=== PATIENT | female | born 1950 | race African-American/Black ===

== ENCOUNTER → 2020-03-03 15:38 | Outpatient (CLI) | payer MEDICARE, OTHER, SELFPAY ==
--- NOTE | ~2020-03-03 | MM_ITS ---
EXAMINATION: MM screening skyler BI w chiara HISTORY: Screening mammogram TECHNIQUE: Craniocaudal and mediolateral oblique 3-D tomosynthesis images were obtained and synthetic 2-D images were generated. CAD analysis was submitted and interpreted. COMPARISON: No prior mammogram is available for comparison at this institution. BREAST PARENCHYMAL COMPOSITION: There are scattered areas of fibroglandular density. FINDINGS: There are some indeterminate grouped microcalcifications in the lower mid inner left breast at mid depth. Diagnostic left mammogram with magnification views is recommended. No suspicious mass, architectural distortion, malignant calcification, skin thickening or retraction of either breast is noted otherwise. There are scattered bilateral benign calcifications. IMPRESSION: 1. Indeterminate grouped microcalcifications in the left breast 2. Diagnostic left mammogram is recommended. BI-RADS Category 0: Incomplete: Needs additional imaging evaluation. Reviewed, dictated and finalized at location A. LING ENGINEER
== END ==
PROVIDERS: PCP Family Medicine; Visit Provider Family Medicine
DX: Z12.31 Encounter for screening mammogram for malignant neoplasm of breast (principal); R92.8 Other abnormal and inconclusive findings on diagnostic imaging of breast
CPT/HCPCS: 77063; 77067

== ENCOUNTER → 2020-06-08 09:37 | Outpatient (CLI) | payer MEDICARE, OTHER, MEDICAID, SELFPAY ==
--- NOTE | ~2020-06-08 | CT_ITS ---
EXAMINATION: CT abdomen w con DATE: 06/08/2020 10:08 INDICATION: Elevated liver enzymes, generalized abdominal pain. History of hernia repair and bowel re section. TECHNIQUE: Computed tomography (CT) of the abdomen was performed with 100 cc Omnipaque 350 intravenou s contrast. Automated exposure control and iterative reconstruction technique were employed. Exam dos e: 544.49 mGy-cm total exam DLP. COMPARISON: None. FINDINGS: The lung bases are clear of infiltrate or consolidation. Normal heart size. No pericardial or pleural effusion. Small sliding hiatal hernia. Postoperative change of the stomach. The gallbladder is absent. There is intrahepatic and extrahepatic bile duct dilatation, the common bi le measures up to 1.4 cm, tapering distally. No hepatic, splenic, pancreatic, adrenal or renal space-occupying mass lesion is evident. There is at herosclerotic calcification of the abdominal aorta and iliac arteries but no aneurysm. No intraperito violet or retroperitoneal mass lesion or lymphadenopathy. There is a prominent amount of fecal material in the colon but no evidence of bowel obstruction. No i ntraperitoneal free air. Small fat-containing umbilical hernia. Severe degenerative disc disease at T10-11 and T11-12. Status post interbody and posterior spinal fusion at L3-S1. IMPRESSION: Status post cholecystectomy, possibly responsible for intrahepatic and extrahepatic bile duct dilatation; recommend correlation with serum bilirubin level Small sliding hiatal hernia Postoperative change of the stomach Reviewed, dictated and finalized at Location A. Reviewed, dictated and finalized at location A. IMPRESSION: Status post cholecystectomy, possibly responsible for intrahepatic and extrahepatic bile duct dilatation; recommend correlation with serum biliru bin level Small sliding hiatal hernia Postoperative change of the stomach
[2020-06-08 09:55] LABS: Estimated Glomerular Filt Rate 49
== END ==
PROVIDERS: PCP Family Medicine; Visit Provider Physician Assistant
DX: R74.8 Abnormal levels of other serum enzymes (principal); R10.9 Unspecified abdominal pain; K59.00 Constipation, unspecified; Z90.49 Acquired absence of other specified parts of digestive tract; K44.9 Diaphragmatic hernia without obstruction or gangrene
CPT/HCPCS: 74160; Q9967

== ENCOUNTER 2021-03-20 14:32 | Emergency (ER) | payer MEDICARE, OTHER, SELFPAY ==
[2021-03-20] VITALS (14 sets, daily range): BP systolic 125–152; BP diastolic 77–90; PULSE 74–91; RESP 13–27; TEMP 37; O2SAT 96–100
--- NOTE | ~2021-03-20 | CT_ITS ---
EXAMINATION: CT brain wo con EXAM DATE: 03/20/2021 15:08 INDICATION: Altered mental status TECHNIQUE: Spiral CT of the head was performed without contrast. Axial, coronal and sagittal images were reviewed. The dose-length product (DLP) for this examination was 605.33 mGy-cm. The exposure w as tailored according to patient size, and iterative reconstruction (ASIR) was used as additional dos e reduction technique. Comparison is made to prior examination from 04/22/18. FINDINGS: There is no acute intraparenchymal hemorrhage. No evidence of intraparenchymal brain mass lesion. Minimal microangiopathy. No evidence of acute infarction. There is no mass effect or midline shift. The ventricles are normal in size. There are no extra-axial collections. There are no acut e calvarial fractures. The orbits are unremarkable. Soft tissue is unremarkable. Minimal right ethm oid mucoperiosteal thickening. IMPRESSION: 1. No acute intracranial findings. Reviewed, dictated and finalized at location G. MAN
--- NOTE | 2021-03-20 17:08 | ECG_ITS ---
Measurements Intervals [place] Rate: 79 P: 57 WV: 193 QRS: 30 QRSD: 97 T: 32 QT: 352 QTc: 405 Interpretive Statements SINUS RHYTHM EARLY PRECORDIAL R/S TRANSITION BASELINE ARTIFACT- I, II, III, AVR, AVL, AVF, V1, V3-V6 BORDERLINE ECG Electronically Signed On 03-20-2021 20:23:30 WEB ENGINEER by Lisandro Woodard D.O.
[2021-03-20 17:24] LABS: Alveolar/Arterial O2 Gradient 9.1 mmHg; Base Excess ABG 0.6 mEq/l (+/-2.0); Fractional Inspired Oxygen 21 %; HCO3 ABG 25.2 mEq/l (22.0-26.0); Oxygen Content ABG 16.7 %vol (16.0-22.0); Oxygen Saturation ABG 97.1 % (95.0-100.0); Oxyhemoglobin 95.3 % THb (90.0-100.0); PCO2 ABG 40.6 mmHg (35.0-45.0); PO2 FiO2 Ratio Arterial Blood 4.38 %; Total Hemoglobin 12.4 g/dL (12.0-18.0); pH ABG 7.411 (7.350-7.450)
[2021-03-20 17:25] LABS: Device ROOM AIR; Modified Allen's Test Pass; Site Drawn LEFT RADIAL
[2021-03-20] MEDS: NALOXONE HCL 0.4 MG/ML VIAL IV PUSH (18:02)
[2021-03-20 18:06] LABS: Add Urine Microscopic? NO; Appearance Urine Clear (Clear); Bilirubin Urine Negative (Negative); Blood Urine Negative (Negative); Color Urine Yellow (Yellow); Glucose Urine UA Negative (Negative); Ketones Urine Negative (Negative); Leukocyte Esterase Ur Negative LEU/UL (Negative); Nitrate Urine Negative (Negative); Protein Urine Negative (Negative); Specific Grav Ur 1.021 (1.001-1.035); Urobilinogen Urine Negative mg/dL (<2.0)
[2021-03-20 18:10] LABS: Basophils Percent Auto 0.2 % (0.2-1.2); Eosinophils Absolute Auto 0.1 K/mm3 (0-0.3); Eosinophils Percent Auto 1.9 % (0-4.4); Hematocrit 42.2 % (37.0-47.0); Hemoglobin 12.8 g/dL (12.0-15.0); Immature Granulocyte Absolute 0.02 K/mm3 (0.00-0.031); Immature Granulocyte Percent A 0.3 % (0-0.5); Lymphocytes Absolute Auto 1.91 K/mm3 (0.9-3.2); Lymphocytes Percent Auto 30.9 % (18.3-44.2); Mean Corpuscular HGB Conc 30.3 g/dl (32-36); Mean Corpuscular Hemoglobin 26.6 pg (26-34); Mean Corpuscular Volume 87.7 fl (80-100); Mean Platelet Volume 11.2 fl (7.4-10.4); Monocytes Absolute Auto 0.5 K/mm3 (0.1-0.6); Monocytes Percent Auto 8.3 % (2.6-8.5); Neutrophils Absolute Auto 3.6 K/mm3 (1.3-6.7); Neutrophils Percent Auto 58.4 % (45.5-73.1); Platelet Count Result 184 k/mm3 (150-375); Red Blood Count 4.81 M/mm3 (4.2-5.4); White Blood Count 6.2 K/mm3 (4.5-10.0)
[2021-03-20 18:29] LABS: Amphetamine Screen Urine Negative (Negative); Barbiturate Screen Urine Negative (Negative); Benzodiazepines Screen Urine Positive (Negative); Cannabinoid Screen Urine Negative (Negative); Cocaine Screen Urine Negative (Negative); Methadone Screen Urine Negative (Negative); Opiate Screen Urine Negative (Negative); Phencyclidine Screen Urine Negative (Negative)
[2021-03-20 18:35] LABS: Alanine Aminotransferase 70 U/L (4-35); Albumin Level 4.6 g/dL (3.5-5.1); Alkaline Phosphatase 144 U/L (38-126); Anion Gap 7 mmol/L (8-16); Aspartate Amino Transferase 61 U/L (14-36); Bilirubin,Total 0.4 mg/dL (0.2-1.3); Blood Urea Nitrogen 19 mg/dL (7-17); Carbon Dioxide 26 mmol/L (22-30); Chloride 109 mmol/L (98-107); Estimated CRCL calculation 39 ml/min; Estimated Glomerular Filt Rate 60; Glucose 92 mg/dL (65-110); Potassium 3.8 mmol/L (3.4-5.0); Sodium 142 mmol/L (137-145)
--- NOTE | 2021-03-20 18:46 | PC.NURSE ---
No change in mental status after Narcan. Continues to slur speech and ask inappropriate questions.
--- NOTE | 2021-03-20 18:53 | ED.AMS ---
HPI - Altered Mental Status General Chief Complaint: Altered Mental Status Stated Complaint: Altered LOC and Hypertension Time Seen by Provider: 03/20/21 17:01 Source: patient and family Mode of arrival: wheelchair Limitations: clinical condition History of Present Illness HPI narrative: 70-year-old female She is referred from primary care office because of altered mental status at the time of her appointment today Her had taken her into the doctor because of altered mental status which she describes as being slow, inattentive, unable to see things through from start to finish and some confusion Patient herself does not have any complaints, denies headache, denies a fever, denies cough or shortness of breath, denies nausea or vomiting, denies any urinary symptoms, denies any kind of focal weakness Related Data Allergies Allergy/AdvReac Type Severity Reaction Status Date / Time aspirin Allergy Mild Nausea Verified 03/20/21 17:03 Review of Systems Review of Systems: All systems reviewed & are unremarkable except as noted in HPI and below Constitutional: Constitutional: Reports no additional constitutional complaints, Denies chills, Reports fatigue, Denies fever(s), Denies headache(s) and Reports weakness Eyes: Eyes: Reports no additional eye complaints and Denies change in vision ENT: Denies headache(s) and Denies sore throat Cardiovascular: Cardiovascular: Denies chest pain and Denies dyspnea Respiratory: Respiratory: Denies cough and Denies dyspnea Gastrointestinal: Gastrointestinal: Denies abdominal pain, Denies diarrhea and Denies vomiting Genitourinary: Genitourinary: Denies urinary frequency and Denies dysuria Musculoskeletal: Musculoskeletal: Denies deformity, Denies arthralgias, Denies joint swelling and Denies numbness Integumentary/Breasts: Skin/Breast: Denies rash and Denies wounds Neurologic: Reports confusion, Denies headache(s), Denies focal weakness and Denies numbness Psychiatric: Psychiatric: Reports no additional psychiatric complaints Endocrine: Endocrine: Reports no additional endocrine complaints Hematologic/Lymphatic: Hematologic/Lymphatic: Reports no additional hematologic/lymphatic complaints Allergic/Immunologic: Allergic/Immunologic: Reports no additional allergic/immunologic complaints PMFSH Past Medical History Medical History Benign essential HTN Chronic pain Chronic pain syndrome CKD (chronic kidney disease) stage 3, GFR 30-59 ml/min Opioid use Surgical History Surgical History Bariatric surgery status History of hip replacement, total Total knee replacement status Family History Family History Mother , 83 yrs old Brain tumor Other Family history of arthritis Social History Social History Social History: Engaged Smoking status: Former smoker Second hand tobacco smoke exposure: No Alcohol intake: current Alcohol use details: occassionally Substance use: never Substance use type: does not use Additional living arrangements comments: pt lives with fiance Gender identity (if verbalized by the patient): Female Sexual Orientation (if Verbalized by the Patient): Straight or Heterosexual Exam Const: General: cooperative and no acute distress Orientation/consciousness: patient oriented x3 (alert) Limitations: altered mental status Other: A little lethargic and sometimes sort of laughs or giggles a little inappropriately HENMT: Head: normal to inspection, normocephalic, atraumatic, no contusions and no hematomas Ears: external ears normal General nose exam: no epistaxis Mouth: Yes moist mucous membranes Eyes: Conjunctivae: conjunctivae normal EOM: EOMs intact bilaterally Neck: Neck: normal visual inspection, supple a
== END 2021-03-20 19:40 | disposition home or self-care (01) ==
PROVIDERS: Emergency Provider Emergency Medicine; PCP Family Medicine
DX: T65.91XA Toxic effect of unspecified substance, accidental (unintentional), initial encounter (principal); R41.0 Disorientation, unspecified; I12.9 Hypertensive chronic kidney disease with stage 1 through stage 4 chronic kidney disease, or unspecified chronic kidney disease; N18.30 Chronic kidney disease, stage 3 unspecified; Z98.84 Bariatric surgery status; Z96.649 Presence of unspecified artificial hip joint; Z96.659 Presence of unspecified artificial knee joint; Z87.891 Personal history of nicotine dependence; G89.4 Chronic pain syndrome; R94.31 Abnormal electrocardiogram [ECG] [EKG]
CPT/HCPCS: 36415; 36600; 51701; 70450; 80053; 80307; 81003; 82805; 85025; 93005; 96374; 99284; J2310

== ENCOUNTER 2021-06-20 15:13 | Outpatient (CLI) | payer MEDICARE, OTHER, SELFPAY ==
--- NOTE | ~2021-06-20 | XR_ITS ---
EXAMINATION: XR hip RT min 2V DATE: 06/20/2021 15:54 INDICATION: Right hip pain. TECHNIQUE: 3 views of right hip were obtained. COMPARISON: Pelvis and right hip radiographs 04/04/2021 FINDINGS: There is a healed subcapital fracture deformity of right femoral neck. Internal fixation se en with 3 lag screws. No acute fracture. There is mild right hip osteoarthritis. There are changes of anterior and posterior fusion procedures in lumbosacral spine. IMPRESSION: 1. Mild right hip osteoarthritis. Reviewed, dictated and finalized at location B.
--- NOTE | ~2021-06-20 | US_ITS ---
EXAMINATION: US abdomen complete DATE: 06/20/2021 16:19 INDICATION: Elevated LFTs. TECHNIQUE: Multiple grayscale and Doppler ultrasound images of the abdomen were obtained. COMPARISON: None available FINDINGS: Bowel gas obscures visualization of the pancreas. Mildly dilated intrahepatic ducts, otherw ise the liver is normal with normal echogenicity and echotexture. No surface nodularity. Normal hepat opetal flow in the main portal vein. The gallbladder is absent. The normal common bile duct measures 1.4 cm. The visualized portions of the aorta and inferior vena cava are normal. The right kidney measures 9.5. The left kidney measures 8.8. The kidneys demonstrate normal parenchym al echogenicity. There is no hydronephrosis. The spleen is normal in appearance and measures 7.5 cm. IMPRESSION: 1. Intra and extrahepatic biliary duct dilation, likely related to prior cholecystectomy. 2. Otherwise normal abdominal US findings. Reviewed, dictated and finalized at location K. IMPRESSION: 1. Intra and extrahepatic biliary duct dilation, likely related to prior cholec ystectomy. 2. Otherwise normal abdominal US findings.
--- NOTE | ~2021-06-20 | XR_ITS ---
EXAMINATION: XR chest 2V Exam Date/Time: 06/20/2021 15:30 CDT CLINICAL HISTORY: Z87.898 - Personal history of other specified conditions Comparison: 04/22/18. RESULT: Lines, tubes, and devices: None. Lungs and pleura: Clear. Cardiomediastinal silhouette: Stable cardiomediastinal silhouette. Other: No acute osseous or upper abdominal finding. IMPRESSION: No acute cardiopulmonary process Reviewed, dictated and finalized at location K.
== END 2021-06-20 15:14 | disposition home or self-care (01) ==
PROVIDERS: PCP Family Medicine; Visit Provider Nurse Practitioner Gerontology
DX: R74.8 Abnormal levels of other serum enzymes (principal); Z87.898 Personal history of other specified conditions; R60.9 Edema, unspecified; M25.551 Pain in right hip; M16.11 Unilateral primary osteoarthritis, right hip
CPT/HCPCS: 71046; 73502; 76700

== ENCOUNTER 2021-12-18 08:08 | Outpatient (CLI) | payer MEDICARE, OTHER, SELFPAY ==
--- NOTE | ~2021-12-18 | CT_ITS ---
EXAMINATION: CT shoulder RT wo con DATE: 12/18/2021 08:37 INDICATION: Right rotator cuff arthropathy. TECHNIQUE: Computed tomography (CT) of the right shoulder was performed without intravenous contrast. Automated exposure control and iterative reconstruction technique were employed. The dose-length pro duct was 518.44 mGy-cm. COMPARISON: Right shoulder radiographs 12/12/2021 FINDINGS: There is superior subluxation of humeral head with narrowing of the subacromial space and r emodeling of the undersurface of the acromion, consistent with rotator cuff tear with cuff arthropath y. There are suture anchors in the greater tuberosity. No acute fracture. There is severe osteoarthri tis of glenohumeral joint. There is moderate osteoarthritis of acromioclavicular joint. There is mode rate fatty atrophy of supraspinatus and infraspinatus muscle bellies. There is a small glenohumeral j oint effusion with loose bodies. IMPRESSION: 1. Chronic rotator cuff tear with cuff arthropathy. 2. Severe osteoarthritis of glenohumeral joint and moderate osteoarthritis of acromioclavicular joint . 3. Small glenohumeral joint effusion with loose bodies. Reviewed, dictated and finalized at location A. IMPRESSION: 1. Chronic rotator cuff tear with cuff arthropathy. 2. Severe osteoarthritis of glenohumeral joint and moderate osteoarthritis of a cromioclavicular joint. 3. Small glenohumeral joint effusion with loose bodies.
[2021-12-18 09:34] LABS: Hematocrit 39.3 % (37.0-47.0); Hemoglobin 11.8 g/dL (12.0-15.0)
[2021-12-18 09:44] LABS: Urine Cotinine NEGATIVE
[2021-12-18 09:46] LABS: Estimated Glomerular Filt Rate 45
== END 2021-12-18 08:09 | disposition home or self-care (01) ==
PROVIDERS: PCP Family Medicine; Visit Provider Orthopaedic Surgery
DX: N18.30 Chronic kidney disease, stage 3 unspecified (principal); G89.4 Chronic pain syndrome; Z79.899 Other long term (current) drug therapy; M19.011 Primary osteoarthritis, right shoulder; M24.011 Loose body in right shoulder
CPT/HCPCS: 73200; 80307; 82040; 82565; 85014; 85018

== ENCOUNTER 2022-01-31 08:28 | Outpatient (CLI) | payer MEDICARE, OTHER, SELFPAY ==
--- NOTE | ~2022-01-31 | MM_ITS ---
EXAMINATION: MM screening skyler BI w chiara HISTORY: Screening TECHNIQUE: Craniocaudal and mediolateral oblique 3-D tomosynthesis images were obtained and synthetic 2-D images were generated. CAD analysis was submitted and interpreted. COMPARISON: Comparison to multiple prior studies sequentially, with oldest reviewed study dated 05/14. BREAST PARENCHYMAL COMPOSITION: The breasts are almost entirely fatty. FINDINGS: There are stable benign-appearing bilateral breast calcifications. There is no evidence of suspicious mass, calcification, or architectural distortion to suggest malignancy in either breast. T here has been no suspicious interval change. IMPRESSION: 1. No mammographic evidence of malignancy. 2. Recommend routine screening mammography in one year. BI-RADS Category 2: Benign finding(s). Reviewed, dictated and finalized at location B. RVISOR SAWING AND ASSEMBLY
--- NOTE | ~2022-01-31 | DEXA_ITS ---
Bone Density Report Name: GABINO WEIR Age: 71 Sex: Female Ethnicity: White Date of : 1950 Indication: postmenopausal; screening for osteoporosis; height loss; prior fracture; rheumatoid arthritis; Referring Provider: PRITI CRUZ Study: Bone densitometry was performed. Exam Date: January 31, 2022 Accession number: [id number] Bone Density: Region BMD T-score Z-score Classification AP Spine(L1, L2) 1.195 2.0 3.9 Normal Femoral Neck (Left) 0.641 -1.9 -0.1 Osteopenia Total Hip (Left) 0.675 -2.2 -0.7 Osteopenia World Health Organization criteria for BMD impression classify patients as: Normal (T-score at or above -1.0), Osteopenia (T-score between -1.0 and -2.5), or Osteoporosis (T-score at or below -2.5). 10-year Fracture Risk: FRAX not reported because: Prior hip or vertebral fracture Clinical Information Provided by Patient: Have had a previous hip or vertebral fracture Has had a low trauma fracture Has rheumatoid arthritis Has used the following medications: Vitamin D, Calcium Patient maximum height was 68 Menopause Age: 47 Drinks caffeinated beverages Onset of menses at age 13 Number of children 0 Impression: The patient has low bone mass, based on the Left Total Hip T-score. The patient has risk factors, including: previous fracture. Discussion: INCREASED RISK OF FRACTURE DUE TO HISTORY OF FRACTURE. The patient's previous fracture puts the patient at high risk of a future fracture. In untreated patients, the risk of osteoporotic fracture increases approximately two-fold for each 1.0 SD decrease in T-score. Low bone density is not the only risk factor for fracture; also consider factors such as patient's age, frailty or poor health, risk of falling, risk of injury, previous osteoporotic fracture, family history of osteoporosis, cigarette smoking, low body weight, etc. Not everyone with a low trauma fracture has osteoporosis; osteomalacia and other metabolic bone disorders should also be considered. Patients who have osteoporosis should be evaluated for specific diseases and conditions (secondary causes) that may cause or contribute to bone loss and fracture risk. National Osteoporosis Foundation (NOF) recommends pharmacologic intervention for patients with a prior hip or vertebral fracture regardless of BMD T-score. The patient should follow a healthful lifestyle (good nutrition with adequate calcium and vitamin D, and appropriate weight-bearing exercise). Follow-Up: Consider a repeat BMD and Vertebral Fracture Assessment (VFA) exam in 2 years or sooner if medically necessary, to reassess this patient's status. Reported by: JOSEFINA on 01/31/2022 9:08:00 AM. Reviewed, dictated and finalized at location Lorene GARCIA
== END 2022-01-31 08:29 | disposition home or self-care (01) ==
PROVIDERS: PCP Family Medicine; Visit Provider Family Medicine
DX: Z12.31 Encounter for screening mammogram for malignant neoplasm of breast (principal); Z78.0 Asymptomatic menopausal state; M85.852 Other specified disorders of bone density and structure, left thigh
CPT/HCPCS: 77063; 77067; 77080

== ENCOUNTER 2022-02-20 09:35 | Outpatient (CLI) | payer MEDICARE, OTHER, SELFPAY ==
--- NOTE | 2022-02-20 10:37 | ECG_ITS ---
Measurements Intervals [place] Rate: 66 P: 48 [place]: 172 QRS: 18 QRSD: 94 T: 28 QT: 380 QTc: 399 Interpretive Statements SINUS RHYTHM BASELINE ARTIFACT- I, II, III, AVR, AVL, AVF, V1-V6 NORMAL ECG COMPARED TO ECG 03/20/2021 17:23:30 NO SIGNIFICANT CHANGES Electronically Signed On 02-20-2022 11:06:51 POSSUM TRAPPER by Lisnadro Woodard D.O.
[2022-02-20 11:06] LABS: Basophils Percent Auto 0.4 % (0.2-1.2); Eosinophils Absolute Auto 0.1 K/mm3 (0-0.3); Eosinophils Percent Auto 1.7 % (0-4.4); Hematocrit 39.1 % (37.0-47.0); Hemoglobin 11.8 g/dL (12.0-15.0); Immature Granulocyte Absolute 0.01 K/mm3 (0.00-0.031); Immature Granulocyte Percent A 0.1 % (0-0.5); Lymphocytes Absolute Auto 2.06 K/mm3 (0.9-3.2); Lymphocytes Percent Auto 28.6 % (18.3-44.2); Mean Corpuscular HGB Conc 30.2 g/dl (32-36); Mean Corpuscular Hemoglobin 26.7 pg (26-34); Mean Corpuscular Volume 88.5 fl (80-100); Mean Platelet Volume 10.5 fl (7.4-10.4); Monocytes Absolute Auto 0.5 K/mm3 (0.1-0.6); Monocytes Percent Auto 6.8 % (2.6-8.5); Neutrophils Absolute Auto 4.5 K/mm3 (1.3-6.7); Neutrophils Percent Auto 62.4 % (45.5-73.1); Platelet Count Result 213 k/mm3 (150-375); Red Blood Count 4.42 M/mm3 (4.2-5.4); Red Cell Distribution Width 13.7 % (11.5-14.5); White Blood Count 7.2 K/mm3 (4.5-10.0)
[2022-02-20 11:12] LABS: Anion Gap 3 mmol/L (8-16); Blood Urea Nitrogen 33 mg/dL (7-17); Calcium 8.9 mg/dL (8.4-10.2); Carbon Dioxide 30 mmol/L (22-30); Chloride 106 mmol/L (98-107); Estimated Glomerular Filt Rate 39; Glucose 97 mg/dL (65-110); Potassium 5.6 mmol/L (3.4-5.0); Sodium 139 mmol/L (137-145)
[2022-02-20 11:15] LABS: Prothrombin Time 13.1 Seconds (11.1-14.7)
[2022-02-20 11:16] LABS: Partial Thromboplastin Time 30.3 SECONDS (22.3-36.8)
== END 2022-02-20 09:36 | disposition home or self-care (01) ==
PROVIDERS: Anesthesiology; PCP Family Medicine; Visit Provider Orthopaedic Surgery
DX: I12.9 Hypertensive chronic kidney disease with stage 1 through stage 4 chronic kidney disease, or unspecified chronic kidney disease (principal); N18.30 Chronic kidney disease, stage 3 unspecified; M12.811 Other specific arthropathies, not elsewhere classified, right shoulder; Z01.818 Encounter for other preprocedural examination
CPT/HCPCS: 36415; 80048; 85025; 85610; 85730; 87081; 93005

== ENCOUNTER 2022-03-15 11:03 | Outpatient (CLI) | payer MEDICARE, OTHER, SELFPAY ==
[2022-03-15 12:14] LABS: Hematocrit 40.6 % (37.0-47.0); Hemoglobin 12.4 g/dL (12.0-15.0); Mean Corpuscular HGB Conc 30.5 g/dl (32-36); Mean Corpuscular Hemoglobin 27.9 pg (26-34); Mean Corpuscular Volume 91.4 fl (80-100); Platelet Count Result 215 k/mm3 (150-375); Red Blood Count 4.44 M/mm3 (4.2-5.4); Red Cell Distribution Width 13.4 % (11.5-14.5); White Blood Count 6.3 K/mm3 (4.5-10.0)
[2022-03-15 12:27] LABS: Alanine Aminotransferase 60 U/L (6-35); Albumin Level 4.3 g/dL (3.5-5.1); Alkaline Phosphatase 140 U/L (38-126); Anion Gap 5 mmol/L (8-16); Aspartate Amino Transferase 52 U/L (14-36); Bilirubin,Total 0.4 mg/dL (0.2-1.3); Blood Urea Nitrogen 38 mg/dL (7-17); Calcium 9.1 mg/dL (8.4-10.2); Carbon Dioxide 26 mmol/L (22-30); Chloride 105 mmol/L (98-107); Cholesterol 187 mg/dL (0-200); Estimated Glomerular Filt Rate 39; Glucose 99 mg/dL (65-110); HDL Direct 54 mg/dL; Magnesium 2.2 mg/dL (1.6-2.3); Sodium 136 mmol/L (137-145); Triglycerides 99 mg/dL (<150)
[2022-03-15 12:38] LABS: LDL Cholesterol Direct 85 mg/dL
[2022-03-15 12:48] LABS: Iron 85 ug/dL (37-170)
[2022-03-15 12:57] LABS: Percent Iron Saturation 20 % (20-50)
[2022-03-17 15:30] LABS: PCP NEGATIVE ng/mL (<25)
[2022-03-25 08:50] LABS: Amphetamines Negative; Barbiturates Negative; Benzodiazepines Positive; Cocaine Metabolites Negative
== END 2022-03-15 11:04 | disposition home or self-care (01) ==
LOC: ANHLAB 11:09
PROVIDERS: PCP Family Medicine; Visit Provider Nurse Practitioner Gerontology
DX: M12.811 Other specific arthropathies, not elsewhere classified, right shoulder (principal); Z79.899 Other long term (current) drug therapy; I12.9 Hypertensive chronic kidney disease with stage 1 through stage 4 chronic kidney disease, or unspecified chronic kidney disease; N18.30 Chronic kidney disease, stage 3 unspecified; R74.8 Abnormal levels of other serum enzymes; Z87.898 Personal history of other specified conditions; K59.00 Constipation, unspecified; R63.5 Abnormal weight gain; Z96.653 Presence of artificial knee joint, bilateral; G89.4 Chronic pain syndrome
CPT/HCPCS: 36415; 80053; 80061; 80307; 83540; 83550; 83735; 84443; 85027

== ENCOUNTER 2022-03-21 00:56 | Day surgery (SDC) | payer MEDICARE, OTHER, SELFPAY ==
[2022-02-20 10:00] VITALS: BP 108/72; PULSE 60; RESP 16; TEMP 36.8; O2SAT 100; BMI 27.6
--- NOTE | 2022-02-20 10:16 | PC.NURSE ---
Report to the Outpatient Waiting Room, entrance under the green pavilion located off [facility], at time _6:00AM on date __03/21/22 . Planned Procedure Time: __7:30AM . Time changes happen often and if your time is changed the preop area will call you the afternoon before. - You and your visitor will be asked to self-screen and do not enter if you have any COVID symptoms. - Only one visitor is requested with a max of two and NO children visitors are allowed at this time. - The patient visitor may be requested to leave or wait in car when not with patient due to distancing restrictions. - A mask is optional within the hospital. Patients may have clear liquids (water, carbonated beverages, clear teas, apple juice) until 3 hours prior to surgery with a maximum of 20 ounces. - No food from midnight until time of surgery Take the following medications with a SIP of water the morning of surgery: __GABAPENTIN, HYDROCODONE, METOPROLOL Medications to discontinue per physician ___HOLD ALL VITAMINS/SUPPLEMENTS FOR 7 DAYS PRE-OP PER DR THAKUR (PER PT AND S.O.) Date to take last dose___03/13/22 Please no make-up, nail vietnamese, hairspray, perfume, deodorant, or body powder the day of surgery. No jewelry (including any body piercings) or valuables the day of surgery, leave them at home. Please take a shower or bath the night before, or the morning of, surgery with an antibacterial soap. Wear comfortable, loose fitting clothing. Children are encouraged to wear pajamas. - Jewelry must be removed prior to entering the operating room. Rings and piercings that are not removed may be cut off. - The hospital will not accept responsibility for valuables. - Please leave all valuables, including medications, at home the day of surgery. If you are going home after surgery, a licensed [employer] company driver must drive you home. - NO public transportation without another adult if you receive anesthesia. - We recommend that an adult stay with you for 24 hours following discharge. - We also recommend that you do not drive, make important decision, drink alcoholic beverages, or take any drugs that were not prescribed by your health care provider for at least 24 hours after your discharge time. Follow any additional instructions given to you from your surgeon. If you or anyone in your household have experienced Covid symptoms in the past week, please notify your surgeon or the nurse liaison at the phone number below for possible testing. Telephone instructions given to _PATIENT & S.O. and asked if any additional questions and then verbalized understanding. Patient advised to call surgeon office or pre surgery nurse liaison [phone] if any additional questions.
[2022-03-21] VITALS (15 sets, daily range): BP systolic 108–150; BP diastolic 68–92; PULSE 74–98; RESP 12–20; TEMP 36–36.8; O2SAT 90–100
--- NOTE | ~2022-03-21 | XR_ITS ---
Right Shoulder Technique: AP and scapular Y views were obtained. Clinical History: Arthroplasty Findings: No fracture or dislocation is seen. Reverse right shoulder arthroplasty hardware is present . No hardware convocation identified. Postsurgical changes noted in the soft tissues about the right shoulder. Impression: Status post reverse right shoulder arthroplasty. Reviewed, dictated and finalized at [facility]. NICAL ACCOUNT REPRESENTATIVE Impression: Status post reverse right shoulder arthroplasty.
[2022-03-21] MEDS: LACTATED RINGERS 1,000 ML 30 ML IV CONT ×2 (06:25→09:56)
--- NOTE | 2022-03-21 06:42 | WPDANESEPPF ---
Anes - Initial Pre Proc Eval Procedure: Operation Date: 03/21/22 07:30 Proposed Procedures p Right Reverse Total Shoulder Arthroplasty - Perfecto Cooper MD Date/Time: 03/21/22 06:42 Surgeon: Perfecto Cooper MD Pre Op Diagnosis: Rt Rot Arthropathy Patient Data Age: 71 Gender: F Height: 1.65 m Weight: 74 kg Last Vital Signs Temp 36.6 C 03/21/22 06:15 Pulse 74 03/21/22 06:15 Resp 16 03/21/22 06:15 BP 120/74 03/21/22 06:15 Pulse Ox 100 03/21/22 06:15 O2 Del Method Room Air 03/21/22 06:15 Allergies Allergy/AdvReac Type Severity Reaction Status Date / Time No Known Allergies Allergy Verified 03/21/22 06:00 Home Medications Medication Instructions Recorded Confirmed Type lubiprostone 24 mcg capsule 24 mcg PO BID #60 caps 11/13/21 03/21/22 Rx (Amitiza) azelastine 137 mcg (0.1 %) nasal 1 spray intranasal QAM 02/20/22 03/21/22 History spray aerosol calcium carbonate 500 mg calcium 1,000 mg PO DAILY 02/20/22 03/21/22 History (1,250 mg) chewable tablet (Calcium 500) gabapentin 300 mg capsule 300 mg PO BID 02/20/22 03/21/22 History magnesium oxide 400 mg PO QAM 02/20/22 03/21/22 History metoprolol succinate 50 mg 50 mg PO QAM 02/20/22 03/21/22 History tablet,extended release 24 hr multivitamin 1 tablet PO DAILY 02/20/22 03/21/22 History cholecalciferol (vitamin D3) 50 50 mcg PO DAILY #90 tabs 02/26/22 03/21/22 Rx mcg (2,000 unit) chewable tablet hydrocodone 5 mg-acetaminophen 325 1 tablet PO Q8H PRN pain #60 tabs 02/26/22 03/21/22 Rx mg tablet loratadine 10 mg tablet 10 mg PO DAILY #90 tabs 02/26/22 03/21/22 Rx pantoprazole 40 mg tablet,delayed See Rx Instructions .Route 03/18/22 03/21/22 Rx release .COMPLEX #90 tabs Patient hx anesthesia problems: none Family hx anesthesia problems: none Results Review: All pre-operative results and documents have been reviewed as part of the pre-operative evaluation. [facility] Past Medical History Medical History Benign essential HTN Bilateral hip pain Bilateral primary osteoarthritis of knee Chronic pain Chronic pain syndrome CKD (chronic kidney disease) stage 3, GFR 30-59 ml/min Closed displaced fracture of acromial end of left clavicle Complete tear iliofemoral ligament Elevated liver enzymes Opioid use Primary osteoarthritis of left knee Primary osteoarthritis of right knee Spinal stenosis of lumbar region with neurogenic claudication Surgical History Surgical History Bariatric surgery status History of hip replacement, total Presence of left artificial knee joint Presence of right artificial knee joint Total knee replacement status Family History Family History Mother , 83 yrs old Brain tumor Other Family history of arthritis Social History Social History Social History: Engaged Smoking status: Never smoker Second hand tobacco smoke exposure: No Alcohol intake: current Alcohol use details: occassionally Substance use: never Substance use type: does not use Lack of Transportation: No Lack of Food: Never True Current Housing: I Have Housing Concerned About Future Housing: No Difficulty Paying Gas/Electric Bills: No Difficulty Paying for Meds: No Currently Unemployed: No Education: High School Diploma/GED Difficulty w/ Childcare or Family Care: No Living arrangements: other Additional living arrangements comments: SIGNIFICANT OTHER Occupation/Education: retired Gender identity (if verbalized by the patient): Female Sexual Orientation (if Verbalized by the Patient): Straight or Heterosexual Spiritual care concerns: No Anes - Eval Final PreProcedure Day of Procedure 03/21/22 06:42 Patient weight: overweigh
[2022-03-21] MEDS: TRANEXAMIC ACID 1,000MG/ISO100 1,000 MG/100 ML BAG 200 MG IVPB (06:59)
--- NOTE | 2022-03-21 06:59 | WPDANESPNB ---
Anes - Peripheral Nerve Block Date/Time: 03/21/22 06:59 I have discussed with the patient/family/POA the placement of a peripheral nerve block for post-operative pain management, including associated risks, benefits, complications, and side effects. Alternative methods of post-operative analgesia were detailed. Questions were solicited and answers provided to the satisfaction of the patient/family/POA. Time-Out: A pre-procedural Time-Out was completed immediately before starting the procedure and confirmed: Patient Identification, Site, Procedure, Patient Position and the Availability of Requisite Equipment. Clinical Indications: Acute post-operative pain management requested by the operative surgeon. Nerve Block Insertion Note Anes-nerve block: interscalene right Patient position: supine Skin prep: chlorhexidine Needle: 22 gauge, stimulating, insulated echogenic needle. Needle length: 50 mm Technique: ultrasound Injectate: bupivacaine 0.5% with epi 5 mcg/ml (30cc- no epi) Observations: tolerated well Complications: none Procedure start time:: 724 Procedure end time:: 728
--- NOTE | 2022-03-21 07:25 | WPDHPUPDATE1 ---
History and Physical Update Update Date/Time: 03/21/22 07:25 History and Physical has been reviewed, including an updated exam of the patient. There are NO changes in the patient's condition. Risks, benefits, and alternatives have been discussed and questions answered. Patient agrees to proceed with procedure.
[2022-03-21] MEDS: ceFAZolin 2 GM/D5W 50 ML 2 GM/50 ML BAG IVPB ×3 (07:32→22:00)
[2022-03-21] MEDS: VANCOMYCIN HCL 1,000 MG VIAL 1000 MG TOPICAL (09:29)
[2022-03-21] MEDS: oxyCODONE HCL (*CRX) 5 MG TAB IR 10 MG PO ×2 (14:34→19:47)
[2022-03-21] MEDS: PANTOPRAZOLE 40 MG TABLET BY MOUTH (14:35)
[2022-03-21] MEDS: SODIUM CHLORIDE 0.9% IV 1,000 ML 125 ML IV CONT (14:35)
--- NOTE | 2022-03-21 14:36 | W.PM.PROC2 ---
Procedure Note - Detailed Date of Procedure 03/21/22 Pre-op Diagnosis Right shoulder rotator cuff arthropathy Post-op Diagnosis Same Procedure Performed Reverse total shoulder arthroplasty, right. Surgeon Perfecto Cooper MD Pedigree Researcher Nimo Ott PA-C Anesthesia General and Regional (Interscalene block.) Findings Chronic massive rotator cuff tear with significant scar tissue from prior surgery. Thinness at the lateral deltoid but no palpable defect. Anterior deltoid intact. Moderate superior and posterior erosion of the glenoid observed on the CT scan 3 dimensional planning. Approximately 10 degree superior and 10 degree posterior. Correction with a 15 degree augment at the posterior superior quadrant. Bone quality fairly poor on the glenoid but better on the humerus. Minimal reaming on the glenoid performed due to the 15 degree augment. Subscapularis repaired without undue tension. Superior posterior cuff severely attenuated. Only the most posterior inferior teres minor remained. Description of Procedure The patient was given an interscalene block in the preoperative area. Preoperative antibiotics were given. The patient was transferred to the operating room and a general anesthetic was administered. The beach chair position was used at 45 degrees. All bony prominences were padded. The head was carefully stabilized on the [facility] kiln head house operator. A sterile prep and drape was performed in the usual manner with ChloraPrep. A longitudinal incision was created at the anterior shoulder just lateral to the deltopectoral interval. Hydrogen peroxide was placed on the incision and then rinsed after one minute. Careful dissection was performed to expose the interval and protect the cephalic vein. The vein was retracted medially. The upper border of the pectoralis was released. Anterior circumflex vessel branches were suture ligated. The biceps was chronically retracted and attenuated. A subscapularis tenotomy was performed. The inferior capsule was released, exposing the humeral head. Osteophytes were removed. Care was taken to stay on bone to protect the axillary nerve. The anatomic head cut was taken with the oscillating saw. The guide pin was placed, central drilling performed, and the broach trial inserted. The neck anteversion and inclination were carefully assessed. The cut protector was placed, and attention was turned to the glenoid. Retractors were placed. Releases were carried out for exposure. The subscapularis was mobilized, the inferior capsule and long head of triceps released, and the superior and middle glenohumeral ligaments released as well. Labral tissue was resected as needed. The sizing template was used to assess the baseplate position low on the glenoid. A guide pin was placed. Minimal reaming was used to accomplish a flat surface without violating the subchondral bone. Version was corrected according to preoperative templating. The boss was drilled, and the real component was impacted into position. The center compression screw was placed. Supplemental locking screws were placed superiorly, anteroinferiorly, and inferiorly. The glenosphere was impacted into the taper. The proximal humerus was reamed for the inset component. The humeral components were trialed. The real humeral stem, tray, and insert were impacted into position. The shoulder was copiously irrigated periodically with pulsatile lavage. The shoulder was reduced and stability confirmed. 1 gram of Vancomycin powder was placed in the joint. The biceps tenodesis was incorporated with the pectoralis tendon repair. The deltopectoral space was reapproximated with number 1 Vicryl. The remaining tissue was closed with 0 Quill and 2-0 Quill running suture and steri-strips. A sterile silver occlusive dressing and shoulder immobilizer were placed. The patient was transferred to the recovery room. Physician assistant professor of art, Nimo Ott PA-C, required for surgery; including patient posi
[2022-03-21] MEDS: SENNA/DOCUSATE SODIUM TABLET 2 TAB PO (17:56)
[2022-03-21] MEDS: LUBIPROSTONE 24 MCG CAPSULE PO (17:56)
[2022-03-21] MEDS: ASPIRIN 81 MG ENTERIC TABLET PO (17:56)
[2022-03-21] MEDS: GABAPENTIN 300 MG CAPSULE PO (17:56)
[2022-03-21] MEDS: FAMOTIDINE 20 MG TABLET PO (19:47)
[2022-03-21] MEDS: CYCLOBENZAPRINE HCL 10 MG TABLET PO (19:47)
[2022-03-21] MEDS: diphenhydrAMINE HCl INJ 50 MG/ML VIAL 25 MG IV PUSH (23:08)
[2022-03-21] MEDS: traMADol HCL (*CRX) 50 MG TABLET PO (23:08)
[2022-03-22] MEDS: oxyCODONE HCL (*CRX) 5 MG TAB IR 10 MG PO ×2 (03:07→07:51)
[2022-03-22] MEDS: CYCLOBENZAPRINE HCL 10 MG TABLET PO (03:17)
[2022-03-22] MEDS: ceFAZolin 2 GM/D5W 50 ML 2 GM/50 ML BAG IVPB (05:57)
[2022-03-22 06:00] VITALS: BP 123/67; PULSE 85; RESP 14; TEMP 36.7; O2SAT 97
[2022-03-22 06:23] LABS: Basophils Percent Auto 0.2 % (0.2-1.2); Eosinophils Percent Auto 0.1 % (0-4.4); Hemoglobin 11.2 g/dL (12.0-15.0); Immature Granulocyte Absolute 0.04 K/mm3 (0.00-0.031); Immature Granulocyte Percent A 0.4 % (0-0.5); Lymphocytes Absolute Auto 1.57 K/mm3 (0.9-3.2); Lymphocytes Percent Auto 15.6 % (18.3-44.2); Mean Corpuscular HGB Conc 30.3 g/dl (32-36); Mean Corpuscular Hemoglobin 28.1 pg (26-34); Mean Corpuscular Volume 92.7 fl (80-100); Mean Platelet Volume 10.7 fl (7.4-10.4); Monocytes Absolute Auto 0.6 K/mm3 (0.1-0.6); Monocytes Percent Auto 6.4 % (2.6-8.5); Neutrophils Absolute Auto 7.8 K/mm3 (1.3-6.7); Neutrophils Percent Auto 77.3 % (45.5-73.1); Platelet Count Result 177 k/mm3 (150-375); Red Blood Count 3.99 M/mm3 (4.2-5.4); Red Cell Distribution Width 13.1 % (11.5-14.5)
[2022-03-22 06:35] LABS: Anion Gap 3 mmol/L (8-16); Blood Urea Nitrogen 28 mg/dL (7-17); Calcium 8.5 mg/dL (8.4-10.2); Carbon Dioxide 27 mmol/L (22-30); Chloride 110 mmol/L (98-107); Estimated CRCL calculation 36 ml/min; Estimated Glomerular Filt Rate 54; Glucose 115 mg/dL (65-110); Potassium 4.6 mmol/L (3.4-5.0); Sodium 140 mmol/L (137-145)
--- NOTE | 2022-03-22 08:10 | PM.DS ---
DS: Admitting Diagnosis Discharge Date 03/22/22 Admitting Diagnosis Massive rotator cuff tear. DS: Discharge Diagnosis Discharge Diagnosis (1) Status post reverse total arthroplasty of right shoulder: Code(s): Z96.611 - Presence of right artificial shoulder joint Status: Acute Assessment and Plan: Postop day 1: Right reverse total shoulder Patient tolerated procedure well. No complications. Pain manageable with pain medication. No numbness or tingling. We had a lengthy discussion regarding postoperative wound care, limitations, expectations, and exercises. Patient shows good understanding. She has had initial physical therapy and is tolerating it well. DVT prophylaxis: 81 mg baby aspirin b.i.d. for 14 days. Pain medication: Percocet. Antibiotic: Keflex Patient has followup appointment with Dr. Cooper in 3 weeks. DS: Summary Hospital Course Hospital Course: Patient tolerated procedure well. Has had initial PT/OT. Status at Discharge Functional status at discharge: independent ambulation Overall status at discharge: patient is progressing back to baseline Time Spent with Patient Time attestation: Total time spent providing and/or coordinating discharge services: Exam Narrative: Overweight 71 y/o Female. Resting comfortably in bed. Wearing sling. Dressing dry and intact with no drainage. Moderate swelling. Moderate ecchymosis. No erythema. No hematoma. Range of motion limited due to pain. Calf nontender. Neurologic status intact. No varicosities. Distal pulses palpable. DS: Data Data Completed and Pending Labs on day of discharge: Labs from last 24 hours 03/22/22 03/22/22 06:04 06:04 WBC 10.0 RBC 3.99 L Hgb 11.2 L Hct 37.0 MCV 92.7 MCH 28.1 MCHC 30.3 L RDW 13.1 Plt Count 177 MPV 10.7 H Immature Gran % (Auto) 0.4 Neut % (Auto) 77.3 H Lymph % (Auto) 15.6 L Trigg % (Auto) 6.4 Eos % (Auto) 0.1 Baso % (Auto) 0.2 Lymph # (Auto) 1.57 Trigg # (Auto) 0.6 Eos # (Auto) 0.0 Baso # (Auto) 0.0 Abs Immat Gran (auto) 0.04 H Absolute Neuts (auto) 7.8 H Absolute Nucleated RBC 0.0 Nucleated RBC % 0.0 Sodium 140 Potassium 4.6 Chloride 110 H Carbon Dioxide 27 Anion Gap 3 L BUN 28 H D Creatinine 1.20 H Estim Creat Clear Calc 36 Estimated GFR 54 L Glucose 115 H Calcium 8.5 Discharge Plan Discharge Patient Disposition: Home, Self-Care Discharge Instructions: See green instruction sheets Stand Alone Forms: General Discharge Instructions Follow-up/Referrals: Nimo Ott PA [Physician [facility]] - Discharge Medications: New aspirin 81 mg tablet,delayed release (DR/EC) 81 mg PO BID 14 Days Qty: 28 0RF oxycodone-acetaminophen 5-325 mg tablet 1 - 2 tablet PO Q4-6H MDD 6 PRN (Reason: pain) Qty: 30 0RF cephalexin 500 mg capsule 500 mg PO BID 10 Days Qty: 20 0RF Rx Instructions: Take twice a day for 10 days. Continued lubiprostone [Amitiza] 24 mcg capsule 24 mcg PO BID Qty: 60 3RF loratadine 10 mg tablet 10 mg PO DAILY Qty: 90 3RF cholecalciferol (vitamin D3) 50 mcg (2,000 unit) tablet,chewable 50 mcg PO DAILY Qty: 90 1RF hydrocodone-acetaminophen 5-325 mg tablet 1 tablet PO Q8H PRN (Reason: pain) Qty: 60 0RF metoprolol succinate 50 mg tablet extended release 24 hr 50 mg PO QAM Rx Instructions: TAKE 1 TABLET BY MOUTH EVERY DAY gabapentin 300 mg capsule 300 mg PO BID Rx Instructions: TAKE 1 CAPSULE BY MOUTH TWICE A DAY azelastine 137 mcg (0.1 %) aerosol,spray 1 spray intranasal QAM Rx Instructions: SPRAY ONE SPRAY INTO EACH NOSTRIL EVERY 12 HOURS multivitamin Tablet 1 tablet PO DAILY calcium carbonate [Calcium 500] 500 mg calcium (1,250 mg) Tablet,Chewable 1,000 mg PO DAILY magnesium oxide 200 mg magnesium Tablet,Chewable 400 mg PO QAM pantoprazole 40 mg tablet
[2022-03-22 08:41] VITALS: PULSE 100
[2022-03-22] MEDS: PANTOPRAZOLE 40 MG TABLET BY MOUTH (08:41)
[2022-03-22] MEDS: SENNA/DOCUSATE SODIUM TABLET 2 TAB PO (08:41)
[2022-03-22] MEDS: ASPIRIN 81 MG ENTERIC TABLET PO (08:41)
[2022-03-22] MEDS: GABAPENTIN 300 MG CAPSULE PO (08:41)
[2022-03-22] MEDS: LUBIPROSTONE 24 MCG CAPSULE PO (08:41)
[2022-03-22] MEDS: polyethylene glycoL 3350 17 GM POWD.PACK PO (08:41)
[2022-03-22] MEDS: FAMOTIDINE 20 MG TABLET PO (08:41)
[2022-03-22] MEDS: METOPROLOL SUCCINATE EXT REL 50 MG TABCR PO (08:41)
== END 2022-03-22 12:00 | disposition home or self-care (01) ==
LOC: ANHSURGERY 10:21 → ANH3MEDSUR 11:35
PROVIDERS: Physician Assistant Surgical; PCP Family Medicine; Visit Provider Orthopaedic Surgery
PROC: (CPT 23472; principal; 2022-03-21 07:30)
DX: M75.101 Unspecified rotator cuff tear or rupture of right shoulder, not specified as traumatic (principal); M12.811 Other specific arthropathies, not elsewhere classified, right shoulder; G89.18 Other acute postprocedural pain; I12.9 Hypertensive chronic kidney disease with stage 1 through stage 4 chronic kidney disease, or unspecified chronic kidney disease; N18.30 Chronic kidney disease, stage 3 unspecified; G89.4 Chronic pain syndrome; Z79.891 Long term (current) use of opiate analgesic; Z98.84 Bariatric surgery status; Z87.891 Personal history of nicotine dependence
CPT/HCPCS: 23472; 64415; 36415; 73030; 80048; 85025; 86850; 86900; 86901; 97110; 97161; 97165; 97530; 97535; A4565; A9270; J0131; J0171; J0330; J0690; J1100; J1170; J1200; J2250; J2270; J2370; J2704; J2710; J2795; J3010; J3370; J7030; J7120

== ENCOUNTER 2022-10-02 11:21 | Outpatient (CLI) | payer MEDICARE, OTHER, SELFPAY ==
--- NOTE | ~2022-10-02 | US_ITS ---
EXAMINATION: US thyroid DATE: 10/02/2022 12:04 INDICATION: Nontoxic goiter, unspecified. TECHNIQUE: Multiple ultrasound images of the thyroid were obtained. COMPARISON: None. FINDINGS: The right thyroid lobe measures 3.8 x 1.4 x 1.6 cm. The left thyroid lobe measures 3.3 x 1.4 x 1.4 c m. In the right thyroid lobe, there is a 5 mm mixed cystic and solid, hypoechoic, wider than tall no dule with smooth margin without echogenic foci (TI-RADS TR3). In the left thyroid lobe, there is a 4 mm nodule. IMPRESSION: 1. Small thyroid nodules, likely not clinically significant. No follow-up is needed. Reviewed, dictated and finalized at location A. IMPRESSION: 1. Small thyroid nodules, likely not clinically significant. No follow-up is ne eded.
== END 2022-10-02 11:22 | disposition home or self-care (01) ==
LOC: ANHIMG 11:23
PROVIDERS: PCP Family Medicine; Visit Provider Registered Nurse
DX: E04.2 Nontoxic multinodular goiter (principal)
CPT/HCPCS: 76536

== ENCOUNTER 2022-10-17 10:08 | Outpatient (CLI) | payer MEDICARE, OTHER, SELFPAY ==
[2022-10-17 10:37] LABS: Hematocrit 38.4 % (37.0-47.0); Hemoglobin 11.3 g/dL (12.0-15.0)
[2022-10-17 10:51] LABS: Prothrombin Time 13.4 Seconds (11.1-14.7)
[2022-10-17 10:52] LABS: Partial Thromboplastin Time 34.3 SECONDS (22.3-36.8)
[2022-10-17 10:54] LABS: Anion Gap 4 mmol/L (8-16); Blood Urea Nitrogen 24 mg/dL (7-17); Calcium 9.1 mg/dL (8.4-10.2); Carbon Dioxide 30 mmol/L (22-30); Chloride 105 mmol/L (98-107); Estimated Glomerular Filt Rate 54; Glucose 86 mg/dL (65-110); Potassium 4.3 mmol/L (3.4-5.0); Sodium 139 mmol/L (137-145)
== END 2022-10-17 10:09 | disposition home or self-care (01) ==
LOC: ANHSURGERY 10:13
PROVIDERS: Anesthesiology; PCP Family Medicine; Visit Provider Orthopaedic Surgery
DX: Z01.818 Encounter for other preprocedural examination (principal); N18.31 Chronic kidney disease, stage 3a; D64.9 Anemia, unspecified
CPT/HCPCS: 36415; 80048; 85014; 85018; 85610; 85730

== ENCOUNTER 2022-10-22 01:16 | Day surgery (SDC) | payer MEDICARE, OTHER, SELFPAY ==
--- NOTE | 2022-10-14 11:17 | PC.NURSE ---
PRE-OP INSTRUCTIONS, PLEASE READ CAREFULLY Report to the Outpatient Waiting Room, entrance under the green pavilion located off [facility], at time _1000_ on date _10/22/22_. Planned Procedure Time: _1200_. Time changes happen often and if your time is changed the preop area will call you the afternoon before. - You and your visitor will be asked to self-screen and do not enter if you have any COVID symptoms. - A mask is optional within the hospital at this time. Patients may have clear liquids (water, carbonated beverages, clear teas, apple juice) until 3 hours prior to surgery (0900 AM) with a maximum of 20 ounces. - No food from midnight until time of surgery Take the following medications with a SIP of water the morning of surgery: _GABAPENTIN, METOPROLOL, NASAL SPRAY, & PAIN PILL IN NEEDED _ DO NOT STOP ANY OF YOUR OTHER PRESCRIPTION MEDICATIONS PRIOR TO SURGERY ?EXCEPT THE FOLLOWING Medications to discontinue per ANESTHESIA - _MULTIVITAMIN 3 DAYS PRIOR TO SURGERY, Date to take last dose 10/18/22_ Please no make-up, nail cypriot, hairspray, perfume, deodorant, or body powder the day of surgery. No jewelry (including any body piercings) or valuables the day of surgery, leave them at home. Please take a shower or bath the night before, or the morning of, surgery with an antibacterial soap. Wear comfortable, loose fitting clothing. - Jewelry must be removed prior to entering the operating room. Rings and piercings that are not removed may be cut off. - The hospital will not accept responsibility for valuables. - Please leave all valuables, including medications, at home the day of surgery. If you are going home after surgery, a licensed driver wheelchair must drive you home. - NO public transportation without another adult if you receive anesthesia. - We recommend that an adult stay with you for 24 hours following discharge. - We also recommend that you do not drive, make important decision, drink alcoholic beverages, or take any drugs that were not prescribed by your health care provider for at least 24 hours after your discharge time. Follow any additional instructions given to you from your surgeon. If you or anyone in your household have experienced Covid symptoms in the past week, please notify your surgeon or the nurse liaison at the phone number below for possible testing. Telephone instructions given to _PATIENT_and asked if any additional questions and then verbalized understanding. Patient advised to call surgeon office or pre surgery nurse liaison [phone] if any additional questions.
[2022-10-14 11:22] VITALS: BMI 27.5
[2022-10-22] VITALS (8 sets, daily range): BP systolic 116–135; BP diastolic 67–85; PULSE 78–95; RESP 12–20; TEMP 36.1–36.7; O2SAT 98–100
--- NOTE | 2022-10-22 07:26 | WPDHPUPDATE1 ---
History and Physical Update Update Date/Time: 10/22/22 07:26 History and Physical has been reviewed, including an updated exam of the patient. There are NO changes in the patient's condition. Risks, benefits, and alternatives have been discussed and questions answered. Patient agrees to proceed with procedure.
--- NOTE | 2022-10-22 08:06 | WPDANESEPPF ---
Anes - Initial Pre Proc Eval Procedure: Operation Date: 10/22/22 12:00 Proposed Procedures p Right Deltoid Muscle Repair - Perfecto Cooper MD Date/Time: 10/22/22 08:06 Surgeon: Perfecto Cooper MD Pre Op Diagnosis: Rt Deltoid Muscle Tear Patient Data Age: 72 Gender: F Height: 1.65 m Weight: 75 kg Allergies Allergy/AdvReac Type Severity Reaction Status Date / Time No Known Allergies Allergy Verified 10/22/22 10:11 Home Medications Medication Instructions Recorded Confirmed Type lubiprostone 24 mcg capsule 24 mcg PO BID #60 caps 11/13/21 10/22/22 Rx (Amitiza) azelastine 137 mcg (0.1 %) nasal 1 spray intranasal QAM 02/20/22 10/22/22 History spray aerosol calcium carbonate 500 mg calcium 1,000 mg PO DAILY 02/20/22 10/22/22 History (1,250 mg) chewable tablet (Calcium 500) magnesium oxide 400 mg PO QAM 02/20/22 10/22/22 History multivitamin 1 tablet PO DAILY 02/20/22 10/22/22 History cholecalciferol (vitamin D3) 50 50 mcg PO DAILY #90 tabs 02/26/22 10/22/22 Rx mcg (2,000 unit) chewable tablet loratadine 10 mg tablet 10 mg PO DAILY #90 tabs 02/26/22 10/22/22 Rx gabapentin 300 mg capsule See Rx Instructions .Route 05/17/22 10/22/22 Rx .COMPLEX #180 caps metoprolol succinate 25 mg 12.5 mg PO DAILY #90 tabs 08/14/22 10/22/22 Rx tablet,extended release 24 hr naloxone 4 mg/actuation nasal spray 4 mg intranasal Q3M PRN opioid 08/14/22 10/14/22 Rx overdose #2 ea hydrocodone 5 mg-acetaminophen 325 1 tablet PO Q8H PRN pain #90 tabs 10/04/22 10/22/22 Rx mg tablet oxycodone-acetaminophen 5 mg-325 1 - 2 tablet PO Q4-6H PRN pain #30 10/22/22 Rx mg tablet tabs Patient hx anesthesia problems: none Family hx anesthesia problems: none Results Review: All pre-operative results and documents have been reviewed as part of the pre-operative evaluation. PMFSH Past Medical History Medical History (Updated 10/22/22 @ 08:07 by Avinash Chiu DO) Benign essential HTN Bilateral hip pain Bilateral primary osteoarthritis of knee Chronic pain Chronic pain syndrome CKD (chronic kidney disease) stage 3, GFR 30-59 ml/min Closed displaced fracture of acromial end of left clavicle Complete tear iliofemoral ligament Elevated liver enzymes Opioid use Primary osteoarthritis of left knee Primary osteoarthritis of right knee Spinal stenosis of lumbar region with neurogenic claudication Surgical History Surgical History Bariatric surgery status History of back surgery History of bilateral tubal ligation History of hip replacement, total Rt hip History of reverse total replacement of right shoulder joint (~03/21/22) Presence of left artificial knee joint (~2018) Presence of right artificial knee joint (~2018) Total knee replacement status Family History Family History Mother , 83 yrs old Brain tumor Other Family history of arthritis Social History Social History Social History: Engaged Smoking status: Never smoker Second hand tobacco smoke exposure: No Alcohol intake: current Alcohol use details: 2/MONTH Substance use: never Substance use type: does not use Lack of Transportation: No Lack of Food: Never True Current Housing: I Have Housing Concerned About Future Housing: No Difficulty Paying Gas/Electric Bills: No Difficulty Paying for Meds: No Currently Unemployed: No Education: High School Diploma/GED Difficulty w/ Childcare or Family Care: No Living arrangements: other Additional living arrangements comments: LIVES WITH SIGNIFICANT OTHER Occupation/Education: retired Gender identity (if verbalized by the patient): Female Sexual Orientation (if Verbalized by the Patient): Straight or Heterosexual Spiritual care concerns: No Anes - Eval Final
[2022-10-22] MEDS: LACTATED RINGERS 1,000 ML 30 ML IV CONT ×2 (11:00→13:29)
[2022-10-22] MEDS: KETOROLAC 15 MG/ML VIAL (*BKC) IV PUSH (11:03)
[2022-10-22] MEDS: ceFAZolin 2 GM/D5W 50 ML 2 GM/50 ML BAG IVPB (11:29)
[2022-10-22] MEDS: VANCOMYCIN HCL 1,000 MG VIAL 1000 MG TOPICAL (12:43)
[2022-10-22] MEDS: BUPIVACAINE/EPINEPHRINE 0.5% 50 ML VIAL 30 ML INFILTRATE (12:49)
[2022-10-22] MEDS: fentaNYL CITRATE INJ (*CRX) 100 MCG/2 ML VIAL 25 MCG IV PUSH ×2 (13:54→14:03)
--- NOTE | 2022-10-22 15:11 | W.PM.PROC2 ---
Procedure Note - Detailed Date of Procedure 10/22/22 Pre-op Diagnosis Right Deltoid Muscle Tear Post-op Diagnosis Other (1. Chronic dehiscence of the middle deltoid status post previous mini open rotator cuff repair. 2. Retained suture anchor at the greater tuberosity.) Procedure Performed Right shoulder 1. Open deltoid muscle repair. 2. Removal retained suture anchor at the greater tuberosity. Surgeon Perfecto Cooper MD Fraud Manager Nimo Ott PA-C Anesthesia General Indications Persistent weakness and clinical deformity at the middle deltoid muscle attachment. Status post remote mini open rotator cuff repair. Also more recent reverse total shoulder arthroplasty. Findings The thin portion of the deltoid just distal to the transverse scar at the lateral edge of the acromion was identified. The tendon was slightly attenuated but once reduced the deltoid muscle fibers were in good shape. Retraction appeared to be less than 2 cm. The suture anchor in the greater tuberosity appeared to be causing irritation on the underside of the deltoid. It was removed. In order to reinforce the tissue a 3-1/2 x 3 and 0.5 cm dermal allograft was sutured over the defect. Description of Procedure Preoperative antibiotics were given. The shoulder was prepped and draped in usual sterile fashion. Examination revealed good motion and mobility at the joint although noted stiffness with attempted elevation passively. The transverse incision was opened and the attachment of the middle deltoid appeared indeed to be attenuated. It could be reduced by pulling on the tendinous material and overlapping it. The tension of the muscle appeared very nice and the deltoid wrap of the arm was reconstituted fairly dramatically. At this point the split was created in the deltoid fibers near the acromion. Little tissue needed to be removed and simply by sewing in a [id number] fashion the deltoid tension was optimized. Prior to closure the subcutaneous space was observed to have significant adhesions. These were released. The back and the of a suture anchor had become fairly prominent and this was removed with a needle clamp truck driver. Multiple Ethibond sutures through the acromion with modified Chucky-Danny suturing was performed. Slight anterior split at the junction of the healthy anterior deltoid was also oversewn. After repair, it was elected to reinforce the deltoid muscle and tendon with the dermal allograft. This was sutured in with interrupted 2. Vicryl suture. The wound was copiously irrigated with antibiotic solution throughout the procedure. 1 g of vancomycin powder was introduced through the deltoid defect into the subcutaneous space and into the subcutaneous tissues prior to closure. Three 0 Monocryl suture used in the subcutaneous layer and running 4-0 Monocryl suture in the skin. Steri-Strips with a sterile dressing was applied. An abductor pillow sling was applied. Implants Arthrex, dermal allograft. Arthroflex, Aflex 100; 35 x 35 x 1.5 mm Estimated Blood Loss 20 Drains No Packing No Pathology None sent Complications No immediate complications Condition Stable Disposition PACU [facility] Billing Surgery - Charge Forward: Surgery Billing
== END 2022-10-22 15:28 | disposition home or self-care (01) ==
PROVIDERS: PCP Family Medicine; Visit Provider Orthopaedic Surgery
PROC: (CPT 23455; principal; 2022-10-22 12:00)
DX: S46.811A Strain of other muscles, fascia and tendons at shoulder and upper arm level, right arm, initial encounter (principal); M62.519 Muscle wasting and atrophy, not elsewhere classified, unspecified shoulder; Z96.611 Presence of right artificial shoulder joint; M12.811 Other specific arthropathies, not elsewhere classified, right shoulder; X58.XXXA Exposure to other specified factors, initial encounter; I12.9 Hypertensive chronic kidney disease with stage 1 through stage 4 chronic kidney disease, or unspecified chronic kidney disease; N18.30 Chronic kidney disease, stage 3 unspecified; G89.29 Other chronic pain; Z79.891 Long term (current) use of opiate analgesic
CPT/HCPCS: 24341; A4565; J0690; J1100; J1170; J1885; J2250; J2405; J2704; J3010; J3370; J7120

== ENCOUNTER 2023-02-03 10:02 | Outpatient (CLI) | payer MEDICARE, OTHER, SELFPAY ==
--- NOTE | ~2023-02-03 | MM_ITS ---
EXAMINATION: MM screening skyler BI w [facility] HISTORY: Screening mammogram TECHNIQUE: Craniocaudal and mediolateral oblique 3-D tomosynthesis images were obtained and synthetic 2-D images were generated. CAD analysis was submitted and interpreted. COMPARISON: 01/21/2022, 03/03/2020 bilateral screening mammogram examinations BREAST PARENCHYMAL COMPOSITION: There are scattered areas of fibroglandular density. FINDINGS: Scattered bilateral benign calcifications are again present. There is no evidence of suspic ious mass, calcification, or architectural distortion to suggest malignancy in either breast. There h as been no suspicious interval change. IMPRESSION: 1. No mammographic evidence of malignancy. 2. Recommend routine screening mammography in one year. BI-RADS Category 2: Benign finding(s). Reviewed, dictated and finalized at location A. ROLLING MACHINE OPERATOR
== END 2023-02-03 10:03 | disposition home or self-care (01) ==
LOC: ANHIMG 10:04
PROVIDERS: PCP Family Medicine; Visit Provider Registered Nurse
DX: Z12.31 Encounter for screening mammogram for malignant neoplasm of breast (principal)
CPT/HCPCS: 77063; 77067

== ENCOUNTER 2024-04-30 16:18 | Outpatient (CLI) | payer MEDICARE, OTHER, SELFPAY ==
--- NOTE | ~2024-04-30 | CT_ITS ---
Procedure: CT shoulder LT wo con Ordering provider: Perfecto Cooper MD History: . Preoperative Planning . Comparison: None. Technique: Thin slice axial CT of the No IV contrast was given. Sagittal and coronal reformatted imag es were also obtained and reviewed. Findings: BONES: Screws are seen in the humeral head. Ossified structures are seen superior to the glenoid cavity suggestive of synovial chondromatosis. El evation of the humeral head with narrowing of the distance between the humeral head and acromion proc ess. Bony protrusions are seen in the inferior distal clavicle. JOINT SPACES: Narrowing of the glenohumeral joint suggestive of osteoarthritic changes with marginal osteophytes in the glenoid cavity. Osteoarthritic changes of the acromioclavicular joint. SOFT TISSUES: Screw fragment is seen posterior to the left kidney noted cavity. IMPRESSION: Screw is seen in the soft tissues posteriorly. 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 Reviewed, dictated and finalized at location A.
--- OUTSIDE RECORDS SUMMARY | 2024-04-30 16:24 | XMS_ITS | Patient Health Summary ---
Author Organization [facility] Address [address] [place] [address] Care Team Providers Care Avionics Engineer Name Role Phone Meagan Godoy RN Unavailable [phone] Charles Thornton MD Unavailable [phone] Perfecto Cooper MD Unavailable [phone] Elizabeth Brown MD Unavailable [phone] Elizabeth Brown MD Primary Care Provider U navailable Note from [facility],non-owned Affiliates and Associated Physician Practices is amultiple site organization consisting of ambulatory clinics and hospital sitesin [place], [place], [place] and [place]. This disclosure is being madepursuant to the Care Everywhere program and may not contain all information available regarding this patient. Last updated 17.[facility] Allergies * Aspirin(Nausea and/or Vomiting) Medications * Be aware that medications may not be up to date on this document. Alwaysverify current medications with the patient. * calcium-vitamin D (OS-SRINATH 250 PLUS D) 250-125 MG-UNIT tablet Take 1 (one) tablet by mouth once daily * metoprolol succinate XL 24hr (TOPROL XL) 50 MG tablet(Started 09/21/2018) TAKE ONE TABLET BY MOUTH ONCE DAILY 1 refill remaining * gabapentin (NEURONTIN) 300 MG capsule(Started 10/05/2018) Take 1 capsule by mouth at bedtime Reasons: Pain Following an Operation 5 refills remaining * Multiple Vitamins-Minerals (HAIR SKIN AND NAILS FORMULA PO) * Luymzxf-Ixyryaghhd-Hqtibwb D (CITRACAL +D3 PO) Take by mouth every 7 days * azelastine (ASTELIN) 0.1 % nasal spray(Started 01/21/2021) * Homeopathic Products (LEG CRAMPS PO) * diphenhydrAMINE HCl (BENADRYL PO) * HYDROcodone-acetaminophen ([place]) 5-325 MG tablet Take 1 (one) tablet by mouth every 6 hours as needed for Pain * acetaminophen (Tylenol) 500 MG tablet Take 1 (one) tablet by mouth every 4 hours as needed for Fever or Pain Maximum allowable Acetaminophen amount = 4 Grams (4000 mg) / 24 hours. 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 (AFLURIA, FLUZONE TRIVALENT; 6MO+) (IIV3)(Given 12/14/2013) * Covid Pfizer primary monovalent 12+ yr 0.3mL Purple cap(Given 10/24/2020, 09/29/2020) * INFLUENZA VACCINE(Given 01/05/2019, 01/23/2015, 10/18/2012) * INFLUENZA VACCINE, HIGH-DOSE, QUADR. (FLUZONE HIGH-DOSE QUADRIVALENT; 65Y+), 0.7 ML (HD-IIV4)(Given 11/07/2017) * INFLUENZA VACCINE, QUADR. (AFLURIA, FLUZONE QUADRIVALENT; 6MO+) (IIV4)(Given 11/19/2016, 12/05/2015) * INFLUENZA VACCINE, QUADR. (FLUZONE; FLULAVAL; FLUARIX; AFLURIA QUADRIVALENT; 6MO+), 0.5 ML (IIV4)(Given 11/08/2019) * INFLUENZA VACCINE, TRIV. (FLUZONE; FLULAVAL; FLUARIX; AFLURIA TRIVALENT; 6MO+), 0.5 ML (IIV3)(Given 04/19/2014) * PNEUMOCOCCAL PPSV23(Given 11/19/2016, 11/17/2012) * Pneumococcal Pcv13 Conj(Given 01/09/2019, 12/04/2017) * TDAP (7yrs+)(Given 11/08/2019, 12/05/2015) * ZOSTER VACCINE, LIVE(Given 10/18/2012) * Zoster Hzv Vacc Recombinant Inj Im(Given 07/18/2019, 01/09/2019) Social History Tobacco Use Types Packs/Day Years Used Date Smoking Tobacco: Never Smokeless Tobacco: Never Tobacco Cessation:Counseling Given: Not Answered Alcohol Use Standard Drinks/Week Comments Not Currently 0.8 (1 standard drink = 0.6 oz p ure alcohol) socially Sex and Gender Information Value Date Recorded Sex Assigned at Not on file Gender Identity Female 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 Sexual Orientation Not on file Last Filed Vital Signs Vital Sign Reading Time Taken Comments Blood Pressure 131/75 06/16/2023 1:35 PM CDT Pulse 74 06/16/2023 1:35 PM CDT Temperature 36.7 C (98.1 F) 06/16/2023 1:27 PM CDT Respiratory Rate 14 06/16/2023 1:35 PM CDT Oxygen Saturation 96% 06/16/2023 1:35 PM CDT Inhaled Oxygen Concentration - - Weight 71.2 kg (157 lb) 06/16/2023 11:41 AM CDT Height 165.1 cm (5' 5 ) 06/16/2023 11:41 AM CDT Body Mass Index 26.13 06/16/2023 11:41 AM CDT Procedures * HELICOBACTER PYLORI UREASE (STL)(Performed 06/16/2023) Performed for Diagnosis unknown * EGD(Performed 06/16/2023) Performed for Epigastric pain, Dysphagia, unspecified type * DE ED EGD FLEX TRANSORAL DX(Performed 06/16/2023) * GROSS + MICRO EXAM (ILL)(Performed 05/30/2021) Performed for Gastroesophageal reflux disease, unspecified whether esophagitis present, Status postbariatric surgery, Screen for colon cancer * COLONOSCOPY SCREEN(Performed 05/30/2021) Performed for Gastroesophageal reflux disease, unspecified whether esophagitis present, Status postbariatric surgery, Screen for colon cancer * DE EGD FLEX TRANSORAL W BX SNGL OR MULT(Performed 05/30/2021) Performed for Gastroesophageal reflux disease, unspecified whether esophagitis present, Status postbariatric surgery, Screen for colon cancer * LAB MISC TEST(Performed 04/18/2021) * LAB(Performed 10/10/2020) * LAB(Performed 06/01/2020) * FL SWALLOWING FUNCTION STUDY(Performed 04/11/2020) Performed for Dysphagia, unspecified type * HELICOBACTER PYLORI UREASE (STL)(Performed 01/12/2020) Performed for Diagnosis unknown * DE ED EGD FLEX TRANSORAL DX(Performed 01/12/2020) * EGD(Performed 01/12/2020) * URIC ACID BLOOD(Performed 02/04/2019) Performed for Arthritis * LIPID PROFILE(Performed 02/04/2019) Performed for Essential hypertension * COMPREHENSIVE METABOLIC PANEL(Performed 02/04/2019) Performed for Essential hypertension * CT ABDOMEN PELVIS WWO CONTRAST(Performed 01/27/2019) Performed for Abdominal pain, LUQ (left upper quadrant), History of Bernice-en-Y gastric bypass * IMAGING/RADIOLOGY/XRAY RESULTS ORDER(Performed 11/10/2018) * COMPREHENSIVE METABOLIC PANEL(Performed 10/05/2018) Performed for Dizziness * CBC W AUTO DIFFERENTIAL(Performed 10/05/2018) Performed for Dizziness * IMAGING/RADIOLOGY/XRAY RESULTS ORDER(Performed 07/07/2018) * ERYTHROCYTE SEDIMENTATION RATE(Performed 04/06/2018) Performed for Elevated LFTs * JF BLOOD SCREEN W/REFLEX TITER(Performed 04/06/2018) Performed for Elevated LFTs * HEPATITIS PANEL(Performed 04/06/2018) Performed for Encounter for screening for other viral diseases , Elevated LFTs * COMPREHENSIVE METABOLIC PANEL(Performed 04/06/2018) Performed for Essential hypertension, Elevated LFTs * MAMMOGRAPHY ORDER(Performed 02/27/2018) * MAMMOGRAPHY ORDER(Performed 02/11/2018) * XR CHEST 2VW(Performed 05/30/2017) Performed for Preop examination, Essential hypertension * PTT(Performed 05/30/2017) Performed for Other specified disorders of kidney and ureter , Preop examination, Essential hypertension, Lipid screening * PT-INR(Performed 05/30/2017) Performed for Chronic kidney disease, unspecified CKD stage , Preop examination, Essential hypertension, Lipid screening * LIPID PROFILE(Performed 05/30/2017) Performed for Atherosclerosis , Preop examination, Lipid screening * CBC W AUTO DIFFERENTIAL(Performed 05/30/2017) Performed for Preop examination * COMPREHENSIVE METABOLIC PANEL(Performed 05/30/2017) Performed for Preop examination, Essential hypertension * EKG 12-LEAD(Performed 05/30/2017) Performed for Preop examination, Essential hypertension * MRI LUMBAR SPINE WO CONTRAST(Performed 11/20/2016) Performed for Chronic midline low back pain with sciatica, sciatica laterality unspecified * US ABDOMEN LIMITED(Performed 10/29/2016) Performed for Elevated LFTs * HEPATITIS C ANTIBODY(Performed 10/24/2016) Performed for Need for hepatitis C screening test * ERYTHROCYTE SEDIMENTATION RATE(Performed 10/24/2016) Performed for Malaise and fatigue * COMPREHENSIVE METABOLIC PANEL(Performed 10/24/2016) Performed for Malaise and fatigue * CBC W AUTO DIFFERENTIAL(Performed 10/24/2016) Performed for Malaise and fatigue * XR LUMBAR SPINE 2 OR 3VW(Performed 10/24/2016) Performed for Acute midline low back pain without sciatica * MAMMOGRAPHY ORDER(Performed 10/14/2016) * PATHOLOGY TISSUE EXAM (STL)(Performed 02/26/2016) Performed for Diagnosis unknown * COLONOSCOPY SCREEN(Performed 02/26/2016) * ENDOSCOPY, COLON, SCREENING(Performed 02/26/2016) * COMPREHENSIVE METABOLIC PANEL(Performed 02/13/2016) Performed for Malaise and fatigue * CBC W AUTO DIFFERENTIAL(Performed 02/13/2016) Performed for Malaise and fatigue * US EXTREMITY RIGHT LTD NONVASC(Performed 08/31/2015) Performed for Lower leg mass, right * FERRITIN(Performed 08/24/2015) Performed for Other iron deficiency anemia * CBC W AUTO DIFFERENTIAL(Performed 08/24/2015) Performed for Other iron deficiency anemia * IRON BLOOD(Performed 08/24/2015) Performed for Iron deficiency anemia due to sideropenic dysphagia * IRON + TIBC PANEL(Performed 05/19/2015) * FERRITIN(Performed 05/19/2015) Performed for Iron deficiency anemia due to sideropenic dysphagia * LIPID PROFILE(Performed 05/19/2015) Performed for Annual physical exam * TSH REFLEX FREE T4(Performed 05/19/2015) Performed for Annual physical exam * CBC W AUTO DIFFERENTIAL(Performed 05/19/2015) Performed for Annual physical exam, Iron deficiency anemia due to sideropenic dysphagia * COMPREHENSIVE METABOLIC PANEL(Performed 05/19/2015) Performed for Annual physical exam, Essential hypertension, hypertension with unspecified goal, Anxiety * MAMMOGRAPHY ORDER(Performed 05/15/2015) * DEXA BONE DENSITY 2 SITES(Performed 05/15/2015) * LAB RESULTS ORDER(Performed 04/18/2015) * IRON BLOOD(Performed 09/13/2014) Performed for Anemia, unspecified anemia type * FERRITIN(Performed 09/13/2014) Performed for Anemia, unspecified anemia type * CBC W AUTO DIFFERENTIAL(Performed 09/13/2014) Performed for Anemia, unspecified anemia type * BASIC METABOLIC PANEL (CALCIUM TOTAL)(Performed 09/13/2014) Performed for Anemia, unspecified anemia type * CBC W AUTO DIFFERENTIAL(Performed 06/27/2014) Performed for Iron deficiency anemia, unspecified * CARDIAC RHYTHM STRIP ORDER(Performed 04/29/2014) * HGB HCT PANEL(Performed 04/28/2014) * HGB HCT PANEL(Performed 04/28/2014) * HGB HCT PANEL(Performed 04/27/2014) Performed for UGI bleed * TYPE + SCREEN PANEL(Performed 04/27/2014) * SLIDE SCAN HEMATOLOGY(Performed 04/27/2014) * PT-INR(Performed 04/27/2014) * COMPREHENSIVE METABOLIC PANEL(Performed 04/27/2014) * CBC W AUTO DIFFERENTIAL(Performed 04/27/2014) * EKG 12-LEAD(Performed 04/27/2014) Performed for GI bleed * CARDIAC RHYTHM STRIP ORDER(Performed 04/22/2014) * CBC W AUTO DIFFERENTIAL(Performed 04/21/2014) * ECHOCARDIOGRAM 2D WITH DOPPLER(Performed 04/20/2014) Performed for Dizziness, UGI bleed, Other B-complex deficiencies, Unspecified protein-calorie malnutrition (HCC), Unspecified vitamin D deficiency, Abdominal pain, periumbilic, Odynophagia, HTN (hypertension), Anxiety * HELICOBACTER PYLORI ANTIBODY IGG QUAL(Performed 04/20/2014) * MAGNESIUM BLOOD(Performed 04/20/2014) Performed for Dizziness, UGI bleed, Other B-complex deficiencies, Unspecified protein-calorie malnutrition (HCC), Unspecified vitamin D deficiency, Abdominal pain, periumbilic, Odynophagia, HTN (hypertension), Anxiety * BASIC METABOLIC PANEL (CALCIUM TOTAL)(Performed 04/20/2014) Performed for Dizziness, UGI bleed, Other B-complex deficiencies, Unspecified protein-calorie malnutrition (HCC), Unspecified vitamin D deficiency, Abdominal pain, periumbilic, Odynophagia, HTN (hypertension), Anxiety * CBC W AUTO DIFFERENTIAL(Performed 04/20/2014) Performed for Dizziness, UGI bleed, Other B-complex deficiencies, Unspecified protein-calorie malnutrition (HCC), Unspecified vitamin D deficiency, Abdominal pain, periumbilic, Odynophagia, HTN (hypertension), Anxiety * TROPONIN I(Performed 04/20/2014) Performed for Dizziness, UGI bleed, Other B-complex deficiencies, Unspecified protein-calorie malnutrition (HCC), Unspecified vitamin D deficiency, Abdominal pain, periumbilic, Odynophagia, HTN (hypertension), Anxiety * ESOPHAGOGASTRODUODENOSCOPY (EGD) DIAGNOSTIC(Performed 04/19/2014) * HGB HCT PANEL(Performed 04/19/2014) * TROPONIN I(Performed 04/19/2014) Performed for Dizziness, UGI bleed, Other B-complex deficiencies, Unspecified protein-calorie malnutrition (HCC), Unspecified vitamin D deficiency, Abdominal pain, periumbilic, Odynophagia, HTN (hypertension), Anxiety * XR CHEST 1VW PORTABLE(Performed 04/19/2014) Performed for UGI bleed * XR ABDOMEN KUB(Performed 04/19/2014) Performed for UGI bleed * EGD(Performed 04/19/2014) * TROPONIN I(Performed 04/19/2014) Performed for Dizziness, UGI bleed, Other B-complex deficiencies, Unspecified protein-calorie malnutrition (HCC), Unspecified vitamin D deficiency, Abdominal pain, periumbilic, Odynophagia, HTN (hypertension), Anxiety * HGB HCT PANEL(Performed 04/19/2014) Performed for UGI bleed * HGB HCT PANEL(Performed 04/19/2014) * CT ABDOMEN PELVIS WO CONTRAST(Performed 04/19/2014) Performed for Dizziness * TYPE + SCREEN PANEL(Performed 04/19/2014) * PT-INR(Performed 04/18/2014) * COMPREHENSIVE METABOLIC PANEL(Performed 04/18/2014) * CBC W AUTO DIFFERENTIAL(Performed 04/18/2014) * EKG 12-LEAD(Performed 04/18/2014) Performed for Dizziness * MAMMOGRAPHY ORDER(Performed 02/23/2014) * HEPATIC FUNCTION PANEL(Performed 01/31/2014) Performed for Abnormal laboratory test result * VITAMIN B12 FOLATE PANEL(Performed 12/14/2013) Performed for Abnormal weight loss, Other B-complex deficiencies * T4 FREE(Performed 12/14/2013) Performed for Abnormal weight loss * TSH(Performed 12/14/2013) Performed for Abnormal weight loss * COMPREHENSIVE METABOLIC PANEL(Performed 12/14/2013) Performed for HTN (hypertension), Abnormal weight loss * VITAMIN D 1,25 DIHYDROXY(Performed 12/14/2013) Performed for Unspecified vitamin D deficiency * FERRITIN(Performed 12/14/2013) Performed for Anemia * CBC W AUTO DIFFERENTIAL(Performed 12/14/2013) Performed for Anemia, Abnormal weight loss * CARDIAC EKG ORDER(Performed 06/07/2013) * LAB RESULTS ORDER(Performed 06/07/2013) * PATHOLOGY/CYTOLOGY REPORT ORDER(Performed 03/09/2013) * MRI SHOULDER RIGHT WO CONTRAST(Performed 03/04/2013) Performed for Sprain and strain of shoulder and upper arm * TSH(Performed 02/15/2013) Performed for Fatigue * CBC W AUTO DIFFERENTIAL(Performed 02/15/2013) Performed for Fatigue * BASIC METABOLIC PANEL (CALCIUM TOTAL)(Performed 02/15/2013) Performed for HTN (hypertension) * IMAGING/RADIOLOGY/XRAY RESULTS ORDER(Performed 02/15/2013) * ESOPHAGOGASTRODUODENOSCOPY (EGD) DIAGNOSTIC(Performed 07/29/2012) * EGD(Performed 07/29/2012) * ENDOSCOPY ORDER(Performed 07/29/2012) * CT ABDOMEN PELVIS WO CONTRAST(Performed 07/28/2012) Performed for Nausea alone, Abdominal Pain, Unspecified Site * LAB RESULTS ORDER(Performed 07/08/2012) * IMAGING/RADIOLOGY/XRAY RESULTS ORDER(Performed 01/15/2012) * MAMMOGRAPHY ORDER(Performed 01/15/2012) * ENDOSCOPY, COLON, DIAGNOSTIC(Performed 03/06/2011) * GROSS + MICRO EXAM(Performed 03/06/2011) * CT ABDOMEN PELVIS W CONTRAST(Performed 01/31/2011) Performed for Abdominal pain, periumbilic, Odynophagia, Constipation * CREATININE BLOOD - POINT OF CARE (IP)(Performed 01/31/2011) * VITAMIN B1(Performed 10/31/2008) Performed for B-Complex Defic NEC * CBC W AUTO DIFFERENTIAL(Performed 10/31/2008) Performed for B-Complex Defic NEC * ZINC BLOOD(Performed 10/31/2008) Performed for B-Complex Defic NEC * COMPREHENSIVE METABOLIC PANEL(Performed 10/31/2008) Performed for B-Complex Defic NEC * MAGNESIUM BLOOD(Performed 10/31/2008) Performed for B-Complex Defic NEC * IRON BLOOD(Performed 10/31/2008) Performed for B-Complex Defic NEC * LIPID PROFILE(Performed 10/31/2008) Performed for B-Complex Defic NEC * PTH INTACT(Performed 10/31/2008) Performed for B-Complex Defic NEC * VITAMIN D 25-HYDROXY(Performed 10/31/2008) Performed for B-Complex Defic NEC * VITAMIN B12(Performed 10/31/2008) Performed for B-Complex Defic NEC * FERRITIN(Performed 10/31/2008) Performed for B-Complex Defic NEC * FOLATE RBC(Performed 10/31/2008) Performed for B-Complex Defic NEC * GROSS + MICRO EXAM(Performed 06/17/2007) * GROSS + MICRO EXAM(Performed 01/04/2005) * GROSS + MICRO EXAM(Performed 02/05/1999) Results * HELICOBACTER PYLORI UREASE (STL) (06/16/2023 1:21 PM CDT) Only the most recent of2 resultswithin the time period is included. Helicobacter pylori Urease Initial Negative Negative 06/17/2023 1:41 PM CDT [facility] Helicobacter pylori Urease Final Negative Negative 06/17/2023 1:41 PM CDT [facility] Microbiology GASTRIC ANTRAL BIOPSY SPECIMEN / Unknown 06/16/2023 1:21 PM CDT 06/16/2023 4:03 PM CDT Charles Thornton MD LAB - MICROBIOLOGY ORDERABLES [facility] [address] [place] [address] * EGD (06/16/2023 12:27 PM CDT) Report Endoscopy POC _ Patient Name: Taty Weir Procedure Date: 06/16/2023 12:27 PM Date of : 1950 Admit Type: Outpatient Age: 73 Gender: Female Attending MD: Charles Thornton MD, [id number] _ Procedure: Upper GI endoscopy Indications: Epigastric abdominal pain, Status post Bernice-en-Y, History of a marginal ulcer Providers: Charles Thornton MD (Doctor) Referring MD: Elizabeth Brown MD (Referring MD) Medicines: Monitored Anesthesia Care Complications: No immediate complications. _ Estimated Blood Loss: Estimated blood loss: none. Procedure: Pre-Anesthesia Assessment: - Prior to the procedure, a History and Physical was performed, and patient medications and allergies were reviewed. The patient is competent. The risks and benefits of the procedure and the sedation options and risks were discussed with the patient. All questions were answered and informed consent was obtained. Patient identification and proposed procedure were verified by the physician, the nurse and the chief compliance officer in the procedure room. Mental Status Examination: alert and oriented. Airway Examination: normal oropharyngeal airway and neck mobility. Respiratory Examination: clear to auscultation. CV Examination: normal. Prophylactic Antibiotics: The patient does not require prophylactic antibiotics. Prior Anticoagulants: The patient has taken no anticoagulant or antiplatelet agents. ASA Grade Assessment: II - A patient with mild systemic disease. After reviewing the risks and benefits, the patient was deemed in satisfactory condition to undergo the procedure. The anesthesia plan was to use monitored anesthesia care (MAC). Immediately prior to administration of medications, the patient was re-assessed for adequacy to receive sedatives. The heart rate, respiratory rate, oxygen saturations, blood pressure, adequacy of pulmonary ventilation, and response to care were monitored throughout the procedure. The physical status of the patient was re-assessed after the procedure. - Prior Aspirin/ NSAID therapy: The patient has taken no aspirin or NSAID medications. After obtaining informed consent, the endoscope was passed under direct vision. Throughout the procedure, the patient's blood pressure, pulse, and oxygen saturations were monitored continuously. The Endoscope was introduced through the mouth, and advanced to the efferent jejunal loop. The upper GI endoscopy was accomplished without difficulty. The patient tolerated the procedure well. Findings: The examined esophagus was normal. Evidence of a Bernice-en-Y gastrojejunostomy was found. The gastrojejunal anastomosis was characterized by ulceration on the jejunal side of the anastamosis. Biopsies were taken with a cold forceps for Helicobacter pylori testing using CLOtest. The examined jejunum was normal. _ Impression: - Normal esophagus. - Bernice-en-Y gastrojejunostomy with gastrojejunal anastomosis characterized by ulceration. Biopsied. - Normal examined jejunum. Recommendation: - Await pathology results. - Use Prilosec (omeprazole) 40 mg PO daily. Symptoms improving. - Strictly avoid NSAIDs and tobacco - Return to my office in 3 months. - Resume previous diet. - Post procedure medication orders were given. - Patient has a contact number available for emergencies. The signs and symptoms of potential delayed complications were discussed with the patient. Return to normal activities tomorrow. Written discharge instructions were provided to the patient. Procedure Code(s): --- Professional --- 88351, Esophagogastroduoden oscopy, flexible, transoral; with biopsy, single or multiple --- Technical --- 62575, Esophagogastroduoden oscopy, flexible, transoral; with biopsy, single or multiple Diagnosis Code(s): --- Professional --- Z98.0, Intestinal bypass and anastomosis status R10.13, Epigastric pain --- Technical --- Z98.0, Intestinal bypass and anastomosis status R10.13, Epigastric pain CPT copyright 2020 [employer]. All rights reserved. The codes documented in this report are preliminary and upon armature balancer review may be revised to meet current compliance requirements. Dr. Charles Thornton MD ___ Charles Thornton MD 06/16/2023 1:26:32 PM This report has been signed electronically. Number of Addenda: 0 Note Initiated On: 06/16/2023 12:27 PM [facility] 06/16/2023 12:2 7 PM CDT Kelly Gamez CLINICAL TRANSPLANT COORDINATOR-DEFECTIVE CIGARETTE SLITTER GI PROCEDURE OR DERABLES Performing Organization Address City/State/[facility] Co de Phone Number [facility] [place] [place] [address] * GROSS + MICRO EXAM (ILL) (05/30/2021 11:09 AM CDT) Case Report Surgical Pathology Report Case: [id number] Authorizing Provider: Magy Perez MD Collected: 05/30/2021 11:09 AM Ordering Location: [facility] Received: 05/30/2021 02:06 PM Pathologist: Jigar Conde MD Specimen: Polyp Descending 05/31/2021 9:28 AM CDT [facility] Final Diagnosis Large intestine, descending polyp, biopsy: - Tubular adenoma, negative for high-grade dysplasia 05/31/2021 9:28 AM CDT [facility] Microscopic Description and Comment Microscopic examination is performed and substantiates the above diagnosis. 05/31/2021 9:28 AM CDT [facility] Clinical History Screening for colon cancer 05/31/2021 9:28 AM CDT [facility] Gross Description The requisition and specimen(s) are identified with the patient's name, Taty Weir. Received in formalin, specimen A , is a 0.4 x 0.2 x 0.2 cm light romo tissue, submitted in toto in cassette A1. 05/31/2021 9:28 AM CDT [facility] Disclaimer The performance characteristics of all immunohistochemical and indirect immunofluorescence stains (if any) cited in this report were determined by the Histopathology Laboratory of [facility]. Some of these tests were developed by our own laboratory and have not been cleared or approved by the US Food and Drug Administration. The FDA does not require this test to go through premarket FDA review. These tests are used for clinical purposes. They should not be regarded as investigational or for research. This laboratory is certified under the Clinical Laboratory Improvement Amendments (CLIA) as qualified to perform high complexity clinical laboratory testing. H&E slides and special stains prepared at [facility], [place]. [address] (CLIA# [id number]) unless otherwise specified. This case was interpreted by the [facility] Department of Pathology. When applicable, select reference laboratory testing is performed at the [facility], [address] [place] [id number]. 05/31/2021 9:28 AM CDT [facility] [facility] Embedded Images 05/31/2021 9:28 AM CDT [facility] Pathology/Cytology POLYP / Unknown 2021 11:09 AM CDT 05/30/2021 2:06 PM CDT Comment:Pre-op diagnosis: Gastroesophageal reflux disease, unspecified whether esophagitis present [K21.9] Status post bariatric surgery [Z98.84] Screen for colon cancer [Z12.11] Magy Perez MD LAB - PATHOLOGY/ CYTOLOGY ORDERABLES Performing Organization Address City/State/[facility] Co de Phone Number [facility] [address], [place] [address] * LAB MISC TEST (04/18/2021) Blood BLOOD SPECIMEN / Unknown Historical Provider MD LAB SEND OUT * LAB (10/10/2020) Only the most recent of2 resultswithin the time period is included. Ranjit Harrison MD SCANNING ONLY * FL SWALLOWING FUNCTION STUDY (04/11/2020 12:00 PM TRANSMISSION REBUILDER) Anatomical Region Laterality Modality Chest Radiographic Salma ging 04/11/2020 4:48 PM TRANSMISSION REBUILDER Impressions 04/11/2020 5:10 PM TRANSMISSION REBUILDER MODERATE TO LARGE GASTRIC HIATAL HERNIA. GASTROESOPHAGEAL REFLUX. Edited by Beryl Chery on 04/11/2020 4:59 PM *Reading Radiologist: Terry Miranda on 04/11/2020 at 5:10 PM Narrative 04/11/2020 5:10 PM TRANSMISSION REBUILDER FLUOROSCOPIC MODIFIED BARIUM SWALLOW AIR-CONTRAST FLUOROSCOPIC ESOPHAGRAM CLINICAL INDICATION: Dysphagia, difficulty swallowing, chronic epigastric pain. FINDINGS: FLUOROSCOPIC MODIFIED BARIUM SWALLOW: Total fluoroscopy time 60 seconds. 1 fluoroscopic image obtained. Cineradiography performed. No episodes of penetration or aspiration. Oral motor function within normal limits. Mild pooling in the valleculae and piriform sinuses. Please see the separate speech therapy report for detailed evaluation and recommendations. FLUOROSCOPIC ESOPHAGRAM: Total fluoroscopy time 70 seconds. 18 fluoroscopic images obtained. Cineradiography performed. Procedure was performed following ingestion of gas producing crystals, thick barium, and thin barium. The esophagus is normal in contour and caliber. No mucosal lesions within the esophagus. No esophageal stricture or diverticulum. Moderate to large gastric hiatal hernia. Gastroesophageal reflux to the level of the upper thorax noted during examination. Procedure Note Terry Miranda MD - 04/11/2020 FLUOROSCOPIC MODIFIED BARIUM SWALLOW AIR-CONTRAST FLUOROSCOPIC ESOPHAGRAM CLINICAL INDICATION: Dysphagia, difficulty swallowing, chronic epigastric pain. FINDINGS: FLUOROSCOPIC MODIFIED BARIUM SWALLOW: Total fluoroscopy time 60 seconds. 1 fluoroscopic image obtained. Cineradiography performed. No episodes of penetration or aspiration. Oral motor function within normal limits. Mild pooling in the valleculae and piriform sinuses. Please see the separate speech therapy report for detailed evaluation and recommendations. FLUOROSCOPIC ESOPHAGRAM: Total fluoroscopy time 70 seconds. 18 fluoroscopic images obtained. Cineradiography performed. Procedure was performed following ingestion of gas producing crystals, thick barium, and thin barium. The esophagus is normal in contour and caliber. No mucosal lesions within the esophagus. No esophageal stricture or diverticulum. Moderate to large gastric hiatal hernia. Gastroesophageal reflux to the level of the upper thorax noted during examination. IMPRESSION MODERATE TO LARGE GASTRIC HIATAL HERNIA. GASTROESOPHAGEAL REFLUX. Edited by Beryl Chery on 04/11/2020 4:59 PM *Reading Radiologist: Terry Miranda on 04/11/2020 at 5:10 PM Charles Thornton MD FLUOROSCOPY ORDERAB LES * EGD (01/12/2020 10:36 AM TRANSMISSION REBUILDER) Report Endoscopy POC _ Patient Name: Taty Weir Procedure Date: 01/12/2020 10:36 AM Date of : 1950 Admit Type: Outpatient Age: 69 Gender: Female Attending MD: Charles Thornton MD _ Procedure: Upper GI endoscopy Indications: Epigastric abdominal pain, History of a Bernice en Y gastric bypass Providers: Charles Thornton MD (Doctor) Medicines: Monitored Anesthesia Care Complications: No immediate complications. Estimated blood loss: None. _ Procedure: Pre-Anesthesia Assessment: - Prior to the procedure, a History and Physical was performed, and patient medications and allergies were reviewed. The patient is competent. The risks and benefits of the procedure and the sedation options and risks were discussed with the patient. All questions were answered and informed consent was obtained. Patient identification and proposed procedure were verified by the physician, the nurse and the chief compliance officer in the procedure room. Mental Status Examination: alert and oriented. Airway Examination: normal oropharyngeal airway and neck mobility. Respiratory Examination: clear to auscultation. CV Examination: normal. Prophylactic Antibiotics: The patient does not require prophylactic antibiotics. Prior Anticoagulants: The patient has taken no previous anticoagulant or antiplatelet agents. ASA Grade Assessment: II - A patient with mild systemic disease. After reviewing the risks and benefits, the patient was deemed in satisfactory condition to undergo the procedure. The anesthesia plan was to use monitored anesthesia care (MAC). Immediately prior to administration of medications, the patient was re-assessed for adequacy to receive sedatives. The heart rate, respiratory rate, oxygen saturations, blood pressure, adequacy of pulmonary ventilation, and response to care were monitored throughout the procedure. The physical status of the patient was re-assessed after the procedure. After obtaining informed consent, the endoscope was passed under direct vision. Throughout the procedure, the patient's blood pressure, pulse, and oxygen saturations were monitored continuously. The Endoscope was introduced through the mouth, and advanced to the efferent jejunal loop. The upper GI endoscopy was accomplished without difficulty. The patient tolerated the procedure well. Findings: The proximal esophagus and mid esophagus were normal. One benign-appearing, intrinsic moderate (circumferential scarring or stenosis; an endoscope may pass) stenosis was found in the distal esophagus. This stenosis measured less than one cm (in length). The stenosis was traversed. A TTS dilator was passed through the scope. Dilation with an 18-19-20 mm balloon dilator was performed to 20 mm. Evidence of a Bernice-en-Y gastrojejunostomy was found. The gastrojejunal anastomosis was normal. There was mild gastritis diffusely throughout the gastric pouch. Biopsies were taken with a cold forceps for Helicobacter pylori testing using CLOtest. The examined jejunum was normal. _ Impression: - Normal proximal esophagus and mid esophagus. - Benign-appearing esophageal stenosis. Dilated. - Bernice-en-Y gastrojejunostomy with gastritis in the pouch. No evidence of ulcer. Biopsied. - Normal examined jejunum. Recommendation: - Await pathology results. - Soft diet. - Continue present medications. - Patient has a contact number available for emergencies. The signs and symptoms of potential delayed complications were discussed with the patient. Return to normal activities tomorrow. Written discharge instructions were provided to the patient. Procedure Code(s): --- Professional --- 23041, Esophagogastroduoden oscopy, flexible, transoral; with transendoscopic balloon dilation of esophagus (less than 30 mm diameter) 04211, Esophagogastroduoden oscopy, flexible, transoral; with biopsy, single or multiple --- Technical --- 20408, Esophagogastroduoden oscopy, flexible, transoral; with transendoscopic balloon dilation of esophagus (less than 30 mm diameter) 52644, Esophagogastroduoden oscopy, flexible, transoral; with biopsy, single or multiple Diagnosis Code(s): --- Professional --- K22.2, Esophageal obstruction Z98.0, Intestinal bypass and anastomosis status R10.13, Epigastric pain --- Technical --- K22.2, Esophageal obstruction Z98.0, Intestinal bypass and anastomosis status R10.13, Epigastric pain CPT copyright 2017 [employer]. All rights reserved. The codes documented in this report are preliminary and upon armature balancer review may be revised to meet current compliance requirements. Dr. Charles Thornton MD ___ Charles Thornton MD 01/12/2020 11:27:13 AM This report has been signed electronically. Number of Addenda: 0 Note Initiated On: 01/12/2020 10:36 AM [facility] 01/12/2020 10:3 6 AM TRANSMISSION REBUILDER Charles Thornton MD GI PROCEDURE ORDERA BLES [facility] [place] [place] [address] * (ABNORMAL) URIC ACID BLOOD (02/04/2019 2:32 PM TRANSMISSION REBUILDER) Uric Acid 6.1(H) 2.6 - 6.0 mg/dL [facility] INSURANCE BILL Blood BLOOD SPECIMEN / Unknown 02/04/2019 2:32 PM TRANSMISSION REBUILDER 02/04/2019 Narrative Resulting Agency Comment Lab Testing performed at: [address] [place] [id number] Parth Castillo MD LAB - CHEMISTRY MANJIT BAER [facility] INSURANCE BILL [address] [place] [address] * (ABNORMAL) COMPREHENSIVE METABOLIC PANEL (02/04/2019 2:32 PM TRANSMISSION REBUILDER) Only the most recent of11 resultswithin the time period is included. Glucose 86 70 - 105 mg/dL [facility] INSURANCE BILL BUN 21(H) 9.8 - 20.1 mg/dL [facility] INSURANCE BILL Creatinine 0.94 0.57 - 1.11 mg/dL [facility] INSURANCE BILL eGFR by MDRD 60(L) >60 mL/min/1.7 3m2 [facility] INSURANCE BILL eGFR by MDRD >60 >60 mL/min/1.7 3m2 [facility] INSURANCE BILL Sodium 141 136 - 145 mmol/L [facility] INSURANCE BILL Potassium 4.4 3.5 - 4.7 mmol/L [facility] INSURANCE BILL Chloride 104 98 - 107 mmol/L [facility] INSURANCE BILL CO2 29 23 - 31 mmol/L [facility] INSURANCE BILL Calcium 9.7 8.4 - 10.4 mg/dL [facility] INSURANCE BILL Protein Total 7.4 6.4 - 8.3 gm/dL [facility] INSURANCE BILL Albumin 3.7 3.2 - 4.6 gm/dL [facility] INSURANCE BILL Bilirubin Total 0.4 0.2 - 1.0 mg/dL [facility] INSURANCE BILL Alkaline Phosphatase 218(H) 40 - 150 U/L [facility] INSURANCE BILL AST 40(H) 5 - 34 U/L [facility] INSURANCE BILL ALT 35 0 - 61 U/L [facility] INSURANCE BILL Blood BLOOD SPECIMEN / Unknown 02/04/2019 2:32 PM TRANSMISSION REBUILDER 02/04/2019 Narrative Resulting Agency Comment Lab Testing performed at: [address] [place] [id number] Parth Castillo MD LAB - CHEMISTRY MANJIT BAER [facility] INSURANCE BILL [address] [place] [address] * LIPID PROFILE (02/04/2019 2:32 PM TRANSMISSION REBUILDER) Only the most recent of4 resultswithin the time period is included. Cholesterol 166 <200 mg/dL [facility] INSURANCE BILL Triglycerides 52 <150 mg/dL [facility] INSURANCE BILL HDL Cholesterol 87 >40 mg/dL [facility] INSURANCE BILL VLDL Calculated 10 <=30 mg/dL [facility] INSURANCE BILL LDL Calculated 69 <130 mg/dL [facility] INSURANCE BILL Blood BLOOD SPECIMEN / Unknown 02/04/2019 2:32 PM TRANSMISSION REBUILDER 02/04/2019 Narrative Resulting Agency Comment Lab Testing performed at: [place] [address] [place] [id number] Parth Castillo MD LAB - CHEMISTRY MANJIT BAER [facility] INSURANCE BILL [address] [place] [address] * CT ABDOMEN PELVIS WWO CONTRAST (01/27/2019 11:14 AM TRANSMISSION REBUILDER) Anatomical Region Laterality Modality Abdomen, Pelvis Computed Tomogra phy 01/27/2019 11:2 7 AM TRANSMISSION REBUILDER Impressions 01/29/2019 8:50 AM TRANSMISSION REBUILDER 1. NO ACUTE INTRA-ABDOMINAL FINDINGS. 2. POSTOPERATIVE CHANGES FROM A GASTROJEJUNOSTOMY, CHOLECYSTECTOMY AND POSTERIOR LUMBAR FUSION. Reading Radiologist: David Carlson MD on 01/29/2019 at 8:50 AM Narrative 01/29/2019 8:[address] EXAMINATION OF THE ABDOMEN AND PELVIS INDICATION: 68-year-old with left upper quadrant abdominal pain, prior Bernice-en-Y gastrojejunostomy.. TECHNIQUE: After ingestion of 50 mL of Omnipaque 350, as an enteral contrast, 80 mL of Isovue 350 were given, intravenously, and axial images were made through the abdomen and pelvis. Unenhanced images of the upper abdomen were not made. FINDINGS: Comparison is made to the 04/19/2014 CT examination. The lung bases are clear. There is a small hiatal hernia. CT ABDOMEN: Surgical clips are seen from the prior gastrojejunostomy. The gastric remnant is small in the excluded segment is not distended. I do not see any inflammatory changes in the adjacent fat. There is no free peritoneal air. The gallbladder is not seen. There is mild prominence of the intra and extra hepatic biliary ducts. An obstructing mass or calculus or not seen. The spleen, pancreas and adrenal glands are unremarkable. Both kidneys enhance symmetrically. There are no abnormally dilated small or large bowel loops. I do not see any inflammatory changes in the mesenteric fat. There are are postoperative changes from transpedicular fusions of L3-S1. I do not see any retroperitoneal adenopathy. Atherosclerotic changes are seen in the nondistended aorta and iliac branch vessels. CT PELVIS: The urinary bladder contour is unremarkable. I do not see any free peritoneal fluid or pelvic inflammatory changes. There is no suspicious pelvic mass or adenopathy. Atherosclerotic changes are noted in the iliac branch vessels. The appendix is not seen with confidence Streak artifact from right hip hardware obscure some detail. Procedure Note David Carlson MD - 01/29/2019 CT EXAMINATION OF THE ABDOMEN AND PELVIS INDICATION: 68-year-old with left upper quadrant abdominal pain, prior Bernice-en-Y gastrojejunostomy.. TECHNIQUE: After ingestion of 50 mL of Omnipaque 350, as an enteral contrast, 80 mL of Isovue 350 were given, intravenously, and axial images were made through the abdomen and pelvis. Unenhanced images of the upper abdomen were not made. FINDINGS: Comparison is made to the 04/19/2014 CT examination. The lung bases are clear. There is a small hiatal hernia. CT ABDOMEN: Surgical clips are seen from the prior gastrojejunostomy. The gastric remnant is small in the excluded segment is not distended. I do not see any inflammatory changes in the adjacent fat. There is no free peritoneal air. The gallbladder is not seen. There is mild prominence of the intra and extra hepatic biliary ducts. An obstructing mass or calculus or not seen. The spleen, pancreas and adrenal glands are unremarkable. Both kidneys enhance symmetrically. There are no abnormally dilated small or large bowel loops. I do not see any inflammatory changes in the mesenteric fat. There are are postoperative changes from transpedicular fusions of L3-S1. I do not see any retroperitoneal adenopathy. Atherosclerotic changes are seen in the nondistended aorta and iliac branch vessels. CT PELVIS: The urinary bladder contour is unremarkable. I do not see any free peritoneal fluid or pelvic inflammatory changes. There is no suspicious pelvic mass or adenopathy. Atherosclerotic changes are noted in the iliac branch vessels. The appendix is not seen with confidence Streak artifact from right hip hardware obscure some detail. IMPRESSION 1. NO ACUTE INTRA-ABDOMINAL FINDINGS. 2. POSTOPERATIVE CHANGES FROM A GASTROJEJUNOSTOMY, CHOLECYSTECTOMY AND POSTERIOR LUMBAR FUSION. Reading Radiologist: David Carlson MD on 01/29/2019 at 8:50 AM Charles Thornton MD CT ORDERABLES * IMAGING RADIOLOGY XRAY RESULTS ORDER (11/10/2018) Only the most recent of4 resultswithin the time period is included. Anatomical Region Laterality Modality Other Scanned Document IMAGING * (ABNORMAL) CBC WITH DIFFERENTIAL (10/05/2018 11:47 AM CDT) Only the most recent of15 resultswithin the time period is included. WBC 6.2 4.4 - 10.7 x10E9/L [facility] ACCOUNT BILL RBC 4.69 3.80 - 5.20 x10E12/L [facility] ACCOUNT BILL Hemoglobin 12.3 12.0 - 15.6 gm/dL [facility] ACCOUNT BILL Hematocrit 41.9 35.9 - 45.5 % [facility] ACCOUNT BILL MCV 89.3 80.7 - 98.3 fl [facility] ACCOUNT BILL MCH 26.2(L) 26.7 - 34.0 pg [facility] ACCOUNT BILL MCHC 29.4(L) 30.8 - 35.9 gm/dL [facility] ACCOUNT BILL RDW 16.0(H) 12.1 - 14.9 % [facility] ACCOUNT BILL Platelet Count 246 153 - 416 x10E9/L [facility] ACCOUNT BILL Comment:MPV FL BLOOD ([facility]) 1 1.5 fl 9.4-12.9 Granulocytes % 61.6 44.0 - 73.0 % [facility] ACCOUNT BILL Lymphocytes % 30.6 20.0 - 43.0 % [facility] ACCOUNT BILL Monocytes % 6.6 5.0 - 13.0 % [facility] ACCOUNT BILL Eosinophils % 0.6 0.0 - 6.0 % [facility] ACCOUNT BILL Basophils % 0.3 0.0 - 2.0 % [facility] ACCOUNT BILL Granulocytes Absolute 3.79 2.01 - 7.14 x10E9/L [facility] ACCOUNT BILL Lymphocytes Absolute 1.89 1.07 - 3.94 x10E9/L [facility] ACCOUNT BILL Monocytes Absolute 0.41 0.26 - 1.07 x10E9/L [facility] ACCOUNT BILL Eosinophils Absolute 0.04 0 - 0.47 x10E9/L [facility] ACCOUNT BILL Basophils Absolute 0.02 0 - 0.08 x10E9/L [facility] ACCOUNT BILL Immature Granulocytes 0.3 0 - 1 % [facility] ACCOUNT BILL Immature Granulocytes Absolute 0.02 0.00 - 0.06 x10E9/L [facility] ACCOUNT BILL nRBC 0 /100 WBC [facility] ACCOUNT BILL Comment:FASTING Blood BLOOD SPECIMEN / Unknown 10/05/2018 11:47 AM CDT 10/05/2018 Narrative Resulting Agency Comment Lab Testing performed at: [facility] [address] [place] [id number] Parth Castillo MD LAB - HEMATOLOGY JENNIFER AKERS [facility] ACCOUNT BILL [address] [place] [address] * HEPATITIS PANEL (04/06/2018 2:01 PM TRANSMISSION REBUILDER) Hepatitis A Virus Antibody IgM Negative Negative [facility] INSURANCE BILL Hepatitis A Virus Antibody Total Negative Negative [facility] INSURANCE BILL Hepatitis B Virus Surface Antigen Negative Negative [facility] INSURANCE BILL Hepatitis Be Antigen Negative Negative [facility] INSURANCE BILL Hepatitis B Core Virus Antibody IgM Negative Negative [facility] INSURANCE BILL Hepatitis B Core Virus Antibody Total Negative Negative [facility] INSURANCE BILL Hepatitis Be Antibody Negative Negative [facility] INSURANCE BILL Hepatitis B Virus Surface Antibody Non Reactive [facility] INSURANCE BILL Comment: Non Reactive: Inconsistent with immunity, less than 10 mIU/mL Reactive: Consistent with immunity, greater than 9.9 mIU/mL Blood BLOOD SPECIMEN / Unknown 04/06/2018 2:01 PM TRANSMISSION REBUILDER 04/06/2018 Narrative Resulting Agency Comment [facility] [address] [facility] [phone] Parth Castillo MD LAB - CHEMISTRY MANJIT BAER Performing Organization Address City/[facility] Co de Phone Number [facility] INSURANCE BILL [address] [place] [address] * JF BLOOD SCREEN W/REFLEX TITER (04/06/2018 2:01 PM TRANSMISSION REBUILDER) JF Negative Negative [facility] INSURANCE BILL Blood BLOOD SPECIMEN / Unknown 04/06/2018 2:01 PM TRANSMISSION REBUILDER 04/06/2018 Narrative Resulting Agency Comment [facility] [address] [facility] [id number] Parth Castillo MD LAB - CHEMISTRY MANJIT BAER Performing Organization Address City/[facility]/ZIP Co de Phone Number [facility] INSURANCE BILL [address] [place] [address] * ERYTHROCYTE SEDIMENTATION RATE (04/06/2018 2:01 PM TRANSMISSION REBUILDER) Only the most recent of2 resultswithin the time period is included. Erythrocyte Sedimentation Rate Westergren 18 0 - 30 MM/HR [facility] INSURANCE BILL Blood BLOOD SPECIMEN / Unknown 04/06/2018 2:01 PM TRANSMISSION REBUILDER 04/06/2018 Narrative Resulting Agency Comment [facility] [address] [place] [id number] Parth Castillo MD LAB - HEMATOLOGY ORD ERABLES [facility] INSURANCE BILL [address] [place] [address] * MAMMOGRAPHY ORDER (02/27/2018) Only the most recent of6 resultswithin the time period is included. Anatomical Region Laterality Modality Mammography Parth Castillo MD MAMMO ORDERABLES * XR CHEST 2VW (05/30/2017 12:19 PM CDT) Anatomical Region Laterality Modality Chest Radiographic Salma ging 05/30/2017 12:2 0 PM CDT Impressions 05/30/2017 12:23 PM CDT There is no evidence of active cardiopulmonary disease. Narrative 05/30/2017 12:23 PM CDT EXAM: CHEST 2 VIEWS HISTORY: The operative evaluation COMPARISON: 04/19/2014 FINDINGS: Standard two-view examination of the chest was obtained. Heart size is within normal limits. There are no infiltrates effusions or vascular congestion identified. Osseous structures are within normal limits. Procedure Note Chas Martinez MD - 05/30/2017 EXAM: CHEST 2 VIEWS HISTORY: The operative evaluation COMPARISON: 04/19/2014 FINDINGS: Standard two-view examination of the chest was obtained. Heart size is within normal limits. There are no infiltrates effusions or vascular congestion identified. Osseous structures are within normal limits. IMPRESSION There is no evidence of active cardiopulmonary disease. Parth Castillo MD DIAGNOSTIC IMAGING O RDERABLES * PTT (05/30/2017 12:03 PM CDT) PTT 25.2 21.0 - 32.0 sec [facility] INSURANCE BILL Comment: Heparin Therapeutic Range for PTT: 47.7 - 68.6 seconds. FASTING Blood BLOOD SPECIMEN / Unknown 05/30/2017 12:03 PM CDT 05/30/2017 Narrative Resulting Agency Comment [address] [place] [phone] Parth Castillo MD LAB - COAGULATION OR DERABLES Performing Organization Address [facility] de Phone Number [facility] INSURANCE BILL [address] [place] [address] * PT-INR (05/30/2017 12:03 PM CDT) Only the most recent of3 resultswithin the time period is included. INR 0.9 0.9 - 1.1 [facility] INSURANCE BILL Comment: Conventional Warfarin Anticoagulant Therapy: INR Reference Range: 2.0-3.0 Intensive Warfarin Anticoagulant Therapy: INR Reference Range: 2.5-3.5 PT 9.9 9.5 - 11.6 sec [facility] INSURANCE BILL Comment:FASTING Blood BLOOD SPECIMEN / Unknown 05/30/2017 12:03 PM CDT 05/30/2017 Narrative Resulting Agency Comment [address] [place] [phone] Parth Castillo MD LAB - COAGULATION OR DERABLES Performing Organization Address [facility] de Phone Number [facility] INSURANCE BILL [address] [place] [address] * EKG 12-LEAD (05/30/2017) Only the most recent of3 resultswithin the time period is included. Parth Castillo MD ECG ORDERABLES Performing Organization Address [facility] Co de Phone Number SS RESULT SCAN * MRI LUMBAR SPINE WO CONTRAST (11/20/2016 9:00 AM CDT) Anatomical Region Laterality Modality Spine Magnetic Resonan ce Angiography 11/20/2016 9:47 AM CDT Impressions 11/20/2016 10:55 AM CDT Multilevel degenerative/degenerative disc disease changes most severe at L3-L4 and L4-L5 where there is central canal and foraminal stenosis. Please see the disc level descriptors above for details. Edited by Samantha Al on 11/20/2016 10:31 AM Narrative 11/20/2016 10:55 AM CDT EXAM: MRI LUMBAR SPINE WITHOUT CONTRAST INDICATION: Lumbago with sciatica, unspecified side. COMPARISON: None Available. TECHNIQUE: Multiplanar, multisequence magnetic resonance imaging of the lumbar spine performed without contrast. FINDINGS: There is no compression or subluxation. There is no marrow infiltrative process. There is disc desiccation throughout the lumbar spine. There is decreased intervertebral disc space height and degenerative endplate change from L3-L4 to L5-S1. The conus ends normally at the L1 level and is normal in size and signal. There is grade 1 anterolisthesis of L3 in regards to L4. Review of the axial imaging at each individual disc level shows: L1-L2: Normal disc profile. No central canal or neural foraminal stenosis. Bilateral facet arthropathy. L2-L3: Mild annular bulging, bilateral facet arthropathy and ligamentum flavum hypertrophy creating mild bilateral neural foraminal encroachment without central canal stenosis. L3-L4: Broad-based disc/spur complex along with bilateral facet arthropathy and ligamentum flavum hypertrophic creating severe central canal stenosis and moderate bilateral foraminal stenosis. L4-L5: There is a broad-based disc/spur complex along with bilateral facet arthropathy and ligamentum flavum hypertrophy creating severe central canal stenosis and right foraminal stenosis with moderate to severe left foraminal stenosis. L5-S1: Broad-based disc/spur complex and bilateral facet arthropathy creating moderate to severe central canal stenosis and bilateral foraminal stenosis. Procedure Note Parth Trimble MD - 11/20/2016 EXAM: MRI LUMBAR SPINE WITHOUT CONTRAST INDICATION: Lumbago with sciatica, unspecified side. COMPARISON: None Available. TECHNIQUE: Multiplanar, multisequence magnetic resonance imaging of the lumbar spine performed without contrast. FINDINGS: There is no compression or subluxation. There is no marrow infiltrative process. There is disc desiccation throughout the lumbar spine. There is decreased intervertebral disc space height and degenerative endplate change from L3-L4 to L5-S1. The conus ends normally at the L1 level and is normal in size and signal. There is grade 1 anterolisthesis of L3 in regards to L4. Review of the axial imaging at each individual disc level shows: L1-L2: Normal disc profile. No central canal or neural foraminal stenosis. Bilateral facet arthropathy. L2-L3: Mild annular bulging, bilateral facet arthropathy and ligamentum flavum hypertrophy creating mild bilateral neural foraminal encroachment without central canal stenosis. L3-L4: Broad-based disc/spur complex along with bilateral facet arthropathy and ligamentum flavum hypertrophic creating severe central canal stenosis and moderate bilateral foraminal stenosis. L4-L5: There is a broad-based disc/spur complex along with bilateral facet arthropathy and ligamentum flavum hypertrophy creating severe central canal stenosis and right foraminal stenosis with moderate to severe left foraminal stenosis. L5-S1: Broad-based disc/spur complex and bilateral facet arthropathy creating moderate to severe central canal stenosis and bilateral foraminal stenosis. IMPRESSION Multilevel degenerative/degenerative disc disease changes most severe at L3-L4 and L4-L5 where there is central canal and foraminal stenosis. Please see the disc level descriptors above for details. Edited by Samantha Al on 11/20/2016 10:31 AM Parth Castillo MD MR ORDERABLES * US ABDOMEN LIMITED (10/29/2016 8:51 AM CDT) Anatomical Region Laterality Modality Abdomen Ultrasound 10/29/2016 9:02 AM CDT Impressions 10/29/2016 9:51 AM CDT Status post cholecystectomy. Edited by Samantha Al on 10/29/2016 9:05 AM Narrative 10/29/2016 9:51 AM CDT ULTRASOUND ABDOMEN LIMITED INDICATION: Elevated liver function tests. FINDINGS: Ultrasound compared to May 29, 2007 shows the liver to be normal in size and contour. There is no intrahepatic duct dilation. The pancreas is obscured. The gallbladder is absent. The right kidney measures 8.97 x 4.48 x 4.71 cm. There is no hydronephrosis. Procedure Note Anant Myers MD - 10/29/2016 ULTRASOUND ABDOMEN LIMITED INDICATION: Elevated liver function tests. FINDINGS: Ultrasound compared to May 29, 2007 shows the liver to be normal in size and contour. There is no intrahepatic duct dilation. The pancreas is obscured. The gallbladder is absent. The right kidney measures 8.97 x 4.48 x 4.71 cm. There is no hydronephrosis. IMPRESSION Status post cholecystectomy. Edited by Samantha Al on 10/29/2016 9:05 AM Parth Castillo MD US ORDERABLES * HEPATITIS C ANTIBODY (10/24/2016 10:56 AM CDT) Hepatitis C Antibody Non Reactive Non Reactive [facility] INSURANCE BILL Comment: Non Reactive - Antibodies to Hepatitis C virus (HCV) were no t detected, result does not exclude early acute HCV infection. FASTING Blood BLOOD SPECIMEN / Unknown 10/24/2016 10:56 AM CDT 10/24/2016 Narrative Resulting Agency Comment [facility] [address] [facility] [phone] Parth Castillo MD LAB - CHEMISTRY MANJIT BAER [facility] Organization Address City/State/ZIP Co de Phone Number [facility] INSURANCE BILL [address] [place] [address] * XR LUMBAR SPINE 2 OR 3 VW (10/24/2016 10:50 AM CDT) Anatomical Region Laterality Modality Spine Radiographic Salma ging 10/24/2016 10:5 4 AM CDT Impressions 10/24/2016 10:56 AM CDT No acute finding, lumbar spine. Narrative 10/24/2016 10:56 AM CDT Procedure Title: XR LUMBAR SPINE 2 OR 3 VW*[id number] HISTORY: Low back pain. COMPARISON: 04/19/[address] FINDINGS: No fracture or new listhesis identified along the lumbar spine. Slight anterolisthesis of L3 on L4, unchanged and degenerative in nature. Degenerative changes along the lumbar spine similar to prior. Ventral hernia repair, abdominal surgical clips. Procedure Note Leroy Cool MD - 10/24/2016 Procedure Title: XR LUMBAR SPINE 2 OR 3 VW*[id number] HISTORY: Low back pain. COMPARISON: 04/19/[address] FINDINGS: No fracture or new listhesis identified along the lumbar spine. Slight anterolisthesis of L3 on L4, unchanged and degenerative in nature. Degenerative changes along the lumbar spine similar to prior. Ventral hernia repair, abdominal surgical clips. IMPRESSION No acute finding, lumbar spine. Parth Castillo MD DIAGNOSTIC IMAGING O RDERABLES * GROSS + MICRO EXAM (STL) (02/26/2016 8:15 AM TRANSMISSION REBUILDER) Case Report Surgical Pathology Report Case: [id number] Authorizing Provider: Charles Thornton MD Collected: 02/26/2016 08:15 AM Ordering Location: [facility] Received: 02/26/2016 09:00 AM Pathologist: Doron Srinivasan MD Specimen: Polyp Colon, colon polyps 02/27/2016 3:24 PM TRANSMISSION REBUILDER [facility] Final Diagnosis 1. Colon polyps, polypectomy: -- Adenomatous and hyperplastic polyps AB/ns 02/27/2016 3:24 PM TRANSMISSION REBUILDER [facility] Gross Description Received in formalin labeled with the patient's name and colon polyps are four pieces of romo tissue two of them measuring 0.1 x 0.1 cm and the other two 0.2 x 0.2 cm. All stained and submitted in A1. AB/alj 02/27/2016 3:24 PM TRANSMISSION REBUILDER [facility] Microscopic Description The colon polyps are a mix of adenomatous and hyperplastic polyps. No high-grade dysplasia is seen. AB/ns 02/27/2016 3:24 PM TRANSMISSION REBUILDER [facility] Disclaimer All histochemical and/or immunohistochemical results are interpreted with controls that demonstrate appropriate staining reactions before reporting results. Note on use of immunocytochemistry reagents: This test was developed and its performance characteristic determined by [facility], Department of Laboratory Medicine. It has not been cleared or approved by the U.S. Food and Drug Administration (FDA). The FDA has determined that such clearance or approval is not necessary. The test is used for clinical purpose. It should not be regarded as investigational or for research. This laboratory is certified to perform high complexity testing. 02/27/2016 3:24 PM TRANSMISSION REBUILDER [facility] Embedded Images 02/27/2016 3:24 PM TRANSMISSION REBUILDER [facility] Pathology/Cytolo gy POLYP OF COLON / Unknown 02/26/2016 8:15 AM TRANSMISSION REBUILDER 02/26/2016 9:00 AM TRANSMISSION REBUILDER Charles Thornton MD LAB - PATHOLOGY/CYT OLOGY ORDERABLES [facility] [address] [facility] [place] [address] * ENDOSCOPY, COLON, SCREENING (02/26/2016 7:25 AM TRANSMISSION REBUILDER) Report Endoscopy POC _ Patient Name: Taty Weir Procedure Date: 02/26/2016 7:25 AM Date of : 1950 Admit Type: Outpatient Age: 65 Gender: Female Attending MD: Charles Thornton MD _ Procedure: Colonoscopy Indications: Screening for colorectal malignant neoplasm, High risk colon cancer surveillance: Personal history of colonic polyps, Last colonoscopy: 2011 Providers: Charles Thornton MD (Doctor) Referring MD: Parth Castillo MD (Referring MD) Medicines: Monitored Anesthesia Care Complications: No immediate complications. Estimated blood loss: None. _ Procedure: Pre-Anesthesia Assessment: - Prior to the procedure, a History and Physical was performed, and patient medications and allergies were reviewed. The patient is competent. The risks and benefits of the procedure and the sedation options and risks were discussed with the patient. All questions were answered and informed consent was obtained. Patient identification and proposed procedure were verified by the physician, the nurse and the chief compliance officer in the procedure room. Mental Status Examination: alert and oriented. Airway Examination: normal oropharyngeal airway and neck mobility. Respiratory Examination: clear to auscultation. CV Examination: normal. Prophylactic Antibiotics: The patient does not require prophylactic antibiotics. Prior Anticoagulants: The patient has taken no previous anticoagulant or antiplatelet agents. ASA Grade Assessment: II - A patient with mild systemic disease. After reviewing the risks and benefits, the patient was deemed in satisfactory condition to undergo the procedure. The anesthesia plan was to use monitored anesthesia care (MAC). Immediately prior to administration of medications, the patient was re-assessed for adequacy to receive sedatives. The heart rate, respiratory rate, oxygen saturations, blood pressure, adequacy of pulmonary ventilation, and response to care were monitored throughout the procedure. The physical status of the patient was re-assessed after the procedure. After I obtained informed consent, the scope was passed under direct vision. Throughout the procedure, the patient's blood pressure, pulse, and oxygen saturations were monitored continuously. The Colonoscope was introduced through the anus and advanced to the cecum, identified by appendiceal orifice and ileocecal valve. The colonoscopy was performed without difficulty. The patient tolerated the procedure well. The quality of the bowel preparation was excellent. Findings: The digital rectal exam was normal. Pertinent negatives include no palpable rectal lesions. Two sessile polyps were found in the sigmoid colon and in the descending colon. The polyps were 3 to 4 mm in size. These polyps were removed with a cold biopsy forceps. Resection and retrieval were complete. The rectum, transverse colon, ascending colon, cecum, appendiceal orifice and ileocecal valve appeared normal. _ Impression: - Two 3 to 4 mm polyps in the sigmoid colon and in the descending colon, removed with a cold biopsy forceps. Resected and retrieved. - The rectum, transverse colon, ascending colon, cecum, appendiceal orifice and ileocecal valve are normal. Recommendation: - Await pathology results. - Repeat colonoscopy in 5 years for surveillance. - Return to primary care physician as previously scheduled. Procedure Code(s): --- Professional --- 96988, Colonoscopy, flexible; with biopsy, single or multiple --- Technical --- 36248, Colonoscopy, flexible; with biopsy, single or multiple Diagnosis Code(s): --- Professional --- Z12.11, Encounter for screening for malignant neoplasm of colon Z86.010, Personal history of colonic polyps D12.5, Benign neoplasm of sigmoid colon D12.4, Benign neoplasm of descending colon --- Technical --- Z12.11, Encounter for screening for malignant neoplasm of colon Z86.010, Personal history of colonic polyps D12.5, Benign neoplasm of sigmoid colon D12.4, Benign neoplasm of descending colon CPT copyright 2015 [employer]. All rights reserved. The codes documented in this report are preliminary and upon armature balancer review may be revised to meet current compliance requirements. Dr. Charles Thornton MD Charles Thornton MD 02/26/2016 8:21:08 AM This report has been signed electronically. Number of Addenda: 0 Note Initiated On: 02/26/2016 7:25 AM [facility] 02/26/2016 7:25 AM TRANSMISSION REBUILDER Charles Thornton MD GI PROCEDURE ORDERA BLES [facility] [place] [place] [address] * [facility] NONVASC (08/31/2015 10:23 AM CDT) Anatomical Region Laterality Modality Ultrasound 08/31/2015 2:00 PM CDT Impressions 08/31/2015 2:31 PM CDT UNREMARKABLE EXAM. Edited by Chelly Arreola on 08/31/2015 2:13 PM Narrative 08/31/2015 2:31 PM CDT RIGHT LOWER EXTREMITY ULTRASOUND NONVASCULAR INDICATION: Right lower extremity mass and pain. FINDINGS: Limited ultrasound of the palpable areas overlying the right upper inner thigh shows no discrete solid or cystic-appearing mass. If symptoms persist, followup exam or MRI may be of further use to exclude an occult process. Procedure Note Anant Myers MD - 08/31/2015 RIGHT LOWER EXTREMITY ULTRASOUND NONVASCULAR INDICATION: Right lower extremity mass and pain. FINDINGS: Limited ultrasound of the palpable areas overlying the right upper inner thigh shows no discrete solid or cystic-appearing mass. If symptoms persist, followup exam or MRI may be of further use to exclude an occult process. IMPRESSION UNREMARKABLE EXAM. Edited by Chelly Arreola on 08/31/2015 2:13 PM Parth Castillo MD US ORDERABLES * IRON BLOOD (08/24/2015 3:40 PM CDT) Only the most recent of3 resultswithin the time period is included. Iron 68 50 - 170 ug/dL [facility] INSURANCE BILL Blood specimen (specimen) BLOOD SPECIMEN / Unknown 08/24/2015 3:40 PM CDT 08/24/2015 7:09 PM CDT Narrative Resulting Agency Comment [facility] [address] [address] [phone] Parth Castillo MD LAB - CHEMISTRY MANJIT BAER [facility] INSURANCE BILL [address] [place] [address] * FERRITIN (08/24/2015 3:40 PM CDT) Only the most recent of5 resultswithin the time period is included. Ferritin 116 10 - 291 ng/mL [facility] INSURANCE BILL Blood specimen (specimen) BLOOD SPECIMEN / Unknown 08/24/2015 3:40 PM CDT 08/24/2015 7:09 PM CDT Narrative Resulting Agency Comment [facility] [address] [id number] Parth Castillo MD LAB - CHEMISTRY MANJIT BAER [facility] INSURANCE BILL [address] [place] [address] * TSH REFLEX FREE T4 (05/19/2015 3:58 PM CDT) TSH with Reflex FT4 1.28 0.40 - 4.50 mIU/L [facility] Comment: REPORT COMMENT: FASTING:YES Test Performed at: [facility] [id number] [facility] [place] [address] SHARI CERRATO DO,MPH Blood specimen (specimen) BLOOD SPECIMEN / Unknown 05/19/2015 3:58 PM CDT 05/19/2015 3:59 PM CDT Parth Castillo MD LAB - CHEMISTRY MANJIT BAER Performing Organization Address [facility] Co de Phone Number [facility] [address] [place] [address] * IRON + TIBC PANEL (05/19/2015 3:58 PM CDT) Iron 49 45 - 160 mcg/dL [facility] TIBC 393 250 - 450 mcg/dL [facility] % Saturation 12 11 - 50 % (calc) [facility] Comment: Test Performed at: [facility] [id number] [facility] [employer] [facility] [place] [address] SHARI CERRATO DO,MPH 05/19/2015 3:58 PM CDT 05/19/2015 3:59 PM CDT Parth Castillo MD LAB - CHEMISTRY MANJIT BAER Performing Organization Address [facility] de Phone Number [facility] [id number] [place] [address] * DEXA BONE DENSITY 2 SITES (05/15/2015) Anatomical Region Laterality Modality Other Vivienne Richey NP DEXA ORDERABLES * LAB RESULTS ORDER (04/18/2015) Only the most recent of3 resultswithin the time period is included. Charles Thornton MD LAB - THERAPEUTIC D RUG MONITORING ORDERABLES * (ABNORMAL) BASIC METABOLIC PANEL (CALCIUM TOTAL) (09/13/2014 9:40 AM CDT) Only the most recent of3 resultswithin the time period is included. Glucose 84 74 - 106 mg/dL [facility] INSURANCE BILL BUN 27(H) 7 - 21 mg/dL [facility] INSURANCE BILL Creatinine 1.00 0.50 - 1.30 mg/dL [facility] INSURANCE BILL eGFR by MDRD 56(L) >60 mL/min/1.7 3m2 [facility] INSURANCE BILL eGFR by MDRD >60 >60 mL/min/1.7 3m2 [facility] INSURANCE BILL Sodium 141 136 - 145 mmol/L [facility] INSURANCE BILL Potassium 4.2 3.5 - 5.1 mmol/L [facility] INSURANCE BILL Chloride 105 98 - 107 mmol/L [facility] INSURANCE BILL CO2 28 22 - 31 mmol/L [facility] INSURANCE BILL Calcium 7.9(L) 8.5 - 10.1 mg/dL [facility] INSURANCE BILL Blood specimen (specimen) BLOOD SPECIMEN / Unknown 09/13/2014 9:40 AM CDT 09/13/2014 1:42 PM CDT Narrative Resulting Agency Comment [facility] [address] [place] [id number] Parth Castillo MD LAB - CHEMISTRY MANJIT BAER [facility] INSURANCE BILL * CARDIAC RHYTHM STRIP ORDER (04/29/2014 9:23 PM CDT) Only the most recent of2 resultswithin the time period is included. Narrative 04/29/2014 9:23 PM CDT Ordered by an unspecified provider. Scanned Document CARDIAC SERVICES ORD ERABLES * (ABNORMAL) HGB HCT PANEL (04/28/2014 9:42 AM CDT) Only the most recent of6 resultswithin the time period is included. Hemoglobin 9.0(L) 12.0 - 15.6 gm/dL 04/28/2014 9:54 AM CDT [facility] Hematocrit 28.4(L) 35.9 - 45.5 % 04/28/2014 9:54 AM CDT [facility] Blood BLOOD SPECIMEN / Unknown 04/28/2014 9:42 AM CDT 04/28/2014 9:49 AM CDT Andrew Galan DO LAB - HEMATOLOGY ORD ERABLES Performing Organization Address [facility] Co de Phone Number [facility] [address] [place], [place] [id number] * TYPE + SCREEN PANEL (04/27/2014 2:51 PM CDT) Only the most recent of2 resultswithin the time period is included. ABO B 04/27/2014 3:58 PM CDT [facility] Rh Type Positive 04/27/2014 3:58 PM CDT [facility] Comment:History check perfor med. No retype required. Antibody Screen Negative 04/27/2014 3:58 PM CDT [facility] Miscellaneous samples (specimen) BLOOD SPECIMEN / Unknown 04/27/2014 2:51 PM CDT 04/27/2014 3:01 PM CDT Andrew Galan LAB - BLOOD BANK ORD ERABLES Performing Organization Address [facility] Co de Phone Number [facility] [id number] [place] [address] * (ABNORMAL) SLIDE SCAN HEMATOLOGY (04/27/2014 2:51 PM CDT) Clumped Platelets Occasional (A) None 04/27/2014 3:31 PM CDT [facility] Blood BLOOD SPECIMEN / Unknown 04/27/2014 2:51 PM CDT 04/27/2014 3:01 PM CDT Andrew Galan DO LAB - HEMATOLOGY ORD ERABLES Performing Organization Address [facility] Co de Phone Number [facility] [id number] [place] [address] * ECHOCARDIOGRAM 2D WITH DOPPLER (AKA ECHO CONSULT) (04/20/2014 8:09 AM TRANSMISSION REBUILDER) 04/20/2014 8:09 AM TRANSMISSION REBUILDER Narrative [facility] - 04/20/2014 12:[address] [address] Transthoracic Echocardiogram 2D, M-mode, Doppler, and Color Doppler Patient: TATY WEIR MR number: [id number] Height: 65 in Weight: 143 lb BSA: 1.72 m Study date: 20-Apr-2014 : 1950 Age: 63 years Gender: Female Race: Black Diagnoses: 780.4 - DIZZINESS AND GIDDINESS Reading Physician: Isaias Maldonado MD Referring Physician: Mike Thorne MD LUMBER INSPECTOR: Marcela Luna [facility] Cardiology Group: [facility] Summary: - History: - History of mitral valve prolapse - Procedure information: - Room 203 @ 08:09AM - Left ventricle: - Systolic function was normal. Ejection fraction was estimated in the range of 55 % to 65 %. - There were no regional wall motion abnormalities. - Wall thickness was normal. Indications: Evaluate reported dizziness. Evaluate shortness of breath. History: Dizziness. Prior history: History of mitral valve prolapse Risk factors: hypertension. Procedure: The study was performed in the [facility]. This was a routine study. Room 203 @ 08:09AM The transthoracic approach was used. The study included complete 2D imaging, M-mode, complete spectral Doppler, and color Doppler. Systolic blood pressure was 152 mmHg. Diastolic blood pressure was 73 mmHg. Left ventricle: Size was normal. Systolic function was normal. Ejection fraction was estimated in the range of 55 % to 65 %. There were no regional wall motion abnormalities. Wall thickness was normal. Aortic valve: The valve was trileaflet. Leaflets exhibited normal thickness and normal cuspal separation. Doppler: Transaortic velocity was within the normal range. There was no stenosis. There was no regurgitation. Aorta: The root exhibited normal size. Mitral valve: Valve structure was normal. There was normal leaflet separation. Doppler: The transmitral velocity was within the normal range. There was no evidence for stenosis. There was trivial regurgitation. Left atrium: Size was normal. Right ventricle: The size was normal. Systolic function was normal. Wall thickness was normal. Tricuspid valve: Doppler: There was trivial regurgitation. Right atrium: Size was normal. Pericardium: There was no pericardial effusion. The pericardium was normal in appearance. System measurement tables 2D LVOT Diam: 2 cm LVEDV MOD A4C: 49.8 ml LVEF MOD A2C: 63.7 % LVESV MOD A4C: 14.8 ml CW PV Vmax: 0.8 m/s AV Vmax: 1.3 m/s AV maxP.9 mmHg PV maxP.3 mmHg TR Vmax: 2.2 m/s TR maxP.1 mmHg MM LA Diam: 3.8 cm AV Cusp: 1.8 cm Ao Diam: 3 cm EF(Teich): 59.4 % IVSd: 0.9 cm IVSs: 1.4 cm LVIDd: 5 cm LVIDs: 3.4 cm LVPWd: 0.8 cm LVPWs: 1.2 cm PW LVOT Vmax: 1.1 m/s BELINDA Vmax, Pt: 2.7 cm2 Lateral E/E: 9.9 Lateral e': 0.1 m/s MV A Tera: 0.8 m/s MV Dec [place]: 4.4 m/s2 MV E Tera: 1 m/s MV E/A Ratio: 1.2 Septal e': 0.1 m/s Prepared and signed by Isaias Maldonado MD Signed 20-Apr-2014 12:31:26 Procedure Note Isaias Maldonado MD - 04/20/[address] [address] Transthoracic Echocardiogram 2D, M-mode, Doppler, and Color Doppler Patient: TATY WEIR MR number: [id number] Height: 65 in Weight: 143 lb BSA: 1.72 m Study date: 20-Apr-2014 : 1950 Age: 63 years Gender: Female Race: Black Diagnoses: 780.4 - DIZZINESS AND GIDDINESS Reading Physician: Isaias Maldonado MD Referring Physician: Mike Thorne MD LUMBER INSPECTOR: Marcela Luna [facility] Cardiology Group: [facility] Summary: - History: - History of mitral valve prolapse - Procedure information: - Room 203 @ 08:09AM - Left ventricle: - Systolic function was normal. Ejection fraction was estimated in the range of 55 % to 65 %. - There were no regional wall motion abnormalities. - Wall thickness was normal. Indications: Evaluate reported dizziness. Evaluate shortness of breath. History: Dizziness. Prior history: History of mitral valve prolapse Risk factors: hypertension. Procedure: The study was performed in the [facility]. This was a routine study. Room 203 @ 08:09AM The transthoracic approach was used. The study included complete 2D imaging, M-mode, complete spectral Doppler, and color Doppler. Systolic blood pressure was 152 mmHg. Diastolic blood pressure was 73 mmHg. Left ventricle: Size was normal. Systolic function was normal. Ejection fraction was estimated in the range of 55 % to 65 %. There were no regional wall motion abnormalities. Wall thickness was normal. Aortic valve: The valve was trileaflet. Leaflets exhibited normal thickness and normal cuspal separation. Doppler: Transaortic velocity was within the normal range. There was no stenosis. There was no regurgitation. Aorta: The root exhibited normal size. Mitral valve: Valve structure was normal. There was normal leaflet separation. Doppler: The transmitral velocity was within the normal range. There was no evidence for stenosis. There was trivial regurgitation. Left atrium: Size was normal. Right ventricle: The size was normal. Systolic function was normal. Wall thickness was normal. Tricuspid valve: Doppler: There was trivial regurgitation. Right atrium: Size was normal. Pericardium: There was no pericardial effusion. The pericardium was normal in appearance. System measurement tables 2D LVOT Diam: 2 cm LVEDV MOD A4C: 49.8 ml LVEF MOD A2C: 63.7 % LVESV MOD A4C: 14.8 ml CW PV Vmax: 0.8 m/s AV Vmax: 1.3 m/s AV maxP.9 mmHg PV maxP.3 mmHg TR Vmax: 2.2 m/s TR maxP.1 mmHg MM LA Diam: 3.8 cm AV Cusp: 1.8 cm Ao Diam: 3 cm EF(Teich): 59.4 % IVSd: 0.9 cm IVSs: 1.4 cm LVIDd: 5 cm LVIDs: 3.4 cm LVPWd: 0.8 cm LVPWs: 1.2 cm PW LVOT Vmax: 1.1 m/s BELINDA Vmax, Pt: 2.7 cm2 Lateral E/E: 9.9 Lateral e': 0.1 m/s MV A Tera: 0.8 m/s MV Dec [place]: 4.4 m/s2 MV E Tera: 1 m/s MV E/A Ratio: 1.2 Septal e': 0.1 m/s Prepared and signed by Isaias Maldonado MD Signed 20-Apr-2014 12:31:26 Mike Thorne MD ECHO ORDERABLES Performing Organization Address City/[facility]/ZIP Co de Phone Number [facility] * HELICOBACTER PYLORI ANTIBODY IGG QUAL (04/20/2014 3:54 AM TRANSMISSION REBUILDER) Helicobacter pylori Antibody IgG Negative Negative 04/20/2014 11:03 AM TRANSMISSION REBUILDER [facility] Blood BLOOD SPECIMEN / Unknown 04/20/2014 3:54 AM TRANSMISSION REBUILDER 04/20/2014 4:06 AM TRANSMISSION REBUILDER Charles Thornton MD LAB - SEROLOGY MANJIT BAER Performing Organization Address [facility] Co de Phone Number [facility] [address] [place] * MAGNESIUM BLOOD (04/20/2014 3:54 AM TRANSMISSION REBUILDER) Only the most recent of2 resultswithin the time period is included. Magnesium 1.7 1.6 - 2.6 mg/dL 04/20/2014 4:29 AM TRANSMISSION REBUILDER [facility] Blood BLOOD SPECIMEN / Unknown 04/20/2014 3:54 AM TRANSMISSION REBUILDER 04/20/2014 4:06 AM TRANSMISSION REBUILDER Mike Thorne MD LAB - CHEMISTRY MANJIT BAER Performing Organization Address [facility] Co de Phone Number [facility] [address] [place] [address] * TROPONIN I (04/20/2014 3:53 AM TRANSMISSION REBUILDER) Only the most recent of3 resultswithin the time period is included. Troponin I <0.015 0.000 - 0.049 ng/mL 04/20/2014 4:36 AM TRANSMISSION REBUILDER [facility] Blood SERUM OR PLASMA SPECIMEN / Unknown 04/20/2014 3:53 AM TRANSMISSION REBUILDER 04/20/2014 4:06 AM TRANSMISSION REBUILDER Narrative [facility] - 04/20/2014 4:36 AM TRANSMISSION REBUILDER Note: Diagnosis of myocardial infarction requires symptoms of ischemia or EKG changes of ischemia and TNI >99th of normal (0.05 ng/mL). Troponin should be drawn on initial assessment and 3-6 hours later as clinically indicated. Any condition resulting in myocardial cell damage can increase cardiac troponin levels. In addition to myocardial infarction, these include but are not limited to CHF, arrhythmia, myocarditis, and non-cardiac related causes such as pulmonary embolism, renal failure and sepsis. Mike Thorne MD LAB - CHEMISTRY MANJIT BAER [facility] [address] [place] [address] * XR CHEST 1VW PORTABLE (04/19/2014 4:04 PM TRANSMISSION REBUILDER) Anatomical Region Laterality Modality Chest Radiographic Salma ging 04/19/2014 5:08 PM TRANSMISSION REBUILDER Impressions 04/19/2014 5:09 PM TRANSMISSION REBUILDER No acute disease. No free air evident. Narrative 04/19/2014 5:09 PM TRANSMISSION REBUILDER Portable Chest AP History: Hemorrhage of gastrointestinal tract. Rule out free air after EGD. Findings: Cardiac silhouette unremarkable. There is no acute infiltrate or edema or pleural effusion or pneumothorax evident. There is no evidence of pneumomediastinum. No free air is seen underneath the diaphragm. Procedure Note Driss Ramos MD - 04/19/2014 Portable Chest AP History: Hemorrhage of gastrointestinal tract. Rule out free air after EGD. Findings: Cardiac silhouette unremarkable. There is no acute infiltrate or edema or pleural effusion or pneumothorax evident. There is no evidence of pneumomediastinum. No free air is seen underneath the diaphragm. IMPRESSION No acute disease. No free air evident. Charles Thornton MD DIAGNOSTIC IMAGING ORDERABLES * XR ABDOMEN 1 VW (04/19/2014 3:43 PM TRANSMISSION REBUILDER) Anatomical Region Laterality Modality Abdomen Radiographic Salma ging 04/19/2014 4:45 PM TRANSMISSION REBUILDER Narrative 04/19/2014 4:46 PM TRANSMISSION REBUILDER Abdomen AP Indication: Hemorrhage of GI tract. Findings: No free air evident following EGD. Procedure Note Driss Ramos MD - 04/19/2014 Abdomen AP Indication: Hemorrhage of GI tract. Findings: No free air evident following EGD. Charles Thornton MD DIAGNOSTIC IMAGING ORDERABLES * EGD (04/19/2014 2:38 PM TRANSMISSION REBUILDER) Report Endoscopy POC _ Patient Name: Taty Weir Procedure Date: 04/19/2014 2:38 PM Date of : 1950 Admit Type: Inpatient Age: 63 Gender: Female Attending MD: Charles Thornton MD _ Procedure: Upper GI endoscopy Indications: Acute post hemorrhagic anemia, Melena Providers: Charles Thornton MD (Doctor) Referring MD: Parth Castillo MD (Referring MD) Medicines: Monitored Anesthesia Care Complications: No immediate complications. Estimated blood loss: None. _ Procedure: Pre-Anesthesia Assessment: - Prior to the procedure, a History and Physical was performed, and patient medications and allergies were reviewed. The patient is competent. The risks and benefits of the procedure and the sedation options and risks were discussed with the patient. All questions were answered and informed consent was obtained. Patient identification and proposed procedure were verified by the physician, the nurse and the chief compliance officer in the procedure room. Mental Status Examination: alert and oriented. Airway Examination: normal oropharyngeal airway and neck mobility. Respiratory Examination: clear to auscultation. CV Examination: normal. Prophylactic Antibiotics: The patient does not require prophylactic antibiotics. Prior Anticoagulants: The patient has taken previous NSAID medication, last dose was day of procedure. ASA Grade Assessment: III - A patient with severe systemic disease. After reviewing the risks and benefits, the patient was deemed in satisfactory condition to undergo the procedure. The anesthesia plan was to use monitored anesthesia care (MAC). Immediately prior to administration of medications, the patient was re-assessed for adequacy to receive sedatives. The heart rate, respiratory rate, oxygen saturations, blood pressure, adequacy of pulmonary ventilation, and response to care were monitored throughout the procedure. The physical status of the patient was re-assessed after the procedure. After obtaining informed consent, the endoscope was passed under direct vision. Throughout the procedure, the patient's blood pressure, pulse, and oxygen saturations were monitored continuously. The scope was introduced through the mouth, and advanced to the efferent jejunal loop. The upper GI endoscopy was accomplished without difficulty. The patient tolerated the procedure well. Findings: The gastroesophageal junction and examined esophagus were normal. Evidence of a Bernice-en-Y gastrojejunostomy was found. The gastric pouch was normal. The gastrojejunal anastomosis was characterized by a 7mm marginal ulceration with active bleeding. The ulcer was best visualized in retroflexion. The bleeding ulcer was injected with 4cc of Epinephrine at 1:10,000 concentration and was cauterized successfully with gold probe cautery at 35W. The examined efferent jejunum was normal. _ Impression: - Normal gastroesophageal junction and esophagus. - Bernice-en-Y gastrojejunostomy. The gastrojejunal anastomosis had ulceration with bleeding. Cauerized and Epinephrine injection with hemostasis. - Normal examined jejunum. Recommendation: - Check H pylori antibody; Avoid NSAIDS and ASA - Continue Protonix 40mg IV BID - Full liquid diet. - Use sucralfate tablets 1 gram PO QID. - Use misoprostol 100 micrograms PO QID. Procedure Code(s): --- Professional --- 91910, Esophagogastroduoden oscopy, flexible, transoral; diagnostic, including collection of specimen(s) by brushing or washing, when performed (separate procedure) --- Technical --- 10533, Esophagogastroduoden oscopy, flexible, transoral; diagnostic, including collection of specimen(s) by brushing or washing, when performed (separate procedure) Diagnosis Code(s): --- Professional --- 285.1, Acute posthemorrhagic anemia 578.1, Blood in stool V45.3, Intestinal bypass or anastomosis status --- Technical --- 285.1, Acute posthemorrhagic anemia 578.1, Blood in stool V45.3, Intestinal bypass or anastomosis status CPT copyright 2013 [employer]. All rights reserved. The codes documented in this report are preliminary and upon armature balancer review may be revised to meet current compliance requirements. Dr. Charles Thornton MD ___ Charles Thornton MD 04/19/2014 3:02 PM This report has been signed electronically. Number of Addenda: 0 Note Initiated On: 04/19/2014 2:38 PM [facility] 04/19/2014 2:38 PM TRANSMISSION REBUILDER Charles Thonrton MD GI PROCEDURE ORDERA KANDY [facility] [place] [address] * CT ABDOMEN AND PELVIS NON IV CONTRAST (04/19/2014 1:00 AM TRANSMISSION REBUILDER) Only the most recent of2 resultswithin the time period is included. Anatomical Region Laterality Modality Abdomen, Pelvis Computed Tomogra phy 04/19/2014 1:03 AM TRANSMISSION REBUILDER Impressions 04/19/2014 1:06 AM TRANSMISSION REBUILDER No obstruction or definite urinary stone seen at this time. Postsurgical changes are noted in the upper abdomen similar to the examination of July 28, 2012. Narrative 04/19/2014 1:06 AM TRANSMISSION REBUILDER Examination: Noncontrast Abdomen and Pelvic CT Indication: PT C/O HEMATOCHEZIA WITH ABDOMINAL PAIN ONSET FRIDAY. Technique: Noncontrast CT images of the abdomen and pelvis were performed. The stone protocol without IV contrast and without oral contrast was requested for this examination. Findings: CT Abdomen: No calcified stones can be seen in the right or left kidneys. No obstruction can be seen. The liver, spleen and pancreas have a homogeneous CT density but cannot be fully evaluated on this limited protocol exam. No dilated bowel loops can be seen. There is no free fluid in the abdomen. Postsurgical changes are noted in the upper abdomen similar to the prior study on August 27, 2012. The distal esophagus continues to be mildly enlarged. No confluent infiltrates can be seen at the lung bases. CT Pelvis: No calcified stones can be seen in the course of the distal ureters. No pelvic mass is present. Degenerative changes noted in the lumbar spine. This report was transcribed with a computerized speech recognition system. In an effort to expedite patient care, it has not been adjusted for typographical, grammatical or syntax problems by a trained medical director of hospice. For questions about the report, please contact the Radiology Department. Procedure Note Prince Casillas MD - 04/19/2014 Examination: Noncontrast Abdomen and Pelvic CT Indication: PT C/O HEMATOCHEZIA WITH ABDOMINAL PAIN ONSET FRIDAY. Technique: Noncontrast CT images of the abdomen and pelvis were performed. The stone protocol without IV contrast and without oral contrast was requested for this examination. Findings: CT Abdomen: No calcified stones can be seen in the right or left kidneys. No obstruction can be seen. The liver, spleen and pancreas have a homogeneous CT density but cannot be fully evaluated on this limited protocol exam. No dilated bowel loops can be seen. There is no free fluid in the abdomen. Postsurgical changes are noted in the upper abdomen similar to the prior study on August 27, 2012. The distal esophagus continues to be mildly enlarged. No confluent infiltrates can be seen at the lung bases. CT Pelvis: No calcified stones can be seen in the course of the distal ureters. No pelvic mass is present. Degenerative changes noted in the lumbar spine. This report was transcribed with a computerized speech recognition system. In an effort to expedite patient care, it has not been adjusted for typographical, grammatical or syntax problems by a trained medical director of hospice. For questions about the report, please contact the Radiology Department. IMPRESSION No obstruction or definite urinary stone seen at this time. Postsurgical changes are noted in the upper abdomen similar to the examination of July 28, 2012. Tylor Marie MD CT ORDERABLES * (ABNORMAL) HEPATIC FUNCTION PANEL (01/31/2014 12:45 PM TRANSMISSION REBUILDER) Protein Total 7.0 6.0 - 8.5 g/dL [facility] INSURANCE BILL Albumin 4.1 3.6 - 4.8 g/dL [facility] INSURANCE BILL Bilirubin Total 0.2 0.0 - 1.2 mg/dL [facility] INSURANCE BILL Bilirubin Direct 0.13 0.00 - 0.40 mg/dL [facility] INSURANCE BILL Alkaline Phosphatase 182(H) 39 - 117 IU/L [facility] INSURANCE BILL AST 74(H) 0 - 40 IU/L [facility] INSURANCE BILL ALT 74(H) 0 - 32 IU/L [facility] INSURANCE BILL Blood specimen (specimen) BLOOD SPECIMEN / Unknown 01/31/2014 12:45 PM TRANSMISSION REBUILDER 01/31/2014 2:52 PM TRANSMISSION REBUILDER Narrative Resulting Agency Comment [facility] [address] [phone] Parth aCstillo MD LAB - CHEMISTRY MANJIT BAER [facility] Organization Address City/State/ZIP Co de Phone Number [facility] INSURANCE BILL * (ABNORMAL) VITAMIN D 1,25 DIHYDROXY (12/14/2013 10:25 AM CDT) Calcitriol (1,25 di-OH Vit D) 142.3(H) 10.0 - 75.0 pg/mL [facility] INSURANCE BILL Blood specimen (specimen) BLOOD SPECIMEN / Unknown 12/14/2013 10:25 AM CDT 12/14/2013 3:31 PM CDT Narrative Resulting Agency Comment [facility] [phone] Parth Castillo MD LAB - CHEMISTRY MANJIT BAER Performing Organization Address City/[facility]/ZIP Co de Phone Number [facility] INSURANCE BILL * (ABNORMAL) VITAMIN B12 FOLATE PANEL (12/14/2013 10:25 AM CDT) Vitamin B12 >1999(H) 211 - 946 pg/mL [facility] INSURANCE BILL Folate 19.0 >3.0 ng/mL [facility] INSURANCE BILL Comment: A serum folate concentration of less than 3.1 ng/mL is considered to represent clinical deficiency. Blood specimen (specimen) BLOOD SPECIMEN / Unknown 12/14/2013 10:25 AM CDT 12/14/2013 3:31 PM CDT Narrative Resulting Agency Comment [address] [phone] Parth Castillo MD LAB - CHEMISTRY MANJIT BAER Performing Organization Address [facility] de Phone Number [facility] INSURANCE BILL * TSH (12/14/2013 10:25 AM CDT) Only the most recent of2 resultswithin the time period is included. Pathologist [facility] TSH 1.910 0.450 - 4.500 uIU/mL [facility] INSURANCE BILL Comment NOT NEEDED [facility] INSURANCE BILL Comment:Ancillary determined the test is not needed Blood specimen (specimen) BLOOD SPECIMEN / Unknown 12/14/2013 10:25 AM CDT 12/14/2013 3:31 PM CDT Narrative Resulting Agency Comment [address] [phone] Parth Castillo MD LAB - CHEMISTRY MANJIT BAER Performing Organization Address City/[facility] Co de Phone Number [facility] INSURANCE BILL * T4 FREE (12/14/2013 10:25 AM CDT) T4 Free 0.92 0.82 - 1.77 ng/dL [facility] INSURANCE BILL Blood specimen (specimen) BLOOD SPECIMEN / Unknown 12/14/2013 10:25 AM CDT 12/14/2013 3:31 PM CDT Narrative Resulting Agency Comment [facility] [place] [address] [facility] [phone] Parth Castillo MD LAB - CHEMISTRY MANJIT ABER [facility] INSURANCE BILL * CARDIAC EKG ORDER (06/07/2013) Parth Castillo MD CARDIAC SERVICES ORD ERABLES * PATHOLOGY/CYTOLOGY REPORT ORDER (03/09/2013) Parth Castillo MD LAB - PATHOLOGY/CYTO LOGY ORDERABLES * MRI SHOULDER RIGHT WO CONT MP (03/04/2013 3:10 PM TRANSMISSION REBUILDER) Anatomical Region Laterality Modality Magnetic Resonan ce 03/05/2013 8:12 AM TRANSMISSION REBUILDER Impressions 03/05/2013 8:28 AM TRANSMISSION REBUILDER There is a near complete full-thickness tear of the supraspinatus tendon with 4 cm of retraction of the supraspinatus tendon and with severe atrophy of the supraspinatus muscle belly. There is a near complete full-thickness tear of the infraspinatus tendon with 3 cm of retraction of the infraspinatus tendon. There is severe atrophy of the infraspinatus muscle belly. Suture anchors are seen in the lateral aspect of the humeral head. One of the suture anchors has become dislodged and is located along the retracted infraspinatus tendon. Note is made of the biceps tenodesis. Mild degenerative change at the a.c. joint. Mild bony hypertrophy at the a.c. joint narrows the subacromial space. A small amount of fluid is seen in the glenohumeral joint and in the subacromial subdeltoid bursa. Mild degenerative change is seen at the glenohumeral joint. There is 1.4 cm superior subluxation of the humeral head on the glenoid. Narrative 03/05/2013 8:28 AM TRANSMISSION REBUILDER MRI of right shoulder History: Right shoulder pain Findings: The long head of the biceps tendon is intact. Note is made of a biceps tenodesis. There is mild articular cartilage thinning in the posterior aspect of the glenohumeral joint. A 2 mm subchondral cyst is seen in the posterior glenoid. Mild degenerative change at the a.c. joint with mild bony hypertrophy narrows the subacromial space. There is 1.4 cm superior subluxation of the humeral head on the glenoid. There is metallic artifact surrounding several suture anchors in the lateral aspect of the humeral head. A moderate amount of fluid is seen in the subacromial subdeltoid bursa. There is a near complete full-thickness tear of the supraspinatus tendon with 4 cm of retraction of the supraspinatus tendon. There is a near complete full-thickness tear of the infraspinatus tendon with 3 cm of retraction of the infraspinatus tendon. One of the suture anchors has become dislodged and is located along the retracted infraspinatus tendon. A small amount of fluid is seen in the glenohumeral joint and in the subacromial subdeltoid bursa. Procedure Note Anders Holt MD - 03/05/2013 MRI of right shoulder History: Right shoulder pain Findings: The long head of the biceps tendon is intact. Note is made of a biceps tenodesis. There is mild articular cartilage thinning in the posterior aspect of the glenohumeral joint. A 2 mm subchondral cyst is seen in the posterior glenoid. Mild degenerative change at the a.c. joint with mild bony hypertrophy narrows the subacromial space. There is 1.4 cm superior subluxation of the humeral head on the glenoid. There is metallic artifact surrounding several suture anchors in the lateral aspect of the humeral head. A moderate amount of fluid is seen in the subacromial subdeltoid bursa. There is a near complete full-thickness tear of the supraspinatus tendon with 4 cm of retraction of the supraspinatus tendon. There is a near complete full-thickness tear of the infraspinatus tendon with 3 cm of retraction of the infraspinatus tendon. One of the suture anchors has become dislodged and is located along the retracted infraspinatus tendon. A small amount of fluid is seen in the glenohumeral joint and in the subacromial subdeltoid bursa. IMPRESSION There is a near complete full-thickness tear of the supraspinatus tendon with 4 cm of retraction of the supraspinatus tendon and with severe atrophy of the supraspinatus muscle belly. There is a near complete full-thickness tear of the infraspinatus tendon with 3 cm of retraction of the infraspinatus tendon. There is severe atrophy of the infraspinatus muscle belly. Suture anchors are seen in the lateral aspect of the humeral head. One of the suture anchors has become dislodged and is located along the retracted infraspinatus tendon. Note is made of the biceps tenodesis. Mild degenerative change at the a.c. joint. Mild bony hypertrophy at the a.c. joint narrows the subacromial space. A small amount of fluid is seen in the glenohumeral joint and in the subacromial subdeltoid bursa. Mild degenerative change is seen at the glenohumeral joint. There is 1.4 cm superior subluxation of the humeral head on the glenoid. Parth Castillo MD MR ORDERABLES * EGD (07/29/2012 6:24 AM CDT) Report Endoscopy POC _ Patient Name: Taty Weir Procedure Date: 07/29/2012 6:24 AM Date of : 1950 Admit Type: Outpatient Gender: Female Age: 62 Attending MD: Charles Thornton MD _ Procedure: Upper GI endoscopy Indications: 6d history of acute onset epigastric abdominal pain, Nausea with vomiting. CT of abdomen and pelvis yesterday unremarkable. Providers: Charles Thornton MD (Doctor) Referring MD: Parth Castillo (Referring ), Corie Doherty (Referring ) Medicines: Monitored Anesthesia Care Complications: No immediate complications. Estimated blood loss: None. _ Procedure: Pre-Anesthesia Assessment: - Prior to the procedure, a History and Physical was performed, and patient medications and allergies were reviewed. The patient is competent. The risks and benefits of the procedure and the sedation options and risks were discussed with the patient. All questions were answered and informed consent was obtained. Patient identification and proposed procedure were verified by the physician, the nurse and the chief compliance officer in the procedure room. Mental Status Examination: alert and oriented. Airway Examination: normal oropharyngeal airway and neck mobility. Respiratory Examination: clear to auscultation. CV Examination: normal. Prophylactic Antibiotics: The patient does not require prophylactic antibiotics. Prior Anticoagulants: The patient has taken no previous anticoagulant or antiplatelet agents. ASA Grade Assessment: II - A patient with mild systemic disease. After reviewing the risks and benefits, the patient was deemed in satisfactory condition to undergo the procedure. The anesthesia plan was to use monitored anesthesia care (MAC). Immediately prior to administration of medications, the patient was re-assessed for adequacy to receive sedatives. The heart rate, respiratory rate, oxygen saturations, blood pressure, adequacy of pulmonary ventilation, and response to care were monitored throughout the procedure. The physical status of the patient was re-assessed after the procedure. After obtaining informed consent, the endoscope was passed under direct vision. Throughout the procedure, the patient's blood pressure, pulse, and oxygen saturations were monitored continuously. The scope was introduced through the mouth, and advanced to the efferent jejunal loop. The patient tolerated the procedure well. The upper GI endoscopy was accomplished without difficulty. The patient tolerated the procedure well. Findings: The gastroesophageal junction and examined esophagus were normal. The GE junction was located at 35cm.The gastric pouch was healthy in appearance and measured 4cm. There was no evidence of inflammation or fistula. Evidence of a Bernice-en-Y gastrojejunostomy was found. The gastrojejunal anastomosis was characterized by healthy appearing mucosa. This was traversed. The ruawg-rb-lniktwk limb was characterized by healthy appearing mucosa. There was no evidence of stricture or ulceration.The examined jejunum was normal to 70cm. _ Impression: - Normal gastroesophageal junction and esophagus. - Bernice-en-Y gastrojejunostomy. The gastrojejunal anastomosis had healthy appearing mucosa. - Normal examined jejunum. Recommendation: - Refer to a surgeon at appointment to be scheduled. Suspect recurrent internal hernia. Dr. Charles Thornton MD ___ Charles Thornton MD 07/29/2012 7:21 AM This report has been signed electronically. Number of Addenda: 0 Note Initiated On: 07/29/2012 6:24 AM [facility] 07/29/2012 6:24 AM CDT Narrative [facility] - 07/29/2012 7:23 AM CDT Procedure Note Charles Thornton MD - 07/29/2012 7:23 AM CDT Charles Thornton MD GI PROCEDURE ORDERA KANDY Performing Organization Address [facility] Co de Phone Number [facility] [place] [address] * ENDOSCOPY ORDER (07/29/2012) Parth Castillo MD GI PROCEDURE ORDERAB LES * ENDOSCOPY, COLON, DIAGNOSTIC (03/06/2011 8:09 AM TRANSMISSION REBUILDER) Narrative Transcriptions Charles Thornton MD - 03/06/2011 8:09 AM CST Charles Thornton MD GI PROCEDURE ORDERA BLETha Performing Organization Address [facility] [place] Co de Phone Number [facility] [place] [address] * GROSS + MICRO EXAM (03/06/2011 12:00 AM TRANSMISSION REBUILDER) Only the most recent of4 resultswithin the time period is included. [facility] Surgeon Dr. Thornotn [facility] Grossed By [facility] [place] [facility] Gross Report [facility] Comment: SURGEON: Dr. Thornton COPY TO: Dr. Doherty INDICATIONS FOR PROCEDURE: Abdominal pain in the left lower quadrant, abdominal pain in the right lower quadrant, abnormal CT of the GI tract, change in bowel habits, constipation OPERATION: Colonoscopy GROSS: The specimen is received in one container labeled with the patient's name and hepatic flexure biopsy . The specimen consists of multiple 1.0 mm fragments of romo tissue. Stained and submitted in a single cassette. POP/ja Microscopic Examination [facility] Comment: MICROSCOPIC: 1. The hepatic flexure biopsy shows colonic mucosa without significant inflammation. The subepithelial collagen is not thickened. There is no dysplasia. AB/ja Diagnosis [facility] Comment: DIAGNOSIS: 1. Hepatic flexure biopsy: -- No significant abnormality. AB/ja Released by DORON SRINIVASAN M.D. [facility] CPT Code [id number] [facility] COLONIC BIOPSY SPECIMEN / Unknown 03/06/2011 03/06/2011 9:27 AM TRANSMISSION REBUILDER Luke Doherty MD LAB - PATHOLOGY/C YTOLOGY ORDERABLES [facility] [address] [place] [address] * CT ABDOMEN AND PELVIS WITH IV CONTRAST (01/31/2011 1:04 PM TRANSMISSION REBUILDER) Anatomical Region Laterality Modality Abdomen, Pelvis Computed Tomogra phy 01/31/2011 1:37 PM TRANSMISSION REBUILDER Impressions 01/31/2011 3:23 PM TRANSMISSION REBUILDER 1. Diffuse mucosal thickening of the colon, most pronounced about the hepatic flexure. Findings likely represent infectious versus inflammatory colitis. 2. Extrahepatic biliary dilatation. 3. Severe discogenic degenerative changes of the lumbar spine, particularly at L4-L5. Narrative 01/31/2011 3:[address] ABDOMEN WITH CONTRAST CT PELVIS WITH CONTRAST CLINICAL INDICATION: Abdominal and pelvic pain. TECHNIQUE: Axial CT images from the lung bases through the pubic symphysis were obtained following oral contrast administration and 100 mL Omnipaque 350 intravenous contrast administration. Additionally, source data were reconstructed into the coronal plane. FINDINGS: Limited visualization of the lung bases reveals no evidence of focal infiltrate or mass lesion. The liver is normal in size and has normal contours. The gallbladder is not visualized, which may be secondary to prior surgical removal or complete collapse. There is mild dilatation of the common bile duct, measuring 1.1 cm in diameter. Both kidneys and adrenal glands appear unremarkable. The pancreas is also within normal limits. The spleen appears unremarkable. 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 There is no evidence of bowel dilatation. A large amount of stool is present within the rectum. There is mild circumferential mucosal thickening of the entire colon, most pronounced throughout the hepatic flexure. There is no evidence of bowel perforation or abscess formation. No significant free fluid within the abdomen or pelvis is demonstrated. Evaluation of bone windows reveals severe diffuse discogenic degenerative changes, most pronounced at L4-L5. Procedure Note Sherwin Walsh MD - 01/31/[address] CT [address] WITH CONTRAST CT PELVIS WITH CONTRAST CLINICAL INDICATION: Abdominal and pelvic pain. TECHNIQUE: Axial CT images from the lung bases through the pubic symphysis were obtained following oral contrast administration and 100 mL Omnipaque 350 intravenous contrast administration. Additionally, source data were reconstructed into the coronal plane. FINDINGS: Limited visualization of the lung bases reveals no evidence of focal infiltrate or mass lesion. The liver is normal in size and has normal contours. The gallbladder is not visualized, which may be secondary to prior surgical removal or complete collapse. There is mild dilatation of the common bile duct, measuring 1.1 cm in diameter. Both kidneys and adrenal glands appear unremarkable. The pancreas is also within normal limits. The spleen appears unremarkable. 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 There is no evidence of bowel dilatation. A large amount of stool is present within the rectum. There is mild circumferential mucosal thickening of the entire colon, most pronounced throughout the hepatic flexure. There is no evidence of bowel perforation or abscess formation. No significant free fluid within the abdomen or pelvis is demonstrated. Evaluation of bone windows reveals severe diffuse discogenic degenerative changes, most pronounced at L4-L5. IMPRESSION 1. Diffuse mucosal thickening of the colon, most pronounced about the hepatic flexure. Findings likely represent infectious versus inflammatory colitis. 2. Extrahepatic biliary dilatation. 3. Severe discogenic degenerative changes of the lumbar spine, particularly at L4-L5. Luke Doherty MD CT ORDERABLES * CREATININE BLOOD - POINT OF CARE (IP) (01/31/2011 12:50 PM TRANSMISSION REBUILDER) Creatinine POCT 0.78 0.7 - 1.2 mg/dL [facility] QC Verified yes Yes [facility] POC T TESTING Blood specimen (specimen) BLOOD SPECIMEN / Unknown 01/31/2011 12:50 PM TRANSMISSION REBUILDER Luke Doherty MD LAB - POINT OF CA RE ORDERABLES Performing Organization Address [facility] de Phone Number [facility] [address] [place] [address] * (ABNORMAL) ZINC BLOOD (10/31/2008 10:45 AM CDT) Zinc 54(L) 60 - 120 mcg/dl [facility] Comment Ref Lab [facility] Comment: Comments and Normal Ranges for Component Zinc(mcg/dl) TEST INFORMATION/ Zinc, Serum Circulating zinc concentrations are dependent on albumin status and are depressed with malnutrition. Zinc may also be lowered with infection, inflammation, stress, oral contraceptives, and . Zinc may be elevated with zinc supplementation or fasting. Elevated zinc concentrations may interfere with copper absorption. BLOOD SPECIMEN / Unknown 10/31/2008 10:45 AM CDT 10/31/2008 10:47 AM CDT Narrative Resulting Agency Comment Performed By [address] [address] Luke Doherty MD LAB - CHEMISTRY O RDERABLES Performing Organization Address [facility] Co de Phone Number [facility] [address] [place] [address] * VITAMIN B1 (10/31/2008 10:45 AM CDT) Vitamin B1 Whole Blood 22 8 - 30 ug/dl [facility] Comment Ref Lab [facility] Comment: Comments and Normal Ranges for Component Thiamine(ug/dl) INTERPRETIVE DATA/ Vitamin B1, Plasma Total thiamine, measured as thiamine (vitamin B1) and thiamine monophosphate, is reported. However, the biologically active form of the vitamin, thiamine diphosphate (TDP), is best measured in whole blood, and is not found in measurable concentration in plasma. Plasma thiamine concentration reflects recent intake rather than body stores. BLOOD SPECIMEN / Unknown 10/31/2008 10:45 AM CDT 10/31/2008 10:46 AM CDT Narrative Resulting Agency Comment Performed By [address] [address] Luke Doherty MD LAB - CHEMISTRY O RDERABLES Performing Organization Address [place] Co de Phone Number [facility] [id number] [place] [id number] * PTH INTACT (10/31/2008 10:45 AM CDT) PTH Intact 55.6 14 - 72 pg/ml [facility] BLOOD SPECIMEN / Unknown 10/31/2008 10:45 AM CDT 10/31/2008 10:46 AM CDT Narrative Resulting Agency Comment Performed By [address] [address] Luke Doherty MD LAB - CHEMISTRY O RDERABLES Performing Organization Address [facility] Co de Phone Number [facility] [address] [place] [address] * FOLATE RBC (10/31/2008 10:45 AM CDT) Folate RBC 567 ng/ml [facility] Hct 39.4 % [facility] BLOOD SPECIMEN WITH EDTA / Unknown 10/31/2008 10:45 AM CDT 10/31/2008 10:46 AM CDT Narrative Resulting Agency Comment Performed By [facility] [address] [place] [address] Luke Doherty MD LAB - CHEMISTRY O RDERABLES Performing Organization Address [place]/[facility] Co de Phone Number [facility] [id number] [place] [id number] * VITAMIN D 25-HYDROXY (10/31/2008 10:45 AM CDT) Vitamin D, 25 Hydroxy 42.75 30 - 100 ng/ml [facility] BLOOD SPECIMEN / Unknown 10/31/2008 10:45 AM CDT 10/31/2008 10:46 AM CDT Narrative Resulting Agency Comment Performed By [facility] [address] [place] [address] Luke Doherty MD LAB - CHEMISTRY O RDERABLES [facility] [address] [place] [address] * (ABNORMAL) VITAMIN B12 (10/31/2008 10:45 AM CDT) Vitamin B12 985(H) 211 - 911 pg/ml [facility] BLOOD SPECIMEN / Unknown 10/31/2008 10:45 AM CDT 10/31/2008 10:46 AM CDT Narrative Resulting Agency Comment Performed By [facility] [address] [place] [address] Luke Doherty MD LAB - CHEMISTRY O RDERABLES Performing Organization Address [place]/[facility]/ZIP Co de Phone Number [facility] [id number] [place] [address] Care Teams Avionics Engineer Relationship Specialty Start Date End Date Elizabeth Brown MD [address] [place] [address] PCP - General Family Medicine 01/12/20 Meagan Godoy RN Publications Manager 04/19/14 Charles Thornton MD Machine Loader Gastroenterology 06/14/14 Perfecto Cooper MD [address] [place] [address] [address] [place] [address] Orthopedic 10/05/18 Elizabeth Brown MD [address] [place] [address] Primary Care Provider Family Medicine 12/07/19
--- OUTSIDE RECORDS SUMMARY | 2024-04-30 16:24 | XMS_ITS | Patient Health Record ---
Author Organization [facility] Address [address] [place] [id number] Care Team Providers Care Optical Glass Etcher Name Role Phone Charles Wheeler Unavailable [phone] [employer], Provider Unavailable Unavailab Reason For Referral No Information Medications Medication SIG (Take, Route, Frequency, Duration) Notes Start Date End Date Status Lubiprostone 24 MCG 1 cap(s) orally 2 ti mes a day Active HYDROcodone-Acetaminophen 5-325 MG 1 tab(s) orally every 6 hours Active Gabapentin 300 MG 1 cap(s) orally 3 ti mes a day Active CETIRIZINE 10 mg 1 tab(s) orally once a day Active AZELASTINE NASAL 137 mcg/inh 2 spray(s) intranasally 2 times a day Active Multivitamin - 1 tab(s) orally once a day Active GABAPENTIN 300 mg 1 cap(s) orally 3 ti mes a day Active Cetirizine HCl 10 MG 1 tab(s) orally once a day Active LUBIPROSTONE 24 mcg 1 cap(s) orally 2 ti mes a day Active Azelastine HCl 137 MCG/SPRAY 2 spray(s) intranasally 2 times a day Active MULTIVITAMIN Multiple Vitamins 1 tab(s) orally once a day A ctive ACETAMINOPHEN-HYDROCODONE 325 mg-5 mg 1 tab(s) orally every 6 hours As needed Active Problems Problem Type SNOMED Code ICD Code Onset Dates Problem Status W/U Status Risk Notes Problem Morbid obesity (disorder) (946681833) Morbid (severe) obesity due to excess calories (E66.01) Active confirmed Problem Chronic fatigue syndrome (disorder) (44890237) Chronic fatigue, unspecified (R53.82) Active confirmed Vital Signs Respiratory Rate 18 /min 06/05/2023 Oximetry 98 % 06/05/2023 Blood pressure diastolic 77 mm Hg 06/05/2023 Height 65.1 in 07/24/2023 Blood pressure systolic 126 mm Hg 06/05/2023 Weight 154.2 lbs 07/24/2023 BMI 25.58 kg/m2 07/24/2023 Encounters Encounter Location Date Provider Diagnosis [facility] ([address]) [address] [place] [address] 06/05/2023 Charles Win Morbid (severe) obesity due to excess calories E66.01 ; Chronic fatigue, unspecified R53.82 ; Other fatigue R53.83 and Other malaise R53.81 [facility] ([address]) [address] [place] [address] 06/12/2023 Charles Win Morbid (severe) obesity due to excess calories E66.01 ; Chronic fatigue, unspecified R53.82 ; Other fatigue R53.83 and Other malaise R53.81 [facility] ([address]) [address] [place] [address] 07/03/2023 Charles Win Morbid (severe) obesity due to excess calories E66.01 ; Chronic fatigue, unspecified R53.82 ; Other fatigue R53.83 and Other malaise R53.81 [facility] ([address]) [address] [place] [address] 07/10/2023 Charles Win Morbid (severe) obesity due to excess calories E66.01 ; Chronic fatigue, unspecified R53.82 ; Other fatigue R53.83 and Other malaise R53.81 [facility] ([address]) [address] [place] [address] 07/24/2023 Charles Win Morbid (severe) obesity due to excess calories E66.01 ; Chronic fatigue, unspecified R53.82 ; Other fatigue R53.83 and Other malaise R53.81 [facility]ERNA Arvizu [address] [place] [phone] 08/02/2023 Provider [facility] ([address]) [address] [facility] [place] [address] 06/19/2023 Charles Liam Morbid (severe) obesity due to excess calories E66.01 ; Chronic fatigue, unspecified R53.82 ; Other fatigue R53.83 and Other malaise R53.81 [facility] ([address]) [address] [place] [phone] 06/19/2023 Charles Liam [facility] [address]) [address] [address] 06/26/2023 Charles Liam Morbid (severe) obesity due to excess calories E66.01 ; Chronic fatigue, unspecified R53.82 ; Other fatigue R53.83 and Other malaise R53.81 [facility] ([address]) [address] [address] 07/17/2023 Charles Wheeler Morbid (severe) obesity due to excess calories E66.01 ; Chronic fatigue, unspecified R53.82 ; Other fatigue R53.83 and Other malaise R53.81 Assessments Encounter Date Diagnosis (ICD Code) Assessment Notes Treatment Notes Treatment Clinical Notes Section Notes 06/05/2023 Morbid (severe) obesity due to excess calories (ICD-10 - E66.01) 06/05/2023 Chronic fatigue, unspecified (ICD-10 - R53.82) 06/12/2023 Morbid (severe) obesity due to excess calories (ICD-10 - E66.01) 06/12/2023 Chronic fatigue, unspecified (ICD-10 - R53.82) 06/19/2023 Morbid (severe) obesity due to excess calories (ICD-10 - E66.01) 06/19/2023 Chronic fatigue, unspecified (ICD-10 - R53.82) 06/26/2023 Morbid (severe) obesity due to excess calories (ICD-10 - E66.01) 06/26/2023 Chronic fatigue, unspecified (ICD-10 - R53.82) 07/03/2023 Morbid (severe) obesity due to excess calories (ICD-10 - E66.01) 07/03/2023 Chronic fatigue, unspecified (ICD-10 - R53.82) 07/10/2023 Morbid (severe) obesity due to excess calories (ICD-10 - E66.01) 07/10/2023 Chronic fatigue, unspecified (ICD-10 - R53.82) 07/17/2023 Morbid (severe) obesity due to excess calories (ICD-10 - E66.01) 07/17/2023 Chronic fatigue, unspecified (ICD-10 - R53.82) 07/24/2023 Morbid (severe) obesity due to excess calories (ICD-10 - E66.01) 07/24/2023 Chronic fatigue, unspecified (ICD-10 - R53.82) 07/24/2023 Other fatigue (ICD-10 - R53.83) 07/17/2023 Other fatigue (ICD-10 - R53.83) 07/10/2023 Other fatigue (ICD-10 - R53.83) 07/03/2023 Other fatigue (ICD-10 - R53.83) 06/26/2023 Other fatigue (ICD-10 - R53.83) 06/19/2023 Other fatigue (ICD-10 - R53.83) 06/12/2023 Other fatigue (ICD-10 - R53.83) 06/05/2023 Other fatigue (ICD-10 - R53.83) 06/05/2023 Other malaise (ICD-10 - R53.81) 06/12/2023 Other malaise (ICD-10 - R53.81) 06/19/2023 Other malaise (ICD-10 - R53.81) 06/26/2023 Other malaise (ICD-10 - R53.81) 07/03/2023 Other malaise (ICD-10 - R53.81) 07/10/2023 Other malaise (ICD-10 - R53.81) 07/17/2023 Other malaise (ICD-10 - R53.81) 07/24/2023 Other malaise (ICD-10 - R53.81) Plan Of Treatment No Information Medical (General) History Surgical History Surgery Date(Month/Year) Bernice En Y 1998
--- OUTSIDE RECORDS SUMMARY | 2024-04-30 16:24 | XMS_ITS | Referral Summary ---
Author Organization [facility] [employer] Address [address] [facility] [place] [address] Care Team Providers Care Assistant Director Of Public Works Name Role Phone Meagan Godoy RN Unavailable [phone] Charles Thornton MD Unavailable [phone] Perfecto Cooper MD Unavailable [phone] Elizabeth Brown MD Unavailable [phone] Elizabeth Brown MD Primary Care Provider U navailable Source Comments [facility],non-owned Affiliates and Associated Physician Practices is amultiple site organization consisting of ambulatory clinics and hospital sitesin [place], [place], [place] and [place]. This disclosure is being madepursuant to the Care Everywhere program and may not contain all information available regarding this patient. Last updated 17.[facility] [employer] Allergies Active Allergy Reactions Criticality Noted Date Comments Aspirin Nausea and/or Vomiting 04/04/2018 Medications * Be aware that medications may not be up to date on this document. Alwaysverify current medications with the patient. Medication Sig Dispensed Refills Start Date End Date Status calcium-vitamin D (OS-SRINATH 250 PLUS D) 250-125 MG-UNIT tablet Take 1 (one) tablet by mouth once daily Active metoprolol succinate XL 24hr (TOPROL XL) 50 MG tablet TAKE ONE TABLET BY MOUTH ONCE DAILY 90 tablet 1 09/21/2018 Active gabapentin (NEURONTIN) 300 MG capsuleIndication s:Postoperative Pain Take 1 capsule by mouth at bedtime Reasons: Pain Following an Operation 30 capsule 5 10/05/2018 Active Multiple Vitamins-Minerals (HAIR SKIN AND NAILS FORMULA PO) Active Calcium-Phosphoru s-Vitamin D (CITRACAL +D3 PO) Take by mouth every 7 days Active azelastine (ASTELIN) 0.1 % nasal spray 01/21/2021 Active Homeopathic Products (LEG CRAMPS PO) Active diphenhydrAMINE HCl (BENADRYL PO) Active HYDROcodone-aceta minophen ([place]) 5-325 MG tablet Take 1 (one) tablet by mouth every 6 hours as needed for Pain Active acetaminophen (Tylenol) 500 MG tablet Take 1 (one) tablet by mouth every 4 hours as needed for Fever or Pain Maximum allowable Acetaminophen amount = 4 Grams (4000 mg) / 24 hours. Active omeprazole (PriLOSEC) 40 MG capsule TAKE 1 CAPSULE BY MOUTH EVERY DAY BEFORE BREAKFAST 90 capsule 3 08/04/2023 Active Active Problems Problem Noted Date Diagnosed Date Generalized abdominal pain 01/19/2021 Epigastric pain 12/07/2019 Change in bowel habits 12/07/2019 Atherosclerosis of aorta 02/08/2019 Overview (02/08/2019): 01/27/19 ct abdomen pelvis Atherosclerotic changes are seen in the nondistended aorta and iliac branch vessels Elevated uric acid in blood 02/05/2019 Overview (02/05/2019): 03/2018- start allopurinol History of Bernice-en-Y gastric bypass 01/19/2019 Chronic midline low back pain without sciatica 1 Overview (12/04/2017): SP surgery-still with pain- takes norco 2-3 per day Assessment & Plan (12/04/2017 2:21 PM CDT): Increase gabapentin to bid Assessment & Plan (09/02/2017 7:52 AM CDT): Continue surgery follow up Assessment & Plan (12/05/2015 1:58 PM CDT): Continue current medication. Anemia 09/13/2014 Overview (05/16/2015): fe def after pud. Recent fatigue Assessment & Plan (09/02/2017 7:50 AM CDT): Check cbc Assessment & Plan (05/16/2015 1:00 PM CDT): Check cbc, ferritin Assessment & Plan (09/13/2014 9:22 AM CDT): Check cbc, iron levels PUD (peptic ulcer disease) 04/19/2014 Overview (06/14/2014): Doing well with meds. Planning for fu egd. Assessment & Plan (06/14/2014 9:29 AM CDT): Continue current med/dose Periumbilical abdominal pain 01/24/2011 Overview (11/17/2014): Other B-complex deficiencies 09/19/2008 Vitamin D deficiency 09/19/2008 Overview (11/17/2014): Not taking supplement. Assessment & Plan (12/14/2013 9:35 AM CDT): Check vitamin d level. HTN (hypertension) Overview (02/04/2019): Compliant with med. BP low at times, but elevates after several days off medication. No dotson/cp/shortness of breath. Assessment & Plan (02/04/2019 2:08 PM BEVELING AND EDGING MACHINE OPERATOR): Lower dose to 25 mg qd Assessment & Plan (04/06/2018 1:44 PM BEVELING AND EDGING MACHINE OPERATOR): Stay off medication until BP becomes higher Assessment & Plan (12/04/2017 2:17 PM CDT): Continue current medication. Assessment & Plan (09/02/2017 7:55 AM CDT): Lower lisinopril to 20 mg Assessment & Plan (10/24/2016 10:24 AM CDT): Continue current medication. Assessment & Plan (12/05/2015 1:55 PM CDT): Continue current medication. Assessment & Plan (05/16/2015 12:59 PM CDT): Continue current medication. Assessment & Plan (09/13/2014 9:16 AM CDT): Continue current med/dose. Assessment & Plan (06/14/2014 9:28 AM CDT): Continue current med/dose. Assessment & Plan (12/14/2013 9:34 AM CDT): Continue current med/dose. Assessment & Plan (06/14/2013 9:31 AM CDT): Continue current med/dose. Assessment & Plan (02/15/2013 10:41 AM BEVELING AND EDGING MACHINE OPERATOR): Monitor at home. Continue current med, start exercising. Anxiety Overview (02/04/2019): Rare xanax Assessment & Plan (02/04/2019 2:10 PM BEVELING AND EDGING MACHINE OPERATOR): Continue current medication. Assessment & Plan (12/04/2017 2:19 PM CDT): Increase wellbutrin to 300 mg Assessment & Plan (09/02/2017 7:56 AM CDT): Add wellbutrin 150 mg qd Assessment & Plan (10/24/2016 10:25 AM CDT): Continue current medication. Assessment & Plan (12/05/2015 1:56 PM CDT): Continue current medication. Assessment & Plan (05/16/2015 1:01 PM CDT): Continue current medication. Assessment & Plan (09/13/2014 9:18 AM CDT): Increase Zoloft to 1.5 tabs per day. Assessment & Plan (06/14/2014 9:29 AM CDT): Increase zoloft to 100mg. Assessment & Plan (12/14/2013 9:34 AM CDT): Continue current med/dose. Assessment & Plan (06/14/2013 9:31 AM CDT): Add zoloft, continue prn xanax. Resolved Problems Problem Noted Date Diagnosed Date Resolved Date Constipation 01/19/2021 02/16/2021 Vitamin deficiency 09/19/2008 4 Overview (11/17/2014): Protein-calorie malnutrition 09/19/2008 06/13/2014 Overview (11/17/2014): Immunizations Name Administration Dates Next Due INFLUENZA VACCINE, TRIV. (AF LURIA, FLUZONE TRIVALENT; 6MO+) (IIV3) 12/14/2013 CovQwenty primary monoval ent 12+ yr 0.3mL Purple cap 10/24/2020,09/29/2020 INFLUENZA VACCINE 01/05/2019,01/23/2015,10/19/19 13 INFLUENZA VACCINE, HIGH-DOSE , QUADR. (FLUZONE HIGH-DOSE QUADRIVALENT; 65Y+), 0.7 ML (HD-IIV4) 11/07/2017 INFLUENZA VACCINE, QUADR. (A FLURIA, FLUZONE QUADRIVALENT; 6MO+) (IIV4) 11/19/2016,12/05/2015 INFLUENZA VACCINE, QUADR. (F LUZONE; FLULAVAL; FLUARIX; AFLURIA QUADRIVALENT; 6MO+), 0.5 ML (IIV4) 11/08/2019 INFLUENZA VACCINE, TRIV. (FL UZONE; FLULAVAL; FLUARIX; AFLURIA TRIVALENT; 6MO+), 0.5 ML (IIV3) 04/19/2014 PNEUMOCOCCAL PPSV23 11/19/2016,11/17/2012 Pneumococcal Pcv13 Conj 01/09/2019,12/04/2017 TDAP (7yrs+) 11/08/2019,12/05/2015 ZOSTER VACCINE, LIVE 10/18/2012 Zoster Hzv Vacc Recombinant Inj Im 07/18/2019, Social History Tobacco Use Types Packs/Day Years Used Date Smoking Tobacco: Never Smokeless Tobacco: Never Tobacco Cessation:Counseling Given: Not Answered Alcohol Use Standard Drinks/Week Comments Not Currently 0.8 (1 standard drink = 0.6 oz p ure alcohol) socially Sex and Gender Information Value Date Recorded Sex Assigned at Not on file Gender Identity Female 01/26/2019 8:32 AM BEVELING AND EDGING MACHINE OPERATOR Sexual Orientation Not on file Last Filed [...] Mass Index 26.13 06/16/2023 11:41 AM CDT Functional Status Functional Status Response Date of Assess ment Is person deaf or have serious hearing difficult y? No 05/30/2021 Is person blind or have serious difficulty seein g? No 05/30/2021 Does person have serious dif ficulty walking/climbing stairs? No 05/30/2021 Does person have difficulty dressing/bathing? No 05/30/2021 Does person have difficulty doing errands alone? No 05/30/2021 Cognitive Status Response Date of Assessm ent Does person have difficulty concentrating/remembering/making decisions? No 05/30/2021 Plan of Treatment Not on file Goals Goal Patient Goal Type Associated Problems Recent Progress Patient-Stated? Author Blood Pressure < 140/90 Blood Pressure 131/75( 024 1:35 PM CDT) No Kavita Luke Procedures Procedure Name Priority Date/Time Associated Diagnosis Comments LIPID PROFILE Routine 02/04/2019 2:32 PM BEVELING AND EDGING MACHINE OPERATOR Essential hypertension HEPATITIS PANEL Routine 04/06/2018 2:01 PM BEVELING AND EDGING MACHINE OPERATOR Encounter for screening for other viral diseases Elevated LFTs MAMMOGRAPHY ORDER Routine 02/27/2018 ENDOSCOPY, COLON, SCREENING Routine 02/26/2016 7:25 AM BEVELING AND EDGING MACHINE OPERATOR DEXA BONE DENSITY 2 SITES Routine 05/15/2015 from Last 3 Months or Most Recently Relevant to Health Maintenance Results * LIPID PROFILE (02/04/2019 2:32 PM BEVELING AND EDGING MACHINE OPERATOR) Cholesterol 166 <200 mg/dL [facility] INSURANCE BILL Triglycerides 52 <150 mg/dL [facility] INSURANCE BILL HDL Cholesterol 87 >40 mg/dL [facility] INSURANCE BILL VLDL Calculated 10 <=30 mg/dL [facility] INSURANCE BILL LDL Calculated 69 <130 mg/dL [facility] INSURANCE BILL Blood BLOOD SPECIMEN / Unknown 02/04/2019 2:32 PM BEVELING AND EDGING MACHINE OPERATOR 02/04/2019 Narrative Resulting Agency Comment Lab Testing performed at: [facility] [place] [address] [place] [id number] Parth Castillo MD LAB - CHEMISTRY MANJIT BA[facility] Organization Address City/State/ZIP Co de Phone Number [facility] INSURANCE BILL [address] [place] [address] * HEPATITIS PANEL (04/06/2018 2:01 PM BEVELING AND EDGING MACHINE OPERATOR) Hepatitis A Virus Antibody IgM Negative Negative [...] BLOOD SPECIMEN / Unknown 04/06/2018 2:01 PM BEVELING AND EDGING MACHINE OPERATOR 04/06/2018 Narrative Resulting Agency Comment [facility] [place] [address] [facility] [id number] Parth Castillo MD LAB - CHEMISTRY MANJIT BAER [facility] INSURANCE BILL [address] [place] [place] [address] * MAMMOGRAPHY ORDER (02/27/2018) Anatomical Region Laterality Modality Mammography Parth Castillo MD MAMMO ORDERABLES * ENDOSCOPY, COLON, SCREENING (02/26/2016 7:25 AM BEVELING AND EDGING MACHINE OPERATOR) Report Endoscopy POC _ Patient Name: Taty Heath Procedure Date: 02/26/2016 7:25 AM Date of [...] by the physician, the nurse and the dry mixer in the procedure room. Mental Status Examination: [...] previously scheduled. Procedure Code(s): --- Professional --- 98056, Colonoscopy, flexible; with biopsy, single or multiple --- Technical --- 41981, Colonoscopy, flexible; with biopsy, single or multiple [...] neoplasm of descending colon CPT copyright 2015 [employer]. All rights reserved. The codes documented in this report are preliminary and upon court worker review may be revised to meet current compliance requirements. Dr. Charles Thornton MD Charles Thornton MD 02/26/2016 8:21:08 AM This report has been signed electronically. Number of Addenda: 0 Note Initiated On: 02/26/2016 7:25 AM [facility] ENDOSCOPY 02/26/2016 7:25 AM BEVELING AND EDGING MACHINE OPERATOR Charles Thornton MD GI PROCEDURE ORDERA BLES [facility] [place] [address] * DEXA BONE DENSITY 2 SITES (05/15/2015) Anatomical Region Laterality Modality Other Vivienne Richey NP DEXA ORDERABLES from Last 3 Months or Most Recently Relevant to Health Maintenance Advance Directives * Full Code (Latest Code Status on File) Date Activated Date Inactivated Comments 04/27/2014 6:10 PM 04/28/2014 7:42 PM * Full Code Date Activated Date Inactivated Comments 04/19/2014 2:45 AM 04/21/2014 1:08 PM Care Teams Assistant Director Of Public Works Relationship Specialty Start Date End Date Elizabeth Brown MD [address] [facility] [address] [place] [address] PCP - General Family Medicine 01/12/20 Meagan Godoy, RN Continuity Tester 04/19/14 Charles Thornton MD Resident Associate Gastroenterology 06/14/14 Perfecto Cooper MD [address] [facility] [address] [place] [address] Orthopedic 10/05/18 Elizabeth Brown MD [address] [facility] [address] [place] [address] Primary Care Provider Family Medicine 12/07/19
--- OUTSIDE RECORDS SUMMARY | 2024-04-30 16:24 | XMS_ITS ---
Author Organization [facility] Address [address] [place] [phone] Care Team Providers Care Commercial Property Administrator Name Role Phone Charles Wheeler Unavailable [phone] REASON FOR VISIT [facility], interested in peptide therapy, tried Semaglutide in the past; appetite suppression good I feel like I'm on a liquid diet , Desired weight loss: 20 lbs, +1.2 lbs [...] Provider Diagnosis [facility] [place] ([address]) [address] [place] [phone] 07/24/2023 Charles Liam Morbid (severe) obesity due to [...] abdomen Frequency: weekly Lot Number/Expiration: Medication Source: [employer] Adverse Reaction: None Progress Notes * Taty WEIRDOB:1950 (73 yo F)Acc No.[id number]:07/24/2023 Weight Loss Patient: Taty CLARK Provider: Jessica Wheeler MD :1950 A ge:73 Y S ex:Female Date:07/24/2023 Address:[address] [place], [place] [id number] Subjective: * Chief Complaints: * 1 . [facility], interested in peptide therapy, tried Semaglutide in the past; appetite suppression good I feel like I'm on a liquid diet . 2. Desired weight loss: 20 lbs, +1.2 [...] Number/Expiration 0 -2024 M edication Source [facility] A dverse Reaction N one * Follow Up: 1 Week (Reason: GLP-1 Agonist Administration) * Billing Information: * Visit Code: * Procedure Codes: * Electronic signature of Sapna Wheeler MD, FAAAAI on 04/30/2024 at 04:23 PM CDT Sign off status: Pending * Provider: Jessica Wheeler MD Date: 0 07/24/2023 Generated for Romina leblanc/Rafa/Shoshana on: 0 04/30/2024 04:23 PM CDT
--- OUTSIDE RECORDS SUMMARY | 2024-04-30 16:24 | XMS_ITS ---
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 Name Role Phone LiamCharles [phone] REASON FOR VISIT [facility], [...] hormones Encounters Encounter Location Date Provider Diagnosis [facility] [place] ([address]) [address] [phone] 07/31/2023 Charles Wheeler Morbid (severe) obesity due [...] abdomen Frequency: weekly Lot Number/Expiration: Medication Source: [employer] Adverse Reaction: None Progress Notes * Taty WEIRDOB:1950 (73 yo F)Acc No.[id number]:07/31/2023 Weight Loss Patient: Taty CLARK Provider: Jessica Wheeler MD :1950 A ge:73 Y S ex:Female Date:07/31/2023 Address:[address] [place] [address] Subjective: * Chief Complaints: * 1 . [...] ot Number/Expiration 0 M edication Source [facility] A dverse Reaction N one * Follow Up: 1 Week (Reason: GLP-1 Agonist Administration) * Billing Information: * Visit Code: * Procedure Codes: * Electronic signature of Pattyshawn Wheeler MD, FAAAAI on 04/30/2024 at 04:23 PM CDT Sign off status: Pending * Provider: Jessica Wheeler MD Date: 0 07/31/2023 Generated for Romina leblanc/Rafa/Shoshana on: 0 04/30/2024 04:23 PM CDT
--- OUTSIDE RECORDS SUMMARY | 2024-04-30 16:25 | XMS_ITS | Data Portability ---
[facility] Address [address] [place] [address] Assessment No assessment recorded. Plan of Treatment Reminders Order Date Submit Date Provider Last Modified By Organization Details Last Modified Time Details Appointments None recorded. Lab fecal occult blood, stool 2016 017 mpass In-Office Order, Internal Use Only DO Not Attach Compendium DO Not Attach Compendium, Do Not Delete/merge, [id number] 7 14:51:12 pap, IG 2015 016 SENTINEL BUTTE [facility], [address], [address], [place], [address], 6 11:33:28 Referral None recorded. Procedures None recorded. Surgeries None recorded. Imaging mammogram, screening 2015 016 [facility] ([facility]) Scheduling, [address] [place], [address], 6 09:04:06 bone density study 2015 016 [facility], [address] [place], [address], 6 00:56:55 Medication Orders Prempro 0.45 mg-1.5 mg tablet 2015 016 INTERFACE [facility] [address] In [facility], [facility], [place], [place], [id number], 6 11:54:34 Prempro 0.625 mg-2.5 mg tablet 2014 015 mpass [facility] [address] In [facility], [address], [place], [place], [id number], 5 11:39:35 Patient TargetsNo targets recorded. Patient Instructions Encounter Date Encounter Id Patient Instructions Last Modified By Organization Details Last Modified Time 04/06/2014 [id number] hot flashes during menopause: care instructions mpass Not available 04/06/2014 11:39:35 05/02/2015 [id number] Keep appt. for mammogram. Make appt. for bone density. mpass Not available 05/02/2015 11:53:38 Will reduce strength of HRT. Last mammogram negative. Getting another one at the end of this month. Will send in complete RX for Prempro with negative mammogram. mpass Not available 05/02/2015 11:53:38 10/16/2016 [id number] Taty is doing well. She states she no longer needs HRT. Hot flashes and night sweats no longer present. mpass Not available 10/16/2016 12:13:24 Reason for Referral None Reported. Results Created Date Observation Date Name Description Value Unit Range Abnormal Flag Note LastModifiedBy Organization Detail LastModifiedTime 10/17/19 17 10/16/2016 fecal occul t blood , stool Occult Blood negati ve Not Available In-Office Order Internal Use Only DO Not Attach Compendium DO Not Attach Compendium, Do Not Delete/merge, [id number] 10/16/2016 12:04:25 05/02/19 16 05/04/2015 pap, IG diagnosis: COMMEN T NEGAT FRANKIE FOR INTRA EPITH ELIAL LESIO N AND MALNEAL KERVIN . Not Available [facility] ([facility]) [address] [facility] [address], [place], [address], 05/04/2015 11:33:28 05/02/19 16 05/04/2015 pap, IG specimen adequacy: COMMEN T SATIS FACTO RY FOR EVALU ATION . NO ENDOC ERVIC AL COMPO NENT IS IDENT IFIED . Not Available [facility] ([facility]) [address] [facility] [address], [place], [address], 05/04/2015 11:33:28 05/02/19 16 05/04/2015 pap, IG clinician provided ICD10: KAMILLA Nunez Z01.4 19 Not Available [facility] ([facility]) [address] [facility] [address], [place], [address], 05/04/2015 11:33:28 05/02/19 16 05/04/2015 pap, IG performed by: DIANE NAVARRO (AS[facility] ) Not Available [facility] ([facility]) [address] [facility] [address], [place], [address], 05/04/2015 11:33:28 05/02/19 16 05/04/2015 pap, IG . . Not Available [facility] ([facility]) [address] [facility] [address], [place], [address], 05/04/2015 11:33:28 05/02/19 16 05/04/2015 pap, IG note: KAMILLA Nunez THE PAP SMEAR IS A SCREE MAXINE TEST DESIG SUZANNE TO AID IN THE DETEC TION OF HAYDEN LIGNA NT AND MALIG NANT CONDI TIONS OF THE UTERI NE CERVI X. IT IS NOT A DIAGN OSTIC PROCE DURE AND SHOUL D NOT BE USED THE SOLE MEANS OF DETEC TING CERVI SRINATH CANCE R. BOTH FALSE -POSI TIVE AND FALSE -NEGA TIVE REPOR TS DO OCCUR . Not Available [facility] ([facility]) [address] [facility] [address], [place], [address], 05/04/2015 11:33:28 05/02/19 16 05/04/2015 pap, IG test methodology: KAMILLA Nunez THIS LIQUI D BASED THINP REP(R ) PAP TEST WAS SCREE SUZANNE WITH THE USE OF AN IMAGE GUIDE Devang Reynolds Not Available [facility] ([facility]) [address] [facility] [address], [place], [address], 05/04/2015 11:33:28 05/15/19 16 05/15/2015 bone densi ty study No observ ation record ed. Not Available 2015 15:50:25 05/16/19 16 05/15/2015 mammo librado charles No observ [facility]ion [facility] ed[facility] [address] [place], [address], 05/18/2015 16:29:05 10/17/19 17 10/14/2016 MAMMO librado bilat eral No observ ation record ed. BARCODE Not Available 2016 12:04:49 Result Notes None recorded. Problems Name Problem SNOMED Code Status Onset Date Resolution Date Notes Provider Name and Address Organization Details Recorded Time Menopausal flushing 747473016 Active Sandie Vora null, [facility] 6 11:34:50 Menopausal syndrome 626025451 Active Mary Le null, [facility] 6 14:25:28 Problem Notes None recorded. Procedures Surgical History Date Name Laterality Status Provider Name and Address Organization Details Recorded Time Date of Last Pap Smear completed Sandie Vora [facility] 05/02/2015 11:34:50 Other completed Megan Rodríguez [facility] 015 10:42:32 Other completed Megan Rodríguez [facility] 015 10:42:32 Tubal Ligation completed Sandie Vora [facility] 05/02/2015 11:34:50 Imaging Results Imaging Date Name Status LastModified by [facility] Details LastModified Time 05/15/2015 bone density study completed Information not available 05/18/2015 15:50:25 05/15/2015 mammogram, screening completed [address], [address], 05/18/2015 16:29:05 10/14/2016 MAMMO, screening, bilateral completed BARCODE Information not available 10/16/2016 12:04:49 Procedure Notes None recorded. Medical Equipment None Reported. Allergies No known drug allergies Medications Name Sig Start Date Stop Date Status Note LastModified by Organization Details LastModified Time cyclobenzapri ne 10 mg tablet active Not Available Not Available Not Available amoxicillin 500 mg capsule active Not Available Not Available Not Available azithromycin 250 mg tablet 10/16 completed Not Available Not Available Not Available metoprolol succinate ER 50 mg tablet,extend ed release 24 hr active Not Available Not Available Not Available hydrocodone 5 mg-acetaminop hen 325 mg tablet active Not Available Not Available Not Available sucralfate 1 gram tablet active Not Available Not Available Not Available sertraline 100 mg tablet active Not Available Not Availabl e Not Available tramadol 50 mg tablet active Not Available Not Available No t Available oxycodone-alexander taminophen 5 mg-325 mg tablet active Not Available Not Available Not Available alprazolam 0.5 mg tablet active Not Available Not Availabl e Not Available hydrocodone 7.5 mg-acetaminop hen 325 mg tablet active Not Available Not Available Not Available cephalexin 500 mg capsule active Not Available Not Available Not Available pantoprazole 40 mg tablet,delaye d release active Not Available Not Available No t Available misoprostol 100 mcg tablet active Not Available Not Available Not Available gabapentin 300 mg capsule active Not Available Not Available Not Available Prempro 0.625 mg-2.5 mg tablet TAKE ONE TABLET BY MOUTH ONCE DAILY active Not Available Not Available No t Available levofloxacin 500 mg tablet active Not Available Not Availabl e Not Available zolpidem 10 mg tablet active Not Available Not Available No t Available methylprednis olone 4 mg tablets in a dose pack active Not Available Not Available No t Available lisinopril 40 mg tablet active Not Available Not Available No t Available fluticasone propionate 50 mcg/actuation nasal spray,suspens ion active Not Available Not Available Not Available sertraline 50 mg tablet active Not Available Not Available No t Available dicyclomine 10 mg capsule active Not Available Not Availabl e Not Available Prempro 0.45 mg-1.5 mg tablet Take 1 tablet every other day by oral route as directe d. active Not Available Not Available No t Available bupropion HCl XL 150 mg 24 hr tablet, extended release active Not Available Not Available Not Available Prempro 0.3 mg-1.5 mg tablet active Not Available Not Available Not Available Prepopik 10 mg-3.5 gram-12 gram oral powder packet active Not Available Not Available Not Available Vitals Date Recorded Body mass index (BMI) Body weight Body height Systolic blood pressure Diastolic blood pressure Provider Name and Address Organization Details Last Updated DateTime 05/02/2015 24.5 kg/m2 09806.07 839 g 165.1 cm 140 mm[Hg] 80 mm[Hg] Sandie Vora [facility] 6 11:34:50 Date Recorded Body weight Body height Body mass index (BMI) Systolic blood pressure Diastolic blood pressure Provider Name and Address Organization Details Last Updated DateTime 04/06/2014 27695.70 891 g 165.1 cm 23.8 kg/m2 102 mm[Hg] 62 mm[Hg] Megan Rodríguez [facility] 5 10:42:32 Date Recorded Body height Body mass index (BMI) Body weight Systolic blood pressure Diastolic blood pressure Provider Name and Address Organization Details Last Updated DateTime 10/16/2016 165.1 cm 24.5 kg/m2 62965.08 g 110 mm[Hg] 72 mm[Hg] Sandie Vora [facility] 7 11:49:10 Social History Question Answer Notes LastModified by Organizat ion Details LastModified Time Tobacco Smoking Status Former Smoker Megan Rodríguez [facility] 04/06/2014 10:42:32 What Was The Date Of Your Most Recent Tobacco Screening? 10/16/2016 Information n ot available 09/10/2018 Are You Sexually Active? Yes [email or web address] Information not available 04/06/2014 How Much Tobacco Do You Smoke? No Information not available 04/06/2014 Sex: Unknown Functional Status Question Answer Note LastModified by Organization D etails LastModified Time What is your exercise level? None [email or web address] Information not available 04/06/2014 Mental Status None recorded. Family History Relationship Description Onset Age of this Age Resolved Age Notes LastModified by Organization Details LastModified Time Father Heart disease Not available 2015 11:34:50 Father Hypertensive disorder Not available 2015 11:34:50 Mother Heart disease Not available 2015 11:34:50 Mother Hypertensive disorder Not available 2015 11:34:50 Mother Cerebrovascu lar accident Not available 11:34:50 Mother Kidney disease Not available 2015 11:34:50 Mother Osteoporosis Not avai lable 05/02/2015 11:34:50 Mother Neoplasm of brain 86 Not available 2016 11:47:32 Unspecified Relation Heart disease Avlin g Not available 05/02/2015 11:34:50 Unspecified Relation Hypertensive disorder Patern al, Matern al Grandp arengloria , Alexi g Not available 05/02/2015 11:34:50 Unspecified Relation Cerebrovascu lar accident Alexi g Not available 05/02/2015 11:34:50 Unspecified Relation Diabetes mellitus Avlin g Not available 05/02/2015 11:34:50 Unspecified Relation Malignant tumor of breast Alexi g Not available 05/02/2015 11:34:50 Medical History Condition Response Anemia Y High Blood Pressure Y Heart Problems/Murmur Y Arthritis Y Gynecological History Statement/Question Response If Post Menopausal, Age at Menopause 55 Date of Last Pap Smear 05/02/2015 Current Control Method Tubal Ligat ion LMP Unknown Sexually Active? Y Obstetrics History GPAL:G 0 P 0 0 0 0 Past Encounters Encounter ID Performer Location Encounter Start Date Encounter Closed Date Diagnosis/Indication Diagnosis SNOMED-CT Code Diagnosis ICD10 Code Diagnosis Note [id number] Yoselyn Payne ([facility]) [address] [place] [address] 04/06/2014 10:29:33 04/06/2014 12:06:13 Gynecologic examination 21976110 Menopausal flushing 777596069 [id number] [facility] [address] [place] [address] 05/02/2015 11:24:45 05/02/2015 12:28:41 Gynecologic examination 98518062 Z01.419 Screening mammography 24 359252 Z12.31 Screening for osteoporosis 257220514 Z13.820 Menopausal syndrome 1237 02601 N95.9 [id number] [facility] [address] [place] [address] 10/16/2016 11:35:56 10/16/2016 13:25:25 Screening for malignant neoplasm of colon 229131375 Z12.11 Gynecologi c examination 02472775 Z01.419 Health Concerns Section Related Observation LastModified by Organization Detai ls LastModified Time None Recorded Concern Status LastModified by Organization Details LastModified Time None Recorded Advance Directives Directive None Recorded Payers Encounter Date Sequence Insurance Name Policy Number Policy [place] Covered Member ID Guadarrama Member ID Guarantor Name 04/06/2014 1 [place] Taty A Heath [id number] Taty Heath 04/06/2014 2 [employer] (MEDICARE SUPPLEMENT) Taty A Heath [id number] Taty Heath 05/02/2015 1 [place] Taty A Heath [id number] Taty Heath 05/02/2015 2 [place] [id number] Taty A Heath [id number] Taty Heath 10/16/2016 1 [place] Taty A Heath [id number] Taty Heath 10/16/2016 2 [place] [id number] Taty A Heath [id number] Taty Heath Notes Date Note Type Note Provider Name and Address Organization Details Recorded Time 05/02/2015 text/html 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 Vaginal Bleeding:history of menopause having occurred; no history of post menopausal bleeding Urinary Symptoms:no hematuria; no incontinence; no nocturia; no urinary frequency Vulva:no genital lesion; no vulvar atrophy Vagina:normal vaginal discharge; no vaginal atrophy Breast:no breast lump; no nipple discharge; no breast pain Sexual Complaints:no sexual complaints Psychological Symptoms:no depression; no anxiety Preventive Measures:encourage regular mammograms starting age 40; encourage self breast examination; encourage regular exercise; encourage no tobacco use; needs to schedule mammogram; history of recent colonoscopy; needs to schedule bone density OTF Diaz Attn: Accounting[address] [place], [address], [facility] 05/02/2015 11:54:52 10/16/2016 text/html 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.Menopaus al Symptoms:no menopausal symptoms; normal vaginal lubrication Vaginal Bleeding:history of menopause having occurred; no history of post menopausal bleeding Urinary Symptoms:no hematuria; no incontinence; no nocturia; no urinary frequency Vulva:no genital lesion; no vulvar atrophy Vagina:normal vaginal discharge; no vaginal atrophy Breast:no breast lump; no nipple discharge; no breast pain Sexual Complaints:no sexual complaints Psychological Symptoms:no depression; no anxiety Preventive Measures:encourage regular mammograms starting age 40; encourage self breast examination; encourage regular exercise; encourage no tobacco use; mammogram performed within the past year; history of recent colonoscopyNotes:C olonoscopy in 2014 LUIZ Diaz Attn: Accounting[address] [place], [address], [facility] 10/16/2016 12:13:58 OBGyn Episode No OBEpisode recorded.
--- OUTSIDE RECORDS SUMMARY | 2024-04-30 16:25 | XMS_ITS | Clinical Summary ---
Author Organization [facility] [employer] Address [address] [place] [address] Care Team Providers Care Social Media Developer Name Role Phone Meagan Godoy RN Unavailable [phone] Charles Thornton MD Unavailable Perfecto Cooper MD Unavailable [phone] Elizabeth Brown MD Unavailable [phone] Elizabeth Brown MD Primary Care Provider U navailable Source Comments [facility],non-owned Affiliates and Associated Physician Practices is amultiple site organization consisting of ambulatory clinics and hospital sitesin [place], [place], [place] and [place]. This disclosure is being madepursuant to the Care Everywhere program and may not contain all information available regarding this patient. Last updated 17.[facility] [employer] Allergies Active Allergy Reactions Criticality Noted Date [...] diphenhydrAMINE HCl (BENADRYL PO) Active HYDROcodone-aceta minophen ([place]) 5-325 MG tablet Take 1 (one) tablet [...] breath. Assessment & Plan (02/04/2019 2:08 PM MARINE EQUIPMENT PRESERVATION INSPECTOR): Lower dose to 25 mg qd Assessment & Plan (04/06/2018 1:44 PM MARINE EQUIPMENT PRESERVATION INSPECTOR): Stay off medication until BP becomes higher [...] med/dose. Assessment & Plan (02/15/2013 10:41 AM MARINE EQUIPMENT PRESERVATION INSPECTOR): Monitor at home. Continue current med, start exercising. Anxiety Overview (02/04/2019): Rare xanax Assessment & Plan (02/04/2019 2:10 PM MARINE EQUIPMENT PRESERVATION INSPECTOR): Continue current medication. Assessment & Plan (12/04/2017 [...] (AF LURIA, FLUZONE TRIVALENT; 6MO+) (IIV3) 12/14/2013 [employer]ove[employer] primary monoval ent 12+ yr 0.3mL Purple [...] Zoster Hzv Vacc Recombinant Inj Im 07/18/2019, Family History Medical History Relation Name Comments CAD (Coronary Artery Disease) Brother Cancer Maternal Grandmother colon c ancer CAD (Coronary Artery Disease) Mother Cancer Mother Hypertension Mother Hypertension Sister 1 Diabetes Sister 2 Relation Name Status Comments Brother Maternal Grandmother Mother Sister 1 Sister 2 Social History Tobacco Use Types Packs/Day Years Used Date Smoking Tobacco: Never Smokeless Tobacco: Never Tobacco Cessation:Counseling Given: Not Answered Alcohol Use Standard Drinks/Week Comments Not Currently 0.8 (1 standard drink = 0.6 oz p ure alcohol) socially Sex and Gender Information Value Date Recorded Sex Assigned at Not on file Gender Identity Female 01/26/2019 8:32 AM MARINE EQUIPMENT PRESERVATION INSPECTOR Sexual Orientation Not on file Last Filed [...] Mass Index 26.13 06/16/2023 11:41 AM CDT Plan of Treatment Health Maintenance Due Date Last Done Comments COLOGUARD (AGES 45-75) - COLON CA SCREENING 1950 CT COLONOGRAPHY - COLON CA SCREENING 1950 FIT - COLON CA SCREENING 1950 FLEX SIG - COLON CA SCREENING 1950 MEDICARE AWV 12 MONTHS 05/15/2016 05/16/2015 MAMMOGRAM 02/27/2019 02/27/2018, 02/17, 02/11/2018, Additional history exists COVID-19 VACCINE ( season) 2023 10/24/2020, 09/29/2020 INFLUENZA VACCINE (#1) 2023 0, 01/05/2019, 11/07/2017, Additional history exists PNEUMOCOCCAL VACCINE 50+ (3 of 3 - PCV20 or PCV21) 01/10/2024 01/09/2019, 12/04/2017, 11/19/2016, Additional history exists LIPID TESTING 02/05/2024 02/04/2019, 05/18, 05/19/2015, Additional history exists DEPRESSION SCREENING 02/18/2024 COLON MONITORING 05/30/2026 05/30/2021, 10/2016, 02/26/2016, Additional history exists Colorectal Cancer Screening 05/30/2026 Respiratory Syncytial Virus (RSV) Vaccine Pt: or over 60 yrs (1 - 1-dose 75+ series) 05/12/2027 DTAP/TDAP/TD VACCINES (3 - Td or Tdap) 11/07/2029 11/08/2019, 12/05/2015 COLONOSCOPY - COLON CA SCREENING 05/31/2031 05/30/2021, 02/26/2016, 02/26/2016, Additional history exists BONE DENSITY TESTING Completed 05/15/2015, 05/15/19 16 HEPATITIS C SCREENING Completed 04/06/2018, 017 ZOSTER VACCINE Completed 07/18/2019, 12/19, 10/18/2012 HEPATITIS B VACCINE Aged Out No longe r eligible based on patient's age to complete this topic HIB VACCINE Aged Out No longer eligi ble based on patient's age to complete this topic HPV VACCINE Aged Out No longer eligi ble based on patient's age to complete this topic MENINGOCOCCAL (Group B) VACCINE SHARED DECISION-MAKING Aged Out No longer eligible based on patient's age to complete this topic MENINGOCOCCAL GROUPS A/C/Y/W VACCINE Aged Out No longer eligible based on patient's age to complete this topic Goals Goal Patient Goal Type Associated Problems Recent Progress Patient-Stated? Author Blood Pressure < 140/90 Blood Pressure 131/75( 024 1:35 PM CDT) Kavita Pinon Procedures Procedure Name Priority Date/Time Associated Diagnosis Comments LIPID PROFILE Routine 02/04/2019 2:32 PM MARINE EQUIPMENT PRESERVATION INSPECTOR Essential hypertension HEPATITIS PANEL Routine 04/06/2018 2:01 PM MARINE EQUIPMENT PRESERVATION INSPECTOR Encounter for screening for other viral diseases Elevated LFTs MAMMOGRAPHY ORDER Routine 02/27/2018 ENDOSCOPY, COLON, SCREENING Routine 02/26/2016 7:25 AM MARINE EQUIPMENT PRESERVATION INSPECTOR DEXA BONE DENSITY 2 SITES Routine 05/15/2015 from Last 3 Months or Most Recently Relevant to Health Maintenance Results * LIPID PROFILE (02/04/2019 2:32 PM MARINE EQUIPMENT PRESERVATION INSPECTOR) Cholesterol 166 <200 mg/dL [facility] INSURANCE BILL Triglycerides 52 <150 mg/dL [facility] INSURANCE BILL HDL Cholesterol 87 >40 mg/dL [facility] INSURANCE BILL VLDL Calculated 10 <=30 mg/dL [facility] INSURANCE BILL LDL Calculated 69 <130 mg/dL [facility] INSURANCE BILL Blood BLOOD SPECIMEN / Unknown 02/04/2019 2:32 PM MARINE EQUIPMENT PRESERVATION INSPECTOR 02/04/2019 Narrative Resulting Agency Comment Lab Testing performed at: [facility] [place] [address] [place] [phone] Parth Castillo MD LAB - CHEMISTRY MANJIT [facility] Organization Address City/State/ZIP Co de Phone Number [facility] INSURANCE BILL [address] [place] [address] * HEPATITIS PANEL (04/06/2018 2:01 PM MARINE EQUIPMENT PRESERVATION INSPECTOR) Hepatitis A Virus Antibody IgM Negative Negative [...] BLOOD SPECIMEN / Unknown 04/06/2018 2:01 PM MARINE EQUIPMENT PRESERVATION INSPECTOR 04/06/2018 Narrative Resulting Agency Comment [facility] [address] [facility] [id number] Parth Castillo MD LAB - CHEMISTRY MANJIT [facility] INSURANCE BILL [address] [facility] [address] * MAMMOGRAPHY ORDER (02/27/2018) Anatomical Region Laterality Modality Mammography Parth Castillo MD MAMMO ORDERABLES * ENDOSCOPY, COLON, SCREENING (02/26/2016 7:25 AM MARINE EQUIPMENT PRESERVATION INSPECTOR) Report Endoscopy POC _ Patient Name: Taty [...] by the physician, the nurse and the grid inspector in the procedure room. Mental Status Examination: [...] previously scheduled. Procedure Code(s): --- Professional --- 10476, Colonoscopy, flexible; with biopsy, single or multiple --- Technical --- 34221, Colonoscopy, flexible; with biopsy, single or multiple [...] neoplasm of descending colon CPT copyright 2015 [employer]. All rights reserved. The codes documented in this report are preliminary and upon certified medical coder review may be revised to meet current compliance requirements. Dr. Charles Thornton MD Charles Thornton MD 02/26/2016 8:21:08 AM This report has been signed electronically. Number of Addenda: 0 Note Initiated On: 02/26/2016 7:25 AM [facility] ENDOSCOPY 02/26/2016 7:25 AM MARINE EQUIPMENT PRESERVATION INSPECTOR Charles Thornton MD GI PROCEDURE ORDERA BLES [facility] [place] [address] * DEXA BONE DENSITY 2 SITES (05/15/2015) [...] 2:45 AM 04/21/2014 1:08 PM Care Teams Social Media Developer Relationship Specialty Start Date End Date Elizabeth Brown MD [address] [place] [address] [address] [place] [address] PCP - General Family Medicine 01/12/20 Meagan Godoy, NICKIE Administrative Support Associate 04/19/14 Charles Thornton MD Putty Tinter Maker Gastroenterology 06/14/14 Perfecto Cooper MD [address] [place] [address] Orthopedic 10/05/18 Elizabeth Brown MD [address] [place] [address] Primary Care Provider Family Medicine 12/07/19
--- OUTSIDE RECORDS SUMMARY | 2024-04-30 16:25 | XMS_ITS | Clinical Summary ---
Author Organization [facility] Address [address] [place] [address] Phone Care Team Providers Care Poll Watcher Name Role Phone Parth Castillo MD Primary Care Provider Allergies Active Allergy Reactions Criticality Noted Date Comments Aspirin Nausea 04/04/2018 Medications ALPRAZolam (XANAX) 0.5 MG Tablet 3 9 Active sertraline (ZOLOFT) 50 MG Tablet sertraline 50 mg tablet Active lisinopril (PRINIVIL, ZESTRIL) 40 MG Tablet Take by mouth. 8 Active metoprolol Succinate (TOPROL-XL) 50 MG TABLET SR 24 HR TAKE ONE TABLET BY MOUTH ONCE DAILY 8 Active miSOPROStol (CYTOTEC) 100 MCG Tablet misoprostol 100 mcg tablet Active Vitamins/Minera ls Tablet Take by mouth. Activ e HYDROcodone-alexander taminophen (NORCO) 5-325 MG Tablet TAKE ONE TABLET BY MOUTH EVERY 6 HOURS NEEDED FOR PAIN 9 Active gabapentin (NEURONTIN) 300 MG Capsule gabapentin 300 mg capsule Active dicyclomine (BENTYL) 10 MG Capsule dicyclomine 10 mg capsule Active Calcium Carbonate-Vitam in D (OYSTER SHELL CALCIUM/D) 250-125 MG-UNIT Tablet Take by mouth. Activ e Immunizations Immunization Administration Dates Next Due Influenza Vaccine greater than 3 yrs 01/23/2015, 10/18/2012 Pneumococcal Vaccine Adult - 23 Valent 3 Zoster Vaccine, live 10/18/2012 Social History Tobacco Use Types Packs/Day Years Used Date Smoking Tobacco: Never Assessed Comments No Sex and Gender Information Value Date Recorded Sex Assigned at Not on file Legal Sex Female 11:05 PM CDT Gender Identity Not on file Sexual Orientation Not on file Last Filed Vital Signs Vital Sign Reading Time Taken Comments Blood Pressure 103/68 04/04/2018 11:45 PM DIRECTOR OF PROCUREMENT Pulse 78 04/04/2018 11:45 PM DIRECTOR OF PROCUREMENT Temperature - - Respiratory Rate 13 04/04/2018 11:45 PM DIRECTOR OF PROCUREMENT Oxygen Saturation 96% 04/04/2018 11:45 PM DIRECTOR OF PROCUREMENT Inhaled Oxygen Concentration - - Weight - - Height - - Body Mass Index - - Plan of Treatment Health Maintenance Due Date Last Done Comments Hepatitis C Virus (HCV) Screening 1950 TdaP Immunization 1950 Colonoscopy 1997 Colorectal Cancer Screening 1997 Cologuard 2002 Immunochemical Fecal Occult Blood 2002 Zoster Immunization (2 of 3) 12/13/2012 10/18/2012 Pneumococcal Immunization (50+ years) (2 of 2 - PCV) 11/17/2013 11/17/2012 Influenza Immunization (#1) 10/19/202304/2016, 12/05/2015, 01/23/2015, Additional history exists SARS-COV-2 Immunization ( - season) 2023 10/24/2020, 09/29/2020 Respiratory Syncytial Virus (RSV) Immunization (Adult) (1 - 1-dose 75+ series) 05/12/2027 Pneumococcal Immunization Combined Discontinued 11/17/2012 DEXA Bone Density Discontinued 05/15/2015 Mammogram Discontinued 02/11/2018, 09/18, 05/15/2015 Hepatitis B Immunization Aged Out No longer eligible based on patient's age to complete this topic Meningococcal Immunization (ACWY) Aged Out No longer eligible based on patient's age to complete this topic Rotavirus Immunization Aged Out No lo nger eligible based on patient's age to complete this topic Procedures Procedure Name Priority Date/Time Associated Diagnosis Comments [facility] SCREENING BILATERAL DIGITAL W CAD W VINCENZO Routine 02/11/2018 11:51 AM DIRECTOR OF PROCUREMENT Screening breast examination [facility] BONE DENSITOMETRY AXIAL SKELETON Routine 05/15/2015 3:48 PM CDT Screening for osteoporosis from Last 3 Months or Most Recently Relevant to Health Maintenance Results * [facility] SCREENING BILATERAL DIGITAL W CAD W VINCENZO (02/11/2018 11:51 AM DIRECTOR OF PROCUREMENT) Anatomical Region Laterality Modality breast Bilateral Mammography 02/11/2018 11:3 2 AM DIRECTOR OF PROCUREMENT Narrative 02/12/2018 6:40 AM DIRECTOR OF PROCUREMENT - [facility] SCREENING BILATERAL DIGITAL W CAD W VINCENZO BILATERAL DIGITAL SCREENING MAMMOGRAM 3D/2D WITH CAD WITH MEDIOLATERAL OBLIQUE CRANIOCAUDAL: 02/11/2018 The study was acquired using digital technology and interpreted from soft copy. Current study was also evaluated with ICAD version 7.2. CLINICAL: Routine screening. Patient has had back surgery and hip replacement. She has lost weight since last exam and has excessive loose skin. Additional imaging was aquired. No personal history of cancer. No family history of breast cancer. COMPARISONS: Comparison is made to exams dated: 10/14/2016, 05/15/2015, and 02/23/2014 [facility]. BREAST TISSUE:The tissue of both breasts is predominantly fatty. FINDINGS: There is a cluster of calcifications in the left breast at 1 o'clock anterior depth. There also is a cluster of calcifications in the left breast at 7 o'clock posterior depth. No other significant masses, calcifications, or other findings are seen in either breast. IMPRESSION: BI-RAD 0 ADDITIONAL IMAGING EVALUATION NEEDED The cluster of calcifications in the left breast at 1 o'clock anterior depth is indeterminate. The cluster of calcifications in the left breast at 7 o'clock posterior depth is indeterminate. An immediate follow-up is recommended. The patient has been or will be contacted. Electronically signed by: Marisa ferguson/kota:02/11/2018 15:01:09 Real Estate Utilization Officer: Mary Schaefer (R)(Geoff), [facility] letter sent: Additional Imaging Reading location: [place] BI-RADS: 0 Additional Imaging Evaluation Needed Procedure Note Marisa Lyman MD - 02/12/2018 - [facility] SCREENING BILATERAL DIGITAL W CAD W VINCENZO BILATERAL DIGITAL SCREENING MAMMOGRAM 3D/2D WITH CAD WITH MEDIOLATERAL OBLIQUE CRANIOCAUDAL: 02/11/2018 The study was acquired using digital technology and interpreted from soft copy. Current study was also evaluated with ICAD version 7.2. CLINICAL: Routine screening. Patient has had back surgery and hip replacement. She has lost weight since last exam and has excessive loose skin. Additional imaging was aquired. No personal history of cancer. No family history of breast cancer. COMPARISONS: Comparison is made to exams dated: 10/14/2016, 05/15/2015, and 02/23/2014 [facility]. BREAST TISSUE:The tissue of both breasts is predominantly fatty. FINDINGS: There is a cluster of calcifications in the left breast at 1 o'clock anterior depth. There also is a cluster of calcifications in the left breast at 7 o'clock posterior depth. No other significant masses, calcifications, or other findings are seen in either breast. IMPRESSION: BI-RAD 0 ADDITIONAL IMAGING EVALUATION NEEDED The cluster of calcifications in the left breast at 1 o'clock anterior depth is indeterminate. The cluster of calcifications in the left breast at 7 o'clock posterior depth is indeterminate. An immediate follow-up is recommended. The patient has been or will be contacted. Electronically signed by: Marisa ferguson/kota:02/11/2018 15:01:09 Real Estate Utilization Officer: Mary Josue)(M), [facility] letter sent: Additional Imaging Reading location: [facility] BI-RADS: 0 Additional Imaging Evaluation Needed us Parth Castillo MD IMG MAMMO ORDERABLES Final R esult * [facility] BONE DENSITOMETRY AXIAL SKELETON (05/15/2015 3:48 PM CDT) Anatomical Region Laterality Modality BODY N/A Other 05/15/2015 5:12 PM CDT Impressions 05/15/2015 5:14 PM CDT IMPRESSION: Low bone mass. The patient's risk for fracture should be based not only on bone mineral density measurements but also clinical risk factors. Bone mineral density: Normal (T-score above or = -1.0) Low bone mass (T-score between -1.0 and -2.5) replaces the previously used term osteopenia Osteoporosis (T-score = or below -2.5) Medical evaluation for secondary causes of low bone mineral density may be appropriate. FRAX is a World Health Organization validated fracture risk assessment tool that calculates a person's 10 year probability of a major osteoporosis related fracture and hip fracture. According to the National Osteoporosis Foundation guidelines, postmenopausal women and men age 50 or older with low bone mass and a 10 year probability of a major osteoporosis related fracture = or greater than 20% or a 10 year probability of a hip fracture = or greater than 3% should be considered for treatment. For further information, including treatment recommendations, please refer to the 2013 ISCD Official Positions (http://www.iscd.org) and the NOF's Clinician's Guide to Prevention and Treatment of Osteoporosis (http://www.nof.org/professionals/clinical-guidelines) Narrative 05/15/2015 5:14 PM CDT EXAMINATION: DXA Bone Density HISTORY: 65 year old postmenopausal female with given history of screening for osteoporosis. Current Height: 65 inches Maximum Height: Not listed on the provided paperwork Weight: 145 pounds RISK FACTORS: History of fracture as an adult, rheumatoid arthritis COMPARISON(S): 08/28/2010 PET CARE ASSISTANT/MODEL: Online [employer] (S/N [id number]) FINDINGS: AP lumbar spine L1-L4 Total BMD is 1.556 g/pm7O-ovjus is 2.9 Most recent prior BMD was 1.535 g/cm2 There has been a 1.4% increase in BMD which is not statistically significant. Left Hip Current Total BMD is 0.833 g/na7O-ziucs is -1.4 Most recent prior Total BMD was 0.849 g/cm2 There has been a 1.9% decrease in BMD which is not statistically significant. Current femoral neck BMD is 0.890 g/xd7Y-gectm is -1.1 Fracture risk assessment (FRAX): 10 year risk for a major osteoporotic fracture is 16.5 % 10 year risk for a hip fracture is 1.3 % The FRAX tool has not been validated in patients currently or previously treated with pharmacotherapy for osteoporosis. In such patients, clinical judgement must be exercised in interpreting FRAX scores as the fracture risk may be overestimated. Anant Green M.D. THIS IS AN ELECTRONICALLY VERIFIED REPORT 05/15/2015 5:12 PM: Anant Green M.D. Radiologist : SUMAN Procedure Note Anant Green MD - 05/15/2015 EXAMINATION: DXA Bone Density HISTORY: 65 year old postmenopausal female with given history of screening for osteoporosis. Current Height: 65 inches Maximum Height: Not listed on the provided paperwork Weight: 145 pounds RISK FACTORS: History of fracture as an adult, rheumatoid arthritis COMPARISON(S): 08/28/2010 PET CARE ASSISTANT/MODEL: [employer] (S/N [id number]) FINDINGS: AP lumbar spine L1-L4 Total BMD is 1.556 g/cz5Y-wexki is 2.9 Most recent prior BMD was 1.535 g/cm2 There has been a 1.4% increase in BMD which is not statistically significant. Left Hip Current Total BMD is 0.833 g/te2U-mmkzk is -1.4 Most recent prior Total BMD was 0.849 g/cm2 There has been a 1.9% decrease in BMD which is not statistically significant. Current femoral neck BMD is 0.890 g/fg8G-eyiif is -1.1 Fracture risk assessment (FRAX): 10 year risk for a major osteoporotic fracture is 16.5 % 10 year risk for a hip fracture is 1.3 % The FRAX tool has not been validated in patients currently or previously treated with pharmacotherapy for osteoporosis. In such patients, clinical judgement must be exercised in interpreting FRAX scores as the fracture risk may be overestimated. Anant Green M.D. THIS IS AN ELECTRONICALLY VERIFIED REPORT 05/15/2015 5:12 PM: Anant Green M.D. Radiologist : SUMAN IMPRESSION: Low bone mass. The patient's risk for fracture should be based not only on bone mineral density measurements but also clinical risk factors. Bone mineral density: Normal (T-score above or = -1.0) Low bone mass (T-score between -1.0 and -2.5) replaces the previously used term osteopenia Osteoporosis (T-score = or below -2.5) Medical evaluation for secondary causes of low bone mineral density may be appropriate. FRAX is a World Health Organization validated fracture risk assessment tool that calculates a person's 10 year probability of a major osteoporosis related fracture and hip fracture. According to the National Osteoporosis Foundation guidelines, postmenopausal women and men age 50 or older with low bone mass and a 10 year probability of a major osteoporosis related fracture = or greater than 20% or a 10 year probability of a hip fracture = or greater than 3% should be considered for treatment. For further information, including treatment recommendations, please refer to the 2013 ISCD Official Positions (http://www.iscd.org) and the NOF's Clinician's Guide to Prevention and Treatment of Osteoporosis (http://www.nof.org/professionals/clinical-guidelines) Vivienne Richey INDUSTRIAL TRUCK DRIVER, BUNDLE CLERK IMG DEXA ORDERABLES Fin al Result from Last 3 Months or Most Recently Relevant to Health Maintenance Insurance [address] [id number] MEDICARE Member Subscriber Plan / Payer (Ef fective for All Dates) Name:Taty Heath Member ID:[id number] Relation to Subscriber:Self Name:Taty Heath Subscriber ID:[id number] Payer ID:[id number] Group ID:Not on file Type:Not on file Address: [place] [address] [facility] [employer] [facility] [place] [place] [address] Care Teams Poll Watcher Relationship Specialty [place] [address] [place] [address] [address] [place] [address] PCP - General Internal Medicine 09/25/16
--- OUTSIDE RECORDS SUMMARY | 2024-04-30 16:25 | XMS_ITS ---
Author Organization [facility] Address [address] [place] [address] Care Team Providers Care Egg Factory Worker Name Role Phone ZZ-Migration, Provider Unavailable Unavailab [...] Active Encounters Encounter Location Date Provider Diagnosis [address] [address] 08/02/2023 Provider ZZ-Migration Plan Of Treatment No Information Progress Notes * Taty WEIRDOB:1950 (73 yo F)Acc No.[id number]:08/02/2023 Patient: Taty CLARK Provider: Jessica Webb :1950 A ge:73 Y S ex:Female Date:08/02/2023 Address:[address] [place], [place] [id number] Subjective: * Chief Complaints: * 1 . [...] * Electronic signature of Maryann KELLY-Migration on 04/30/2024 at 04:24 PM CDT Sign off status: Pending * Provider: Jessica lundberg Migration Date: 0 08/02/2023 Generated for Romina leblanc/Rafa/Shoshana on: 04/30/2024 04:24 PM CDT
== END 2024-04-30 16:19 | disposition home or self-care (01) ==
PROVIDERS: PCP Family Medicine; Visit Provider Orthopaedic Surgery
DX: M19.012 Primary osteoarthritis, left shoulder (principal)
CPT/HCPCS: 73200

== ENCOUNTER 2024-05-03 09:55 | Outpatient (CLI) | payer MEDICARE, OTHER, SELFPAY ==
[2024-05-03 10:42] LABS: Hematocrit 39.8 % (37.0-47.0); Hemoglobin 11.7 g/dL (12.0-15.0)
--- NOTE | 2024-05-03 10:48 | ECG_ITS ---
Test Date: 2024-05-03 10:57:56 Measurements Intervals [place] Rate: 92 P: 73 ND: 176 QRS: 26 QRSD: 90 T: 30 QT: 332 QTc: 411 Interpretive Statements SINUS RHYTHM POSSIBLE LEFT ATRIAL ENLARGEMENT [-0.1mV P-WAVE IN V1/V2] No previous ECG available for comparison Electronically Signed On 05-04-2024 16:35:11 CDT by Francesca Padilla M.D.
[2024-05-03 11:05] LABS: Albumin Level 4.1 g/dL (3.5-5.1); Estimated Glomerular Filt Rate 44
--- OUTSIDE RECORDS SUMMARY | 2024-05-03 11:17 | XMS_ITS | Referral Summary ---
Author Organization [facility] Address [address] [place] [address] Care Team Providers Care Exhaust And Muffler Fitter Name Role Phone Meagan Godoy RN Unavailable [phone] Charles Thornton MD Unavailable [phone] Perfecto Cooper MD Unavailable [phone] Elizabeth Brown MD Unavailable [phone] Elizabeth Brown MD Primary Care Provider U navailable Source Comments [facility],non-owned Affiliates and Associated Physician Practices is amultiple site organization consisting of ambulatory clinics and hospital sitesin [place], [place], [place] and [place]. This disclosure is being madepursuant to the Care Everywhere program and may not contain all information available regarding this patient. Last updated 17.[facility] Allergies Active Allergy Reactions Criticality Noted Date [...] diphenhydrAMINE HCl (BENADRYL PO) Active HYDROcodone-aceta minophen (Tullos) 5-325 MG tablet Take 1 (one) tablet [...] breath. Assessment & Plan (02/04/2019 2:08 PM CLEANING AND WASHING EQUIPMENT OPERATOR): Lower dose to 25 mg qd Assessment & Plan (04/06/2018 1:44 PM CLEANING AND WASHING EQUIPMENT OPERATOR): Stay off medication until BP becomes [...] med/dose. Assessment & Plan (02/15/2013 10:41 AM CLEANING AND WASHING EQUIPMENT OPERATOR): Monitor at home. Continue current med, start exercising. Anxiety Overview (02/04/2019): Rare xanax Assessment & Plan (02/04/2019 2:10 PM CLEANING AND WASHING EQUIPMENT OPERATOR): Continue current medication. Assessment & Plan [...] (AF LURIA, FLUZONE TRIVALENT; 6MO+) (IIV3) 12/14/2013 CovVisualXcript primary monoval ent 12+ yr 0.3mL Purple [...] file Gender Identity Female 01/26/2019 8:32 AM CLEANING AND WASHING EQUIPMENT OPERATOR Sexual Orientation Not on file Last [...] Comments LIPID PROFILE Routine 02/04/2019 2:32 PM CLEANING AND WASHING EQUIPMENT OPERATOR Essential hypertension HEPATITIS PANEL Routine 04/06/2018 2:01 PM CLEANING AND WASHING EQUIPMENT OPERATOR Encounter for screening for other viral diseases Elevated LFTs MAMMOGRAPHY ORDER Routine 02/27/2018 ENDOSCOPY, COLON, SCREENING Routine 02/26/2016 7:25 AM CLEANING AND WASHING EQUIPMENT OPERATOR DEXA BONE DENSITY 2 SITES Routine 05/15/2015 from Last 3 Months or Most Recently Relevant to Health Maintenance Results * LIPID PROFILE (02/04/2019 2:32 PM CLEANING AND WASHING EQUIPMENT OPERATOR) Cholesterol 166 <200 mg/dL [facility] INSURANCE BILL Triglycerides 52 <150 mg/dL [facility] INSURANCE BILL HDL Cholesterol 87 >40 mg/dL [facility] INSURANCE BILL VLDL Calculated 10 <=30 mg/dL [facility] INSURANCE BILL LDL Calculated 69 <130 mg/dL [facility] INSURANCE BILL Blood BLOOD SPECIMEN / Unknown 02/04/2019 2:32 PM CLEANING AND WASHING EQUIPMENT OPERATOR 02/04/2019 Narrative Resulting Agency Comment Lab Testing performed at: [facility] [place] [address] [place] [id number] Parth Castillo MD LAB - CHEMISTRY MANJIT [facility] Organization Address City/State/ZIP Co de Phone Number [facility] INSURANCE BILL [address] [place] [address] * HEPATITIS PANEL (04/06/2018 2:01 PM CLEANING AND WASHING EQUIPMENT OPERATOR) Hepatitis A Virus Antibody IgM Negative [...] BLOOD SPECIMEN / Unknown 04/06/2018 2:01 PM CLEANING AND WASHING EQUIPMENT OPERATOR 04/06/2018 Narrative Resulting Agency Comment [facility] [address] [facility] [id number] Parth Castillo MD LAB - CHEMISTRY MANJIT BAER [facility] INSURANCE BILL [address] [facility] [place] [address] * MAMMOGRAPHY ORDER (02/27/2018) Anatomical Region Laterality Modality Mammography Parth Castillo MD MAMMO ORDERABLES * ENDOSCOPY, COLON, SCREENING (02/26/2016 7:25 AM CLEANING AND WASHING EQUIPMENT OPERATOR) Report Endoscopy POC _ Patient Name: [...] by the physician, the nurse and the trailer sections assembler in the procedure room. Mental Status Examination: [...] previously scheduled. Procedure Code(s): --- Professional --- 64644, Colonoscopy, flexible; with biopsy, single or multiple --- Technical --- 12630, Colonoscopy, flexible; with biopsy, single or multiple [...] neoplasm of descending colon CPT copyright 2015 [employer]. All rights reserved. The codes documented in this report are preliminary and upon immunopathologist review may be revised to meet current compliance requirements. Dr. Charles Thornton MD Charles Thornton MD 02/26/2016 8:21:08 AM This report has been signed electronically. Number of Addenda: 0 Note Initiated On: 02/26/2016 7:25 AM [facility] ENDOSCOPY 02/26/2016 7:25 AM CLEANING AND WASHING EQUIPMENT OPERATOR Charles Thornton MD GI PROCEDURE ORDERA BLES [facility] [place] [address] * DEXA BONE DENSITY 2 SITES (05/15/2015) [...] 2:45 AM 04/21/2014 1:08 PM Care Teams Exhaust And Muffler Fitter Relationship Specialty Start Date End Date Elizabeth Brown MD [address] [facility] [address] [place] [address] PCP - General Family Medicine 01/12/20 Meagan Godoy, RN Machine Clothing Replacer 04/19/14 Charles Thornton MD Revising Clerk Gastroenterology 06/14/14 Perfecto Cooper MD [address] [facility] [address] [place] [address] Orthopedic 10/05/18 Elizabeth Brown MD [address] [facility] [address] [place] [address] Primary Care Provider Family Medicine 12/07/19
--- OUTSIDE RECORDS SUMMARY | 2024-05-03 11:17 | XMS_ITS | Clinical Summary ---
Author Organization [facility] [employer] Address [address] [place] [address] Care Team Providers Care Scow Derrick Operator Name Role Phone Meagan Godoy RN Unavailable [phone] Charles Thornton MD Unavailable [phone] Perfecto Cooper MD Unavailable [phone] Elizabeth Brown MD Unavailable [phone] Elizabeth Brown MD Primary Care Provider U navailable Source Comments [facility],non-owned Affiliates and Associated Physician Practices is amultiple site organization consisting of ambulatory clinics and hospital sitesin [place], [place], [place] and [place]. This disclosure is being madepursuant to the Care Everywhere program and may not contain all information available regarding this patient. Last updated 17.[facility] [employer] Allergies Active Allergy Reactions Criticality Noted Date [...] diphenhydrAMINE HCl (BENADRYL PO) Active HYDROcodone-aceta minophen ([place]) 5-325 MG tablet Take 1 (one) tablet [...] breath. Assessment & Plan (02/04/2019 2:08 PM ASSET SPECIALIST): Lower dose to 25 mg qd Assessment & Plan (04/06/2018 1:44 PM ASSET SPECIALIST): Stay off medication until BP becomes higher [...] med/dose. Assessment & Plan (02/15/2013 10:41 AM ASSET SPECIALIST): Monitor at home. Continue current med, start exercising. Anxiety Overview (02/04/2019): Rare xanax Assessment & Plan (02/04/2019 2:10 PM ASSET SPECIALIST): Continue current medication. Assessment & Plan (12/04/2017 [...] (AF LURIA, FLUZONE TRIVALENT; 6MO+) (IIV3) 12/14/2013 [employer] primary monoval ent 12+ yr 0.3mL Purple [...] file Gender Identity Female 01/26/2019 8:32 AM ASSET SPECIALIST Sexual Orientation Not on file Last Filed [...] Comments LIPID PROFILE Routine 02/04/2019 2:32 PM ASSET SPECIALIST Essential hypertension HEPATITIS PANEL Routine 04/06/2018 2:01 PM ASSET SPECIALIST Encounter for screening for other viral diseases Elevated LFTs MAMMOGRAPHY ORDER Routine 02/27/2018 ENDOSCOPY, COLON, SCREENING Routine 02/26/2016 7:25 AM ASSET SPECIALIST DEXA BONE DENSITY 2 SITES Routine 05/15/2015 from Last 3 Months or Most Recently Relevant to Health Maintenance Results * LIPID PROFILE (02/04/2019 2:32 PM ASSET SPECIALIST) Cholesterol 166 <200 mg/dL [facility] INSURANCE BILL Triglycerides 52 <150 mg/dL [facility] INSURANCE BILL HDL Cholesterol 87 >40 mg/dL [facility] INSURANCE BILL VLDL Calculated 10 <=30 mg/dL [facility] INSURANCE BILL LDL Calculated 69 <130 mg/dL [facility] INSURANCE BILL Blood BLOOD SPECIMEN / Unknown 02/04/2019 2:32 PM ASSET SPECIALIST 02/04/2019 Narrative Resulting Agency Comment Lab Testing performed at: [facility] [place] [address] [place] [phone] Parth Castillo MD LAB - CHEMISTRY MANJIT [facility] Organization Address City/State/ZIP Co de Phone Number [facility] INSURANCE BILL [address] [place] [address] * HEPATITIS PANEL (04/06/2018 2:01 PM ASSET SPECIALIST) Hepatitis A Virus Antibody IgM Negative Negative [...] BLOOD SPECIMEN / Unknown 04/06/2018 2:01 PM ASSET SPECIALIST 04/06/2018 Narrative Resulting Agency Comment [facility] [address] [phone] Parth Castillo MD LAB - CHEMISTRY MANJIT [facility] INSURANCE BILL [address] [place] [address] * MAMMOGRAPHY ORDER (02/27/2018) Anatomical Region Laterality Modality Mammography Parth Castillo MD MAMMO ORDERABLES * ENDOSCOPY, COLON, SCREENING (02/26/2016 7:25 AM ASSET SPECIALIST) Report Endoscopy POC _ Patient Name: Taty [...] by the physician, the nurse and the teacher dancing in the procedure room. Mental Status Examination: [...] previously scheduled. Procedure Code(s): --- Professional --- 97116, Colonoscopy, flexible; with biopsy, single or multiple --- Technical --- 65734, Colonoscopy, flexible; with biopsy, single or multiple [...] neoplasm of descending colon CPT copyright 2015 [employer]. All rights reserved. The codes documented in this report are preliminary and upon death surveys coder review may be revised to meet current compliance requirements. Dr. Charles Thornton MD Charles Thornton MD 02/26/2016 8:21:08 AM This report has been signed electronically. Number of Addenda: 0 Note Initiated On: 02/26/2016 7:25 AM [facility] 02/26/2016 7:25 AM ASSET SPECIALIST Charles Thornton MD GI PROCEDURE ORDERA BLES [facility] [place] [address] * DEXA BONE DENSITY 2 SITES (05/15/2015) [...] 2:45 AM 04/21/2014 1:08 PM Care Teams Scow Derrick Operator Relationship Specialty Start Date End Date Elizabeth Brown MD [address] [place] [address] [address] [place] [address] PCP - General Family Medicine 01/12/20 Meagan Godoy, NICKIE Dyeing Machine Back Tender 04/19/14 Charles Thornton MD [employer]ated Houses Trimmer Gastroenterology 06/14/14 Perfecto Cooper MD [address] [place] [address] Orthopedic 10/05/18 Elizabeth Brown MD [address] [place] [address] Primary Care Provider Family Medicine 12/07/19
--- OUTSIDE RECORDS SUMMARY | 2024-05-03 11:17 | XMS_ITS | Patient Health Summary ---
Author Organization [facility] Address [address] [place] [address] Care Team Providers Care Highway Design Engineer Name Role Phone Meagan Godoy RN Unavailable [phone] Charles Thornton MD Unavailable [phone] Perfecto Cooper MD Unavailable [phone] Elizabeth Brown MD Unavailable [phone] Elizabeth Brown MD Primary Care Provider U navailable Note from [facility],non-owned Affiliates and Associated Physician Practices is amultiple site organization consisting of ambulatory clinics and hospital sitesin [place], [place], [place] and [place]. This disclosure is being madepursuant to the Care Everywhere program and may not contain all information available regarding this patient. 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 Sexual Orientation Not on file Last Filed [...] for Epigastric pain, Dysphagia, unspecified type * MT ED EGD FLEX TRANSORAL DX(Performed 06/16/2023) * GROSS + MICRO EXAM (ILL)(Performed 05/30/2021) Performed for Gastroesophageal reflux disease, unspecified whether esophagitis present, Status postbariatric surgery, Screen for colon cancer * COLONOSCOPY SCREEN(Performed 05/30/2021) Performed for Gastroesophageal reflux disease, unspecified whether esophagitis present, Status postbariatric surgery, Screen for colon cancer * MT EGD FLEX TRANSORAL W BX SNGL OR MULT(Performed 05/30/2021) Performed for Gastroesophageal reflux disease, unspecified whether esophagitis present, Status postbariatric surgery, Screen for colon cancer * LAB MISC TEST(Performed 04/18/2021) * LAB(Performed 10/10/2020) * LAB(Performed 06/01/2020) * FL SWALLOWING FUNCTION STUDY(Performed 04/11/2020) Performed for Dysphagia, unspecified type * HELICOBACTER PYLORI UREASE (STL)(Performed 01/12/2020) Performed for Diagnosis unknown * MT ED EGD FLEX TRANSORAL DX(Performed 01/12/2020) * [...] Initial Negative Negative 06/17/2023 1:41 PM CDT [facility] Helicobacter pylori Urease Final Negative Negative 06/17/2023 1:41 PM CDT [facility] Microbiology GASTRIC ANTRAL BIOPSY SPECIMEN / Unknown 06/16/2023 1:21 PM CDT 06/16/2023 4:03 PM CDT Charles Thornton MD LAB - MICROBIOLOGY ORDERABLES [facility] [address] [place] [address] * EGD (06/16/2023 12:27 PM CDT) Report Endoscopy POC _ Patient Name: Taty Weir Procedure Date: 06/16/2023 12:27 PM Date of : 1950 Admit Type: Outpatient Age: 73 Gender: Female Attending MD: Charles Thornton MD, [id number] _ Procedure: Upper GI endoscopy Indications: Epigastric [...] by the physician, the nurse and the supervisor wet pour in the procedure room. Mental Status Examination: [...] the patient. Procedure Code(s): --- Professional --- 25049, Esophagogastroduoden oscopy, flexible, transoral; with biopsy, single or multiple --- Technical --- 73128, Esophagogastroduoden oscopy, flexible, transoral; with biopsy, single or multiple Diagnosis Code(s): --- Professional --- Z98.0, Intestinal bypass and anastomosis status R10.13, Epigastric pain --- Technical --- Z98.0, Intestinal bypass and anastomosis status R10.13, Epigastric pain CPT copyright 2020 [employer]. All rights reserved. The codes documented in this report are preliminary and upon exhibitions curator review may be revised to meet current compliance requirements. Dr. Charles Thornton MD ___ Charles Thornton MD 06/16/2023 1:26:32 PM This report has been signed electronically. Number of Addenda: 0 Note Initiated On: 06/16/2023 12:27 PM [facility] 06/16/2023 12:2 7 PM CDT Kelly Gamez LEGAL RESEARCH ANALYST-THEATRE PROGRAM DIRECTOR GI PROCEDURE OR DERABLES Performing Organization Address City/State/[facility] Co de Phone Number [facility] [place] [address] * GROSS + MICRO EXAM (ILL) (05/30/2021 11:09 AM CDT) Case Report Surgical Pathology Report Case: [id number] Authorizing Provider: Magy Perez MD Collected: 05/30/2021 11:09 AM Ordering Location: [facility] Received: 05/30/2021 02:06 PM Pathologist: Jigar Conde MD Specimen: Polyp Descending 05/31/2021 9:28 AM CDT [facility] Final Diagnosis Large intestine, descending polyp, biopsy: - Tubular adenoma, negative for high-grade dysplasia 05/31/2021 9:28 AM CDT [facility] Microscopic Description and Comment Microscopic examination is performed and substantiates the above diagnosis. 05/31/2021 9:28 AM CDT [facility] Clinical History Screening for colon cancer 05/31/2021 9:28 AM CDT [facility] Gross Description The requisition and specimen(s) are identified with the patient's name, Taty Weir. Received in formalin, specimen A , is a 0.4 x 0.2 x 0.2 cm light romo tissue, submitted in toto in cassette A1. 05/31/2021 9:28 AM CDT [facility] Disclaimer The performance characteristics of all immunohistochemical and indirect immunofluorescence stains (if any) cited in this report were determined by the Histopathology Laboratory of [facility]. Some of these tests were developed by [...] H&E slides and special stains prepared at [facility], [place]. [address] (CLIA# [id number]) unless otherwise specified. This case was interpreted by the [facility] Department of Pathology. When applicable, select reference laboratory testing is performed at the [facility], [address] [place] [id number]. 05/31/2021 9:28 AM CDT [facility] Embedded Images 05/31/2021 9:28 AM CDT [facility] Pathology/Cytology POLYP / Unknown 2021 11:09 AM CDT 05/30/2021 2:06 PM CDT Comment:Pre-op diagnosis: Gastroesophageal reflux disease, unspecified whether esophagitis present [K21.9] Status post bariatric surgery [Z98.84] Screen for colon cancer [Z12.11] Magy Perez MD LAB - PATHOLOGY/ CYTOLOGY ORDERABLES Performing Organization Address City/State/[facility] Co de Phone Number [facility] [address] [place], [place] [address] [place] * LAB MISC TEST (04/18/2021) Blood BLOOD SPECIMEN / Unknown Historical Provider MD LAB SEND OUT * LAB (10/10/2020) Only the most recent of2 resultswithin the time period is included. Ranjit Harrison MD SCANNING ONLY * FL SWALLOWING FUNCTION STUDY (04/11/2020 12:00 PM MECHANIC WELDER TRUCK DRIVER) Anatomical Region Laterality Modality Chest Radiographic Salma ging 04/11/2020 4:48 PM MECHANIC WELDER TRUCK DRIVER Impressions 04/11/2020 5:10 PM MECHANIC WELDER TRUCK DRIVER MODERATE TO LARGE GASTRIC HIATAL HERNIA. GASTROESOPHAGEAL REFLUX. Edited by Beryl Chery on 04/11/2020 4:59 PM *Reading Radiologist: Terry Miranda on 04/11/2020 at 5:10 PM Narrative 04/11/2020 5:10 PM MECHANIC WELDER TRUCK DRIVER FLUOROSCOPIC MODIFIED BARIUM SWALLOW AIR-CONTRAST FLUOROSCOPIC ESOPHAGRAM [...] ORDERAB LES * EGD (01/12/2020 10:36 AM MECHANIC WELDER TRUCK DRIVER) Report Endoscopy POC _ Patient Name: Taty [...] by the physician, the nurse and the supervisor wet pour in the procedure room. Mental Status Examination: [...] the patient. Procedure Code(s): --- Professional --- 87912, Esophagogastroduoden oscopy, flexible, transoral; with transendoscopic balloon dilation of esophagus (less than 30 mm diameter) 08879, Esophagogastroduoden oscopy, flexible, transoral; with biopsy, single or multiple --- Technical --- 27418, Esophagogastroduoden oscopy, flexible, transoral; with transendoscopic balloon dilation of esophagus (less than 30 mm diameter) 74976, Esophagogastroduoden oscopy, flexible, transoral; with biopsy, single or multiple Diagnosis Code(s): --- Professional --- K22.2, Esophageal obstruction Z98.0, Intestinal bypass and anastomosis status R10.13, Epigastric pain --- Technical --- K22.2, Esophageal obstruction Z98.0, Intestinal bypass and anastomosis status R10.13, Epigastric pain CPT copyright 2017 [employer]. All rights reserved. The codes documented in this report are preliminary and upon exhibitions curator review may be revised to meet current compliance requirements. Dr. Charles Thornton MD ___ Charles Thornton MD 01/12/2020 11:27:13 AM This report has been signed electronically. Number of Addenda: 0 Note Initiated On: 01/12/2020 10:36 AM [facility] 01/12/2020 10:3 6 AM MECHANIC WELDER TRUCK DRIVER Charles Thornton MD GI PROCEDURE ORDERA BLES [facility] [place] [address] * (ABNORMAL) URIC ACID BLOOD (02/04/2019 2:32 PM MECHANIC WELDER TRUCK DRIVER) Uric Acid 6.1(H) 2.6 - 6.0 mg/dL [facility] INSURANCE BILL Blood BLOOD SPECIMEN / Unknown 02/04/2019 2:32 PM MECHANIC WELDER TRUCK DRIVER 02/04/2019 Narrative Resulting Agency Comment Lab Testing performed at: [address] [place] [phone] Parth Castillo MD LAB - CHEMISTRY MANJIT BAER [facility] INSURANCE BILL [address] [place] [address] * (ABNORMAL) COMPREHENSIVE METABOLIC PANEL (02/04/2019 2:32 PM MECHANIC WELDER TRUCK DRIVER) Only the most recent of11 resultswithin the [...] BLOOD SPECIMEN / Unknown 02/04/2019 2:32 PM MECHANIC WELDER TRUCK DRIVER 02/04/2019 Narrative Resulting Agency Comment Lab Testing performed at: [address] Ruben [place] [phone] Parth Castillo MD LAB - CHEMISTRY MANJIT BAER [facility] INSURANCE BILL [address] [place] [address] * LIPID PROFILE (02/04/2019 2:32 PM MECHANIC WELDER TRUCK DRIVER) Only the most recent of4 resultswithin the time period is included. Cholesterol 166 <200 mg/dL [facility] INSURANCE BILL Triglycerides 52 <150 mg/dL [facility] INSURANCE BILL HDL Cholesterol 87 >40 mg/dL [facility] INSURANCE BILL VLDL Calculated 10 <=30 mg/dL [facility] INSURANCE BILL LDL Calculated 69 <130 mg/dL [facility] INSURANCE BILL Blood BLOOD SPECIMEN / Unknown 02/04/2019 2:32 PM MECHANIC WELDER TRUCK DRIVER 02/04/2019 Narrative Resulting Agency Comment Lab Testing performed at: [place] [address] Ruben [place] [phone] Parth Castillo MD LAB - CHEMISTRY MANJIT BEAR [facility] INSURANCE BILL [address] [place] [address] * CT ABDOMEN PELVIS WWO CONTRAST (01/27/2019 11:14 AM MECHANIC WELDER TRUCK DRIVER) Anatomical Region Laterality Modality Abdomen, Pelvis Computed Tomogra phy 01/27/2019 11:2 7 AM MECHANIC WELDER TRUCK DRIVER Impressions 01/29/2019 8:50 AM MECHANIC WELDER TRUCK DRIVER 1. NO ACUTE INTRA-ABDOMINAL FINDINGS. 2. POSTOPERATIVE CHANGES FROM A GASTROJEJUNOSTOMY, CHOLECYSTECTOMY AND POSTERIOR LUMBAR FUSION. Reading Radiologist: Daivd Carlson MD on 01/29/2019 at 8:50 AM Narrative 01/29/2019 8:50 AM MECHANIC WELDER TRUCK DRIVER CT EXAMINATION OF THE ABDOMEN AND PELVIS [...] x10E9/L [facility] ACCOUNT BILL Comment:MPV FL BLOOD ([facility]) 1 1.5 fl 9.4-12.9 Granulocytes % 61.6 [...] Resulting Agency Comment Lab Testing performed at: [facility] [address] [address] [place] [phone] Parth Castillo MD LAB - HEMATOLOGY JENNIFER AKERS [facility] ACCOUNT BILL [address] [place] [address] * HEPATITIS PANEL (04/06/2018 2:01 PM MECHANIC WELDER TRUCK DRIVER) Hepatitis A Virus Antibody IgM Negative Negative [...] BLOOD SPECIMEN / Unknown 04/06/2018 2:01 PM MECHANIC WELDER TRUCK DRIVER 04/06/2018 Narrative Resulting Agency Comment [facility] [address] [facility] [phone] Parth Castillo MD LAB - CHEMISTRY MANJIT BAER Performing Organization Address City/[facility] Co de Phone Number [facility] INSURANCE BILL [address] [place] [address] * JF BLOOD SCREEN W/REFLEX TITER (04/06/2018 2:01 PM MECHANIC WELDER TRUCK DRIVER) JF Negative Negative [facility] INSURANCE BILL Blood BLOOD SPECIMEN / Unknown 04/06/2018 2:01 PM MECHANIC WELDER TRUCK DRIVER 04/06/2018 Narrative Resulting Agency Comment [facility] [address] [facility] [phone] Parth Castillo MD LAB - CHEMISTRY MANJIT BAER Performing Organization Address City/[facility]/ZIP Co de Phone Number [facility] INSURANCE BILL [address] [place] [address] * ERYTHROCYTE SEDIMENTATION RATE (04/06/2018 2:01 PM MECHANIC WELDER TRUCK DRIVER) Only the most recent of2 resultswithin the time period is included. Erythrocyte Sedimentation Rate Westergren 18 0 - 30 MM/HR [facility] INSURANCE BILL Blood BLOOD SPECIMEN / Unknown 04/06/2018 2:01 PM MECHANIC WELDER TRUCK DRIVER 04/06/2018 Narrative Resulting Agency Comment [facility] [address] [place] [phone] Parth Castillo MD LAB - HEMATOLOGY ORD ERABLES [facility] INSURANCE BILL [address] [place] [address] * MAMMOGRAPHY ORDER (02/27/2018) Only the most [...] PM CDT 05/30/2017 Narrative Resulting Agency Comment [address] Ruben DELEON [phone] Parth Castillo MD LAB - COAGULATION OR DERABLES Performing Organization Address [facility] de Phone Number [facility] INSURANCE BILL [address] [place] [address] * PT-INR (05/30/2017 12:03 PM CDT) Only [...] PM CDT 05/30/2017 Narrative Resulting Agency Comment [address] Ruben DELEON [phone] Parth Castillo MD LAB - COAGULATION OR DERABLES Performing Organization Address [facility] de Phone Number [facility] INSURANCE BILL [address] [place] [address] * EKG 12-LEAD (05/30/2017) Only the most recent of3 resultswithin the time period is included. Parth Castillo MD ECG ORDERABLES Performing Organization Address [facility] Co de Phone Number SS RESULT SCAN [...] AM CDT 10/24/2016 Narrative Resulting Agency Comment [facility] [address] [facility] [phone] Parth Castillo MD LAB - CHEMISTRY MANJIT BAER [facility] Organization Address City/State/ZIP Co de Phone Number [facility] INSURANCE BILL [address] [place] [address] * XR LUMBAR SPINE 2 OR 3 VW (10/24/2016 10:50 AM CDT) Anatomical Region Laterality Modality Spine Radiographic Salma ging 10/24/2016 10:5 4 AM CDT Impressions 10/24/2016 10:56 AM CDT No acute finding, lumbar spine. Narrative 10/24/2016 10:56 AM CDT Procedure Title: XR LUMBAR SPINE 2 OR 3 VW*[id number] HISTORY: Low back pain. COMPARISON: 04/19/[address] FINDINGS: No fracture or new listhesis identified along the lumbar spine. Slight anterolisthesis of L3 on L4, unchanged and degenerative in nature. Degenerative changes along the lumbar spine similar to prior. Ventral hernia repair, abdominal surgical clips. Procedure Note Leroy Cool MD - 10/24/2016 Procedure Title: XR LUMBAR SPINE 2 OR 3 VW*[id number] HISTORY: Low back pain. COMPARISON: 04/19/2014 abdomen [...] + MICRO EXAM (STL) (02/26/2016 8:15 AM MECHANIC WELDER TRUCK DRIVER) Case Report Surgical Pathology Report Case: [id number] Authorizing Provider: Charles Thornton MD Collected: 02/26/2016 08:15 AM Ordering Location: [facility] Received: 02/26/2016 09:00 AM Pathologist: Doron Srinivasan MD Specimen: Polyp Colon, colon polyps 02/27/2016 3:24 PM MECHANIC WELDER TRUCK DRIVER [facility] Final Diagnosis 1. Colon polyps, polypectomy: -- Adenomatous and hyperplastic polyps AB/ns 02/27/2016 3:24 PM MECHANIC WELDER TRUCK DRIVER [facility] Gross Description Received in formalin labeled with the patient's name and colon polyps are four pieces of romo tissue two of them measuring 0.1 x 0.1 cm and the other two 0.2 x 0.2 cm. All stained and submitted in A1. AB/alj 02/27/2016 3:24 PM MECHANIC WELDER TRUCK DRIVER [facility] Microscopic Description The colon polyps are a mix of adenomatous and hyperplastic polyps. No high-grade dysplasia is seen. AB/ns 02/27/2016 3:24 PM MECHANIC WELDER TRUCK DRIVER [facility] Disclaimer All histochemical and/or immunohistochemical results are interpreted with controls that demonstrate appropriate staining reactions before reporting results. Note on use of immunocytochemistry reagents: This test was developed and its performance characteristic determined by [facility], Department of Laboratory Medicine. It has not been cleared or approved by the U.S. Food and Drug Administration (FDA). The FDA has determined that such clearance or approval is not necessary. The test is used for clinical purpose. It should not be regarded as investigational or for research. This laboratory is certified to perform high complexity testing. 02/27/2016 3:24 PM MECHANIC WELDER TRUCK DRIVER [facility] Embedded Images 02/27/2016 3:24 PM MECHANIC WELDER TRUCK DRIVER [facility] Pathology/Cytolo gy POLYP OF COLON / Unknown 02/26/2016 8:15 AM MECHANIC WELDER TRUCK DRIVER 02/26/2016 9:00 AM MECHANIC WELDER TRUCK DRIVER Charles Thornton MD LAB - PATHOLOGY/CYT OLOGY ORDERABLES [facility] [address] [facility] [place] [address] * ENDOSCOPY, COLON, SCREENING (02/26/2016 7:25 AM MECHANIC WELDER TRUCK DRIVER) Report Endoscopy POC _ Patient Name: Taty [...] by the physician, the nurse and the supervisor wet pour in the procedure room. Mental Status Examination: [...] previously scheduled. Procedure Code(s): --- Professional --- 71673, Colonoscopy, flexible; with biopsy, single or multiple --- Technical --- 19041, Colonoscopy, flexible; with biopsy, single or multiple [...] neoplasm of descending colon CPT copyright 2015 [employer]. All rights reserved. The codes documented in this report are preliminary and upon exhibitions curator review may be revised to meet current compliance requirements. Dr. Charles Thornton MD Charles Thornton MD 02/26/2016 8:21:08 AM This report has been signed electronically. Number of Addenda: 0 Note Initiated On: 02/26/2016 7:25 AM [facility] 02/26/2016 7:25 AM MECHANIC WELDER TRUCK DRIVER Charles Thornton MD GI PROCEDURE ORDERA BLES [facility] [place] [address] * [facility] RIGHT [facility] NONVASC (08/31/2015 10:23 AM CDT) Anatomical [...] 7:09 PM CDT Narrative Resulting Agency Comment [facility] [address] [address] [place] [phone] Parth Castillo MD LAB - CHEMISTRY MANJIT BAER [facility] INSURANCE BILL [address] [place] [address] * FERRITIN (08/24/2015 3:40 PM CDT) Only the most recent of5 resultswithin the time period is included. Ferritin 116 10 - 291 ng/mL [facility] INSURANCE BILL Blood specimen (specimen) BLOOD SPECIMEN / Unknown 08/24/2015 3:40 PM CDT 08/24/2015 7:09 PM CDT Narrative Resulting Agency Comment [facility] [address] [address] [phone] Parth Castillo MD LAB - CHEMISTRY MANJIT BAER [facility] INSURANCE BILL [address] [place] [address] * TSH REFLEX FREE T4 (05/19/2015 3:58 PM CDT) TSH with Reflex FT4 1.28 0.40 - 4.50 mIU/L [facility] Comment: REPORT COMMENT: FASTING:YES Test Performed at: [place] [address] [facility] [place] [address] SHARI CERRATO DO,MPH Blood specimen (specimen) BLOOD SPECIMEN / Unknown 05/19/2015 3:58 PM CDT 05/19/2015 3:59 PM CDT Parth Castillo MD LAB - CHEMISTRY MANJIT BAER Performing Organization Address [facility] Co de Phone Number [facility] [address] [place] [address] * IRON + TIBC PANEL (05/19/2015 3:58 PM CDT) Iron 49 45 - 160 mcg/dL [facility] TIBC 393 250 - 450 mcg/dL [facility] % Saturation 12 11 - 50 % (calc) [facility] Comment: Test Performed at: [place] [address] [facility]ENTERHelloFax [facility] [place] [address] SHARI CERRATO DO,MPH 05/19/2015 3:58 PM CDT 05/19/2015 3:59 PM CDT Prath Castillo MD LAB - CHEMISTRY MANJIT BAER Performing Organization Address [facility] de Phone Number [facility] [phone] [place] [address] * DEXA BONE DENSITY 2 SITES (05/15/2015) [...] 1:42 PM CDT Narrative Resulting Agency Comment [facility] [address] [facility] [address] [place] [phone] Parth Castillo MD LAB - CHEMISTRY MANJIT [...] - HEMATOLOGY ORD ERABLES Performing Organization Address [facility] Co de Phone Number [facility] [address] [place], [place] [id number] * TYPE + SCREEN PANEL (04/27/2014 2:51 PM CDT) Only the most recent of2 resultswithin the time period is included. ABO B 04/27/2014 3:58 PM CDT [facility] Rh Type Positive 04/27/2014 3:58 PM CDT [facility] Comment:History check perfor med. No retype required. Antibody Screen Negative 04/27/2014 3:58 PM CDT [facility] Miscellaneous samples (specimen) BLOOD SPECIMEN / Unknown 04/27/2014 2:51 PM CDT 04/27/2014 3:01 PM CDT Andrew Galan LAB - BLOOD BANK ORD ERABLES Performing Organization Address [facility] Co de Phone Number [facility] [id number] [place] [address] * (ABNORMAL) SLIDE SCAN HEMATOLOGY (04/27/2014 2:51 PM CDT) Clumped Platelets Occasional (A) None 04/27/2014 3:31 PM CDT [facility] Blood BLOOD SPECIMEN / Unknown 04/27/2014 2:51 PM CDT 04/27/2014 3:01 PM CDT Andrew Galan DO LAB - HEMATOLOGY ORD ERABLES Performing Organization Address [facility] Co de Phone Number [facility] [address] [place] [address] * ECHOCARDIOGRAM 2D WITH DOPPLER (AKA ECHO CONSULT) (04/20/2014 8:09 AM MECHANIC WELDER TRUCK DRIVER) 04/20/2014 8:09 AM MECHANIC WELDER TRUCK DRIVER Narrative [facility] - 04/20/2014 12:[address] [address] Transthoracic Echocardiogram 2D, M-mode, Doppler, and Color Doppler Patient: TATY WEIR MR number: [id number] Height: 65 in Weight: 143 lb BSA: 1.72 m Study date: 20-Apr-2014 : 1950 Age: 63 years Gender: Female Race: Black Diagnoses: 780.4 - DIZZINESS AND GIDDINESS Reading Physician: Isaias Maldonado MD Referring Physician: Mike Thorne MD EXECUTIVE OFFICER [employer] TEAM: Marcela Luna [facility] Cardiology Group: [facility] Summary: - History: - History of [...] Procedure: The study was performed in the [facility]. This was a routine study. Room [...] MV A Tera: 0.8 m/s MV Dec Meriwether: 4.4 m/s2 MV E Tera: 1 m/s MV E/A Ratio: 1.2 Septal e': 0.1 m/s Prepared and signed by Isaias Maldonado MD Signed 20-Apr-2014 12:31:26 Procedure Note Isaias Maldonado MD - 04/20/[address] [address] Transthoracic Echocardiogram 2D, M-mode, Doppler, and Color Doppler Patient: TATY WEIR MR number: [id number] Height: 65 in Weight: 143 lb BSA: 1.72 m Study date: 20-Apr-2014 : 1950 Age: 63 years Gender: Female Race: Black Diagnoses: 780.4 - DIZZINESS AND GIDDINESS Reading Physician: Isaias Maldonado MD Referring Physician: Mike Thorne MD EXECUTIVE OFFICER SPECIAL WARFARE TEAM: Marcela Luna [facility] Cardiology Group: [facility] Summary: - History: - History of [...] Procedure: The study was performed in the [facility]. This was a routine study. Room [...] MV A Tera: 0.8 m/s MV Dec Meriwether: 4.4 m/s2 MV E Tera: 1 m/s MV E/A Ratio: 1.2 Septal e': 0.1 m/s Prepared and signed by Isaias Maldonado MD Signed 20-Apr-2014 12:31:26 Mike Thorne MD ECHO ORDERABLES Performing Organization Address City/[facility]/ZIP Co de Phone Number [facility] * HELICOBACTER PYLORI ANTIBODY IGG QUAL (04/20/2014 3:54 AM MECHANIC WELDER TRUCK DRIVER) Helicobacter pylori Antibody IgG Negative Negative 04/20/2014 11:03 AM MECHANIC WELDER TRUCK DRIVER [facility] MICROBIOLOGY Blood BLOOD SPECIMEN / Unknown 04/20/2014 3:54 AM MECHANIC WELDER TRUCK DRIVER 04/20/2014 4:06 AM MECHANIC WELDER TRUCK DRIVER Charles Thornton MD LAB - SEROLOGY MANJIT BAER Performing Organization Address [facility] Co de Phone Number [facility] MICROBIOLOGY [address] [place] * MAGNESIUM BLOOD (04/20/2014 3:54 AM MECHANIC WELDER TRUCK DRIVER) Only the most recent of2 resultswithin the time period is included. Magnesium 1.7 1.6 - 2.6 mg/dL 04/20/2014 4:29 AM MECHANIC WELDER TRUCK DRIVER [facility] Blood BLOOD SPECIMEN / Unknown 04/20/2014 3:54 AM MECHANIC WELDER TRUCK DRIVER 04/20/2014 4:06 AM MECHANIC WELDER TRUCK DRIVER Mike Thorne MD LAB - CHEMISTRY MANJIT BAER Performing Organization Address [facility] Co de Phone Number [facility] [address] [place] [address] * TROPONIN I (04/20/2014 3:53 AM MECHANIC WELDER TRUCK DRIVER) Only the most recent of3 resultswithin the time period is included. Troponin I <0.015 0.000 - 0.049 ng/mL 04/20/2014 4:36 AM MECHANIC WELDER TRUCK DRIVER [facility] Blood SERUM OR PLASMA SPECIMEN / Unknown 04/20/2014 3:53 AM MECHANIC WELDER TRUCK DRIVER 04/20/2014 4:06 AM MECHANIC WELDER TRUCK DRIVER Narrative [facility] - 04/20/2014 4:36 AM MECHANIC WELDER TRUCK DRIVER Note: Diagnosis of myocardial infarction requires symptoms [...] Thorne MD LAB - CHEMISTRY MANJIT BAER [facility] [address] [place] [address] * XR CHEST 1VW PORTABLE (04/19/2014 4:04 PM MECHANIC WELDER TRUCK DRIVER) Anatomical Region Laterality Modality Chest Radiographic Salma ging 04/19/2014 5:08 PM MECHANIC WELDER TRUCK DRIVER Impressions 04/19/2014 5:09 PM MECHANIC WELDER TRUCK DRIVER No acute disease. No free air evident. Narrative 04/19/2014 5:09 PM MECHANIC WELDER TRUCK DRIVER Portable Chest AP History: Hemorrhage of gastrointestinal [...] XR ABDOMEN 1 VW (04/19/2014 3:43 PM MECHANIC WELDER TRUCK DRIVER) Anatomical Region Laterality Modality Abdomen Radiographic Salma ging 04/19/2014 4:45 PM MECHANIC WELDER TRUCK DRIVER Narrative 04/19/2014 4:46 PM MECHANIC WELDER TRUCK DRIVER Abdomen AP Indication: Hemorrhage of GI tract. Findings: No free air evident following EGD. Procedure Note Driss Ramos MD - 04/19/2014 Abdomen AP Indication: Hemorrhage of GI tract. Findings: No free air evident following EGD. Charles Thornton MD DIAGNOSTIC IMAGING ORDERABLES * EGD (04/19/2014 2:38 PM MECHANIC WELDER TRUCK DRIVER) Report Endoscopy POC _ Patient Name: Taty [...] by the physician, the nurse and the supervisor wet pour in the procedure room. Mental Status Examination: [...] PO QID. Procedure Code(s): --- Professional --- 83768, Esophagogastroduoden oscopy, flexible, transoral; diagnostic, including collection of specimen(s) by brushing or washing, when performed (separate procedure) --- Technical --- 94010, Esophagogastroduoden oscopy, flexible, transoral; diagnostic, including collection of specimen(s) by brushing or washing, when performed (separate procedure) Diagnosis Code(s): --- Professional --- 285.1, Acute posthemorrhagic anemia 578.1, Blood in stool V45.3, Intestinal bypass or anastomosis status --- Technical --- 285.1, Acute posthemorrhagic anemia 578.1, Blood in stool V45.3, Intestinal bypass or anastomosis status CPT copyright 2013 [employer]. All rights reserved. The codes documented in this report are preliminary and upon exhibitions curator review may be revised to meet current compliance requirements. Dr. Charles Thornton MD ___ Charles Thornton MD 04/19/2014 3:02 PM This report has been signed electronically. Number of Addenda: 0 Note Initiated On: 04/19/2014 2:38 PM [facility] ENDOS[facility] 04/19/2014 2:38 PM MECHANIC WELDER TRUCK DRIVER Charles Thornton MD GI PROCEDURE ORDERA KANDY [facility] [place] [address] * CT ABDOMEN AND PELVIS NON IV CONTRAST (04/19/2014 1:00 AM MECHANIC WELDER TRUCK DRIVER) Only the most recent of2 resultswithin the time period is included. Anatomical Region Laterality Modality Abdomen, Pelvis Computed Tomogra phy 04/19/2014 1:03 AM MECHANIC WELDER TRUCK DRIVER Impressions 04/19/2014 1:06 AM MECHANIC WELDER TRUCK DRIVER No obstruction or definite urinary stone seen at this time. Postsurgical changes are noted in the upper abdomen similar to the examination of July 28, 2012. Narrative 04/19/2014 1:06 AM MECHANIC WELDER TRUCK DRIVER Examination: Noncontrast Abdomen and Pelvic CT Indication: [...] grammatical or syntax problems by a trained director medical affairs. For questions about the report, please contact [...] grammatical or syntax problems by a trained director medical affairs. For questions about the report, please contact the Radiology Department. IMPRESSION No obstruction or definite urinary stone seen at this time. Postsurgical changes are noted in the upper abdomen similar to the examination of July 28, 2012. Tylor Marie MD CT ORDERABLES * (ABNORMAL) HEPATIC FUNCTION PANEL (01/31/2014 12:45 PM MECHANIC WELDER TRUCK DRIVER) Protein Total 7.0 6.0 - 8.5 g/dL [...] BLOOD SPECIMEN / Unknown 01/31/2014 12:45 PM MECHANIC WELDER TRUCK DRIVER 01/31/2014 2:52 PM MECHANIC WELDER TRUCK DRIVER Narrative Resulting Agency Comment [facility] [address] [id number] Parth Castillo MD LAB - CHEMISTRY MANJIT BAER [facility] Organization Address City/State/ZIP Co de Phone Number [facility] INSURANCE BILL * (ABNORMAL) VITAMIN D 1,25 DIHYDROXY (12/14/2013 10:25 AM CDT) Calcitriol (1,25 di-OH Vit D) 142.3(H) 10.0 - 75.0 pg/mL [facility] INSURANCE BILL Blood specimen (specimen) BLOOD SPECIMEN / Unknown 12/14/2013 10:25 AM CDT 12/14/2013 3:31 PM CDT Narrative Resulting Agency Comment [facility] [phone] Parth Castillo MD LAB - CHEMISTRY MANJIT BAER Performing Organization Address City/[facility]/ZIP Co de Phone Number [facility] INSURANCE BILL [...] 3:31 PM CDT Narrative Resulting Agency Comment [address] [phone] Parth Castillo MD LAB - CHEMISTRY MANJIT BAER Performing Organization Address [facility] de Phone Number [facility] INSURANCE BILL * TSH (12/14/2013 10:25 AM CDT) Only the most recent of2 resultswithin the time period is included. Pathologist [facility] TSH 1.910 0.450 - 4.500 uIU/mL [facility] INSURANCE BILL Comment NOT NEEDED [facility] INSURANCE BILL Comment:Ancillary determined the test is not needed Blood specimen (specimen) BLOOD SPECIMEN / Unknown 12/14/2013 10:25 AM CDT 12/14/2013 3:31 PM CDT Narrative Resulting Agency Comment [address] [phone] Parth Castillo MD LAB - CHEMISTRY MANJIT BAER Performing Organization Address City/[facility] Co de Phone Number [facility] INSURANCE BILL * T4 FREE (12/14/2013 10:25 AM CDT) T4 Free 0.92 0.82 - 1.77 ng/dL [facility] INSURANCE BILL Blood specimen (specimen) BLOOD SPECIMEN / Unknown 12/14/2013 10:25 AM CDT 12/14/2013 3:31 PM CDT Narrative Resulting Agency Comment [facility] [place] [address] [facility] [phone] Parth Castillo MD LAB - CHEMISTRY MANJIT BAER [facility] INSURANCE BILL * CARDIAC EKG ORDER (06/07/2013) Parth Castillo MD CARDIAC SERVICES ORD ERABLES * PATHOLOGY/CYTOLOGY REPORT ORDER (03/09/2013) Parth Castillo MD LAB - PATHOLOGY/CYTO LOGY ORDERABLES * MRI SHOULDER RIGHT WO CONT MP (03/04/2013 3:10 PM MECHANIC WELDER TRUCK DRIVER) Anatomical Region Laterality Modality Magnetic Resonan ce 03/05/2013 8:12 AM MECHANIC WELDER TRUCK DRIVER Impressions 03/05/2013 8:28 AM MECHANIC WELDER TRUCK DRIVER There is a near complete full-thickness tear [...] on the glenoid. Narrative 03/05/2013 8:28 AM MECHANIC WELDER TRUCK DRIVER MRI of right shoulder History: Right shoulder [...] by the physician, the nurse and the supervisor wet pour in the procedure room. Mental Status Examination: [...] healthy appearing mucosa. This was traversed. The mosuu-ma-qpsfagl limb was characterized by healthy appearing mucosa. [...] 0 Note Initiated On: 07/29/2012 6:24 AM [facility] 07/29/2012 6:24 AM CDT Narrative [facility] - 07/29/2012 7:23 AM CDT Procedure Note Charles Thornton MD - 07/29/2012 7:23 AM CDT Charles Thornton MD GI PROCEDURE ORDERA KANDY Performing Organization Address [facility] Co de Phone Number [facility] [place] [address] * ENDOSCOPY ORDER (07/29/2012) Parth Castillo MD GI PROCEDURE ORDERAB LES * ENDOSCOPY, COLON, DIAGNOSTIC (03/06/2011 8:09 AM MECHANIC WELDER TRUCK DRIVER) Narrative Transcriptions Charles Thornton MD - 03/06/2011 8:09 AM CST Charles Thornton MD GI PROCEDURE ORDERA BLETha Performing Organization Address [facility] Co de Phone Number [facility] [place] [address] * GROSS + MICRO EXAM (03/06/2011 12:00 AM MECHANIC WELDER TRUCK DRIVER) Only the most recent of4 resultswithin the time period is included. [facility] Surgeon Dr. Thornton [facility] Grossed By NORTH Navarro [facility] Gross Report [facility] Comment: SURGEON: Dr. Thornton COPY [...] in a single cassette. POP/ja Microscopic Examination [facility] Comment: MICROSCOPIC: 1. The hepatic flexure biopsy shows colonic mucosa without significant inflammation. The subepithelial collagen is not thickened. There is no dysplasia. AB/ja Diagnosis [facility] Comment: DIAGNOSIS: 1. Hepatic flexure biopsy: -- No significant abnormality. AB/ja Released by DORON SRINIVASAN M.D. [facility] CPT Code 30530 [facility] COLONIC BIOPSY SPECIMEN / Unknown 03/06/2011 03/06/2011 9:27 AM MECHANIC WELDER TRUCK DRIVER Luke Doherty MD LAB - PATHOLOGY/C YTOLOGY ORDERABLES [facility] [address] [place] [address] * CT ABDOMEN AND PELVIS WITH IV CONTRAST (01/31/2011 1:04 PM MECHANIC WELDER TRUCK DRIVER) Anatomical Region Laterality Modality Abdomen, Pelvis Computed Tomogra phy 01/31/2011 1:37 PM MECHANIC WELDER TRUCK DRIVER Impressions 01/31/2011 3:23 PM MECHANIC WELDER TRUCK DRIVER 1. Diffuse mucosal thickening of the colon, most pronounced about the hepatic flexure. Findings likely represent infectious versus inflammatory colitis. 2. Extrahepatic biliary dilatation. 3. Severe discogenic degenerative changes of the lumbar spine, particularly at L4-L5. Narrative 01/31/2011 3:23 PM MECHANIC WELDER TRUCK DRIVER CT ABDOMEN WITH CONTRAST CT PELVIS WITH [...] POINT OF CARE (IP) (01/31/2011 12:50 PM MECHANIC WELDER TRUCK DRIVER) Creatinine POCT 0.78 0.7 - 1.2 mg/dL [facility] POCT TESTING QC Verified yes Yes [facility] POC T TESTING Blood specimen (specimen) BLOOD SPECIMEN / Unknown 01/31/2011 12:50 PM MECHANIC WELDER TRUCK DRIVER Luke Doherty MD LAB - POINT OF CA RE ORDERABLES Performing Organization Address [facility] de Phone Number [facility] POCT TEST[facility] [address] [place] [address] * (ABNORMAL) ZINC BLOOD (10/31/2008 10:45 AM CDT) Zinc 54(L) 60 - 120 mcg/dl [facility] Comment Ref Lab [facility] Comment: Comments and Normal Ranges [...] CDT Narrative Resulting Agency Comment Performed By [address] [address] Luke Doherty MD LAB - CHEMISTRY O RDERABLES Performing Organization Address [facility] Co de Phone Number [facility] [address] [place] [address] * VITAMIN B1 (10/31/2008 10:45 AM CDT) [...] CDT Narrative Resulting Agency Comment Performed By [address] [address] Luke Doherty MD LAB - CHEMISTRY O RDERABLES Performing Organization Address City/[facility] Co de Phone Number [facility] [id number] [place] [address] * PTH INTACT (10/31/2008 10:45 AM CDT) PTH Intact 55.6 14 - 72 pg/ml [facility] BLOOD SPECIMEN / Unknown 10/31/2008 10:45 AM CDT 10/31/2008 10:46 AM CDT Narrative Resulting Agency Comment Performed By [address] [address] Luke Doherty MD LAB - CHEMISTRY O RDERABLES Performing Organization Address [facility] Co de Phone Number [facility] [address] [place] [address] * FOLATE RBC (10/31/2008 10:45 AM CDT) Folate RBC 567 ng/ml [facility] Hct 39.4 % [facility] BLOOD SPECIMEN WITH EDTA / Unknown 10/31/2008 10:45 AM CDT 10/31/2008 10:46 AM CDT Narrative Resulting Agency Comment Performed By [facility] [address] [place] [address] Luke Doherty MD LAB - CHEMISTRY O RDERABLES Performing Organization Address City/[facility] Co de Phone Number [facility] [id number] [place] [address] * VITAMIN D 25-HYDROXY (10/31/2008 10:45 AM CDT) Vitamin D, 25 Hydroxy 42.75 30 - 100 ng/ml [facility] BLOOD SPECIMEN / Unknown 10/31/2008 10:45 AM CDT 10/31/2008 10:46 AM CDT Narrative Resulting Agency Comment Performed By [facility] [address] [place] [address] Luke Doherty MD LAB - CHEMISTRY O RDERABLES [facility] [address] [place] [address] * (ABNORMAL) VITAMIN B12 (10/31/2008 10:45 AM CDT) Vitamin B12 985(H) 211 - 911 pg/ml [facility] BLOOD SPECIMEN / Unknown 10/31/2008 10:45 AM CDT 10/31/2008 10:46 AM CDT Narrative Resulting Agency Comment Performed By [facility] [address] [place] [address] Luke Doherty MD LAB - CHEMISTRY O RDERABLES Performing Organization Address City/[facility]/ZIP Co de Phone Number [facility] [address] [place] [address] [address] [address] Design Engineer Relationship Specialty Start Date End Date Elizabeth Brown MD [address] [facility] [address] [place] [address] PCP - General Family Medicine 01/12/20 Meagan Godoy RN Online Communications Manager 04/19/14 Charles Thornton MD Bore Mill Operator Gastroenterology 06/14/14 Perfecto Cooper MD [address] [place] [address] [address] [place] [address] Orthopedic 10/05/18 Elizabeth Brown MD [address] [place] [address] Primary Care Provider Family Medicine 12/07/19
--- OUTSIDE RECORDS SUMMARY | 2024-05-03 11:17 | XMS_ITS | Clinical Summary ---
Author Organization [facility] Address [address] [place] [address] Phone Care Team Providers Care Personal Loan Specialist Name Role Phone Parth Castilol MD Primary Care Provider [phone] Allergies Active Allergy Reactions Criticality Noted Date [...] Comments Blood Pressure 103/68 04/04/2018 11:45 PM PATTERN CHECKER Pulse 78 04/04/2018 11:45 PM PATTERN CHECKER Temperature - - Respiratory Rate 13 04/04/2018 11:45 PM PATTERN CHECKER Oxygen Saturation 96% 04/04/2018 11:45 PM PATTERN CHECKER Inhaled Oxygen Concentration - - Weight - [...] Procedure Name Priority Date/Time Associated Diagnosis Comments [facility] SCREENING BILATERAL DIGITAL W CAD W VINCENZO Routine 02/11/2018 11:51 AM PATTERN CHECKER Screening breast examination [facility] BONE DENSITOMETRY AXIAL SKELETON Routine 05/15/2015 3:48 PM CDT Screening for osteoporosis from Last 3 Months or Most Recently Relevant to Health Maintenance Results * [facility] SCREENING BILATERAL DIGITAL W CAD W VINCENZO (02/11/2018 11:51 AM PATTERN CHECKER) Anatomical Region Laterality Modality breast Bilateral Mammography 02/11/2018 11:3 2 AM PATTERN CHECKER Narrative 02/12/2018 6:40 AM PATTERN CHECKER - [facility] SCREENING BILATERAL DIGITAL W CAD W [...] to exams dated: 10/14/2016, 05/15/2015, and 02/23/2014 [facility]. BREAST TISSUE:The tissue of both breasts is [...] contacted. Electronically signed by: Marisa ferguson/kota:02/11/2018 15:01:09 Pump Room Operator: Mary Schaefer (R)(Geoff), [facility] letter sent: Additional Imaging Reading location: [place] BI-RADS: 0 Additional Imaging Evaluation Needed Procedure Note Marisa Lyman MD - 02/12/2018 - [facility] SCREENING BILATERAL DIGITAL W CAD W [...] to exams dated: 10/14/2016, 05/15/2015, and 02/23/2014 [facility]. BREAST TISSUE:The tissue of both breasts is [...] contacted. Electronically signed by: Marisa ferguson/kota:02/11/2018 15:01:09 Pump Room Operator: Mary Josue)(M), [facility] letter sent: Additional Imaging Reading location: [facility] BI-RADS: 0 Additional Imaging Evaluation Needed us Parth Castillo MD IMG MAMMO ORDERABLES Final R esult * [facility] BONE DENSITOMETRY AXIAL SKELETON (05/15/2015 3:48 PM [...] as an adult, rheumatoid arthritis COMPARISON(S): 08/28/2010 TOOLS DEVELOPER/MODEL: [employer] (S/N [id number]) FINDINGS: AP lumbar spine L1-L4 Total BMD is 1.556 g/uf8D-ckate is 2.9 Most recent prior BMD was 1.535 g/cm2 There has been a 1.4% increase in BMD which is not statistically significant. Left Hip Current Total BMD is 0.833 g/bm3Q-grqjc is -1.4 Most recent prior Total BMD was 0.849 g/cm2 There has been a 1.9% decrease in BMD which is not statistically significant. Current femoral neck BMD is 0.890 g/hf2Z-ldosk is -1.1 Fracture risk assessment (FRAX): 10 [...] as an adult, rheumatoid arthritis COMPARISON(S): 08/28/2010 TOOLS DEVELOPER/MODEL: [employer] (S/N [id number]) FINDINGS: AP lumbar spine L1-L4 Total BMD is 1.556 g/ev9V-hwwgh is 2.9 Most recent prior BMD was 1.535 g/cm2 There has been a 1.4% increase in BMD which is not statistically significant. Left Hip Current Total BMD is 0.833 g/xe8Q-fqflq is -1.4 Most recent prior Total BMD was 0.849 g/cm2 There has been a 1.9% decrease in BMD which is not statistically significant. Current femoral neck BMD is 0.890 g/tn6O-zngql is -1.1 Fracture risk assessment (FRAX): 10 [...] and Treatment of Osteoporosis (http://www.nof.org/professionals/clinical-guidelines) Vivienne Richey HOSPITALITY MANAGER, SUPERINTENDENT CUSTODIAN JANITOR IMG DEXA ORDERABLES Fin al Result from Last 3 Months or Most Recently Relevant to Health Maintenance Insurance [address] [id number] MEDICARE Care Teams Personal Loan Specialist Relationship Specialty [place] [address] [place] [address] [address] [place] [address] PCP - General Internal Medicine 09/25/16
[2024-05-03 11:31] LABS: Urine Cotinine NEGATIVE
[2024-05-04 22:24] LABS: Amphetamines NEGATIVE ng/mL (<500); Barbiturates NEGATIVE ng/mL (<300); Benzodiazepines NEGATIVE ng/mL (<100); Cocaine Metabolite NEGATIVE ng/mL (<150); Marijuana Metabolite NEGATIVE ng/mL (<20); Methadone Metabolite NEGATIVE ng/mL (<100); Opiates POSITIVE ng/mL (<100); Oxidant NEGATIVE mcg/mL (<200); PCP NEGATIVE ng/mL (<25); pH 5.1 (4.5-9.0)
== END 2024-05-03 09:56 | disposition home or self-care (01) ==
PROVIDERS: PCP Family Medicine; Referring Provider Student in an Organized Health Care Education/Training Program; Visit Provider Orthopaedic Surgery
DX: N18.31 Chronic kidney disease, stage 3a (principal); E04.9 Nontoxic goiter, unspecified; R74.8 Abnormal levels of other serum enzymes; D64.9 Anemia, unspecified; Z79.899 Other long term (current) drug therapy; I95.9 Hypotension, unspecified
CPT/HCPCS: 80307; 82040; 82565; 85014; 85018; 93005

== ENCOUNTER 2024-05-13 07:10 | Outpatient (CLI) | payer MEDICARE, OTHER, SELFPAY ==
--- NOTE | ~2024-05-13 | MM_ITS ---
EXAMINATION: MM screening skyler BI w chiara HISTORY: Screening TECHNIQUE: Craniocaudal and mediolateral oblique 3-D tomosynthesis images were obtained and synthetic 2-D images were generated. CAD analysis was submitted and interpreted. COMPARISON: 02/03/2023 and dating back to 02/27/2018 BREAST PARENCHYMAL COMPOSITION: There are scattered areas of fibroglandular density. FINDINGS: Punctate calcifications detected bilaterally, vascular in origin and benign in appearance. Additional punctate and bulky calcifications are detected bilaterally, stable and benign in appearanc e. Indeterminate 4 mm asymmetry within the upper outer right breast with surrounding thin projections in to the breast tissue, for which spot compression followed by a focused ultrasound is recommended. Otherwise stable parenchymal pattern without suspicious microcalcifications or architectural distorti on. IMPRESSION: Indeterminate 4 mm asymmetry within the upper outer right breast with surrounding thin projections in to the breast tissue, for which spot compression followed by a focused ultrasound is recommended. BI-RADS Category 0: Incomplete: Needs additional imaging evaluation. Reviewed, dictated and finalized at location A. IMPRESSION: Indeterminate 4 mm asymmetry within the upper outer right breast with surroundi ng thin projections into the breast tissue, for which spot compression followed by a focused ultrasound is recommended. BI-RADS Category 0: Incomplete: Needs additional imaging evaluation.
--- OUTSIDE RECORDS SUMMARY | 2024-05-13 07:14 | XMS_ITS ---
Author Organization [facility] Address [address] [place] [address] Care Team Providers Care Salesforce Specialist Name Role Phone LiamCharles [phone] REASON FOR VISIT [facility], [...] Provider Diagnosis [facility] [place] ([address]) [address] [address] 07/31/2023 Charles Wheeler Morbid (severe) obesity due [...] abdomen Frequency: weekly Lot Number/Expiration: Medication Source: 8digits Adverse Reaction: None Progress Notes * Taty WEIRDOB:1950 (74 yo F)Acc No.[id number]:07/31/2023 Weight Loss Patient: Taty CLARK Provider: Jessica Wheeler MD :1950 A ge:73 Y S ex:Female Date:07/31/2023 Address:[address] [place] [address] Subjective: * Chief Complaints: * 1 . [...] ot Number/Expiration 0 M edication Source H [facility] A dverse Reaction N one * Follow Up: 1 Week (Reason: GLP-1 Agonist Administration) * Billing Information: * Visit Code: * Procedure Codes: * Electronic signature of Pattyshawn Wheeler MD, FAAAAI on 05/13/2024 at 07:13 AM CDT Sign off status: Pending * Provider: Jessica Wheeler MD Date: 0 07/31/2023 Generated for Romina leblanc/Rafa/Shoshana on: 0 05/13/2024 07:13 AM CDT
--- OUTSIDE RECORDS SUMMARY | 2024-05-13 07:14 | XMS_ITS ---
Author Organization [facility] Address [address] [place] [address] Care Team Providers Care Minister Helper Name Role Phone Charles Wheeler Unavailable [phone] REASON FOR VISIT [facility], [...] Provider Diagnosis [facility] [place] ([address]) [address] [place] [phone] 07/24/2023 Charles Liam Morbid (severe) obesity due [...] abdomen Frequency: weekly Lot Number/Expiration: Medication Source: [employer] Adverse Reaction: None Progress Notes * Taty WEIRDOB:1950 (74 yo F)Acc No.[id number]:07/24/2023 Weight Loss Patient: Taty CLARK Provider: Jessica Wheeler MD :1950 A ge:73 Y S ex:Female Date:07/24/2023 Address:[address] [place], [place] [id number] Subjective: * Chief Complaints: * 1 . [...] Number/Expiration 0 -2024 M edication Source H [facility] A dverse Reaction N one * Follow Up: 1 Week (Reason: GLP-1 Agonist Administration) * Billing Information: * Visit Code: * Procedure Codes: * Electronic signature of Sapna Wheeler MD, FAAAAI on 05/13/2024 at 07:13 AM CDT Sign off status: Pending * Provider: Jessica Wheeler MD Date: 0 07/24/2023 Generated for Romina leblanc/Rafa/Shoshana on: 0 05/13/2024 07:13 AM CDT
--- OUTSIDE RECORDS SUMMARY | 2024-05-13 07:14 | XMS_ITS ---
Author Organization [facility] Address [address] [place] [address] Care Team Providers Care Watchstander Name Role Phone ZZ-Migration, Provider Unavailable Unavailab [...] Active Encounters Encounter Location Date Provider Diagnosis [address] [address] 08/02/2023 Provider ZZ-Migration Plan Of Treatment No Information Progress Notes * Taty WEIRDOB:1950 (74 yo F)Acc No.[id number]:08/02/2023 Patient: Taty CLARK Provider: Jessica Webb :1950 A ge:73 Y S ex:Female Date:08/02/2023 Address:[address] [place], [place] [id number] Subjective: * Chief Complaints: * 1 . [...] * Electronic signature of Maryann KELLY-Migration on 05/13/2024 at 07:14 AM CDT Sign off status: Pending * Provider: Jessica lundberg Migration Date: 0 08/02/2023 Generated for Romina leblanc/Rafa/Shoshana on: 05/13/2024 07:14 AM CDT
--- OUTSIDE RECORDS SUMMARY | 2024-05-13 07:14 | XMS_ITS | Clinical Summary ---
Author Organization [facility] Address [address] [place] [place] [address] Care Team Providers Care Wine Blender Name Role Phone Meagan Godoy RN Unavailable [phone] Charles Thornton MD Unavailable [phone] Perfecto Cooper MD Unavailable [phone] Elizabeth Brown MD Unavailable [phone] Elizabeth Brown MD Primary Care Provider U navailable Source Comments [facility],non-owned Affiliates and Associated Physician Practices is amultiple site organization consisting of ambulatory clinics and hospital sitesin [place], [place], [place] and [place]. This disclosure is being madepursuant to the Care Everywhere program and may not contain all information available regarding this patient. Last updated 17.[facility] Allergies Active Allergy Reactions Criticality Noted Date [...] diphenhydrAMINE HCl (BENADRYL PO) Active HYDROcodone-aceta minophen (Quanah) 5-325 MG tablet Take 1 (one) tablet [...] breath. Assessment & Plan (02/04/2019 2:08 PM ORACLE FUSION DEVELOPER): Lower dose to 25 mg qd Assessment & Plan (04/06/2018 1:44 PM ORACLE FUSION DEVELOPER): Stay off medication until BP becomes higher [...] med/dose. Assessment & Plan (02/15/2013 10:41 AM ORACLE FUSION DEVELOPER): Monitor at home. Continue current med, start exercising. Anxiety Overview (02/04/2019): Rare xanax Assessment & Plan (02/04/2019 2:10 PM ORACLE FUSION DEVELOPER): Continue current medication. Assessment & Plan (12/04/2017 [...] (AF LURIA, FLUZONE TRIVALENT; 6MO+) (IIV3) 12/14/2013 [employer] primary monoval ent 12+ yr 0.3mL Purple [...] file Gender Identity Female 01/26/2019 8:32 AM ORACLE FUSION DEVELOPER Sexual Orientation Not on file Last Filed [...] SCREENING 02/18/2024 COLON MONITORING 05/30/2026 05/30/2021, 10/2016, 02/26/2016 Colorectal Cancer Screening 05/30/2026 Respiratory Syncytial Virus (RSV) Vaccine Pt: or over 60 yrs (1 - 1-dose 75+ series) 05/12/2027 DTAP/TDAP/TD VACCINES (3 - Td or Tdap) 11/07/2029 11/08/2019, 12/05/2015 COLONOSCOPY - COLON CA SCREENING 05/31/2031 05/30/2021, 02/26/2016, 02/26/2016 BONE DENSITY TESTING Completed 05/15/2015, 05/15/19 16 [...] Comments LIPID PROFILE Routine 02/04/2019 2:32 PM ORACLE FUSION DEVELOPER Essential hypertension HEPATITIS PANEL Routine 04/06/2018 2:01 PM ORACLE FUSION DEVELOPER Encounter for screening for other viral diseases Elevated LFTs MAMMOGRAPHY ORDER Routine 02/27/2018 ENDOSCOPY, COLON, SCREENING Routine 02/26/2016 7:25 AM ORACLE FUSION DEVELOPER DEXA BONE DENSITY 2 SITES Routine 05/15/2015 from Last 3 Months or Most Recently Relevant to Health Maintenance Results * LIPID PROFILE (02/04/2019 2:32 PM ORACLE FUSION DEVELOPER) Cholesterol 166 <200 mg/dL [facility] INSURANCE BILL Triglycerides 52 <150 mg/dL [facility] INSURANCE BILL HDL Cholesterol 87 >40 mg/dL [facility] INSURANCE BILL VLDL Calculated 10 <=30 mg/dL [facility] INSURANCE BILL LDL Calculated 69 <130 mg/dL [facility] INSURANCE BILL Blood BLOOD SPECIMEN / Unknown 02/04/2019 2:32 PM ORACLE FUSION DEVELOPER 02/04/2019 Narrative Resulting Agency Comment Lab Testing performed at: [facility] [place] [address] [place] [id number] Parth Castillo MD LAB - CHEMISTRY MANJIT BAER [facility] INSURANCE BILL [address] [place] [address] * HEPATITIS PANEL (04/06/2018 2:01 PM ORACLE FUSION DEVELOPER) Hepatitis A Virus Antibody IgM Negative Negative [...] BLOOD SPECIMEN / Unknown 04/06/2018 2:01 PM ORACLE FUSION DEVELOPER 04/06/2018 Narrative Resulting Agency Comment [facility] [address] [facility] [phone] Parth Castillo MD LAB - CHEMISTRY MANJIT BAER [facility] INSURANCE BILL [address] [place] [address] * MAMMOGRAPHY ORDER (02/27/2018) Anatomical Region Laterality Modality Mammography Parth Castillo MD MAMMO ORDERABLES * ENDOSCOPY, COLON, SCREENING (02/26/2016 7:25 AM ORACLE FUSION DEVELOPER) Report Endoscopy POC _ Patient Name: Taty [...] by the physician, the nurse and the bridge maintenance worker in the procedure room. Mental Status Examination: [...] previously scheduled. Procedure Code(s): --- Professional --- 80921, Colonoscopy, flexible; with biopsy, single or multiple --- Technical --- 10909, Colonoscopy, flexible; with biopsy, single or multiple [...] neoplasm of descending colon CPT copyright 2015 [employer]. All rights reserved. The codes documented in this report are preliminary and upon zipper setter lockstitch review may be revised to meet current compliance requirements. Dr. Charles Thornton MD Charles Thornton MD 02/26/2016 8:21:08 AM This report has been signed electronically. Number of Addenda: 0 Note Initiated On: 02/26/2016 7:25 AM [facility] ENDOSCOPY 02/26/2016 7:25 AM ORACLE FUSION DEVELOPER Charles Thornton MD GI PROCEDURE ORDERA BLES [facility] [place] [address] * DEXA BONE DENSITY 2 SITES (05/15/2015) [...] 2:45 AM 04/21/2014 1:08 PM Care Teams Wine Blender Relationship Specialty Start Date End Date Elizabeth Brown MD [address] [facility] [address] [place] [address] PCP - General Family Medicine 01/12/20 Meagan Godoy RN Rock Climbing Instructor 04/19/14 Charles Thornton MD Global Program Director Gastroenterology 06/14/14 Perfecto Cooper MD [address] [place] [address] Orthopedic 10/05/18 Elizabeth Brown MD [address] [facility] [place] [address] Primary Care Provider Family Medicine 12/07/19
--- OUTSIDE RECORDS SUMMARY | 2024-05-13 07:14 | XMS_ITS | Patient Health Record ---
Author Organization [facility] Address [address] [place] [address] Care Team Providers Care 3D Animator Name Role Phone Charles Wheeler Unavailable [phone] ZZ-Migration, Provider Unavailable Unavailab Reason For Referral [...] Status Risk Notes Problem Morbid obesity (disorder) (314855153) Morbid (severe) obesity due to excess calories (E66.01) Active confirmed Problem Chronic fatigue syndrome (disorder) (76225053) Chronic fatigue, unspecified (R53.82) Active confirmed Vital Signs Respiratory Rate 18 /min 06/05/2023 Oximetry 98 % 06/05/2023 Blood pressure diastolic 77 mm Hg 06/05/2023 Height 65.1 in 07/24/2023 Blood pressure systolic 126 mm Hg 06/05/2023 Weight 154.2 lbs 07/24/2023 BMI 25.58 kg/m2 07/24/2023 Encounters Encounter Location Date Provider Diagnosis [facility] ([address]) [address] [place] [address] 06/05/2023 Charles Win Morbid (severe) obesity due to excess calories E66.01 ; Chronic fatigue, unspecified R53.82 ; Other fatigue R53.83 and Other malaise R53.81 [facility] ([address]) [address] [place] [address] 06/12/2023 Charles Win Morbid (severe) obesity due to excess calories E66.01 ; Chronic fatigue, unspecified R53.82 ; Other fatigue R53.83 and Other malaise R53.81 [facility] ([address]) [address] [place] [address] 07/03/2023 Charles Win Morbid (severe) obesity due to excess calories E66.01 ; Chronic fatigue, unspecified R53.82 ; Other fatigue R53.83 and Other malaise R53.81 [facility] ([address]) [address] [place] [address] 07/10/2023 Charles Win Morbid (severe) obesity due to excess calories E66.01 ; Chronic fatigue, unspecified R53.82 ; Other fatigue R53.83 and Other malaise R53.81 [facility] ([address]) [address] [place] [address] 07/24/2023 Charles Win Morbid (severe) obesity due to excess calories E66.01 ; Chronic fatigue, unspecified R53.82 ; Other fatigue R53.83 and Other malaise R53.81 BERNA Arvizu [address] [place] [address] 08/02/2023 Provider ZZ-Migration [facility] ([address]) [address] [place] [address] 06/19/2023 Charles Liam Morbid (severe) obesity due to excess calories E66.01 ; Chronic fatigue, unspecified R53.82 ; Other fatigue R53.83 and Other malaise R53.81 [facility] ([address]) [address] [place] [address] 06/19/2023 Charles Liam [facility] ([address]) [address] [address] 06/26/2023 Charles Liam Morbid (severe) obesity due to excess calories E66.01 ; Chronic fatigue, unspecified R53.82 ; Other fatigue R53.83 and Other malaise R53.81 [facility] ([address]) [address] [address] 07/17/2023 Charles Wheeler Morbid (severe) obesity due [...]
--- OUTSIDE RECORDS SUMMARY | 2024-05-13 07:15 | XMS_ITS | Clinical Summary ---
Author Organization [facility] Address [address] [place] [address] Phone Care Team Providers Care Languages And Literature Instructor Name Role Phone Parth Castillo MD Primary Care Provider [phone] Allergies Active Allergy Reactions Criticality Noted Date [...] Comments Blood Pressure 103/68 04/04/2018 11:45 PM INDUSTRIAL SPECIALIST Pulse 78 04/04/2018 11:45 PM INDUSTRIAL SPECIALIST Temperature - - Respiratory Rate 13 04/04/2018 11:45 PM INDUSTRIAL SPECIALIST Oxygen Saturation 96% 04/04/2018 11:45 PM INDUSTRIAL SPECIALIST Inhaled Oxygen Concentration - - Weight - [...] Procedure Name Priority Date/Time Associated Diagnosis Comments [facility] SCREENING BILATERAL DIGITAL W CAD W VINCENZO Routine 02/11/2018 11:51 AM INDUSTRIAL SPECIALIST Screening breast examination [facility] BONE DENSITOMETRY AXIAL SKELETON Routine 05/15/2015 3:48 PM CDT Screening for osteoporosis from Last 3 Months or Most Recently Relevant to Health Maintenance Results * [facility] SCREENING BILATERAL DIGITAL W CAD W VINCENZO (02/11/2018 11:51 AM INDUSTRIAL SPECIALIST) Anatomical Region Laterality Modality breast Bilateral Mammography 02/11/2018 11:3 2 AM INDUSTRIAL SPECIALIST Narrative 02/12/2018 6:40 AM INDUSTRIAL SPECIALIST - [facility] SCREENING BILATERAL DIGITAL [...] to exams dated: 10/14/2016, 05/15/2015, and 02/23/2014 [facility]. BREAST TISSUE:The tissue of both breasts [...] contacted. Electronically signed by: Marisa ferguson/kota:02/11/2018 15:01:09 Machine Fixer: Mary Schaefer (R)(Geoff), [facility] letter sent: Additional Imaging Reading location: [...] to exams dated: 10/14/2016, 05/15/2015, and 02/23/2014 [facility]. BREAST TISSUE:The tissue of both breasts [...] contacted. Electronically signed by: Marisa ferguson/kota:02/11/2018 15:01:09 Machine Fixer: Mary Josue)(M), [facility] letter sent: Additional Imaging Reading location: [facility] BI-RADS: 0 Additional Imaging Evaluation Needed us Parth Castillo MD IMG MAMMO ORDERABLES Final R esult * [facility] BONE DENSITOMETRY AXIAL SKELETON (05/15/2015 3:48 [...] as an adult, rheumatoid arthritis COMPARISON(S): 08/28/2010 FEED CRUSHER/MODEL: [employer] [place] (S/N [id number]) FINDINGS: AP lumbar spine L1-L4 Total BMD is 1.556 g/ix5G-swcig is 2.9 Most recent prior BMD was 1.535 g/cm2 There has been a 1.4% increase in BMD which is not statistically significant. Left Hip Current Total BMD is 0.833 g/dv0Q-wyqrd is -1.4 Most recent prior Total BMD was 0.849 g/cm2 There has been a 1.9% decrease in BMD which is not statistically significant. Current femoral neck BMD is 0.890 g/cn3F-vqmkm is -1.1 Fracture risk assessment (FRAX): 10 [...] as an adult, rheumatoid arthritis COMPARISON(S): 08/28/2010 FEED CRUSHER/MODEL: [employer] - Crude Area (S/N [id number]) FINDINGS: AP lumbar spine L1-L4 Total BMD is 1.556 g/ww7Q-zlwpy is 2.9 Most recent prior BMD was 1.535 g/cm2 There has been a 1.4% increase in BMD which is not statistically significant. Left Hip Current Total BMD is 0.833 g/qj7K-dktvq is -1.4 Most recent prior Total BMD was 0.849 g/cm2 There has been a 1.9% decrease in BMD which is not statistically significant. Current femoral neck BMD is 0.890 g/oi0G-wscgm is -1.1 Fracture risk assessment (FRAX): 10 [...] and Treatment of Osteoporosis (http://www.nof.org/professionals/clinical-guidelines) Vivienne Richey SPARK TESTER, AGENT IMG DEXA ORDERABLES Fin al Result from Last 3 Months or Most Recently Relevant to Health Maintenance Insurance [address] [id number] MEDICARE Care Teams Languages And Literature Instructor Relationship Specialty [place] [address] [place] [address] [address] [place] [address] PCP - General Internal Medicine 09/25/16
--- OUTSIDE RECORDS SUMMARY | 2024-05-13 07:15 | XMS_ITS | Data Portability ---
[facility] Organization [facility] Address [address] [place] [address] Assessment No assessment recorded. Plan of Treatment Reminders Order Date Submit Date Provider Last Modified By Organization Details Last Modified Time Details Appointments None recorded. Lab fecal occult blood, stool 2016 017 mpass In-Office Order, Internal Use Only DO Not Attach Compendium DO Not Attach Compendium, Do Not Delete/merge, [id number] 7 14:51:12 pap, IG 2015 016 [facility], [address] [facility], [address], [place], [address], 6 11:33:28 Referral None recorded. Procedures None recorded. Surgeries None recorded. Imaging mammogram, screening 2015 016 [facility] Scheduling, [address] [place], [address], 6 09:04:06 bone density study 2015 016 [facility], [address] [place], [address], 6 00:56:55 Medication Orders Prempro 0.45 mg-1.5 mg tablet 2015 016 [facility] [address] In [facility], [facility], [place], [place], [id number], 6 11:54:34 Prempro 0.625 mg-2.5 mg tablet 2014 015 [facility] [address] In [facility], [address], [place], [place], [id number], 5 11:39:35 Patient TargetsNo targets recorded. Patient Instructions Encounter Date Encounter Id Patient Instructions Last Modified By Organization Details Last Modified Time 04/06/2014 [id number] hot flashes during menopause: care instructions mpass Not available 04/06/2014 11:39:35 05/02/2015 [id number] Keep appt. for mammogram. Make appt. for bone density. mpass Not available 05/02/2015 11:53:38 Will reduce strength of HRT. Last mammogram negative. Getting another one at the end of this month. Will send in complete RX for Prempro with negative mammogram. mpass Not available 05/02/2015 11:53:38 10/16/2016 [id number] Taty is doing well. She states she [...] DO Not Attach Compendium, Do Not Delete/merge, [id number] 10/16/2016 12:04:25 05/02/19 16 05/04/2015 pap, IG diagnosis: COMMEN T NEGAT FRANKIE FOR INTRA EPITH ELIAL LESIO N AND MALNAEL KERVIN . Not Available [facility] ([facility]) [address] [facility], [place], [address], 05/04/2015 11:33:28 05/02/19 16 05/04/2015 pap, IG specimen adequacy: COMMEN T SATIS FACTO RY FOR EVALU ATION . NO ENDOC ERVIC AL COMPO NENT IS IDENT IFIED . Not Available [facility] ([facility]) [address] [facility], [place], [address], 05/04/2015 11:33:28 05/02/19 16 05/04/2015 pap, IG clinician provided ICD10: KAMILLA Nunez Z01.4 19 Not Available [facility] ([facility]) [address] [facility], [place], [address], 05/04/2015 11:33:28 05/02/19 16 05/04/2015 pap, IG performed by: DIANE NAVARRO (ASCP ) Not Available [facility] ([facility]) [address] [facility], [place], [address], 05/04/2015 11:33:28 05/02/19 16 05/04/2015 pap, IG . . Not Available [facility] ([facility]) [address] [facility], [place], [address], 05/04/2015 11:33:28 05/02/19 16 05/04/2015 pap, IG [...] TS DO OCCUR . Not Available [facility] ([facility]) [address] [facility], [place], [address], 05/04/2015 11:33:28 05/02/19 16 05/04/2015 pap, IG test methodology: KAMILLA Nunez THIS LIQUI D BASED THINP REP(R ) PAP TEST WAS SCREE SUZANNE WITH THE USE OF AN IMAGE GUIDE Devang Reynolds Not Available [facility] ([facility]) [address] [facility], [place], [address], 05/04/2015 11:33:28 05/15/19 16 05/15/2015 bone densi ty study No observ ation record ed. Not Available 2015 15:50:25 05/16/19 16 05/15/2015 mammo librado charles No observ ation record ed[facility] [address] [place], [address], 05/18/2015 16:29:05 10/17/19 17 10/14/2016 MAMMO librado bilat eral No observ ation record ed. BARCODE Not Available 2016 12:04:49 Result Notes None recorded. Problems Name Problem SNOMED Code Status Onset Date Resolution Date Notes Provider Name and Address Organization Details Recorded Time Menopausal flushing 600243988 Active Sandie Vora null, [facility] 6 11:34:50 Menopausal syndrome 990491847 Active Mary Le null, [facility] 6 14:25:28 Problem Notes None recorded. Procedures Surgical History Date Name Laterality Status Provider Name and Address Organization Details Recorded Time Date of Last Pap Smear completed Sandie Vora [facility] 05/02/2015 11:34:50 Other completed Megan Rodríguez [facility] 015 10:42:32 Other completed Megan Rodríguez [facility] 015 10:42:32 Tubal Ligation completed Sandie Vora [facility] 05/02/2015 11:34:50 Imaging Results Imaging Date Name Status LastModified by [facility] Details LastModified Time 05/15/2015 bone density study completed Information not available 05/18/2015 15:50:25 05/15/2015 mammogram, screening completed [address], [address], 05/18/2015 16:29:05 10/14/2016 MAMMO, screening, bilateral completed [...] Details Last Updated DateTime 05/02/2015 24.5 kg/m2 88886.07 839 g 165.1 cm 140 mm[Hg] 80 mm[Hg] Sandie Vora [facility] 6 11:34:50 Date Recorded Body weight Body height Body mass index (BMI) Systolic blood pressure Diastolic blood pressure Provider Name and Address Organization Details Last Updated DateTime 04/06/2014 15484.70 891 g 165.1 cm 23.8 kg/m2 102 mm[Hg] 62 mm[Hg] Megan Rodríguez [facility] 5 10:42:32 Date Recorded Body height Body mass index (BMI) Body weight Systolic blood pressure Diastolic blood pressure Provider Name and Address Organization Details Last Updated DateTime 10/16/2016 165.1 cm 24.5 kg/m2 15159.08 g 110 mm[Hg] 72 mm[Hg] Sandie Vora [facility] 7 11:49:10 Social History Question Answer Notes LastModified by Organizat ion Details LastModified Time Tobacco Smoking Status Former Smoker Megan Rodríguez [facility] 04/06/2014 10:42:32 What Was The Date Of Your Most Recent Tobacco Screening? 10/16/2016 Information n ot available 09/10/2018 Are You Sexually Active? Yes [email or web address] Information not available 04/06/2014 How Much Tobacco Do You Smoke? No Information not available 04/06/2014 Sex: Unknown Functional Status Question Answer Note LastModified by Organization D etails LastModified Time What is your exercise level? None [email or web address] Information not available 04/06/2014 Mental Status None [...] available 05/02/2015 11:34:50 Medical History Condition Response High Blood Pressure Y Anemia Y Heart Problems/Murmur Y Arthritis Y Gynecological [...] SNOMED-CT Code Diagnosis ICD10 Code Diagnosis Note [id number] Yoselyn Payne ([address]) [address] [place] [address] 04/06/2014 10:29:33 04/06/2014 12:06:13 Gynecologic examination 51003598 Menopausal flushing 429846367 [id number] [facility] ([address] [address] [place] [address] 05/02/2015 11:24:45 05/02/2015 12:28:41 Gynecologic examination 90992382 Z01.419 Screening mammography 24 267263 Z12.31 Screening for osteoporosis 218643470 Z13.820 Menopausal syndrome 1237 02936 N95.9 [id number] [facility] ([address]) [address] [place] [address] 10/16/2016 11:35:56 10/16/2016 13:25:25 Screening for malignant neoplasm of colon 944319902 Z12.11 Gynecologi c examination 49871047 Z01.419 Health Concerns Section Related Observation LastModified by Organization Detai ls LastModified Time None Recorded Concern Status LastModified by Organization Details LastModified Time None Recorded Advance Directives Directive None Recorded Payers Encounter Date Sequence Insurance Name Policy Number Policy Guadarrama Covered Member ID Guadarrama Member ID Guarantor Name 04/06/2014 1 [place] Taty A Heath [id number] Taty Heath 04/06/2014 2 [employer] [place] (MEDICARE SUPPLEMENT) Taty A Heath [id number] Taty Heath 05/02/2015 1 [place] Taty A Heath [id number] A Taty Heath 05/02/2015 2 [place] [id number] Taty A Heath [id number] Taty Heath 10/16/2016 1 [place] Taty A Heath [id number] Taty Heath 10/16/2016 2 [place] [id number] Taty A Heath [id number] Taty Heath Notes Date Note Type Note Provider Name and Address Organization Details Recorded Time 05/02/2015 text/html Annual Lead Loader Post-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.Menopaus al Symptoms:no menopausal symptoms; [...] bone density OTF Diaz Attn: [address] [place], [address], [facility] 05/02/2015 11:54:52 10/16/2016 text/html Annual Lead Loader Post-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.Menopaus al Symptoms:no menopausal symptoms; [...] in 2014 LUIZ Diaz Attn: [address] [place], [address], [facility] 10/16/2016 12:13:58 OBGyn Episode No OBEpisode recorded.
== END 2024-05-13 07:11 | disposition home or self-care (01) ==
PROVIDERS: PCP Family Medicine; Visit Provider Family Medicine
DX: Z12.31 Encounter for screening mammogram for malignant neoplasm of breast (principal); R92.8 Other abnormal and inconclusive findings on diagnostic imaging of breast
CPT/HCPCS: 77063; 77067

== ENCOUNTER 2024-05-18 12:21 | Outpatient (CLI) | payer MEDICARE, OTHER, SELFPAY ==
--- NOTE | ~2024-05-18 | MMUS_ITS ---
EXAMINATION: MM diagnostic skyler RT w chiara, US breast RT limited HISTORY: Follow-up right breast asymmetry TECHNIQUE: Additional 3-D tomosynthesis images of the right breast were performed and synthetic 2-D i mages were generated. CAD analysis was submitted and interpreted. High resolution Limited right breas t ultrasound was performed. COMPARISON: Comparison to multiple prior studies sequentially, with oldest reviewed study dated 01/18. BREAST PARENCHYMAL COMPOSITION: Not dense: There are scattered areas of fibroglandular density. FINDINGS: MAMMOGRAPHIC FINDINGS: Focal asymmetry laterally in the right breast on CC view, middle third is unchanged and back to 02/11 and is not reproducible on medial lateral or spot MLO views, consistent with benign asymmetry. ULTRASOUND: Limited left breast ultrasound: At 8:00, 5 cm from the nipple there is an oval 7 mm hypoechoic circum scribed mass with parallel orientation, no significant posterior features and no internal vascularity measuring 7 mm. At 11:00, 4 cm from the nipple there is a 4 mm oval hypoechoic mass . Both of these masses are likely benign complicated cyst. Suggest short-term follow-up recommended. IMPRESSION: 1. Probable benign hypoechoic right breast masses. 2. Recommend 6 month follow-up diagnostic right mammogram and Limited right breast ultrasound. BI-RADS category 3, probably benign findings. Reviewed, dictated and finalized at location A. IMPRESSION: 1. Probable benign hypoechoic right breast masses. 2. Recommend 6 month follow-up diagnostic right mammogram and Limited right kiet ast ultrasound. BI-RADS category 3, probably benign findings.
--- OUTSIDE RECORDS SUMMARY | 2024-05-18 13:17 | XMS_ITS ---
Author Organization [facility] Address [address] [place] [phone] Care Team Providers Care Research Programmer Name Role Phone Charles Wheeler Unavailable [phone] REASON FOR VISIT [facility], [...] Provider Diagnosis [facility] [place] ([address]) [address] [place] [phone] 07/24/2023 Charles Liam Morbid (severe) obesity due [...] abdomen Frequency: weekly Lot Number/Expiration: Medication Source: [facility] [place] Adverse Reaction: None Progress Notes * Taty WEIRDOB:1950 (74 yo F)Acc No.[id number]:07/24/2023 Weight Loss Patient: Taty CLARK Provider: Jessica Wheeler MD :1950 A ge:73 Y S ex:Female Date:07/24/2023 Address:[address] [place], [place] [id number] Subjective: * Chief Complaints: * 1 . [...] 0 -2024 M edication Source [facility] A dverse Reaction N one * Follow Up: 1 Week (Reason: GLP-1 Agonist Administration) * Billing Information: * Visit Code: * Procedure Codes: * Electronic signature of Sapna Wheeler MD, FAAAAI on 05/18/2024 at 01:16 PM CDT Sign off status: Pending * Provider: Jessica Wheeler MD Date: 0 07/24/2023 Generated for Romina leblanc/Rafa/Shoshana on: 05/18/2024 01:16 PM CDT
--- OUTSIDE RECORDS SUMMARY | 2024-05-18 13:17 | XMS_ITS ---
Author Organization [facility] Address [address] [place] [address] Care Team Providers Care Inside Account Representative Name Role Phone LiamCharles Unavailable [phone] REASON FOR VISIT [facility], [...] Provider Diagnosis [facility] [place] ([address]) [address] [address] 07/31/2023 Charles Wheeler Morbid (severe) obesity due [...] abdomen Frequency: weekly Lot Number/Expiration: Medication Source: [employer] Adverse Reaction: None Progress Notes * Taty WEIRDOB:1950 (74 yo F)Acc No.[id number]:07/31/2023 Weight Loss Patient: Taty CLARK Provider: Jessica Wheeler MD :1950 A ge:73 Y S ex:Female Date:07/31/2023 Address:[address] [place] [address] Subjective: * Chief Complaints: * 1 . [...] ot Number/Expiration 0 M edication Source [facility] A dverse Reaction N one * Follow Up: 1 Week (Reason: GLP-1 Agonist Administration) * Billing Information: * Visit Code: * Procedure Codes: * Electronic signature of Pattyshawn Wheeler MD, FAAAAI on 05/18/2024 at 01:16 PM CDT Sign off status: Pending * Provider: Jessica Wheeler MD Date: 0 07/31/2023 Generated for Romina leblanc/Rafa/Shoshana on: 0 05/18/2024 01:16 PM CDT
--- OUTSIDE RECORDS SUMMARY | 2024-05-18 13:17 | XMS_ITS | Clinical Summary ---
Author Organization [facility] [employer] Address [address] [place] [address] Care Team Providers Care Mail Handler Equipment Operator Name Role Phone Meagan Godoy RN Unavailable [phone] Charles Thornton MD Unavailable [phone] Perfecto Cooper MD Unavailable [phone] Elizabeth Brown MD Unavailable [phone] Elizabeth Brown MD Primary Care Provider U navailable Source Comments [facility],non-owned Affiliates and Associated Physician Practices is amultiple site organization consisting of ambulatory clinics and hospital sitesin [place], [place], [place] and [place]. This disclosure is being madepursuant to the Care Everywhere program and may not contain all information available regarding this patient. Last updated 17.[facility] [employer] Allergies Active Allergy Reactions Criticality Noted Date [...] diphenhydrAMINE HCl (BENADRYL PO) Active HYDROcodone-aceta minophen (Hamilton) 5-325 MG tablet Take 1 (one) tablet [...] breath. Assessment & Plan (02/04/2019 2:08 PM MOLD PRESS OPERATOR): Lower dose to 25 mg qd Assessment & Plan (04/06/2018 1:44 PM MOLD PRESS OPERATOR): Stay off medication until BP becomes [...] med/dose. Assessment & Plan (02/15/2013 10:41 AM MOLD PRESS OPERATOR): Monitor at home. Continue current med, start exercising. Anxiety Overview (02/04/2019): Rare xanax Assessment & Plan (02/04/2019 2:10 PM MOLD PRESS OPERATOR): Continue current medication. Assessment & Plan [...] (AF LURIA, FLUZONE TRIVALENT; 6MO+) (IIV3) 12/14/2013 CovUS Biologic primary monoval ent 12+ yr 0.3mL Purple [...] file Gender Identity Female 01/26/2019 8:32 AM MOLD PRESS OPERATOR Sexual Orientation Not on file Last [...] COVID-19 VACCINE ( season) 2023 10/24/2020, 09/29/2020 PNEUMOCOCCAL VACCINE 50+ (3 of 3 - PCV20 or PCV21) 01/10/2024 01/09/2019, 12/04/2017, 11/19/2016, Additional history exists LIPID TESTING 02/05/2024 02/04/2019, 05/18, 05/19/2015, Additional history exists DEPRESSION SCREENING 02/18/2024 INFLUENZA VACCINE (Season Ended) 2024 11/08/2019, 01/05/2019, 11/07/2017, Additional history exists COLON MONITORING 05/30/2026 05/30/2021, 10/2016, 02/26/2016 Colorectal [...] Comments LIPID PROFILE Routine 02/04/2019 2:32 PM MOLD PRESS OPERATOR Essential hypertension HEPATITIS PANEL Routine 04/06/2018 2:01 PM MOLD PRESS OPERATOR Encounter for screening for other viral diseases Elevated LFTs MAMMOGRAPHY ORDER Routine 02/27/2018 ENDOSCOPY, COLON, SCREENING Routine 02/26/2016 7:25 AM MOLD PRESS OPERATOR DEXA BONE DENSITY 2 SITES Routine 05/15/2015 from Last 3 Months or Most Recently Relevant to Health Maintenance Results * LIPID PROFILE (02/04/2019 2:32 PM MOLD PRESS OPERATOR) Cholesterol 166 <200 mg/dL [facility] INSURANCE BILL Triglycerides 52 <150 mg/dL [facility] INSURANCE BILL HDL Cholesterol 87 >40 mg/dL [facility] INSURANCE BILL VLDL Calculated 10 <=30 mg/dL [facility] INSURANCE BILL LDL Calculated 69 <130 mg/dL [facility] INSURANCE BILL Blood BLOOD SPECIMEN / Unknown 02/04/2019 2:32 PM MOLD PRESS OPERATOR 02/04/2019 Narrative Resulting Agency Comment Lab Testing performed at: [facility] [address] [place] [id number] Parth Castillo MD LAB - CHEMISTRY MANJIT BAER [facility] INSURANCE BILL [address] [place] [address] * HEPATITIS PANEL (04/06/2018 2:01 PM MOLD PRESS OPERATOR) Hepatitis A Virus Antibody IgM Negative [...] BLOOD SPECIMEN / Unknown 04/06/2018 2:01 PM MOLD PRESS OPERATOR 04/06/2018 Narrative Resulting Agency Comment [facility] [address] [facility] [id number] Parth Castillo MD LAB - CHEMISTRY MANJIT BAER [facility] INSURANCE BILL [address] [place] [address] * MAMMOGRAPHY ORDER (02/27/2018) Anatomical Region Laterality Modality Mammography Parth Castillo MD MAMMO ORDERABLES * ENDOSCOPY, COLON, SCREENING (02/26/2016 7:25 AM MOLD PRESS OPERATOR) Report Endoscopy POC _ Patient Name: [...] by the physician, the nurse and the director of learning in the procedure room. Mental Status Examination: [...] previously scheduled. Procedure Code(s): --- Professional --- 36505, Colonoscopy, flexible; with biopsy, single or multiple --- Technical --- 07571, Colonoscopy, flexible; with biopsy, single or multiple [...] neoplasm of descending colon CPT copyright 2015 [employer]. All rights reserved. The codes documented in this report are preliminary and upon channel account manager review may be revised to meet current compliance requirements. Dr. Charles Thornton MD Charles Thornton MD 02/26/2016 8:21:08 AM This report has been signed electronically. Number of Addenda: 0 Note Initiated On: 02/26/2016 7:25 AM [facility] ENDOSCOPY 02/26/2016 7:25 AM MOLD PRESS OPERATOR Charles Thornton MD GI PROCEDURE ORDERA BLES [facility] [place] [address] * DEXA BONE DENSITY 2 SITES (05/15/2015) [...] 2:45 AM 04/21/2014 1:08 PM Care Teams Mail Handler Equipment Operator Relationship Specialty Start Date End Date Elizabeth Brown MD [address] [facility] [address] [place] [address] PCP - General Family Medicine 01/12/20 Meagan Gdooy, NICKIE Sewing Teacher 04/19/14 Charles Thornton MD [facility] 06/14/14 Perfecto Cooper MD [address] [place] [address] Orthopedic 10/05/18 Elizabeth Brown MD [address] [facility] [address] [place] [address] Primary Care Provider Family Medicine 12/07/19
--- OUTSIDE RECORDS SUMMARY | 2024-05-18 13:17 | XMS_ITS ---
Author Organization [facility] Address [address] [place] [address] Care Team Providers Care Elementary Education Tutor Name Role Phone ZZ-Migration, Provider Unavailable Unavailab [...] Active Encounters Encounter Location Date Provider Diagnosis [address] [address] 08/02/2023 Provider ZZ-Migration Plan Of Treatment No Information Progress Notes * Taty WEIRDOB:1950 (74 yo F)Acc No.[id number]:08/02/2023 Patient: Taty CLARK Provider: Jessica Webb :1950 A ge:73 Y S ex:Female Date:08/02/2023 Address:[address] [place], [place] [phone] Subjective: * Chief Complaints: * 1 . [...] * Electronic signature of Maryann KELLY-Migration on 05/18/2024 at 01:17 PM CDT Sign off status: Pending * Provider: Jessica lundberg Migration Date: 0 08/02/2023 Generated for Romina leblanc/Rafa/Shoshana on: 05/18/2024 01:17 PM CDT
--- OUTSIDE RECORDS SUMMARY | 2024-05-18 13:17 | XMS_ITS | Clinical Summary ---
Author Organization [facility] Address [address] [place] [address] Phone Care Team Providers Care Manager Global Name Role Phone Parth Castillo MD Primary [...] Comments Blood Pressure 103/68 04/04/2018 11:45 PM [facility] Pulse 78 04/04/2018 11:45 PM [facility] Temperature - - Respiratory Rate 13 04/04/2018 11:45 PM [facility] Oxygen Saturation 96% 04/04/2018 11:45 PM [facility] Inhaled Oxygen Concentration - - Weight - [...] Procedure Name Priority Date/Time Associated Diagnosis Comments [facility] SCREENING BILATERAL DIGITAL W CAD W VINCENZO Routine 02/11/2018 11:51 AM [facility] Screening breast examination [facility] BONE DENSITOMETRY AXIAL SKELETON Routine 05/15/2015 3:48 PM CDT Screening for osteoporosis from Last 3 Months or Most Recently Relevant to Health Maintenance Results * [facility] SCREENING BILATERAL DIGITAL W CAD W VINCENZO (02/11/2018 11:51 AM [facility]) Anatomical Region Laterality Modality breast Bilateral Mammography 02/11/2018 11:3 2 AM [facility] Narrative 02/12/2018 6:40 AM [facility] - [facility] SCREENING BILATERAL DIGITAL W CAD W [...] to exams dated: 10/14/2016, 05/15/2015, and 02/23/2014 [facility]. BREAST TISSUE:The tissue of both breasts [...] contacted. Electronically signed by: Marisa ferguson/kota:02/11/2018 15:01:09 Infrastructure Solutions Architect: Mary Schaefer (R)(Goeff), [facility] letter sent: Additional Imaging Reading location: [place] BI-RADS: 0 Additional Imaging Evaluation Needed Procedure Note Marisa Lyman MD - 02/12/2018 - [facility] SCREENING BILATERAL DIGITAL W CAD W [...] to exams dated: 10/14/2016, 05/15/2015, and 02/23/2014 [facility]. BREAST TISSUE:The tissue of both breasts [...] contacted. Electronically signed by: Marisa ferguson/kota:02/11/2018 15:01:09 Infrastructure Solutions Architect: Mary Josue)(M), [facility] letter sent: Additional Imaging Reading location: [facility] BI-RADS: 0 Additional Imaging Evaluation Needed us Parth Castillo MD IMG MAMMO ORDERABLES Final R esult * [facility] BONE DENSITOMETRY AXIAL SKELETON (05/15/2015 3:48 [...] as an adult, rheumatoid arthritis COMPARISON(S): 08/28/2010 RN COMPLIANCE/MODEL: [employer] (S/N [id number]) FINDINGS: AP lumbar spine L1-L4 Total BMD is 1.556 g/jo2C-vxuol is 2.9 Most recent prior BMD was 1.535 g/cm2 There has been a 1.4% increase in BMD which is not statistically significant. Left Hip Current Total BMD is 0.833 g/gt9J-lphcx is -1.4 Most recent prior Total BMD was 0.849 g/cm2 There has been a 1.9% decrease in BMD which is not statistically significant. Current femoral neck BMD is 0.890 g/ul4S-ztdsk is -1.1 Fracture risk assessment (FRAX): 10 [...] as an adult, rheumatoid arthritis COMPARISON(S): 08/28/2010 RN COMPLIANCE/MODEL: [employer] (S/N [id number]) FINDINGS: AP lumbar spine L1-L4 Total BMD is 1.556 g/du1V-gbxse is 2.9 Most recent prior BMD was 1.535 g/cm2 There has been a 1.4% increase in BMD which is not statistically significant. Left Hip Current Total BMD is 0.833 g/xe0O-tgacg is -1.4 Most recent prior Total BMD was 0.849 g/cm2 There has been a 1.9% decrease in BMD which is not statistically significant. Current femoral neck BMD is 0.890 g/pb5J-yjobc is -1.1 Fracture risk assessment (FRAX): 10 [...] and Treatment of Osteoporosis (http://www.nof.org/professionals/clinical-guidelines) Vivienne Richey PEST CONTROL CHEMICAL TECHNICIAN, FIELD SALES MANAGER IMG DEXA ORDERABLES Fin al Result from Last 3 Months or Most Recently Relevant to Health Maintenance Insurance [address] [id number] MEDICARE Care Teams Manager Global Relationship Specialty [place] [address] [place] [address] [address] [place] [address] PCP - General Internal Medicine 09/25/16
--- OUTSIDE RECORDS SUMMARY | 2024-05-18 13:17 | XMS_ITS | Patient Health Record ---
Author Organization [facility] Address [address] [place] [address] Care Team Providers Care Turner Off Name Role Phone Charles Wheeler Unavailable [phone] ZZ-Migration, Provider Unavailable Unavailab Reason For Referral [...] Status Risk Notes Problem Morbid obesity (disorder) (692429238) Morbid (severe) obesity due to excess calories (E66.01) Active confirmed Problem Chronic fatigue syndrome (disorder) (22971587) Chronic fatigue, unspecified (R53.82) Active confirmed Vital Signs Respiratory Rate 18 /min 06/05/2023 Oximetry 98 % 06/05/2023 Blood pressure diastolic 77 mm Hg 06/05/2023 Height 65.1 in 07/24/2023 Blood pressure systolic 126 mm Hg 06/05/2023 Weight 154.2 lbs 07/24/2023 BMI 25.58 kg/m2 07/24/2023 Encounters Encounter Location Date Provider Diagnosis [facility] [place] ([address]) [address] [place] [address] 06/05/2023 Charles Win Morbid (severe) obesity due to excess calories E66.01 ; Chronic fatigue, unspecified R53.82 ; Other fatigue R53.83 and Other malaise R53.81 [facility] ([address]) [address] [place] [address] 06/12/2023 Charles Win Morbid (severe) obesity due to excess calories E66.01 ; Chronic fatigue, unspecified R53.82 ; Other fatigue R53.83 and Other malaise R53.81 [facility] ([address]) [address] [place] [address] 07/03/2023 Charles Win Morbid (severe) obesity due to excess calories E66.01 ; Chronic fatigue, unspecified R53.82 ; Other fatigue R53.83 and Other malaise R53.81 [facility] ([address]) [address] [place] [address] 07/10/2023 Charles Win Morbid (severe) obesity due to excess calories E66.01 ; Chronic fatigue, unspecified R53.82 ; Other fatigue R53.83 and Other malaise R53.81 [facility] ([address]) [address] [place] [address] 07/24/2023 Charles Win Morbid (severe) obesity due to excess calories E66.01 ; Chronic fatigue, unspecified R53.82 ; Other fatigue R53.83 and Other malaise R53.81 [facility] [address] [place] [phone] 08/02/2023 Provider ZZ-Migration [facility] - [facility] ([address]) [address] [facility] [place] [address] 06/19/2023 Charles Liam Morbid (severe) obesity due to excess calories E66.01 ; Chronic fatigue, unspecified R53.82 ; Other fatigue R53.83 and Other malaise R53.81 [facility] ([address]) [address] [place] [phone] 06/19/2023 Charles Liam [facility] ([address]) [address] [address] 06/26/2023 Charles Liam Morbid (severe) obesity due to excess calories E66.01 ; Chronic fatigue, unspecified R53.82 ; Other fatigue R53.83 and Other malaise R53.81 [facility] ([address]) [address] [address] 07/17/2023 Charles Wheeler Morbid (severe) obesity due [...]
--- OUTSIDE RECORDS SUMMARY | 2024-05-18 13:17 | XMS_ITS | Data Portability ---
[facility] Address [address] [place] [address] Assessment No assessment recorded. Plan of Treatment Reminders Order Date Submit Date Provider Last Modified By Organization Details Last Modified Time Details Appointments None recorded. Lab fecal occult blood, stool 2016 017 mpass In-Office Order, Internal Use Only DO Not Attach Compendium DO Not Attach Compendium, Do Not Delete/merge, [id number] 7 14:51:12 pap, IG 2015 016 GENEV[facility], [address] [facility] [facility], [address], [place], [address], 6 11:33:28 Referral None recorded. Procedures None recorded. Surgeries None recorded. Imaging mammogram, screening 2015 016 [facility] ([facility]) Scheduling, [address] [place], [address], 6 09:04:06 bone density study 2015 016 [facility], [address] [place], [address], 6 00:56:55 Medication Orders Prempro 0.45 mg-1.5 mg tablet 2015 016 INTERFACE [facility] [address] In [facility], [facility], [place], [place], [address], 6 11:54:34 Prempro 0.625 mg-2.5 mg tablet 2014 015 mpass [facility] [address] In [facility], [address], [place], [place], [id number], 5 11:39:35 Patient TargetsNo targets recorded. Patient Instructions Encounter Date Encounter Id Patient Instructions Last Modified By Organization Details Last Modified Time 04/06/2014 [id number] hot flashes during menopause: care instructions mpass Not available 04/06/2014 11:39:35 05/02/2015 [id number] Keep appt. for mammogram. Make appt. for bone density. mpass Not available 05/02/2015 11:53:38 Will reduce strength of HRT. Last mammogram negative. Getting another one at the end of this month. Will send in complete RX for Prempro with negative mammogram. mpass Not available 05/02/2015 11:53:38 10/16/2016 [id number] Taty is doing well. She states she [...] DO Not Attach Compendium, Do Not Delete/merge, [id number] 10/16/2016 12:04:25 05/02/19 16 05/04/2015 pap, IG diagnosis: COMMEN T NEGAT FRANKIE FOR INTRA EPITH ELIAL LESIO N AND MALNAEL KERVIN . Not Available [facility] ([facility]) [address] [facility] [address], [place], [address], 05/04/2015 11:33:28 05/02/19 16 05/04/2015 pap, IG specimen adequacy: COMMEN T SATIS FACTO RY FOR EVALU ATION . NO ENDOC ERVIC AL COMPO NENT IS IDENT IFIED . Not Available [facility] ([facility]) [address] [facility], [place], [address], 05/04/2015 11:33:28 05/02/19 16 05/04/2015 pap, IG clinician provided ICD10: KAMILLA Nunez Z01.4 19 Not Available [facility] ([facility]) [address] [facility], [place], [address], 05/04/2015 11:33:28 05/02/19 16 05/04/2015 pap, IG performed by: DIANE NAVARRO (ASCP ) Not Available [facility] ([facility]) [address] [facility], [place], [address], 05/04/2015 11:33:28 05/02/19 16 05/04/2015 pap, IG . . Not Available [facility] ([facility]) [address] [facility], [place], [address], 05/04/2015 11:33:28 05/02/19 16 05/04/2015 pap, IG [...] TS DO OCCUR . Not Available [facility] ([facility]) [address] [facility], [place], [address], 05/04/2015 11:33:28 05/02/19 16 05/04/2015 pap, IG test methodology: KAMILLA Nunez THIS LIQUI D BASED THINP REP(R ) PAP TEST WAS SCREE SUZANNE WITH THE USE OF AN IMAGE GUIDE Devang Reynolds Not Available [facility] ([facility]) [address] [facility], [place], [address], 05/04/2015 11:33:28 05/15/19 16 05/15/2015 bone densi ty study No observ ation record ed. Not Available 2015 15:50:25 05/16/19 16 05/15/2015 mammo librado charles No observ [facility]ion [facility] [address] [place], [address], 05/18/2015 16:29:05 10/17/19 17 10/14/2016 MAMMO librado bilat eral No observ ation record ed. BARCODE Not Available 2016 12:04:49 Result Notes None recorded. Problems Name Problem SNOMED Code Status Onset Date Resolution Date Notes Provider Name and Address Organization Details Recorded Time Menopausal flushing 331973089 Active Sandie Vora null, [facility] 6 11:34:50 Menopausal syndrome 475191168 Active Mary Le null, [facility] 6 14:25:28 Problem Notes None recorded. Procedures Surgical History Date Name Laterality Status Provider Name and Address Organization Details Recorded Time Date of Last Pap Smear completed Sandie Vora [facility] 05/02/2015 11:34:50 Other completed Megan Rodríguez [facility] 015 10:42:32 Other completed Megan Rodríguez [facility] 015 10:42:32 Tubal Ligation completed Sandie Vora [facility] 05/02/2015 11:34:50 Imaging Results Imaging Date Name Status LastModified by [facility] Details LastModified Time 05/15/2015 bone density study completed Information not available 05/18/2015 15:50:25 05/15/2015 mammogram, screening completed [address], [address], 05/18/2015 16:29:05 10/14/2016 MAMMO, screening, bilateral completed [...] Details Last Updated DateTime 05/02/2015 24.5 kg/m2 07828.07 839 g 165.1 cm 140 mm[Hg] 80 mm[Hg] Sandie Vora [facility] 6 11:34:50 Date Recorded Body weight Body height Body mass index (BMI) Systolic blood pressure Diastolic blood pressure Provider Name and Address Organization Details Last Updated DateTime 04/06/2014 99937.70 891 g 165.1 cm 23.8 kg/m2 102 mm[Hg] 62 mm[Hg] Megan Rodríguez [facility] 5 10:42:32 Date Recorded Body height Body mass index (BMI) Body weight Systolic blood pressure Diastolic blood pressure Provider Name and Address Organization Details Last Updated DateTime 10/16/2016 165.1 cm 24.5 kg/m2 12947.08 g 110 mm[Hg] 72 mm[Hg] Sandie Vora [facility] 7 11:49:10 Social History Question Answer Notes LastModified by Organizat ion Details LastModified Time Tobacco Smoking Status Former Smoker Megan Rodríguez [facility] 04/06/2014 10:42:32 What Was The Date Of Your Most Recent Tobacco Screening? 10/16/2016 Information n ot available 09/10/2018 Are You Sexually Active? Yes [email or web address] Information not available 04/06/2014 How Much Tobacco Do You Smoke? No [email or web address] Information not available 04/06/2014 Sex: Unknown Functional Status Question Answer Note LastModified by Organization D etails LastModified Time What is your exercise level? None [email or web address] Information not available 04/06/2014 Mental Status None [...] SNOMED-CT Code Diagnosis ICD10 Code Diagnosis Note [id number] Yoselyn Payne ([address]) [address] [place] [address] 04/06/2014 10:29:33 04/06/2014 12:06:13 Gynecologic examination 64424772 Menopausal flushing 501463864 [id number] [facility] ([address]) [address] [place] [address] 05/02/2015 11:24:45 05/02/2015 12:28:41 Gynecologic examination 15580694 Z01.419 Screening mammography 24 594423 Z12.31 Screening for osteoporosis 941480564 Z13.820 Menopausal syndrome 1237 72816 N95.9 [id number] [facility] ([address]) [address] [place] [address] 10/16/2016 11:35:56 10/16/2016 13:25:25 Screening for malignant neoplasm of colon 581813590 Z12.11 Gynecologi c examination 83983074 Z01.419 Health Concerns Section Related Observation LastModified by Organization Detai ls LastModified Time None Recorded Concern Status LastModified by Organization Details LastModified Time None Recorded Advance Directives Directive None Recorded Payers Encounter Date Sequence Insurance Name Policy Number Policy [place] Covered Member ID Guadarrama Member ID Guarantor Name 04/06/2014 1 [place] Taty A Heath [id number] Taty Heath 04/06/2014 2 [employer] [place] (MEDICARE SUPPLEMENT) Taty A Heath [id number] Taty Heath 05/02/2015 1 [place] Taty A Heath [id number] Taty Heath 05/02/2015 2 [place] [id number] Taty A Heath [id number] Taty Heath 10/16/2016 1 [place] Taty A Heath [id number] Taty Heath 10/16/2016 2 [place] [id number] Taty A Heath [id number] Taty Heath Notes Date Note Type Note Provider Name and Address Organization Details Recorded Time 05/02/2015 text/html 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
== END 2024-05-18 12:22 | disposition home or self-care (01) ==
PROVIDERS: PCP Family Medicine; Visit Provider Physician Assistant
DX: R92.8 Other abnormal and inconclusive findings on diagnostic imaging of breast (principal)
CPT/HCPCS: 76642; 77061; 77065; G0279

== ENCOUNTER 2024-07-14 14:39 | Outpatient (CLI) | payer MEDICARE, OTHER, SELFPAY ==
--- NOTE | ~2024-07-14 | DEXA_ITS ---
Bone Density Report Name: GABINO WEIR Age: 74 Sex: Female Ethnicity: White Date of : 1950 Indication: osteopenia; height loss; prior fracture; rheumatoid arthritis; Referring Provider: PRITI CRUZ Study: Bone densitometry was performed. Exam Date: July 14, 2024 Accession number: [id number] Bone Density: Region BMD T-score Z-score Classification AP Spine(L1, L2) 1.241 2.4 4.5 Normal Femoral Neck (Left) 0.641 -1.9 0.0 Osteopenia Total Hip (Left) 0.677 -2.2 -0.5 Osteopenia World Health Organization criteria for BMD impression classify patients as: Normal (T-score at or above -1.0), Osteopenia (T-score between -1.0 and -2.5), or Osteoporosis (T-score at or below -2.5). 10-year Fracture Risk: FRAX not reported because: Prior hip or vertebral fracture Previous Exams: Region Exam Age BMD T-score BMD Change BMD Change Date g/cm2 vs Baseline vs Previous AP Spine (L1-L2) 07/14/2024 74 1.241 2.4 0.045 (3.8%)* 0.045 (3.8%)* 01/31/2022 71 1.195 2.0 Total Hip(Left) 07/14/2024 74 0.677 -2.2 0.002 (0.4%) 0.002 (0.4%) 01/31/2022 71 0.675 -2.2 *Denotes significance at 95% confidence level, LSC for AP Spine = 0.022 g/cm2, LSC for Total Hip = 0.027 g/cm2 Clinical Information Provided by Patient: Have had a previous hip or vertebral fracture Has had a low trauma fracture Has rheumatoid arthritis Has used the following medications: Vitamin D, Calcium Patient maximum height was 68 Menopause Age: 47 No regular weight bearing exercise Drinks caffeinated beverages Onset of menses at age 13 Number of children 0 Impression: The patient has low bone mass, based on the Left Total Hip T-score. The patient has risk factors, including: previous fracture. No significant bone loss was observed. Discussion: INCREASED RISK OF FRACTURE DUE TO HISTORY OF FRACTURE. The patient's previous fracture puts the patient at high risk of a future fracture. In untreated patients, the risk of osteoporotic fracture increases approximately two-fold for each 1.0 SD decrease in T-score. Low bone density is not the only risk factor for fracture; also consider factors such as patient's age, frailty or poor health, risk of falling, risk of injury, previous osteoporotic fracture, family history of osteoporosis, cigarette smoking, low body weight, etc. Not everyone with a low trauma fracture has osteoporosis; osteomalacia and other metabolic bone disorders should also be considered. Patients who have osteoporosis should be evaluated for specific diseases and conditions (secondary causes) that may cause or contribute to bone loss and fracture risk. National Osteoporosis Foundation (NOF) recommends pharmacologic intervention for patients with a prior hip or vertebral fracture regardless of BMD T-score. The patient should follow a healthful lifestyle (good nutrition with adequate calcium and vitamin D, and appropriate weight-bearing exercise). Follow-Up: Consider a repeat BMD and Vertebral Fracture Assessment (VFA) exam in 2 years or sooner if medically necessary, to reassess this patient's status. Reported by: JOSEFINA on 07/14/2024 3:10:00 PM. Reviewed, dictated and finalized at location A.
--- OUTSIDE RECORDS SUMMARY | 2024-07-14 14:43 | XMS_ITS | Patient Health Record ---
Author Organization [facility] [employer] [place] ([address]) Address [address] [place] [address] Care Team Providers Care Promotions Executive Producer Name Role Phone Charles Wheeler Unavailable [phone] [employer], Provider Unavailable Unavailab le Reason For Referral No Information Medications Medication [...] Status Risk Notes Problem Morbid obesity (disorder) (992221471) Morbid (severe) obesity due to excess calories (E66.01) Active confirmed Problem Chronic fatigue syndrome (disorder) (75080616) Chronic fatigue, unspecified (R53.82) Active confirmed Vital Signs Height 65.1 in 07/24/2023 Weight 154.2 lbs 07/24/2023 BMI 25.58 kg/m2 07/24/2023 Encounters Encounter Location Date Provider Diagnosis [facility] [place] ([address]) [address] [place] [address] 07/24/2023 Charles Liam Morbid (severe) obesity due to excess calories E66.01 ; Chronic fatigue, unspecified R53.82 ; Other fatigue R53.83 and Other malaise R53.[address] [address] 08/02/2023 Provider Kennedi [facility] [place] ([address]) [address] [place] [address] 07/17/2023 Charles Wheeler Morbid (severe) obesity due to excess calories E66.01 ; Chronic fatigue, unspecified R53.82 ; Other fatigue R53.83 and Other malaise R53.81 Assessments Encounter Date Diagnosis (ICD Code) Assessment Notes Treatment Notes Treatment Clinical Notes Section Notes 07/17/2023 Morbid (severe) obesity due to excess calories (ICD-10 - E66.01) 07/17/2023 Chronic fatigue, unspecified (ICD-10 - R53.82) 07/24/2023 Morbid (severe) obesity due to excess calories (ICD-10 - E66.01) 07/24/2023 Chronic fatigue, unspecified (ICD-10 - R53.82) 07/24/2023 Other fatigue (ICD-10 - R53.83) 07/17/2023 Other fatigue (ICD-10 - R53.83) 07/17/2023 Other malaise (ICD-10 - R53.81) 07/24/2023 Other malaise (ICD-10 - R53.81) Plan Of Treatment No Information Medical (General) History Surgical History Surgery Date(Month/Year) Bernice En Y 1998
--- OUTSIDE RECORDS SUMMARY | 2024-07-14 14:43 | XMS_ITS | Clinical Summary ---
Author Organization [facility] Address [address] [place] [address] Care Team Providers Care Ehs Manager Name Role Phone Meagan Godoy RN Unavailable Charles Thornton MD Unavailable [phone] Perfecto Cooper MD Unavailable [phone] Elizabeth Brown MD Unavailable [phone] Elizabeth Brown MD Primary Care Provider U navailable Source Comments [facility],non-owned Affiliates and Associated Physician Practices is amultiple site organization consisting of ambulatory clinics and hospital sitesin [place], [place], [place] and [place]. This disclosure is being madepursuant to the Care Everywhere program and may not contain all information available regarding this patient. Last updated 17.[facility] Allergies Active Allergy Reactions Criticality Noted Date Comments Aspirin Nausea and/or Vomiting 04/04/2018 Medications * Be aware that medications may not be up to date on this document. Alwaysverify current medications with the patient. calcium-vitami n D (OS-SRINATH 250 PLUS D) 250-125 MG-UNIT tablet Take 1 (one) tablet by mouth once daily Active metoprolol succinate XL 24hr (TOPROL XL) 50 MG tablet TAKE ONE TABLET BY MOUTH ONCE DAILY 90 tablet 1 9 Active gabapentin (NEURONTIN) 300 MG capsuleIndicat ions:Postopera tive Pain Take 1 capsule by mouth at bedtime Reasons: Pain Following an Operation 30 capsule 5 9 Active Multiple Vitamins-[place] als (HAIR SKIN AND NAILS FORMULA PO) Active Calcium-Phosph orus-Vitamin D (CITRACAL +D3 PO) Take by mouth every 7 days Active azelastine (ASTELIN) 0.1 % nasal spray 1 Active Homeopathic Products (LEG CRAMPS PO) Active diphenhydrAMIN E HCl (BENADRYL PO) Active HYDROcodone-ac etaminophen ([place]) 5-325 MG tablet Take 1 (one) tablet [...] EVERY DAY BEFORE BREAKFAST 90 capsule 3 4 Active Active Problems Problem Noted Date Diagnosed [...] breath. Assessment & Plan (02/04/2019 2:08 PM GROOMING ASSISTANT): Lower dose to 25 mg qd Assessment & Plan (04/06/2018 1:44 PM GROOMING ASSISTANT): Stay off medication until BP becomes higher [...] med/dose. Assessment & Plan (02/15/2013 10:41 AM GROOMING ASSISTANT): Monitor at home. Continue current med, start exercising. Anxiety Overview (02/04/2019): Rare xanax Assessment & Plan (02/04/2019 2:10 PM GROOMING ASSISTANT): Continue current medication. Assessment & Plan (12/04/2017 [...] (11/17/2014): Protein-calorie malnutrition 09/19/2008 06/13/2014 Overview (11/17/2014): Encounters Date Type Department Care Team Description 06/20/2024 Refill [facility] [address] [place] [address] [place] , [address] [address] Kelly Gamez, VACCINE SPECIALIST-RADIO OFFICER Refill Request from Last 3 Months Immunizations Immunization Administration Dates Next Due INFLUENZA VACCINE, TRIV. (AF LURIA, FLUZONE TRIVALENT; 6MO+) (IIV3) 12/14/2013 Covid Pfizer primary monoval ent 12+ yr 0.3mL Purple [...] = 0.6 oz p ure alcohol) socially Comments No Sex and Gender Information Value Date Recorded Sex Assigned at Not on file Legal Sex Female 6:00 AM GROOMING ASSISTANT Gender Identity Female 01/26/2019 8:32 AM GROOMING ASSISTANT Sexual Orientation Not on file Last Filed [...] 11:41 AM CDT Height 165.1 cm (5' 5) 06/16/2023 11:41 AM CDT Body Mass Index [...] 02/17, 02/11/2018, Additional history exists COVID-19 VACCINE (3 - 2023- season) 2023 10/24/2020, 09/29/2020 PNEUMOCOCCAL VACCINE 50+ (3 of 3 - PCV20 or PCV21) 01/10/2024 01/09/2019, 12/04/2017, 11/19/2016, Additional history exists LIPID TESTING 02/05/2024 02/04/2019, 05/18, 05/19/2015, Additional history exists DEPRESSION SCREENING 02/18/2024 INFLUENZA VACCINE (Season Ended) 2024 11/08/2019, 01/05/2019, 11/07/2017, Additional history exists COLON MONITORING 05/30/2026 05/30/2021, 10/2016, 02/26/2016, Additional [...] Comments LIPID PROFILE Routine 02/04/2019 2:32 PM GROOMING ASSISTANT Essential hypertension HEPATITIS PANEL Routine 04/06/2018 2:01 PM GROOMING ASSISTANT Encounter for screening for other viral diseases Elevated LFTs MAMMOGRAPHY ORDER Routine 02/27/2018 ENDOSCOPY, COLON, SCREENING Routine 02/26/2016 7:25 AM GROOMING ASSISTANT DEXA BONE DENSITY 2 SITES Routine 05/15/2015 from Last 3 Months or Most Recently Relevant to Health Maintenance Results * LIPID PROFILE (02/04/2019 2:32 PM GROOMING ASSISTANT) Cholesterol 166 <200 mg/dL [facility] INSURANCE BILL Triglycerides 52 <150 mg/dL [facility] INSURANCE BILL HDL Cholesterol 87 >40 mg/dL [facility] INSURANCE BILL VLDL Calculated 10 <=30 mg/dL [facility] INSURANCE BILL LDL Calculated 69 <130 mg/dL [facility] INSURANCE BILL Blood BLOOD SPECIMEN / Unknown 02/04/2019 2:32 PM GROOMING ASSISTANT 02/04/2019 Narrative Resulting Agency Comment Lab Testing performed at: [place] [address] [place] [phone] Parth Castillo MD LAB - CHEMISTRY ORDERABLES F inal Result [facility] INSURANCE BILL [address] [place] [address] * HEPATITIS PANEL (04/06/2018 2:01 PM GROOMING ASSISTANT) Hepatitis A Virus Antibody IgM Negative Negative [...] BLOOD SPECIMEN / Unknown 04/06/2018 2:01 PM GROOMING ASSISTANT 04/06/2018 Narrative Resulting Agency Comment [facility] [address] [facility] [id number] [place] Parth Castillo MD LAB - CHEMISTRY ORDERABLES F inal Result [facility] INSURANCE BILL [address] [place] [address] * MAMMOGRAPHY ORDER (02/27/2018) Anatomical Region Laterality Modality Mammography us Parth Castillo MD MAMMO ORDERABLES Final Resul t * ENDOSCOPY, COLON, SCREENING (02/26/2016 7:25 AM GROOMING ASSISTANT) Report Endoscopy POC _ Patient Name: Taty [...] by the physician, the nurse and the print decorator in the procedure room. Mental Status Examination: [...] previously scheduled. Procedure Code(s): --- Professional --- 66786, Colonoscopy, flexible; with biopsy, single or multiple --- Technical --- 44793, Colonoscopy, flexible; with biopsy, single or multiple [...] neoplasm of descending colon CPT copyright 2015 [employer]. All rights reserved. The codes documented in this report are preliminary and upon manager of radiology review may be revised to meet current compliance requirements. Dr. Charles Thornton MD Charles Thornton MD 02/26/2016 8:21:08 AM This report has been signed electronically. Number of Addenda: 0 Note Initiated On: 02/26/2016 7:25 AM [facility] ENDOSCOPY 02/26/2016 7:25 AM GROOMING ASSISTANT us Charles Thornton MD GI PROCEDURE ORDERABLES Tien [place] [address] * DEXA BONE DENSITY 2 SITES (05/15/2015) Anatomical Region Laterality Modality Other us Vivienne H Kaiden STREETER DEXA ORDERABLES Final Result from Last 3 Months or Most Recently Relevant to Health Maintenance Insurance MEDICARE MEDICARE SUPPLEMENT PAYOR GENERIC MEDICARE MEDICARE MEDICARE SUPPLEMENT PAYOR GENERIC [facility] Address: [facility] [address] [place] [address] Advance Directives * Full Code (Latest Code Status on File) Date Activated Date Inactivated Comments 04/27/2014 6:10 PM 04/28/2014 7:42 PM * Full Code Date Activated Date Inactivated Comments 04/19/2014 2:45 AM 04/21/2014 1:08 PM Care Teams Ehs Manager Relationship Specialty Start Date End Date Elizabeth Brown MD [address] [place] [address] PCP - General Family Medicine 01/12/20 Meagan Godoy RN Change Lead 04/19/14 Charles Thornton MD Plate Sensitizer Gastroenterology 06/14/14 Perfecto Cooper MD [address] [place] [address] Orthopedic 10/05/18 Elizabeth Brown MD [address] [place] [address] Primary Care Provider Family Medicine 12/07/19
--- OUTSIDE RECORDS SUMMARY | 2024-07-14 14:43 | XMS_ITS ---
Author Organization [facility] [employer] [place] ([address]) Address [address] [place] [address] Care Team Providers Care Stenocaptioner Name Role Phone LiamCharles Ifrah [phone] REASON FOR VISIT [facility] Weight [facility], [...] hormones Encounters Encounter Location Date Provider Diagnosis [facility] [facility] [place] ([address]) [address] [place] [address] 07/31/2023 Charles Wheeler Morbid (severe) obesity due [...] abdomen Frequency: weekly Lot Number/Expiration: Medication Source: Qminder Adverse Reaction: None Progress Notes * Taty WEIRDOB:1950 (74 yo F)Acc No.[id number]:07/31/2023 Weight Loss Patient: Taty CLARK Provider: Jessica Wheeler MD :1950 A ge:73 Y S ex:Female Date:07/31/2023 Address:[address] [place], [place] [id number] Subjective: * Chief Complaints: * 1 . [...] ot Number/Expiration 0 M edication Source [facility] A dverse Reaction N one * Follow Up: 1 Week (Reason: GLP-1 Agonist Administration) * Billing Information: * Visit Code: * Procedure Codes: * Electronic signature of Sapna Wheeler MD, FAAAAI on 07/14/2024 at 02:43 PM CDT Sign off status: Pending * Provider: Jessica Wheeler MD Date: 0 07/31/2023 Generated for Romina leblanc/Rafa/Shoshana on: 0 07/14/2024 02:43 PM CDT
--- OUTSIDE RECORDS SUMMARY | 2024-07-14 14:43 | XMS_ITS ---
Author Organization [facility] [employer] [facility] ([address]) Address [address] [place] [address] Care Team Providers Care Solar Sales Representative And Assessor Name Role Phone LiamCharles Ifrah [phone] REASON FOR VISIT [facility] Weight [facility], [...] 07/24/2023 Encounters Encounter Location Date Provider Diagnosis [facility] [employer] [facility] ([address]) [address] [place] [address] 07/24/2023 Charles Wheeler Morbid (severe) obesity due [...] abdomen Frequency: weekly Lot Number/Expiration: Medication Source: [place] Adverse Reaction: None Progress Notes * Sarah WEIRianDOB:1950 (74 yo F)Acc No.[id number]:07/24/2023 Weight Loss Patient: Taty CLARK Provider: Jessica Wheeler MD :1950 A ge:73 Y S ex:Female Date:07/24/2023 Address:[address] [place], [place] [id number] Subjective: * Chief Complaints: * 1 . [...] Number/Expiration 0 -2024 M edication Source H [facility] A dverse Reaction N one * Follow Up: 1 Week (Reason: GLP-1 Agonist Administration) * Billing Information: * Visit Code: * Procedure Codes: * Electronic signature of Sapna Wheeler MD, FAAAAI on 07/14/2024 at 02:43 PM CDT Sign off status: Pending * Provider: Jessica Wheeler MD Date: 0 07/24/2023 Generated for Romina leblanc/Rafa/Shoshana on: 0 07/14/2024 02:43 PM CDT
--- OUTSIDE RECORDS SUMMARY | 2024-07-14 14:44 | XMS_ITS | Data Portability ---
[facility] Address [address] [place] [address] Assessment No assessment recorded. Plan of Treatment Reminders Order Date Submit Date Provider Last Modified By Organization Details Last Modified Time Details Appointments None recorded. Lab fecal occult blood, stool 2016 017 mpass In-Office Order, Internal Use Only DO Not Attach Compendium DO Not Attach Compendium, Do Not Delete/merge, [id number] 7 14:51:12 pap, IG 2015 016 [facility], [address] [facility], [address], [place], [address], 6 11:33:28 Referral None recorded. Procedures None recorded. Surgeries None recorded. Imaging mammogram, screening 2015 016 [facility] ([facility]) Scheduling, [address] [place], [address], 6 09:04:06 bone density study 2015 016 [facility], [address] [place], [address], 6 00:56:55 Medication Orders Prempro 0.45 mg-1.5 mg tablet 2015 016 [facility] [address] In [facility], [facility], [place], [place], [id number], 6 11:54:34 Prempro 0.625 mg-2.5 mg tablet 2014 015 [facility]pass [facility] [address] In [facility], [address], [place], [place], [id number], 5 11:39:35 Patient TargetsNo targets recorded. Patient Instructions Encounter Date Encounter Id Patient Instructions Last Modified By Organization Details Last Modified Time 04/06/2014 [id number] hot flashes during menopause: care instructions mpass Not available 04/06/2014 11:39:35 05/02/2015 [id number] Keep appt. for mammogram. Make appt. for bone density. mpass Not available 05/02/2015 11:53:38 Will reduce strength of HRT. Last mammogram negative. Getting another one at the end of this month. Will send in complete RX for Prempro with negative mammogram. mpass Not available 05/02/2015 11:53:38 10/16/2016 [id number] Taty is doing well. She states she [...] DO Not Attach Compendium, Do Not Delete/merge, [id number] 10/16/2016 12:04:25 05/02/19 16 05/04/2015 pap, IG diagnosis: COMMEN T NEGAT FRANKIE FOR INTRA EPITH ELIAL LESIO N AND MALNAEL KERVIN . Not Available [facility] ([facility]) [address], [place], [address], 05/04/2015 11:33:28 05/02/19 16 05/04/2015 pap, IG specimen adequacy: COMMEN T SATIS FACTO RY FOR EVALU ATION . NO ENDOC ERVIC AL COMPO NENT IS IDENT IFIED . Not Available [facility] ([facility]) [address], [place], [address], 05/04/2015 11:33:28 05/02/19 16 05/04/2015 pap, IG clinician provided ICD10: KAMILLA Nunez Z01.4 19 Not Available [facility] ([facility]) [address], [place], [address], 05/04/2015 11:33:28 05/02/19 16 05/04/2015 pap, IG performed by: DIANE NAVARRO (ASCP ) Not Available [facility] ([facility]) [address], [place], [address], 05/04/2015 11:33:28 05/02/19 16 05/04/2015 pap, IG . . Not Available [facility] ([facility]) [address], [place], [address], 05/04/2015 11:33:28 05/02/19 16 05/04/2015 pap, IG [...] TS DO OCCUR . Not Available [facility] ([facility]) [address], [place], [address], 05/04/2015 11:33:28 05/02/19 16 05/04/2015 pap, IG test methodology: KAMILLA Nunez THIS LIQUI D BASED THINP REP(R ) PAP TEST WAS SCREE SUZANNE WITH THE USE OF AN IMAGE GUIDE Devang Reynolds Not Available [facility] ([facility]) [address], [place], [address], 05/04/2015 11:33:28 05/15/19 16 05/15/2015 bone densi ty study No observ ation record ed. Not Available 2015 15:50:25 05/16/19 16 05/15/2015 librado trinh No observ ation record ed. [facility] [address] [place], [address], 05/18/2015 16:29:05 10/17/19 17 10/14/2016 MAMMlibrado Isabel bilat eral No observ ation record ed. BARCODE Not Available 2016 12:04:49 Result Notes None recorded. Problems Name Problem SNOMED Code Status Onset Date Resolution Date Notes Provider Name and Address Organization Details Recorded Time Menopausal flushing 961672855 Active Sandie Vora null, [facility] 6 11:34:50 Menopausal syndrome 639710293 Active Mary Le null, [facility] 6 14:25:28 Problem Notes None recorded. Procedures Surgical History Date Name Laterality Status Provider Name and Address Organization Details Recorded Time Date of Last Pap Smear completed Sandie Vora [facility] 05/02/2015 11:34:50 Other completed Megan Rodríguez [facility] 015 10:42:32 Other completed Megan Rodríguez [facility] 015 10:42:32 Tubal Ligation completed Sandie Vora [facility] 05/02/2015 11:34:50 Imaging Results None recorded. Procedure Notes None recorded. Medical Equipment None [...] Available Not Available Vitals Date Recorded Body weight Body height Body mass index (BMI) Systolic blood pressure Diastolic blood pressure Provider Name and Address Organization Details Last Updated DateTime 04/06/2014 76383.70 891 g 165.1 cm 23.8 kg/m2 102 mm[Hg] 62 mm[Hg] Rodríguez [place] - [facility] 5 10:42:32 Date Recorded Body mass index (BMI) Body weight Body height Systolic blood pressure Diastolic blood pressure Provider Name and Address Organization Details Last Updated DateTime 05/02/2015 24.5 kg/m2 57184.07 839 g 165.1 cm 140 mm[Hg] 80 mm[Hg] Sandie Vora [facility] 6 11:34:50 Date Recorded Body height Body mass index (BMI) Body weight Systolic blood pressure Diastolic blood pressure Provider Name and Address Organization Details Last Updated DateTime 10/16/2016 165.1 cm 24.5 kg/m2 18373.08 g 110 mm[Hg] 72 mm[Hg] Sandie Luevanos [facility] 7 11:49:10 Social History Question Answer Notes LastModified by Organizat ion Details LastModified Time Tobacco Smoking Status Former Smoker Megan Rodríguez isabella [facility] 04/06/2014 10:42:32 What Was The Date Of Your Most Recent Tobacco Screening? 10/16/2016 Information n ot available 09/10/2018 Are You Sexually Active? Yes [email or web address] Information not available 04/06/2014 How Much Tobacco Do You Smoke? No [email or web address] Information not available 04/06/2014 Sex: Unknown Functional Status Question Answer Note LastModified by Organization D etails LastModified Time What is your exercise level? None [email or web address] Information not available 04/06/2014 Mental Status None [...] available 2016 11:47:32 Unspecified Relation Heart disease Siblin g Not available 05/02/2015 11:34:50 Unspecified Relation Hypertensive disorder Patern al, Matern al Grandp arents , Alexi sanford Not available 05/02/2015 11:34:50 Unspecified Relation Cerebrovascu lar accident Alexi sanford Not available 05/02/2015 11:34:50 Unspecified Relation Diabetes mellitus Alexi sanford Not available 05/02/2015 11:34:50 Unspecified Relation Malignant tumor of breast Alexi [email or web address] Not available 05/02/2015 11:34:50 Medical History Condition Response High Blood Pressure Y Heart Problems/Murmur Y Arthritis Y Anemia Y Gynecological History Statement/Question Response If Post Menopausal, Age at Menopause 55 Date of Last Pap Smear 05/02/2015 Current Control Method Tubal Ligat ion LMP Unknown Sexually Active? Y Obstetrics History GPAL:G 0 P 0 0 0 0 Past Encounters Encounter ID Performer Location Encounter Start Date Encounter Closed Date Diagnosis/Indication Diagnosis SNOMED-CT Code Diagnosis ICD10 Code Diagnosis Note [id number] MD Hang Davis ([facility] 122) [address] [place] [address] 04/06/2014 10:29:33 04/06/2014 12:06:13 Gynecologic examination 98279572 Menopausal flushing 544134685 [id number] Vivienne Richey SELAM Hang Payne ([facility] [address]) [address] [facility] [place] [address] 05/02/2015 11:24:45 05/02/2015 12:28:41 Gynecologic examination 64450363 Z01.419 Screening mammography 24 800214 Z12.31 Screening for osteoporosis 767583923 Z13.820 Menopausal syndrome 1237 37968 N95.9 [id number] Vivienne Richey LAUREN Payne ([facility] [address]) [address] [facility] [place] [address] 10/16/2016 11:35:56 10/16/2016 13:25:25 Screening for malignant neoplasm of colon 836925127 Z12.11 Gynecologi c examination 93863840 Z01.419 Health Concerns Section Related Observation LastModified by Organization Detai ls LastModified Time None Recorded Concern Status LastModified by Organization Details LastModified Time None Recorded Advance Directives Directive None Recorded Payers Encounter Date Sequence Insurance Name Policy Number Policy Guadarrama Covered Member ID Guadarrama Member ID Guarantor Name 04/06/2014 1 [place] Taty A Heath [id number] Taty Heath 04/06/2014 2 [employer] (MEDICARE SUPPLEMENT) Taty A Heath [id number] Taty Heath 05/02/2015 1 [place] Taty A Heath [id number] Taty Heath 05/02/2015 2 [place] [id number] Taty A Heath [id number] Taty Heath 10/16/2016 1 [place] Taty A Heath [id number] A Taty Heath 10/16/2016 2 [place] [id number] Taty A Heath [id number] Taty Heath Notes Date Note Type Note Provider Name and Address Organization Details Recorded Time 05/02/2015 text/html Annual Envelope Press Operator Post-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.Menopaus al Symptoms:no menopausal [...] bone density OTF Diaz Attn: Accounting[address] [place], [address], [facility] - [facility] 05/02/2015 11:54:52 10/16/2016 text/html Annual Envelope Press Operator Post-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.Menopaus al Symptoms:no menopausal [...] history of recent colonoscopyNotes:C olonoscopy in 2014 [facility]: [facility] [place], [address], [place] - [facility] 10/16/2016 12:13:58 OBGyn Episode No OBEpisode recorded.
--- OUTSIDE RECORDS SUMMARY | 2024-07-14 14:44 | XMS_ITS | Clinical Summary ---
Author Organization [facility] Address [address] [place] [address] Phone Care Team Providers Care Physiotherapy Assistant Name Role Phone Parth Castillo MD Primary [...] Comments Blood Pressure 103/68 04/04/2018 11:45 PM PRIZE JACKER Pulse 78 04/04/2018 11:45 PM PRIZE JACKER Temperature - - Respiratory Rate 13 04/04/2018 11:45 PM PRIZE JACKER Oxygen Saturation 96% 04/04/2018 11:45 PM PRIZE JACKER Inhaled Oxygen Concentration - - Weight - [...] Procedure Name Priority Date/Time Associated Diagnosis Comments [facility] SCREENING BILATERAL DIGITAL W CAD W VINCENZO Routine 02/11/2018 11:51 AM PRIZE JACKER Screening breast examination [facility] BONE DENSITOMETRY AXIAL SKELETON Routine 05/15/2015 3:48 PM CDT Screening for osteoporosis from Last 3 Months or Most Recently Relevant to Health Maintenance Results * [facility] SCREENING BILATERAL DIGITAL W CAD W VINCENZO (02/11/2018 11:51 AM PRIZE JACKER) Anatomical Region Laterality Modality breast Bilateral Mammography 02/11/2018 11:3 2 AM PRIZE JACKER Narrative 02/12/2018 6:40 AM PRIZE JACKER - [facility] SCREENING BILATERAL DIGITAL W CAD W VINCENZO [...] to exams dated: 10/14/2016, 05/15/2015, and 02/23/2014 [facility]. BREAST TISSUE:The tissue of both [...] contacted. Electronically signed by: Marisa ferguson/kota:02/11/2018 15:01:09 Urgent Care Physician: Mary Schaefer (R)(Geoff), [facility] letter sent: Additional Imaging Reading location: [place] BI-RADS: 0 Additional Imaging Evaluation Needed Procedure Note Marisa Lyman MD - 02/12/2018 - [facility] SCREENING BILATERAL DIGITAL W CAD W VINCENZO [...] to exams dated: 10/14/2016, 05/15/2015, and 02/23/2014 [facility]. BREAST TISSUE:The tissue of both [...] contacted. Electronically signed by: Marisa ferguson/kota:02/11/2018 15:01:09 Urgent Care Physician: Mary Josue)(M), [facility] letter sent: Additional Imaging Reading location: [facility] BI-RADS: 0 Additional Imaging Evaluation Needed us Parth Castillo MD IMG MAMMO ORDERABLES Final R esult * [facility] BONE DENSITOMETRY AXIAL SKELETON (05/15/2015 [...] as an adult, rheumatoid arthritis COMPARISON(S): 08/28/2010 SPRAY WORKER/MODEL: [employer] (S/N [id number]) FINDINGS: AP lumbar spine L1-L4 Total BMD is 1.556 g/co3U-gbvgv is 2.9 Most recent prior BMD was 1.535 g/cm2 There has been a 1.4% increase in BMD which is not statistically significant. Left Hip Current Total BMD is 0.833 g/jl0O-oszlu is -1.4 Most recent prior Total BMD was 0.849 g/cm2 There has been a 1.9% decrease in BMD which is not statistically significant. Current femoral neck BMD is 0.890 g/fo7X-nxbva is -1.1 Fracture risk assessment (FRAX): 10 [...] as an adult, rheumatoid arthritis COMPARISON(S): 08/28/2010 SPRAY WORKER/MODEL: [employer] (S/N [id number]) FINDINGS: AP lumbar spine L1-L4 Total BMD is 1.556 g/dc9C-gmhsb is 2.9 Most recent prior BMD was 1.535 g/cm2 There has been a 1.4% increase in BMD which is not statistically significant. Left Hip Current Total BMD is 0.833 g/fo2V-naegl is -1.4 Most recent prior Total BMD was 0.849 g/cm2 There has been a 1.9% decrease in BMD which is not statistically significant. Current femoral neck BMD is 0.890 g/tp9O-uwwqa is -1.1 Fracture risk assessment (FRAX): 10 [...] and Treatment of Osteoporosis (http://www.nof.org/professionals/clinical-guidelines) Vivienne Richey CLIP COATER, VEHICLE MAINTENANCE TECHNICIAN IMG DEXA ORDERABLES Fin al Result from Last 3 Months or Most Recently Relevant to Health Maintenance Insurance [address] [id number] MEDICARE Care Teams Physiotherapy Assistant Relationship Specialty [place] [address] [place] [address] [address] [place] [address] PCP - General Internal Medicine 09/25/16
== END 2024-07-14 14:40 | disposition home or self-care (01) ==
LOC: ANHIMG 14:40
PROVIDERS: PCP Family Medicine; Visit Provider Family Medicine
DX: Z78.0 Asymptomatic menopausal state (principal); M85.852 Other specified disorders of bone density and structure, left thigh
CPT/HCPCS: 77080

== ENCOUNTER 2024-07-20 10:54 | Outpatient (CLI) | payer MEDICARE, OTHER, SELFPAY ==
--- NOTE | ~2024-07-20 | US_ITS ---
US renal BI 07/20/2024 11:44 Procedure: Realtime transabdominal ultrasound of the kidneys and bladder. Indication: Chronic kidney disease Comparison: Ultrasound dated 06/20/2021 Findings: Renal echotexture is normal bilaterally without hydronephrosis, contour deforming mass or r enal calculus. The right kidney measures 10.2 cm and left kidney measures 9.9 cm. Bladder within nor mal limits. Impression: 1: Unremarkable renal ultrasound. No stones, masses or hydronephrosis. Reviewed, dictated and finalized at location A. Impression: 1: Unremarkable renal ultrasound. No stones, masses or hydronephrosis.
--- OUTSIDE RECORDS SUMMARY | 2024-07-20 11:16 | XMS_ITS ---
Author Organization [facility] [employer] [place] ([address]) Address [address] [place] [address] Care Team Providers Care Automobile Body Repair Chief Name Role Phone LiamCharles Ifrah [phone] REASON FOR VISIT [facility], [...] Encounter Location Date Provider Diagnosis [facility] [employer] [place] ([address]) [address] [place] [address] 07/31/2023 Charles Wheeler Morbid (severe) obesity due [...] abdomen Frequency: weekly Lot Number/Expiration: Medication Source: Troodon Adverse Reaction: None Progress Notes * Taty WEIRDOB:1950 (74 yo F)Acc No.[id number]:07/31/2023 Weight Loss Patient: Taty CLARK Provider: Jessica Wheeler MD :1950 A ge:73 Y S ex:Female Date:07/31/2023 Address:[address] [place], [place] [id number] Subjective: * Chief Complaints: * 1 . [...] ot Number/Expiration 0 M edication Source [facility] A dverse Reaction N one * Follow Up: 1 Week (Reason: GLP-1 Agonist Administration) * Billing Information: * Visit Code: * Procedure Codes: * Electronic signature of Sapna Wheeler MD, FAAAAI on 07/20/2024 at 11:16 AM CDT Sign off status: Pending * Provider: Jessica Wheeler MD Date: 0 07/31/2023 Generated for oRmina leblanc/Rafa/Shoshana on: 0 07/20/2024 11:16 AM CDT
--- OUTSIDE RECORDS SUMMARY | 2024-07-20 11:16 | XMS_ITS | Patient Health Record ---
Author Organization [facility] [employer] [facility] [employer] [place] ([address]) Address [address] [place] [address] Care Team Providers Care Welder Pipe Making Name Role Phone Charles Wheeler Unavailable [phone] [employer], Provider Unavailable Unavailab le Reason For [...] Status Risk Notes Problem Morbid obesity (disorder) (669665361) Morbid (severe) obesity due to excess calories (E66.01) Active confirmed Problem Chronic fatigue, unspecified (R53.82) Active confirmed Vital Signs Height 65.1 in 07/24/2023 Weight 154.2 lbs 07/24/2023 BMI 25.58 kg/m2 07/24/2023 Encounters Encounter Location Date Provider Diagnosis [facility] [place] ([address]) [address] [place] [address] 07/24/2023 Charles Wheeler Morbid (severe) obesity due to excess calories E66.01 ; Chronic fatigue, unspecified R53.82 ; Other fatigue R53.83 and Other malaise R53.[address] [address] 08/02/2023 Provider ROBIN-Tracey Assessments Encounter Date Diagnosis (ICD Code) Assessment Notes Treatment Notes Treatment Clinical Notes Section Notes 07/24/2023 Morbid (severe) obesity due to excess calories (ICD-10 - E66.01) 07/24/2023 Chronic fatigue, unspecified (ICD-10 - R53.82) 07/24/2023 Other fatigue (ICD-10 - R53.83) 07/24/2023 Other malaise (ICD-10 - R53.81) Plan Of Treatment No Information Medical (General) History Surgical History Surgery Date(Month/Year) Bernice En Y 1997
--- OUTSIDE RECORDS SUMMARY | 2024-07-20 11:16 | XMS_ITS | Clinical Summary ---
Author Organization [facility] [employer] Address [address] [facility] [place] [address] Care Team Providers Care Face And Fill Packer Name Role Phone Meagan Godoy RN Unavailable [phone] Charles Thornton MD Unavailable [phone] Perfecto Cooper MD Unavailable [phone] Elizabeth Brown MD Unavailable [phone] Elizabeth Brown MD Primary Care Provider U navailable Source Comments [facility],non-owned Affiliates and Associated Physician Practices is amultiple site organization consisting of ambulatory clinics and hospital sitesin [place], [place], [place] and [place]. This disclosure is being madepursuant to the Care Everywhere program and may not contain all information available regarding this patient. Last updated 17.[facility] [employer] Allergies Active Allergy Reactions Criticality Noted Date [...] Operation 30 capsule 5 9 Active Multiple Vitamins-[place] als (HAIR SKIN AND NAILS FORMULA PO) Active Calcium-Phosph orus-Vitamin D (CITRACAL +D3 PO) Take by mouth every 7 days Active azelastine (ASTELIN) 0.1 % nasal spray 1 Active Homeopathic Products (LEG CRAMPS PO) Active diphenhydrAMIN E HCl (BENADRYL PO) Active HYDROcodone-ac etaminophen ([place]) 5-325 MG tablet Take 1 (one) tablet [...] breath. Assessment & Plan (02/04/2019 2:08 PM MANAGER PERSONNEL SELECTION): Lower dose to 25 mg qd Assessment & Plan (04/06/2018 1:44 PM MANAGER PERSONNEL SELECTION): Stay off medication until BP becomes higher [...] med/dose. Assessment & Plan (02/15/2013 10:41 AM MANAGER PERSONNEL SELECTION): Monitor at home. Continue current med, start exercising. Anxiety Overview (02/04/2019): Rare xanax Assessment & Plan (02/04/2019 2:10 PM MANAGER PERSONNEL SELECTION): Continue current medication. Assessment & Plan (12/04/2017 [...] Type Department Care Team Description 06/20/2024 Refill [facility] [place] [address] [address] , [address] [address] Kelly Gamez, TASSEL MAKER-BUMBOATER Refill Request from Last 3 Months Immunizations [...] on file Legal Sex Female 6:00 AM MANAGER PERSONNEL SELECTION Gender Identity Female 01/26/2019 8:32 AM MANAGER PERSONNEL SELECTION Sexual Orientation Not on file Last Filed [...] Comments LIPID PROFILE Routine 02/04/2019 2:32 PM MANAGER PERSONNEL SELECTION Essential hypertension HEPATITIS PANEL Routine 04/06/2018 2:01 PM MANAGER PERSONNEL SELECTION Encounter for screening for other viral diseases Elevated LFTs MAMMOGRAPHY ORDER Routine 02/27/2018 ENDOSCOPY, COLON, SCREENING Routine 02/26/2016 7:25 AM MANAGER PERSONNEL SELECTION DEXA BONE DENSITY 2 SITES Routine 05/15/2015 from Last 3 Months or Most Recently Relevant to Health Maintenance Results * LIPID PROFILE (02/04/2019 2:32 PM MANAGER PERSONNEL SELECTION) Cholesterol 166 <200 mg/dL [facility] INSURANCE BILL Triglycerides 52 <150 mg/dL [facility] INSURANCE BILL HDL Cholesterol 87 >40 mg/dL [facility] INSURANCE BILL VLDL Calculated 10 <=30 mg/dL [facility] INSURANCE BILL LDL Calculated 69 <130 mg/dL [facility] INSURANCE BILL Blood BLOOD SPECIMEN / Unknown 02/04/2019 2:32 PM MANAGER PERSONNEL SELECTION 02/04/2019 Narrative Resulting Agency Comment Lab Testing performed at: [place] [address] [address] [facility] [place] [id number] Parth Castillo MD LAB - CHEMISTRY ORDERABLES F inal Result [facility] INSURANCE BILL [address] [place] [address] * HEPATITIS PANEL (04/06/2018 2:01 PM MANAGER PERSONNEL SELECTION) Hepatitis A Virus Antibody IgM Negative Negative [...] BLOOD SPECIMEN / Unknown 04/06/2018 2:01 PM MANAGER PERSONNEL SELECTION 04/06/2018 Narrative Resulting Agency Comment [facility] [address] [facility] [id number] [place] Parth Castillo MD LAB - CHEMISTRY ORDERABLES F inal Result [facility] INSURANCE BILL [address] [place] [address] * MAMMOGRAPHY ORDER (02/27/2018) Anatomical Region Laterality Modality Mammography us Parth Castillo MD MAMMO ORDERABLES Final Resul t * ENDOSCOPY, COLON, SCREENING (02/26/2016 7:25 AM MANAGER PERSONNEL SELECTION) Report Endoscopy POC _ Patient Name: Taty [...] by the physician, the nurse and the box feeder in the procedure room. Mental Status Examination: [...] previously scheduled. Procedure Code(s): --- Professional --- 85530, Colonoscopy, flexible; with biopsy, single or multiple --- Technical --- 29038, Colonoscopy, flexible; with biopsy, single or multiple [...] neoplasm of descending colon CPT copyright 2015 [employer]. All rights reserved. The codes documented in this report are preliminary and upon physician coder review may be revised to meet current compliance requirements. Dr. Charles Thornton MD Charles Thornton MD 02/26/2016 8:21:08 AM This report has been signed electronically. Number of Addenda: 0 Note Initiated On: 02/26/2016 7:25 AM [facility] ENDOSCOPY 02/26/2016 7:25 AM MANAGER PERSONNEL SELECTION us Charles Thornton MD GI PROCEDURE ORDERABLES Tien [place] [address] * DEXA BONE DENSITY 2 SITES (05/15/2015) Anatomical Region Laterality Modality Other us Vivienne H Kaiden STREETER DEXA ORDERABLES Final Result from Last 3 Months or Most Recently Relevant to Health Maintenance Insurance MEDICARE MEDICARE SUPPLEMENT PAYOR GENERIC MEDICARE MEDICARE MEDICARE SUPPLEMENT PAYOR GENERIC FOR[facility]LY [facility] Address: [facility] [id number] [place] [address] Advance Directives * Full Code (Latest Code Status on File) Date Activated Date Inactivated Comments 04/27/2014 6:10 PM 04/28/2014 7:42 PM * Full Code Date Activated Date Inactivated Comments 04/19/2014 2:45 AM 04/21/2014 1:08 PM Care Teams Face And Fill Packer Relationship Specialty Start Date End Date Elizabeth Brown MD [address] [place] [address] PCP - General Family Medicine 01/12/20 Meagan Godoy RN Export Freight Clerk 04/19/14 Charles Thornton MD Senior J2Ee Developer Gastroenterology 06/14/14 Perfecto Cooper MD [address] [place] [address] Orthopedic 10/05/18 Elizabeth Brown MD [address] [place] [address] Primary Care Provider Family Medicine 12/07/19
--- OUTSIDE RECORDS SUMMARY | 2024-07-20 11:16 | XMS_ITS ---
Author Organization [facility] ([address]) Address [address] [place] [address] Care Team Providers Care Dental Insurance Biller Name Role Phone LiamCharles Ifrah [phone] REASON FOR VISIT [facility] Weight [facility], [...] 07/24/2023 Encounters Encounter Location Date Provider Diagnosis [facility] ([address]) [address] [place] [place] [address] 07/24/2023 Charles Wheeler Morbid (severe) obesity due [...] abdomen Frequency: weekly Lot Number/Expiration: Medication Source: [place] Adverse Reaction: None Progress Notes * Sarah WEIRianDOB:1950 (74 yo F)Acc No.[id number]:07/24/2023 Weight Loss Patient: Taty CLARK Provider: Jessica Wheeler MD :1950 A ge:73 Y S ex:Female Date:07/24/2023 Address:[address] [place], [place] [phone] Subjective: * Chief Complaints: * 1 . [...] ot Number/Expiration 0 M edication Source [facility] A dverse Reaction N one * Follow Up: 1 Week (Reason: GLP-1 Agonist Administration) * Billing Information: * Visit Code: * Procedure Codes: * Electronic signature of Sapna Wheeler MD, FAAAAI on 07/20/2024 at 11:16 AM CDT Sign off status: Pending * Provider: Jessica Wheeler MD Date: 07/24/2023 Generated for Romina leblanc/Rafa/Shoshana on: 07/20/2024 11:16 AM CDT
--- OUTSIDE RECORDS SUMMARY | 2024-07-20 11:17 | XMS_ITS | Clinical Summary ---
Author Organization [facility] Address [address] [place] [address] Phone Care Team Providers Care Data Warehouse Analyst Name Role Phone Parth Castillo MD Primary [...] Comments Blood Pressure 103/68 04/04/2018 11:45 PM CHIEF OPERATIONS OFFICER Pulse 78 04/04/2018 11:45 PM CHIEF OPERATIONS OFFICER Temperature - - Respiratory Rate 13 04/04/2018 11:45 PM CHIEF OPERATIONS OFFICER Oxygen Saturation 96% 04/04/2018 11:45 PM CHIEF OPERATIONS OFFICER Inhaled Oxygen Concentration - - Weight - [...] Procedure Name Priority Date/Time Associated Diagnosis Comments [facility] SCREENING BILATERAL DIGITAL W CAD W VINCENZO Routine 02/11/2018 11:51 AM CHIEF OPERATIONS OFFICER Screening breast examination [facility] BONE DENSITOMETRY AXIAL SKELETON Routine 05/15/2015 3:48 PM CDT Screening for osteoporosis from Last 3 Months or Most Recently Relevant to Health Maintenance Results * [facility] SCREENING BILATERAL DIGITAL W CAD W VINCENZO (02/11/2018 11:51 AM CHIEF OPERATIONS OFFICER) Anatomical Region Laterality Modality breast Bilateral Mammography 02/11/2018 11:3 2 AM CHIEF OPERATIONS OFFICER Narrative 02/12/2018 6:40 AM CHIEF OPERATIONS OFFICER - [facility] SCREENING BILATERAL DIGITAL W CAD W [...] to exams dated: 10/14/2016, 05/15/2015, and 02/23/2014 [facility]. BREAST TISSUE:The tissue of both breasts is [...] contacted. Electronically signed by: Marisa ferguson/kota:02/11/2018 15:01:09 Armature Coil Winder: Mary Schaefer (R)(Geoff), [facility] letter sent: Additional Imaging Reading location: [place] BI-RADS: 0 Additional Imaging Evaluation Needed Procedure Note Marisa Lyman MD - 02/12/2018 - [facility] SCREENING BILATERAL DIGITAL W CAD W [...] to exams dated: 10/14/2016, 05/15/2015, and 02/23/2014 [facility]. BREAST TISSUE:The tissue of both breasts is [...] contacted. Electronically signed by: Marisa ferguson/kota:02/11/2018 15:01:09 Armature Coil Winder: Mary Josue)(M), [facility] letter sent: Additional Imaging Reading location: [facility] BI-RADS: 0 Additional Imaging Evaluation Needed us Parth Castillo MD IMG MAMMO ORDERABLES Final R esult * [facility] BONE DENSITOMETRY AXIAL SKELETON (05/15/2015 [...] as an adult, rheumatoid arthritis COMPARISON(S): 08/28/2010 LAYOUT DESIGNER/MODEL: v[employer] [employer] (S/N [id number]) FINDINGS: AP lumbar spine L1-L4 Total BMD is 1.556 g/oh7W-dulck is 2.9 Most recent prior BMD was 1.535 g/cm2 There has been a 1.4% increase in BMD which is not statistically significant. Left Hip Current Total BMD is 0.833 g/oj4V-meksu is -1.4 Most recent prior Total BMD was 0.849 g/cm2 There has been a 1.9% decrease in BMD which is not statistically significant. Current femoral neck BMD is 0.890 g/xl1K-tekeq is -1.1 Fracture risk assessment (FRAX): 10 [...] as an adult, rheumatoid arthritis COMPARISON(S): 08/28/2010 LAYOUT DESIGNER/MODEL: [employer] (S/N [id number]) FINDINGS: AP lumbar spine L1-L4 Total BMD is 1.556 g/yt2D-xlien is 2.9 Most recent prior BMD was 1.535 g/cm2 There has been a 1.4% increase in BMD which is not statistically significant. Left Hip Current Total BMD is 0.833 g/cq0J-taqce is -1.4 Most recent prior Total BMD was 0.849 g/cm2 There has been a 1.9% decrease in BMD which is not statistically significant. Current femoral neck BMD is 0.890 g/tx9U-ovlgt is -1.1 Fracture risk assessment (FRAX): 10 [...] and Treatment of Osteoporosis (http://www.nof.org/professionals/clinical-guidelines) Vivienne Richey LENS CEMENTER, PACKAGE DESIGNER IMG DEXA ORDERABLES Fin al Result from Last 3 Months or Most Recently Relevant to Health Maintenance Insurance [address] [place] [id number] MEDICARE [facility] [employer] [facility] [place] [address] Care Teams Data Warehouse Analyst Relationship Specialty [place] [address] [place] [address] [address] [place] [address] PCP - General Internal Medicine 09/25/16
--- OUTSIDE RECORDS SUMMARY | 2024-07-20 11:17 | XMS_ITS ---
Author Organization [facility] [place] ([address]) Address [address] [address] Care Team Providers Care Public Relations Player Name Role Phone [facility]-Migration, Provider Unavailable Unavailab [...] Active Encounters Encounter Location Date Provider Diagnosis [address] [address] 08/02/2023 Provider ZZ-Migration Plan Of Treatment No Information Progress Notes * Taty WEIRDOB:1950 (74 yo F)Acc No.[id number]:08/02/2023 Patient: Taty CLARK Provider: Jessica Webb :1950 A ge:73 Y S ex:Female Date:08/02/2023 Address:[address] [place], [place] [phone] Subjective: * Chief Complaints: * 1 . [...] * Electronic signature of Maryann KELLY-Migration on 07/20/2024 at 11:16 AM CDT Sign off status: Pending * Provider: Jessica lundberg Migration Date: 08/02/2023 Generated for Romina leblanc/Rafa/Shoshana on: 07/20/2024 11:16 AM CDT
--- OUTSIDE RECORDS SUMMARY | 2024-07-20 11:17 | XMS_ITS | Data Portability ---
Author Organization [facility] Address [address] [place] [address] Assessment No assessment recorded. Plan of Treatment Reminders Order Date Submit Date Provider Last Modified By Organization Details Last Modified Time Details Appointments None recorded. Lab fecal occult blood, stool 2016 017 [facility]pass In-Office Order, Internal Use Only DO Not Attach Compendium DO Not Attach Compendium, Do Not Delete/merge, [id number] 7 14:51:12 pap, IG 2015 016 [place] [facility], [address] [facility], [address], [place], [address], 6 11:33:28 Referral None recorded. Procedures None recorded. Surgeries None recorded. Imaging mammogram, screening 2015 016 [facility] ([facility]) Scheduling, [address] [place], [address], 6 09:04:06 bone density study 2015 016 [facility], [address] [place], [address], 6 00:56:55 Medication Orders Prempro 0.45 mg-1.5 mg tablet [address] [facility] [address] [address] [facility], [facility], [place], [place], [id number], 6 11:54:34 Prempro 0.625 mg-2.5 mg tablet 2014 015 [facility] [address] [address] [facility], [address], [place], [place], [id number], 5 11:39:35 Patient TargetsNo targets recorded. Patient Instructions Encounter Date Encounter Id Patient Instructions Last Modified By Organization Details Last Modified Time 04/06/2014 [id number] hot flashes during menopause: care instructions mpass Not available 04/06/2014 11:39:35 05/02/2015 [id number] Keep appt. for mammogram. Make appt. for bone density. mpass Not available 05/02/2015 11:53:38 Will reduce strength of HRT. Last mammogram negative. Getting another one at the end of this month. Will send in complete RX for Prempro with negative mammogram. mpass Not available 05/02/2015 11:53:38 10/16/2016 [id number] Taty is doing well. She states she [...] DO Not Attach Compendium, Do Not Delete/merge, [id number] 10/16/2016 12:04:25 05/02/19 16 05/04/2015 pap, IG diagnosis: COMMEN T NEGAT FRANKIE FOR INTRA EPITH ELIAL LESIO N AND MALNAEL KERVIN . Not Available [facility] ([facility]) [address] [facility], [place], [address], 05/04/2015 11:33:28 05/02/19 16 05/04/2015 pap, IG specimen adequacy: COMMEN T SATIS FACTO RY FOR EVALU ATION . NO ENDOC ERVIC AL COMPO NENT IS IDENT IFIED . Not Available [facility] ([facility]) [address] [facility], [place], [address], 05/04/2015 11:33:28 05/02/19 16 05/04/2015 pap, IG clinician provided ICD10: KAMILLA Nunez Z01.4 19 Not Available [facility] ([facility]) [address] [facility], [place], [address], 05/04/2015 11:33:28 05/02/19 16 05/04/2015 pap, IG performed by: DIANE NAVARRO (ASCP ) Not Available [facility] ([facility]) [address] [facility], [place], [address], 05/04/2015 11:33:28 05/02/19 16 05/04/2015 pap, IG . . Not Available [facility] ([facility]) [address] [facility], [place], [address], 05/04/2015 11:33:28 05/02/19 16 05/04/2015 pap, IG [...] TS DO OCCUR . Not Available [facility] ([facility]) [address] [facility], [place], [address], 05/04/2015 11:33:28 05/02/19 16 05/04/2015 pap, IG test methodology: KAMILLA Nunez THIS LIQUI D BASED THINP REP(R ) PAP TEST WAS SCREE SUZANNE WITH THE USE OF AN IMAGE GUIDE Devang Reynolds Not Available [facility] ([facility]) [address] [facility], [place], [address], 05/04/2015 11:33:28 05/15/19 16 05/15/2015 bone densi ty study No observ ation record ed. Not Available 2015 15:50:25 05/16/19 16 05/15/2015 librado trinh No observ ation record ed. [facility] [address] [place], [address], 05/18/2015 16:29:05 10/17/19 17 10/14/2016 MAMMlibrado Isabel bilat eral No observ ation record ed. BARCODE Not Available 2016 12:04:49 Result Notes None recorded. Problems Name Problem SNOMED Code Status Onset Date Resolution Date Notes Provider Name and Address Organization Details Recorded Time Menopausal flushing 579201707 Active Sandie Vora null, [facility] 6 11:34:50 Menopausal syndrome 596425528 Active Mary Le null, [facility] 6 14:25:28 Problem Notes None recorded. Procedures Surgical History Date Name Laterality Status Provider Name and Address Organization Details Recorded Time Date of Last Pap Smear completed Sandie Vora [facility] 05/02/2015 11:34:50 Other completed Megan Rodríguez [facility] 015 10:42:32 Other completed Megan Rodríguez [facility] 015 10:42:32 Tubal Ligation completed Sandie Vora [facility] 05/02/2015 11:34:50 Imaging Results None recorded. Procedure [...] Address Organization Details Last Updated DateTime 04/06/2014 64126.70 891 g 165.1 cm 23.8 kg/m2 102 mm[Hg] 62 mm[Hg] Rodríguez [place] [facility] 5 10:42:32 Date Recorded Body mass index (BMI) Body weight Body height Systolic blood pressure Diastolic blood pressure Provider Name and Address Organization Details Last Updated DateTime 05/02/2015 24.5 kg/m2 08033.07 839 g 165.1 cm 140 mm[Hg] 80 mm[Hg] Sandie Vora [facility] 6 11:34:50 Date Recorded Body height Body mass index (BMI) Body weight Systolic blood pressure Diastolic blood pressure Provider Name and Address Organization Details Last Updated DateTime 10/16/2016 165.1 cm 24.5 kg/m2 03336.08 g 110 mm[Hg] 72 mm[Hg] Sandie Luevanos [facility] 7 11:49:10 Social History Question Answer Notes LastModified by Organizat ion Details LastModified Time Tobacco Smoking Status Former Smoker Megan Rodríguez isabella [facility] 04/06/2014 10:42:32 What Was The Date Of Your Most Recent Tobacco Screening? 10/16/2016 Information n ot available 09/10/2018 Are You Sexually Active? Yes [email or web address] Information not available 04/06/2014 How Much Tobacco Do You Smoke? No Information not available 04/06/2014 Sex: Unknown Functional Status Question Answer Note LastModified by Organization D etails LastModified Time What is your exercise level? None [email or web address] Information not available 04/06/2014 Mental Status None [...] Unspecified Relation Cerebrovascu lar accident Alexi sanford [email or web address] Not available 05/02/2015 11:34:50 Unspecified Relation Diabetes [...] SNOMED-CT Code Diagnosis ICD10 Code Diagnosis Note [id number] MD Hang Davis ([facility] [address]) [address] [place] [address] 04/06/2014 10:29:33 04/06/2014 12:06:13 Gynecologic examination 96734872 Menopausal flushing [id number] Vivienne Richey SELAM Hang Payne ([facility] [address]) [address] [facility] [place] [address] 05/02/2015 11:24:45 05/02/2015 12:28:41 Gynecologic examination 98888789 Z01.419 Screening mammography 24 670901 Z12.31 Screening for osteoporosis 349225325 Z13.820 Menopausal syndrome 1237 72388 N95.9 [id number] iVvienne Richey LAUREN Payne ([facility] [address]) [address] [facility] [place] [address] 10/16/2016 11:35:56 10/16/2016 13:25:25 Screening for malignant neoplasm of colon 599631376 Z12.11 Gynecologi c examination 55757899 Z01.419 Health Concerns Section Related Observation LastModified by Organization Detai ls LastModified Time None Recorded Concern Status LastModified by Organization Details LastModified Time None Recorded Advance Directives Directive None Recorded Payers Encounter Date Sequence Insurance Name Policy Number Policy [place] Covered Member ID [place]ad[place]ama Member ID Guarantor Name 04/06/2014 1 [place] Taty A Heath [id number] Taty Heath 04/06/2014 2 [employer] [place] (MEDICARE SUPPLEMENT) Taty A Heath [id number] Taty Heath 05/02/2015 1 [place] Taty A Heath [id number] A Taty Heath 05/02/2015 2 [place] [id number] Taty A Heath [id number] Taty Heath 10/16/2016 1 [place] Taty A Heath [id number] A Taty Heath 10/16/2016 2 [place] [id number] Taty A Heath [id number] Taty Heath Notes Date Note Type Note Provider Name and Address Organization Details Recorded Time 05/02/2015 text/html Annual Relay Dispatcher Post-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.Menopaus al Symptoms:no menopausal symptoms; [...] bone density OTF Diaz Attn: Accounting[address] [place], [address], [facility] 05/02/2015 11:54:52 10/16/2016 text/html Annual Relay Dispatcher Post-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.Menopaus al Symptoms:no menopausal symptoms; [...] recent colonoscopyNotes:C olonoscopy in 2014 [facility] Attn: Accounting[address] [place], [address], [place] [facility] 10/16/2016 12:13:58 OBGyn Episode No OBEpisode recorded.
== END 2024-07-20 10:55 | disposition home or self-care (01) ==
PROVIDERS: PCP Family Medicine; Visit Provider Internal Medicine Nephrology
DX: N18.31 Chronic kidney disease, stage 3a (principal)
CPT/HCPCS: 76775

== ENCOUNTER 2024-10-13 11:46 | Outpatient (CLI) | payer MEDICARE, OTHER, SELFPAY ==
--- OUTSIDE RECORDS SUMMARY | 2023-07-24 09:00 | XMS_ITS ---
Author Organization [facility] [employer] [facility] ([address]) Address [address] [place] [phone] Care Team Providers Care Production Intern Name Role Phone LiamCharles Ifrah [phone] REASON FOR VISIT [facility], [...] 07/24/2023 Encounters Encounter Location Date Provider Diagnosis [facility] [employer] [facility] ([address]) [address] [place] [phone] 07/24/2023 Charles Wheeler Morbid (severe) obesity due [...] abdomen Frequency: weekly Lot Number/Expiration: Medication Source: [employer] Adverse Reaction: None Progress Notes * Sarah WEIRianDOB:1950 (74 yo F)Acc No.[id number]:07/24/2023 Weight Loss Patient: Taty CLARK Provider: Jessica Wheeler MD :1950 A ge:73 Y S ex:Female Date:07/24/2023 Address:[address] [place], [place] [phone] Subjective: * Chief Complaints: * 1 . [...] Number/Expiration 0 -2024 M edication Source [facility] A dverse Reaction N one * Follow Up: 1 Week (Reason: GLP-1 Agonist Administration) * Billing Information: * Visit Code: * Procedure Codes: * Electronic signature of Sapna Wheeler MD, FAAAAI on 10/13/2024 at 11:58 AM CDT Sign off status: Pending * Provider: Jessica Wheeler MD Date: 0 07/24/2023 Generated for Romina leblanc/Rafa/Shoshana on: 0 10/13/2024 11:58 AM CDT
--- OUTSIDE RECORDS SUMMARY | 2023-07-31 09:00 | XMS_ITS ---
Author Organization [facility] [employer] [place] ([address]) Address [address] [place] [id number] Care Team Providers Care Assistant Center Director Name Role Phone LiamCharles Ifrah [phone] REASON FOR VISIT [facility], [...] hormones Encounters Encounter Location Date Provider Diagnosis [facility] [employer] [place] ([address]) [address] [place] [phone] 07/31/2023 Charles Wheeler Morbid (severe) obesity due [...] abdomen Frequency: weekly Lot Number/Expiration: Medication Source: [employer] [facility] Adverse Reaction: None Progress Notes * Taty WEIRDOB:1950 (74 yo F)Acc No.[id number]:07/31/2023 Weight Loss Patient: Taty CLARK Provider: Jessica Wheeler MD :1950 A ge:73 Y S ex:Female Date:07/31/2023 Address:[address] [place], [place] [id number] Subjective: * Chief Complaints: * 1 . [...] ot Number/Expiration 0 M edication Source [facility] A dverse Reaction N one * Follow Up: 1 Week (Reason: GLP-1 Agonist Administration) * Billing Information: * Visit Code: * Procedure Codes: * Electronic signature of Sapna Wheeler MD, FAAAAI on 10/13/2024 at 11:58 AM CDT Sign off status: Pending * Provider: Jessica Wheeler MD Date: 0 07/31/2023 Generated for Romina leblanc/Rafa/Shoshana on: 0 10/13/2024 11:58 AM CDT
--- OUTSIDE RECORDS SUMMARY | 2023-08-02 16:30 | XMS_ITS ---
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 [...] * Electronic signature of Maryann KELLY-Migration on 10/13/2024 at 11:59 AM CDT Sign off status: Pending * Provider: Jessica lundberg Migration Date: 0 08/02/2023 Generated for Romina leblanc/Rafa/Shoshana on: 10/13/2024 11:59 AM CDT
--- OUTSIDE RECORDS SUMMARY | 2024-10-13 11:59 | XMS_ITS | Clinical Summary ---
Author Organization [facility] Address [address] [place] [address] Phone Care Team Providers Care Software Quality Specialist Name Role Phone Parth Castillo MD Primary [...] Comments Blood Pressure 103/68 04/04/2018 11:45 PM GAME FARM HELPER Pulse 78 04/04/2018 11:45 PM GAME FARM HELPER Temperature - - Respiratory Rate 13 04/04/2018 11:45 PM GAME FARM HELPER Oxygen Saturation 96% 04/04/2018 11:45 PM GAME FARM HELPER Inhaled Oxygen Concentration - - Weight - - Height - - Body Mass Index - - Plan of Treatment Health Maintenance Due Date Last Done Comments Hepatitis C Virus (HCV) Screening 1950 TdaP Immunization 1950 Cologuard 1997 Colonoscopy 1997 Colorectal Cancer Screening 1997 Immunochemical Fecal Occult Blood 1997 Zoster Immunization (2 of 3) 12/13/2012 10/18/2012 Pneumococcal Immunization (50+ years) (2 of 2 - PCV) 11/17/2013 11/17/2012 SARS-COV-2 Immunization (3 - ) 10/19/2023 10/24/2020, 09/29/2020 Influenza Immunization (#1) 10/18/202404/2016, 12/05/2015, 01/23/2015, Additional history exists Respiratory Syncytial Virus (RSV) Immunization (Adult) (1 - 1-dose 75+ series) 05/12/2027 Pneumococcal Immunization Combined Discontinued 11/17/2012 DEXA Bone Density Discontinued 05/15/2015 Mammogram Discontinued 02/11/2018, 09/18, 05/15/2015 Hepatitis B Immunization Aged Out No longer eligible based on patient's age to complete this topic Human Papillomavirus (HPV) Immunization Aged Out No longer eligible based on patient's age to complete this topic Meningococcal Immunization (ACWY) Aged Out No longer eligible based on patient's age to complete this topic Rotavirus Immunization Aged Out No lo nger eligible based on patient's age to complete this topic Procedures Procedure Name Priority Date/Time Associated Diagnosis Comments [facility] SCREENING BILATERAL DIGITAL W CAD W VINCENZO Routine 02/11/2018 11:51 AM GAME FARM HELPER Screening breast examination [facility] BONE DENSITOMETRY AXIAL SKELETON Routine 05/15/2015 3:48 PM CDT Screening for osteoporosis from Last 3 Months or Most Recently Relevant to Health Maintenance Results * [facility] SCREENING BILATERAL DIGITAL W CAD W VINCENZO (02/11/2018 11:51 AM GAME FARM HELPER) Anatomical Region Laterality Modality breast Bilateral Mammography 02/11/2018 11:3 2 AM GAME FARM HELPER Narrative 02/12/2018 6:40 AM GAME FARM HELPER - [facility] SCREENING BILATERAL DIGITAL W CAD [...] to exams dated: 10/14/2016, 05/15/2015, and 02/23/2014 [facility]. BREAST TISSUE:The tissue of both breasts [...] contacted. Electronically signed by: Marisa ferguson/kota:02/11/2018 15:01:09 Curriculum Development Specialist: Mary Josue)(Geoff), [facility] letter sent: Additional Imaging Reading location: [facility] BI-RADS: 0 Additional Imaging Evaluation Needed Procedure Note Marisa Lyman MD - 02/12/2018 - [facility] SCREENING BILATERAL DIGITAL W CAD [...] to exams dated: 10/14/2016, 05/15/2015, and 02/23/2014 [facility]. BREAST TISSUE:The tissue of both breasts [...] contacted. Electronically signed by: Marisa ferguson/kota:02/11/2018 15:01:09 Curriculum Development Specialist: Mary Josue)(M), [facility] letter sent: Additional Imaging Reading location: [facility] BI-RADS: 0 Additional Imaging Evaluation Needed us Parth Castillo MD IMG MAMMO ORDERABLES Final R esult * [facility] BONE DENSITOMETRY AXIAL SKELETON (05/15/2015 [...] as an adult, rheumatoid arthritis COMPARISON(S): 08/28/2010 MIG WELDER/MODEL: [facility] - Proficient (S/N [id number]) FINDINGS: AP lumbar spine L1-L4 Total BMD is 1.556 g/kk8Z-ezjxf is 2.9 Most recent prior BMD was 1.535 g/cm2 There has been a 1.4% increase in BMD which is not statistically significant. Left Hip Current Total BMD is 0.833 g/ko5T-ajhfz is -1.4 Most recent prior Total BMD was 0.849 g/cm2 There has been a 1.9% decrease in BMD which is not statistically significant. Current femoral neck BMD is 0.890 g/rs4L-sbeeu is -1.1 Fracture risk assessment (FRAX): 10 [...] as an adult, rheumatoid arthritis COMPARISON(S): 08/28/2010 MIG WELDER/MODEL: [employer] - Proficient (S/N [id number]) FINDINGS: AP lumbar spine L1-L4 Total BMD is 1.556 g/np6C-kxcyj is 2.9 Most recent prior BMD was 1.535 g/cm2 There has been a 1.4% increase in BMD which is not statistically significant. Left Hip Current Total BMD is 0.833 g/hf0P-snhyn is -1.4 Most recent prior Total BMD was 0.849 g/cm2 There has been a 1.9% decrease in BMD which is not statistically significant. Current femoral neck BMD is 0.890 g/hm0O-pomeb is -1.1 Fracture risk assessment (FRAX): 10 year risk for a major osteoporotic fracture is 16.5 % 10 year risk for a hip fracture is 1.3 % The FRAX tool has not been validated in patients currently or previously treated with pharmacotherapy for osteoporosis. In such patients, clinical judgement must be exercised in interpreting FRAX scores as the fracture risk may be overestimated. Annat Green M.D. THIS IS AN ELECTRONICALLY VERIFIED [...] and Treatment of Osteoporosis (http://www.nof.org/professionals/clinical-guidelines) Vivienne Richey SALES ROUTE DRIVER, SHALE MINER BLASTING IMG DEXA ORDERABLES Fin al Result from Last 3 Months or Most Recently Relevant to Health Maintenance Insurance MEDICARE Care Teams Software Quality Specialist Relationship Specialty Start Date End Date Parth Castillo MD [address] [facility] [address] [place] [address] PCP - General Internal Medicine 09/25/16
--- OUTSIDE RECORDS SUMMARY | 2024-10-13 11:59 | XMS_ITS | Patient Health Record ---
Author Organization [facility] [employer] ([address]) Address [address] [address] Support Name Relationship Address Phone Taty Heath Guarantor Unknown [phone] Reason For Referral No Information Medications Medication [...] Status Risk Notes Problem Morbid obesity (disorder) (996603451) Morbid (severe) obesity due to excess calories (E66.01) Active confirmed Problem Chronic fatigue syndrome (disorder) (90629077) Chronic fatigue, unspecified (R53.82) Active confirmed Plan Of Treatment No Information Medical (General) History Surgical History Surgery Date(Month/Year) Bernice En Y 1998
--- OUTSIDE RECORDS SUMMARY | 2024-10-13 11:59 | XMS_ITS | Clinical Summary ---
Author Organization [facility] Address [address] [place] [address] Care Team Providers Care Mini Baccarat Dealer Name Role Phone Meagan Godoy RN Unavailable [phone] Charles Thornton MD Unavailable [phone] Perfecto Cooper MD Unavailable [phone] Elizabeth Brown MD Unavailable [phone] Elizabeth Brown MD Primary Care Provider U navailable Source Comments [facility],non-owned Affiliates and Associated Physician Practices is amultiple site organization consisting of ambulatory clinics and hospital sitesin [place], [place], [place] and [place]. This disclosure is being madepursuant to the Care Everywhere program and may not contain all information available regarding this patient. Last updated 17.[facility] Allergies Active Allergy Reactions Criticality Noted Date [...] Operation 30 capsule 5 9 Active Multiple Vitamins-[place] als (HAIR SKIN AND NAILS FORMULA PO) Active Calcium-Phosph orus-Vitamin D (CITRACAL +D3 PO) Take by mouth every 7 days Active azelastine (ASTELIN) 0.1 % nasal spray 1 Active Homeopathic Products (LEG CRAMPS PO) Active diphenhydrAMIN E HCl (BENADRYL PO) Active HYDROcodone-ac etaminophen ([place]) 5-325 MG tablet Take 1 (one) tablet [...] breath. Assessment & Plan (02/04/2019 2:08 PM FRACTIONATION SUPERVISOR): Lower dose to 25 mg qd Assessment & Plan (04/06/2018 1:44 PM FRACTIONATION SUPERVISOR): Stay off medication until BP becomes higher [...] med/dose. Assessment & Plan (02/15/2013 10:41 AM FRACTIONATION SUPERVISOR): Monitor at home. Continue current med, start exercising. Anxiety Overview (02/04/2019): Rare xanax Assessment & Plan (02/04/2019 2:10 PM FRACTIONATION SUPERVISOR): Continue current medication. Assessment & Plan (12/04/2017 [...] Protein-calorie malnutrition 09/19/2008 06/13/2014 Overview (11/17/2014): Immunizations Immunization Administration Dates Next Due INFLUENZA VACCINE, TRIV. (AF LURIA, FLUZONE TRIVALENT; 6MO+) (IIV3) 12/14/2013 CovConsiderC primary monoval ent 12+ yr 0.3mL Purple [...] on file Legal Sex Female 6:00 AM FRACTIONATION SUPERVISOR Gender Identity Female 01/26/2019 8:32 AM FRACTIONATION SUPERVISOR Sexual Orientation Not on file Last Filed [...] history exists DEPRESSION SCREENING 02/18/2024 INFLUENZA VACCINE (#1) 2024 , 01/05/2019, 11/07/2017, Additional history exists COLON MONITORING [...] Comments LIPID PROFILE Routine 02/04/2019 2:32 PM FRACTIONATION SUPERVISOR Essential hypertension HEPATITIS PANEL Routine 04/06/2018 2:01 PM FRACTIONATION SUPERVISOR Encounter for screening for other viral diseases Elevated LFTs MAMMOGRAPHY ORDER Routine 02/27/2018 ENDOSCOPY, COLON, SCREENING Routine 02/26/2016 7:25 AM FRACTIONATION SUPERVISOR DEXA BONE DENSITY 2 SITES Routine 05/15/2015 from Last 3 Months or Most Recently Relevant to Health Maintenance Results * LIPID PROFILE (02/04/2019 2:32 PM FRACTIONATION SUPERVISOR) Cholesterol 166 <200 mg/dL [facility] INSURANCE BILL Triglycerides 52 <150 mg/dL [facility] INSURANCE BILL HDL Cholesterol 87 >40 mg/dL [facility] INSURANCE BILL VLDL Calculated 10 <=30 mg/dL [facility] INSURANCE BILL LDL Calculated 69 <130 mg/dL [facility] INSURANCE BILL Blood BLOOD SPECIMEN / Unknown 02/04/2019 2:32 PM FRACTIONATION SUPERVISOR 02/04/2019 Narrative Resulting Agency Comment Lab Testing performed at: [facility] [place] [id number] [place] [id number] Parth Castillo MD LAB - CHEMISTRY ORDERABLES F inal Result [facility] INSURANCE BILL [address] [place] [address] * HEPATITIS PANEL (04/06/2018 2:01 PM FRACTIONATION SUPERVISOR) Hepatitis A Virus Antibody IgM Negative Negative [...] BLOOD SPECIMEN / Unknown 04/06/2018 2:01 PM FRACTIONATION SUPERVISOR 04/06/2018 Narrative Resulting Agency Comment [facility] [place] [address] [facility] [id number] us Parth Castillo MD LAB - CHEMISTRY ORDERABLES F inal Result [facility] INSURANCE BILL [address] [place] [address] * MAMMOGRAPHY ORDER (02/27/2018) Anatomical Region Laterality Modality Mammography us Parth Castillo MD MAMMO ORDERABLES Final Resul t * ENDOSCOPY, COLON, SCREENING (02/26/2016 7:25 AM FRACTIONATION SUPERVISOR) Report Endoscopy POC _ Patient Name: Taty [...] by the physician, the nurse and the crop duster in the procedure room. Mental Status Examination: [...] previously scheduled. Procedure Code(s): --- Professional --- 50450, Colonoscopy, flexible; with biopsy, single or multiple --- Technical --- 84389, Colonoscopy, flexible; with biopsy, single or multiple [...] neoplasm of descending colon CPT copyright 2015 [place] [employer]. All rights reserved. The codes documented in this report are preliminary and upon chief estimator review may be revised to meet current compliance requirements. Dr. Charles Thornton MD Charles Thornton MD 02/26/2016 8:21:08 AM This report has been signed electronically. Number of Addenda: 0 Note Initiated On: 02/26/2016 7:25 AM [facility] ENDOSCOPY 02/26/2016 7:25 AM FRACTIONATION SUPERVISOR us Charles Thornton MD GI PROCEDURE ORDERABLES Tien jacob Result - Final [facility] [place] [address] * DEXA BONE DENSITY 2 SITES (05/15/2015) Anatomical Region Laterality Modality Other Vivienne Vanessa Kaiden OPTICAL COATING TECHNICIAN DEXA ORDERABLES Final Result from Last 3 Months or Most Recently Relevant to Health Maintenance Insurance MEDICARE MEDICARE SUPPLEMENT PAYOR GENERIC MEDICARE MEDICARE MEDICARE SUPPLEMENT PAYOR [facility]IC [facility] Address: [facility] [id number] [place] [address] Advance Directives * Full Code (Latest Code Status on File) Date Activated Date Inactivated Comments 04/27/2014 6:10 PM 04/28/2014 7:42 PM * Full Code Date Activated Date Inactivated Comments 04/19/2014 2:45 AM 04/21/2014 1:08 PM Care Teams Mini Baccarat Dealer Relationship Specialty Start Date End Date Elizabeth Brown MD [address] [place] [address] PCP - General Family Medicine 01/12/20 Meagan Godoy, NICKIE Adjunct Writing Instructor 04/19/14 Charles Thornton MD Architecture Analyst Gastroenterology 06/14/14 Perfecto Cooper MD [address] [place] [address] Orthopedic 10/05/18 Elizabeth rBown MD [address] [place] [address] Primary Care Provider Family Medicine 12/07/19
[2024-10-13 13:40] LABS: Hematocrit 35.2 % (37.0-47.0); Hemoglobin 10.5 g/dL (12.0-15.0); Immature Granulocyte Percent A 0.2 % (0-0.5); Lymphocytes Absolute Auto 1.59 K/mm3 (0.9-3.2); Mean Corpuscular HGB Conc 29.8 g/dl (32-36); Mean Corpuscular Hemoglobin 27.0 pg (26-34); Mean Corpuscular Volume 90.5 fl (80-100); Nucleated Red Blood Cells Absolute Auto 0.000 K/mm3 (0.0-0.012); Nucleated Red Blood Cells Perc 0.0 % (0.0-0.2); Platelet Count Result 206 k/mm3 (150-375); Red Blood Count 3.89 M/mm3 (4.2-5.4); White Blood Count 6.3 K/mm3 (4.5-10.0)
[2024-10-13 13:56] LABS: INR 1.0; Prothrombin Time 13.4 Seconds (11.1-14.7)
[2024-10-13 13:57] LABS: Partial Thromboplastin Time 33.2 Seconds (22.3-36.8)
[2024-10-13 14:10] LABS: Anion Gap 6 mmol/L (4-12); Blood Urea Nitrogen 31 mg/dL (7-17); Calcium 8.8 mg/dL (8.4-10.2); Carbon Dioxide 22 mmol/L (22-30); Chloride 110 mmol/L (98-107); Estimated Glomerular Filt Rate 53; Glucose 94 mg/dL (65-110); Potassium 4.2 mmol/L (3.4-5.0); Sodium 138 mmol/L (137-145)
[2024-10-13 14:50] LABS: MRSA (PCR) NOT DETECTED (NOT DETECTE)
[2024-10-13 15:09] LABS: Schistocytes None Seen
[2024-10-13 15:10] LABS: Anisocytosis 1+; Hypochromasia 1+
[2024-10-13 15:11] LABS: Band Neutrophils Percent 0 % (0-6)
== END 2024-10-13 11:47 | disposition home or self-care (01) ==
LOC: ANHSURGERY 11:54
PROVIDERS: Anesthesiology; PCP Family Medicine; Visit Provider Orthopaedic Surgery
DX: M12.812 Other specific arthropathies, not elsewhere classified, left shoulder (principal); N18.30 Chronic kidney disease, stage 3 unspecified; Z01.818 Encounter for other preprocedural examination
CPT/HCPCS: 36415; 80048; 85025; 85610; 85730; 87641

== ENCOUNTER 2024-11-02 00:35 | Day surgery (SDC) | payer MEDICARE, OTHER, SELFPAY ==
--- OUTSIDE RECORDS SUMMARY | 2023-07-10 09:00 | XMS_ITS ---
Author Organization [facility] [employer] [facility] ([address]) Address [address] [place] [phone] Care Team Providers Care Car Spotter Name Role Phone LiamCharles Ifrah [phone] REASON FOR VISIT [facility], interested in peptide therapy, tried Semaglutide in the past; appetite suppression good I feel like I'm on a liquid diet, Desired weight loss: 20 lbs, +1.6 lbs since lastvisit, -5.2 lbs total, No history MTC or MEN2 or pancreatitis, Concerned about future DM and OA, Gastric bypass surgery - 120 lbs lost, now regained 20 lbs, Concerned about hormones Medications Medication SIG (Take, Route, Frequency, Duration) Notes Start Date End Date Status AZELASTINE NASAL 137 mcg/inh 2 spray(s) intranasally 2 times a day Active CETIRIZINE 10 mg 1 tab(s) orally once a day Active MULTIVITAMIN Multiple Vitamins 1 tab(s) orally once a day A ctive GABAPENTIN 300 mg 1 cap(s) orally 3 ti mes a day Active LUBIPROSTONE 24 mcg 1 cap(s) orally 2 ti mes a day Active ACETAMINOPHEN-HYDROCODONE 325 mg-5 mg 1 tab(s) orally every 6 hours As needed Active Vital Signs Height 65.1 in 07/10/2023 Weight 156.2 lbs 07/10/2023 BMI 25.91 kg/m2 07/10/2023 Encounters Encounter Location Date Provider Diagnosis [facility] [employer] [facility] ([address]) [address] [place] [phone] 07/10/2023 Charles Wheeler Morbid (severe) obesity due to excess calories E66.01 ; Chronic fatigue, unspecified R53.82 ; Other fatigue R53.83 and Other malaise R53.81 Assessments Encounter Date Diagnosis (ICD Code) Assessment Notes Treatment Notes Treatment Clinical Notes Section Notes 07/10/2023 Morbid (severe) obesity due to excess calories (ICD-10 - E66.01) 07/10/2023 Chronic fatigue, unspecified (ICD-10 - R53.82) 07/10/2023 Other fatigue (ICD-10 - R53.83) 07/10/2023 Other malaise (ICD-10 - R53.81) Plan Of Treatment Next Appt Details Follow Up: 1 Week, Reason: G LP-1 Agonist Administration Procedure Notes * Category Sub-Category Detail Notes Quell: Weight Management tirzepatide Indication: weig ht loss Concentration: 10 mg/mL Volume Administered: 0.25 mL Dose Administered: 2.5 mg Route: SQ Location: [facility] Frequency: weekly Medication Source: [facility] Adverse Reaction: None Progress Notes * Taty WEIRDOB:1950 (74 yo F)Acc No.[id number]:07/10/2023 Weight Loss Patient: Taty CLARK Provider: Jessica Wheeler MD :1950 A ge:73 Y S ex:Female Date:07/10/2023 Address:[address] [place], [place] [phone] Subjective: * Chief Complaints: * 1 . [facility], interested in peptide therapy, tried Semaglutide in the past; appetite suppression good I feel like I'm on a liquid diet. 2. Desired weight loss: 20 lbs, +1.6 lbs since last visit, -5.2 lbs total. 3. No history MTC or [...] 1 cap(s) orally 2 times a day Objective: * Vitals: H t: 65.1 in, Wt: 156.2 lbs, BMI:25.91Index. Assessment: * Assessment: 1. M orbid (severe) [...] requency w eekly M edication Source H [facility] A dverse Reaction N one * Follow Up: 1 Week (Reason: GLP-1 Agonist Administration) * Billing Information: * Visit Code: * Procedure Codes: * Electronic signature of Sapna Wheeler MD, FAAAAI on 11/02/2024 at 12:38 AM CDT Sign off status: Pending * Provider: Jessica Wheeler MD Date: 0 07/10/2023 Generated for Romina leblanc/Rafa/Bonnieitting on: 0 11/02/2024 12:38 AM CDT
--- OUTSIDE RECORDS SUMMARY | 2023-07-24 09:00 | XMS_ITS ---
Author Organization [facility] [employer] [facility] ([address]) Address [address] [place] [phone] Care Team Providers Care It Sales Executive Name Role Phone LiamCharles Ifrah [phone] REASON FOR VISIT [facility], [...] 07/24/2023 Encounters Encounter Location Date Provider Diagnosis [facility] [employer] [facility] ([address]) [address] [place] [phone] 07/24/2023 Charles Wheeler Morbid (severe) obesity due [...] abdomen Frequency: weekly Lot Number/Expiration: Medication Source: [employer] Adverse Reaction: None Progress Notes * Sarah WEIRianDOB:1950 (74 yo F)Acc No.[id number]:07/24/2023 Weight Loss Patient: Taty CLARK Provider: Jessica Wheeler MD :1950 A ge:73 Y S ex:Female Date:07/24/2023 Address:[address] [place], [place] [phone] Subjective: * Chief Complaints: * 1 . [...] Number/Expiration 0 -2024 M edication Source H [facility] A dverse Reaction N one * Follow Up: 1 Week (Reason: GLP-1 Agonist Administration) * Billing Information: * Visit Code: * Procedure Codes: * Electronic signature of Sapna Wheeler MD, FAAAAI on 11/02/2024 at 12:37 AM CDT Sign off status: Pending * Provider: Jessica Wheeler MD Date: 0 07/24/2023 Generated for Romina leblanc/Rafa/Shoshana on: 0 11/02/2024 12:37 AM CDT
--- OUTSIDE RECORDS SUMMARY | 2023-07-31 09:00 | XMS_ITS ---
Author Organization [facility] [employer] ([address]) Address [address] [place] [phone] Care Team Providers Care Switching Operator Name Role Phone LiamCharles Ifrah [phone] REASON FOR VISIT [facility], interested in peptide therapy, [...] hormones Encounters Encounter Location Date Provider Diagnosis [facility] [employer] [place] ([address]) [address] [place] [phone] 07/31/2023 Charles Wheeler Morbid (severe) obesity due [...] abdomen Frequency: weekly Lot Number/Expiration: Medication Source: [employer] Adverse Reaction: None Progress Notes * Taty WEIRDOB:1950 (74 yo F)Acc No.[id number]:07/31/2023 Weight Loss Patient: Taty CLARK Provider: Jessica Wheeler MD :1950 A ge:73 Y S ex:Female Date:07/31/2023 Address:[address] [place], [place] [phone] Subjective: * Chief Complaints: * 1 . [...] ot Number/Expiration 0 M edication Source H [facility] A dverse Reaction N one * Follow Up: 1 Week (Reason: GLP-1 Agonist Administration) * Billing Information: * Visit Code: * Procedure Codes: * Electronic signature of Sapna Wheeler MD, FAAAAI on 11/02/2024 at 12:37 AM CDT Sign off status: Pending * Provider: Jessica Wheeler MD Date: 0 07/31/2023 Generated for Romina leblanc/Rafa/Shoshana on: 0 11/02/2024 12:37 AM CDT
--- OUTSIDE RECORDS SUMMARY | 2023-08-02 16:30 | XMS_ITS ---
Author Organization [facility] [employer] [place] ([address]) Address [address] [address] Care Team Providers Care Homeland Security Program Specialist Name Role Phone [facility]-M[facility], Provider Unavailable Unavailab [...] Active Encounters Encounter Location Date Provider Diagnosis [address] [address] 08/02/2023 Provider [facility]Z-Migration Plan Of Treatment No Information Progress Notes * Taty WEIRDOB:1950 (74 yo F)Acc No.[id number]:08/02/2023 Patient: Taty CLARK Provider: Jessica Webb :1950 A ge:73 Y S ex:Female Date:08/02/2023 Address:[address] [place], [place] [phone] Subjective: * Chief Complaints: * 1 . [...] * Electronic signature of Maryann KELLY-Migration on 11/02/2024 at 12:38 AM CDT Sign off status: Pending * Provider: Jessica lundberg Migration Date: 08/02/2023 Generated for Romina leblanc/Rafa/Shoshana on: 11/02/2024 12:38 AM CDT
[2024-10-13 12:18] VITALS: BP 134/69; PULSE 92; RESP 16; TEMP 36.9; BMI 23.7
--- NOTE | 2024-10-13 12:38 | PC.NURSE ---
Report to the Outpatient Waiting Room, entrance under the green pavilion located off [facility], at time ___6:00AM__ on date ___11/02/24__. Planned Procedure Time: ___7:30AM___.? Time changes happen often and if your time is changed the preop area will call you the afternoon before. - You and your visitor will be asked to self-screen and do not enter if you have any COVID symptoms. Please call surgeon if you need to reschedule. - A mask is optional within the hospital at this time. Patients may have clear liquids (water, carbonated beverages, clear teas, apple juice) until 3 hours prior to surgery (4:30AM) with a maximum of 20 ounces. - No food from midnight until time of surgery and no smoking, or chewing tobacco (or any form of nicotine). No chewing gum, candy or mints. Take only the following medications with a SIP of water on the morning of surgery: ___GABAPENTIN. MAY TAKE HYDROCODONE NEEDED FOR PAIN. DO NOT STOP ANY OF YOUR OTHER PRESCRIPTION MEDICATIONS PRIOR TO SURGERY EXCEPT THE FOLLOWING Hold all vitamins and supplements for 3 days per anesthesiologist.- LAST DOSE 10/29/24 Please no make-up, nail sami, hairspray, perfume, deodorant, or body powder the day of surgery.? No jewelry (including any body piercings) or valuables the day of surgery, leave them at home.? Please take a shower or bath the night before, or the morning of, surgery with an antibacterial soap.? Wear comfortable, loose fitting clothing.? - Jewelry must be removed prior to entering the operating room.? Rings and piercings that are not removed may be cut off. - The hospital will not accept responsibility for valuables.? - Please leave all valuables, including medications, at home the day of surgery. If you are going home after surgery, a licensed vending route driver must drive you home.? - NO public transportation without another adult if you receive anesthesia. - We recommend that an adult stay with you for 24 hours following discharge. - We also recommend that you do not drive, make important decision, drink alcoholic beverages, or take any drugs that were not prescribed by your health care provider for at least 24 hours after your discharge time. Follow any additional instructions given to you from your surgeon. Telephone instructions given to ____PATIENT AND SIGNIFICANT OTHER and asked if any additional questions and then verbalized understanding. Patient advised to call surgeon office or pre surgery nurse liaison [phone] if any additional questions.
[2024-11-02] VITALS (14 sets, daily range): BP systolic 130–153; BP diastolic 78–109; PULSE 63–112; RESP 12–22; TEMP 35.9–37.4; O2SAT 95–100; BMI 23.2
--- NOTE | ~2024-11-02 | XR_ITS ---
EXAMINATION: XR shoulder LT min 2V DATE: 11/02/2024 09:51 INDICATION: Postoperative evaluation following left reverse total shoulder arthroplasty TECHNIQUE: AP, AP oblique externally rotated and transscapular Y views of the left shoulder were obtained. COMPARISON: None FINDINGS: Reverse right total shoulder arthroplasty which appears well seated in near- anatomic alignment. Residual suture anchor screw at the greater tuberosity. A second smaller chronically displaced suture anchor projects over the soft tissues posterior to the greater tuberosity. No acute fracture. Old healed fracture deformity at the lateral right clavicle and heterotopic ossification along the coracoclavicular ligament consistent with sequela of chronic sprain. Expected lucent postoperative gas at the operative bed. Visualized portions of the lungs are clear. IMPRESSION: 1. Expected appearance of a reverse left total shoulder arthroplasty which appears well seated in near-anatomic alignment. 2. Postoperative change of prior rotator cuff repair with screw anchor at the greater tuberosity and a second unchanged displaced suture anchor screw projecting over the soft tissues posterior to the greater tuberosity. Reviewed, dictated and finalized at location A. IMPRESSION: 1. Expected appearance of a reverse left total shoulder arthroplasty which appe ars well seated in near-anatomic alignment. 2. Postoperative change of prior rotator cuff repair with screw anchor at the g reater tuberosity and a second unchanged displaced suture anchor screw projecti ng over the soft tissues posterior to the greater tuberosity.
--- OUTSIDE RECORDS SUMMARY | 2024-11-02 00:38 | XMS_ITS | Patient Health Record ---
Author Organization [facility] [employer] [place] ([address]) Address [address] [address] Support Name Relationship Address Phone Taty Heath Guarantor Unknown [phone] Reason For Referral No Information Medications Medication [...] Status Risk Notes Problem Morbid obesity (disorder) (915848977) Morbid (severe) obesity due to excess calories (E66.01) Active confirmed Problem Chronic fatigue syndrome (disorder) (62543841) Chronic fatigue, unspecified (R53.82) Active confirmed Plan Of Treatment No Information Medical (General) History Surgical History Surgery Date(Month/Year) Bernice En Y 1998
--- OUTSIDE RECORDS SUMMARY | 2024-11-02 00:38 | XMS_ITS | Clinical Summary ---
Author Organization [facility] [employer] Address [address] [place] [address] Care Team Providers Care Manager Drilling Name Role Phone Meagan Godoy RN Unavailable [phone] Charles Thornton MD Unavailable [phone] Perfecto Cooper MD Unavailable [phone] Elizabeth Brown MD Unavailable Elizabeth Brown MD Primary Care Provider U navailable Source Comments [facility],non-owned Affiliates and Associated Physician Practices is amultiple site organization consisting of ambulatory clinics and hospital sitesin [place], [place] and [place]. This disclosure is being madepursuant to the Care Everywhere program and may not contain all information available regarding this patient. Last updated 17.[facility] Allergies Active Allergy Reactions Criticality Noted Date [...] Operation 30 capsule 5 9 Active Multiple Vitamins-[place] als (HAIR SKIN AND NAILS FORMULA PO) Active Calcium-Phosph orus-Vitamin D (CITRACAL +D3 PO) Take by mouth every 7 days Active azelastine (ASTELIN) 0.1 % nasal spray 1 Active Homeopathic Products (LEG CRAMPS PO) Active diphenhydrAMIN E HCl (BENADRYL PO) Active HYDROcodone-ac etaminophen ([place]) 5-325 MG tablet Take 1 (one) tablet [...] breath. Assessment & Plan (02/04/2019 2:08 PM PIT MANAGER): Lower dose to 25 mg qd Assessment & Plan (04/06/2018 1:44 PM PIT MANAGER): Stay off medication until BP becomes higher [...] med/dose. Assessment & Plan (02/15/2013 10:41 AM PIT MANAGER): Monitor at home. Continue current med, start exercising. Anxiety Overview (02/04/2019): Rare xanax Assessment & Plan (02/04/2019 2:10 PM PIT MANAGER): Continue current medication. Assessment & Plan (12/04/2017 [...] (AF LURIA, FLUZONE TRIVALENT; 6MO+) (IIV3) 12/14/2013 CovHCDC primary monoval ent 12+ yr 0.3mL Purple [...] on file Legal Sex Female 6:00 AM PIT MANAGER Gender Identity Female 01/26/2019 8:32 AM PIT MANAGER Sexual Orientation Not on file Last Filed [...] 02/27/2019 02/27/2018, 02/17, 02/11/2018, Additional history exists PNEUMOCOCCAL VACCINE 50+ (3 of 3 - PCV20 or PCV21) 01/10/2024 01/09/2019, 12/04/2017, 11/19/2016, Additional history exists LIPID TESTING 02/05/2024 02/04/2019, 05/18, 05/19/2015, Additional history exists DEPRESSION SCREENING 02/18/2024 COVID-19 VACCINE (3 - season) 2024 10/24/2020, 09/29/2020 INFLUENZA VACCINE (#1) 2024 , 01/05/2019, 11/07/2017, [...] Comments LIPID PROFILE Routine 02/04/2019 2:32 PM PIT MANAGER Essential hypertension HEPATITIS PANEL Routine 04/06/2018 2:01 PM PIT MANAGER Encounter for screening for other viral diseases Elevated LFTs MAMMOGRAPHY ORDER Routine 02/27/2018 ENDOSCOPY, COLON, SCREENING Routine 02/26/2016 7:25 AM PIT MANAGER DEXA BONE DENSITY 2 SITES Routine 05/15/2015 from Last 3 Months or Most Recently Relevant to Health Maintenance Results * LIPID PROFILE (02/04/2019 2:32 PM PIT MANAGER) Cholesterol 166 <200 mg/dL [facility] INSURANCE BILL Triglycerides 52 <150 mg/dL [facility] INSURANCE BILL HDL Cholesterol 87 >40 mg/dL [facility] INSURANCE BILL VLDL Calculated 10 <=30 mg/dL [facility] INSURANCE BILL LDL Calculated 69 <130 mg/dL [facility] INSURANCE BILL Blood BLOOD SPECIMEN / Unknown 02/04/2019 2:32 PM PIT MANAGER 02/04/2019 Narrative Resulting Agency Comment Lab Testing performed at: [facility] [place] [id number] [place] [id number] Parth Castillo MD LAB - CHEMISTRY ORDERABLES F inal Result [facility] INSURANCE BILL [address] [place] [address] * HEPATITIS PANEL (04/06/2018 2:01 PM PIT MANAGER) Hepatitis A Virus Antibody IgM Negative Negative [...] BLOOD SPECIMEN / Unknown 04/06/2018 2:01 PM PIT MANAGER 04/06/2018 Narrative Resulting Agency Comment [facility] [address] [facility] [id number] us Parth Castillo MD LAB - CHEMISTRY ORDERABLES F inal Result [facility] INSURANCE BILL [address] [place] [address] * MAMMOGRAPHY ORDER (02/27/2018) Anatomical Region Laterality Modality Mammography us Parth Castillo MD MAMMO ORDERABLES Final Resul t * ENDOSCOPY, COLON, SCREENING (02/26/2016 7:25 AM PIT MANAGER) Report Endoscopy POC _ Patient Name: Taty [...] by the physician, the nurse and the company tanker truck driver in the procedure room. Mental Status Examination: [...] previously scheduled. Procedure Code(s): --- Professional --- 59721, Colonoscopy, flexible; with biopsy, single or multiple --- Technical --- 80070, Colonoscopy, flexible; with biopsy, single or multiple [...] neoplasm of descending colon CPT copyright 2015 [employer]. All rights reserved. The codes documented in this report are preliminary and upon public transit trolley driver review may be revised to meet current compliance requirements. Dr. Charles Thornton MD Charles Thornton MD 02/26/2016 8:21:08 AM This report has been signed electronically. Number of Addenda: 0 Note Initiated On: 02/26/2016 7:25 AM [facility] ENDOSCOPY 02/26/2016 7:25 AM PIT MANAGER us Charles Thornton MD GI PROCEDURE ORDERABLES Tien jacob Result - Final [facility] [place] [address] * DEXA BONE DENSITY 2 SITES (05/15/2015) Anatomical Region Laterality Modality Other Vivienne Vanessa Kaiden COTTON FEEDER DEXA ORDERABLES Final Result from Last 3 Months or Most Recently Relevant to Health Maintenance Insurance MEDICARE MEDICARE SUPPLEMENT PAYOR GENERIC MEDICARE MEDICARE MEDICARE SUPPLEMENT PAYOR GENERIC [facility]LY [facility] Address: [facility] [address] [place] [address] Advance Directives * Full Code (Latest Code Status on File) Date Activated Date Inactivated Comments 04/27/2014 6:10 PM 04/28/2014 7:42 PM * Full Code Date Activated Date Inactivated Comments 04/19/2014 2:45 AM 04/21/2014 1:08 PM Care Teams Manager Drilling Relationship Specialty Start Date End Date Elizabeth Brown MD [address] [place] [address] PCP - General Family Medicine 01/12/20 Meagan Godoy, NICKIE Accounting Tutor 04/19/14 Charles Thornton MD Winch Stripper Gastroenterology 06/14/14 Perfecto Cooper MD [address] [place] [address] Orthopedic 10/05/18 Elizabeth Brown MD [address] [place] [address] Primary Care Provider Family Medicine 12/07/19
--- OUTSIDE RECORDS SUMMARY | 2024-11-02 00:39 | XMS_ITS | Clinical Summary ---
Author Organization [facility] Address [address] [place] [address] Phone Care Team Providers Care Human Resources Professional Name Role Phone Parth Castillo MD Primary [...] Comments Blood Pressure 103/68 04/04/2018 11:45 PM TRIM MECHANIC Pulse 78 04/04/2018 11:45 PM TRIM MECHANIC Temperature - - Respiratory Rate 13 04/04/2018 11:45 PM TRIM MECHANIC Oxygen Saturation 96% 04/04/2018 11:45 PM TRIM MECHANIC Inhaled Oxygen Concentration - - Weight - [...] - PCV) 11/17/2013 11/17/2012 Influenza Immunization (#1) 10/18/202404/2016, 12/05/2015, 01/23/2015, Additional history exists SARS-COV-2 Immunization (3 - season) 2024 10/24/2020, 09/29/2020 Respiratory Syncytial Virus (RSV) Immunization [...] CAD W VINCENZO Routine 02/11/2018 11:51 AM TRIM MECHANIC Screening breast examination [facility] BONE DENSITOMETRY AXIAL SKELETON Routine 05/15/2015 3:48 PM CDT Screening for osteoporosis from Last 3 Months or Most Recently Relevant to Health Maintenance Results * [facility] SCREENING BILATERAL DIGITAL W CAD W VINCENZO (02/11/2018 11:51 AM TRIM MECHANIC) Anatomical Region Laterality Modality breast Bilateral Mammography 02/11/2018 11:3 2 AM TRIM MECHANIC Narrative 02/12/2018 6:40 AM TRIM MECHANIC - [facility] SCREENING BILATERAL DIGITAL W CAD W [...] exams dated: 10/14/2016, 05/15/2015, and 02/23/2014 [facility]. BREAST TISSUE:The tissue of both breasts is [...] contacted. Electronically signed by: Marisa ferguson/kota:02/11/2018 15:01:09 Fiber Optic Assembly Worker: Mary Josue)(Geoff), [facility] letter sent: Additional Imaging Reading location: [facility] BI-RADS: 0 Additional Imaging Evaluation Needed Procedure Note Marisa Lyman MD - 02/12/2018 - [facility] SCREENING BILATERAL DIGITAL W CAD W [...] exams dated: 10/14/2016, 05/15/2015, and 02/23/2014 [facility]. BREAST TISSUE:The tissue of both breasts is [...] contacted. Electronically signed by: Marisa ferguson/kota:02/11/2018 15:01:09 Fiber Optic Assembly Worker: Mary Josue)(M), [facility] letter sent: Additional Imaging Reading location: [facility] BI-RADS: 0 Additional Imaging Evaluation Needed us Parth Castillo MD IMG MAMMO ORDERABLES Final R esult * [facility] BONE DENSITOMETRY AXIAL SKELETON (05/15/2015 [...] as an adult, rheumatoid arthritis COMPARISON(S): 08/28/2010 MANAGER ALLIANCE/MODEL: [employer] (S/N [id number]) FINDINGS: AP lumbar spine L1-L4 Total BMD is 1.556 g/nl7K-sfjgz is 2.9 Most recent prior BMD was 1.535 g/cm2 There has been a 1.4% increase in BMD which is not statistically significant. Left Hip Current Total BMD is 0.833 g/hx8L-nsxjq is -1.4 Most recent prior Total BMD was 0.849 g/cm2 There has been a 1.9% decrease in BMD which is not statistically significant. Current femoral neck BMD is 0.890 g/bz6X-pcqmy is -1.1 Fracture risk assessment (FRAX): 10 [...] as an adult, rheumatoid arthritis COMPARISON(S): 08/28/2010 MANAGER ALLIANCE/MODEL: [employer] - [employer] (S/N [id number]) FINDINGS: AP lumbar spine L1-L4 Total BMD is 1.556 g/hk6A-gmssl is 2.9 Most recent prior BMD was 1.535 g/cm2 There has been a 1.4% increase in BMD which is not statistically significant. Left Hip Current Total BMD is 0.833 g/xg2Y-zolkh is -1.4 Most recent prior Total BMD was 0.849 g/cm2 There has been a 1.9% decrease in BMD which is not statistically significant. Current femoral neck BMD is 0.890 g/nt3V-qipch is -1.1 Fracture risk assessment (FRAX): 10 [...] and Treatment of Osteoporosis (http://www.nof.org/professionals/clinical-guidelines) Vivienne Richey SYSTEMS TECHNICIAN, LOCK MAINTENANCE SUPERVISOR IMG DEXA ORDERABLES Fin al Result from Last 3 Months or Most Recently Relevant to Health Maintenance Insurance MEDICARE Care Teams Human Resources Professional Relationship Specialty Start Date End Date Parth Castillo MD [address] [place] [address] PCP - General Internal Medicine 09/25/16
[2024-11-02] MEDS: TRANEXAMIC ACID 1,000MG/ISO100 1,000 MG/100 ML BAG 200 MG IVPB (06:30)
[2024-11-02] MEDS: LACTATED RINGERS 1,000 ML 30 ML IV CONT ×2 (06:30→09:36)
--- NOTE | 2024-11-02 06:54 | WPDANESEPPF ---
Anes - Initial Pre Proc Eval Procedure: Operation Date: 11/02/24 07:30 Proposed Procedures p Left Reverse Total Shoulder Arthroplasty - Perfecto Cooper MD Date/Time: 11/02/24 06:54 Surgeon: Perfecto Cooper MD Pre Op Diagnosis: left shoulder rotator cuff arthropathy Patient Data Age: 74 Gender: F Height: 1.65 m Weight: 64.7 kg Last Vital Signs Temp 98.4 F 10/13/24 12:18 Pulse 92 10/13/24 12:18 Resp 16 10/13/24 12:18 BP 134/69 10/13/24 12:18 O2 Del Method Room Air 10/13/24 12:18 Allergies Allergy/AdvReac Type Severity Reaction Status Date / Time No Known Allergies Allergy Verified 11/02/24 06:55 Home Medications ?Medication ?Instructions ?Recorded ?Confirmed ?Type calcium carbonate (Calcium 500) 1,000 mg PO DAILY 02/20/22 10/29/24 History multivitamin 1 tablet PO DAILY 02/20/22 10/29/24 History lubiprostone 24 mcg capsule See Rx Instructions .Route 04/27/24 10/29/24 Rx .COMPLEX #180 caps naloxone 4 mg/actuation nasal 4 mg intranasal Q3M PRN opioid 05/03/24 10/29/24 Rx spray (Narcan) overdose #2 ea calcium pantothenate 100 mg tablet 100 mg PO DAILY 06/17/24 10/29/24 History omeprazole 40 mg capsule,delayed 40 mg PO DAILY #90 caps 06/21/24 10/29/24 Rx release cyanocobalamin (vitamin B-12) 3,000 mcg PO DAILY 10/13/24 10/29/24 History 3,000 mcg capsule diphenhydramine HCl 25 mg capsule 25 mg PO Q8H PRN allergy symptoms 10/13/24 10/29/24 History (Benadryl) gabapentin 800 mg tablet 800 mg PO TID 10/13/24 10/29/24 History hydrocodone 5 mg-acetaminophen 325 1 tablet PO Q6H PRN pain 10/13/24 10/29/24 History mg tablet iron 18 mg tablet 18 mg PO DAILY 10/13/24 10/29/24 History multivit with 1 tablet PO .PO 10/13/24 10/29/24 History ioc-pmol-CE-#190herbal 18 mg iron-800 mcg-150 mg tablet (Vitamin D3 Complete) vitamin A 2,500 unit-vit C 100 1 cap PO DAILY 10/13/24 10/29/24 History mg-biotin 2,500 ldy-lpld-kvdccq capsule (Qaik-Zyms-Njal (vit A,X-vvghqi-Za-Cu)) cyclobenzaprine 5 mg tablet See Rx Instructions .Route 10/19/24 10/29/24 Rx .COMPLEX #90 tabs quetiapine 100 mg tablet 300 mg (3 x 100 mg) PO QHS PRN 10/29/24 10/29/24 Rx sleep #90 tabs Patient hx anesthesia problems: none Family hx anesthesia problems: none Results Review: All pre-operative results and documents have been reviewed as part of the pre-operative evaluation. [facility] Past Medical History Medical History Spinal stenosis of lumbar region with neurogenic claudication Primary osteoarthritis of right knee Primary osteoarthritis of left knee Complete tear iliofemoral ligament Closed displaced fracture of acromial end of left clavicle Bilateral primary osteoarthritis of knee Bilateral hip pain History of alcohol use disorder Chronic pain syndrome Elevated liver enzymes CKD (chronic kidney disease) stage 3, GFR 30-59 ml/min Opioid use Chronic pain Benign essential HTN Surgical History Surgical History History of shoulder surgery (~10/22/22) Deltoid Muscle Repair - Rt History of bilateral tubal ligation History of back surgery History of reverse total replacement of right shoulder joint (~03/21/22) Presence of right artificial knee joint (~2018) Presence of left artificial knee joint (~2019) Bariatric surgery status History of hip replacement, total Rt hip Total knee replacement status Family History Family History Mother , 83 yrs old Brain tumor Other Family history of arthritis Social History Social History Social History: Engaged Smoking status: Never smoker Second hand tobacco smoke exposure: No Alcohol intake: current Alcohol use details: 2/MONTH Substance use: never Substance use type: does not use Do You Feel Safe in your Home?: Yes Lack of Transportation: No Lack of Food: Never True Current Housing: I Have Housing Concerned About Future Housing: No Difficulty Paying Gas/Electric Bills: No Difficulty Paying for Meds: No Currently Unemployed: No Education: High School Diploma/GED Difficulty w/ Childcare or Family Care: No Living arrangements: other Additional living arrangements comments: S.O. Occupation/Education: retired Gender identity (if verbalized by the patient): Female Sexual Orientation (if Verbalized by the Patient): Straight or Heterosexual Spiritual care concerns: No Anes - Eval Final PreProcedure Day of Procedure 11/02/24 06:54 Patient weight: normal Lungs: normal air movement Airway: Mallampati scale class II and special considerations (Several gold cap coverings in place. ) Neurological: alert and oriented Last oral intake: >/= 8 hours ASA classification: II Emergent: no Anesthetic plan: proceed Anesthesia type and monitoring: general ETT and standard monitoring Results Review: All pre-operative results and documents have been reviewed as part of the pre-operative evaluation. EKG reviewed. Pt states that she can walk 1-2 fos without cp or sob. Informed Consent: The patient's anesthetic plan and its attendant risks and benefits were discussed with the patient/family/POA. Questions were solicited and answers provided to the satisfaction of the patient/family/POA.
--- NOTE | 2024-11-02 07:10 | WPDHPUPDATE1 ---
History and Physical Update Update Date/Time: 11/02/24 07:10 History and Physical has been reviewed, including an updated exam of the patient. There are NO changes in the patient's condition. Risks, benefits, and alternatives have been discussed and questions answered. Patient agrees to proceed with procedure.
[2024-11-02] MEDS: ceFAZolin 2 GM in SODIUM CHLORIDE 0.9% IV 50 ML 100 ML IVPB ×3 (07:26→23:16)
[2024-11-02] MEDS: VANCOMYCIN HCL 1,000 MG VIAL 1000 MG TOPICAL (08:35)
[2024-11-02] MEDS: SODIUM CHLORIDE 0.9% IV 38.7 ML, MORPHINE SULFATE INJ (*CRX) 2 MG, ROPivacaine HCL 1% 2... INFILTRATE (08:35)
[2024-11-02] MEDS: TRANEXAMIC ACID 1,000 MG/10 ML AMPUL 1000 MG IV PUSH (09:21)
[2024-11-02] MEDS: fentaNYL CITRATE INJ (*CRX) 100 MCG/2 ML VIAL 25 MCG IV PUSH ×6 (09:46→10:15)
--- NOTE | 2024-11-02 10:49 | ADMGEN ---
This patient, Taty Heath, was admitted to [facility] Surg Room 307-01. Patient/family oriented to hospital policies and general routines including ID bracelet, bed and alarms, visiting hours, pain management, procedures, bathroom and other care routines, personal items, smoking policy, room service/diet, and visiting hours. Information on how to activate the Rapid Response Team has been discussed. Patient/Family are encouraged to report perceived risks to care and to ask questions if they do not understand what they are told or what they should do.
[2024-11-02] MEDS: HYDROmorphone HCL INJ (*CRX) 1 MG/ML SYR IV PUSH (10:59)
[2024-11-02] MEDS: IBUPROFEN IV 800 MG/200 ML 800 MG/200 ML BAG 400 MG IVPB (12:02)
[2024-11-02] MEDS: ASPIRIN 81 MG ENTERIC TABLET PO ×2 (12:05→20:42)
[2024-11-02] MEDS: FAMOTIDINE 20 MG TABLET PO ×2 (12:06→20:42)
[2024-11-02] MEDS: GABAPENTIN 400 MG CAPSULE 800 MG PO ×2 (12:06→17:14)
[2024-11-02] MEDS: ACETAMINOPHEN 325 MG TABLET 650 MG PO ×3 (12:06→23:16)
[2024-11-02] MEDS: oxyCODONE/ACETAMINOPHEN (*CRX) 10-325 MG TABLET 1 TAB PO ×2 (13:21→19:55)
[2024-11-02] MEDS: CYANOCOBALAMIN 1,000 MCG TABLET 3000 MCG PO (15:00)
--- NOTE | 2024-11-02 15:10 | P.OP_ITS ---
Procedure Note - Detailed Date of Procedure 11/02/24 Pre-op Diagnosis Left shoulder rotator cuff arthropathy Post-op Diagnosis Same Procedure Performed Reverse total shoulder arthroplasty, left Surgeon Perfecto Cooper MD Anesthesia General Findings 11 degree inclination, 5 degree retroversion. Corrected with 15 degree augment at the superior posterior quadrant. Previous bone anchors not encountered. Subscapularis not repaired due to coracobrachialis impingement. Lesser tuberoplasty performed. Description of Procedure Preoperative antibiotics were given. The patient was transferred to the operating room and a general anesthetic was administered. The beach chair position was used at 45 degrees. All bony prominences were padded. The head was carefully stabilized on the [facility] hogshead liner. A sterile prep and drape was performed in the usual manner with ChloraPrep. A longitudinal incision was created at the anterior shoulder just lateral to the deltopectoral interval. Careful dissection was performed to expose the interval and protect the cephalic vein. The vein was suture ligated. Anterior circumflex vessel branches were suture ligated. The biceps was previously ruptured. A subscapularis tenotomy was performed. The inferior capsule was released, exposing the humeral head. Osteophytes were removed. Care was taken to stay on bone to protect the axillary nerve. The neck anteversion and inclination were carefully assessed. Version was between 20? and 30?. The anatomic head cut was taken with the oscillating saw. The cut protector was placed, and attention was turned to the glenoid. Retractors were placed. Releases were carried out for exposure. The subscapularis was mobilized, the inferior capsule and long head of triceps released, and the superior and middle glenohumeral ligaments released as well. Labral tissue was resected as needed. Version and inclination were corrected according to preoperative templating. The sizing template was used to assess the baseplate position low on the glenoid, with an approximate 5 degrees corrections of retroversion and 10 degrees of inclination. A guide pin was placed. Minimal reaming was used to accomplish a flat surface without violating the subchondral bone. The boss was drilled, and the real component was impacted into position. The central compression screw was placed. Supplemental locking screws were placed superiorly, and inferiorly. The glenosphere was impacted into the taper. Attention was turned to the humerus. The guide pin was placed, central drilling performed, and the broach trial inserted. The proximal humerus was reamed for the inset component. The humeral components were trialed. The real humeral stem, tray, and insert were impacted into position. The shoulder was copiously irrigated periodically with pulsatile lavage. The shoulder was reduced and stabi lity confirmed. Due to conflict of the lesser tuberosity on the coracobrachialis, the lesser tuberosity was partially taken down and the subscapularis not repaired. 1 gram of Vancomycin powder was placed in the joint. The remaining tissue was closed with 2-0 Vicryl, 3-0 Stratafix and 4-0 Stratafix, and steri-strips. A sterile silver occlusive dressing and shoulder immobilizer were placed. The patient was transferred to the recovery room. [employer] reverse TSA size 1 stem. +0 polyethylene insert. 15 augmented baseplate. 33 + 3 mm glenosphere. Estimated Blood Loss 200 Drains No Pathology None sent Complications No immediate complications Condition Stable Disposition PACU [facility] Billing Surgery - Charge Forward: Surgery Billing
[2024-11-02] MEDS: PANTOPRAZOLE 40 MG TABLET PO (20:42)
[2024-11-02] MEDS: CYCLOBENZAPRINE HCL 10 MG TABLET PO (21:16)
[2024-11-03 00:07] VITALS: BP 138/55; PULSE 101; RESP 16; TEMP 36.8; O2SAT 99
[2024-11-03] MEDS: oxyCODONE/ACETAMINOPHEN (*CRX) 10-325 MG TABLET 1 TAB PO ×2 (01:56→09:00)
[2024-11-03 04:15] VITALS: BP 120/72; PULSE 83; RESP 16; TEMP 37.2; O2SAT 97
[2024-11-03 05:54] LABS: Hematocrit 34.5 % (37.0-47.0); Hemoglobin 10.1 g/dL (12.0-15.0); Immature Granulocyte Percent A 0.2 % (0-0.5); Lymphocytes Absolute Auto 1.56 K/mm3 (0.9-3.2); Mean Corpuscular HGB Conc 29.3 g/dl (32-36); Mean Corpuscular Hemoglobin 26.7 pg (26-34); Mean Corpuscular Volume 91.3 fl (80-100); Nucleated Red Blood Cells Absolute Auto 0.000 K/mm3 (0.0-0.012); Nucleated Red Blood Cells Perc 0.0 % (0.0-0.2); Platelet Count Result 185 k/mm3 (150-375); Red Blood Count 3.78 M/mm3 (4.2-5.4); White Blood Count 8.3 K/mm3 (4.5-10.0)
[2024-11-03 06:03] LABS: Anion Gap 4 mmol/L (4-12); Blood Urea Nitrogen 23 mg/dL (7-17); Calcium 8.2 mg/dL (8.4-10.2); Carbon Dioxide 25 mmol/L (22-30); Chloride 108 mmol/L (98-107); Estimated CRCL calculation 39 ml/min; Estimated Glomerular Filt Rate 52; Glucose 107 mg/dL (65-110); Potassium 4.2 mmol/L (3.4-5.0); Sodium 137 mmol/L (137-145)
[2024-11-03 06:18] LABS: Anisocytosis 1+; Hypochromasia 1+; Schistocytes None Seen
[2024-11-03] MEDS: ceFAZolin 2 GM in SODIUM CHLORIDE 0.9% IV 50 ML 100 ML IVPB (06:22)
[2024-11-03] MEDS: ACETAMINOPHEN 325 MG TABLET 650 MG PO ×2 (06:22→13:27)
[2024-11-03 08:14] VITALS: BP 135/78; PULSE 107; RESP 18; TEMP 36.4; O2SAT 97
[2024-11-03] MEDS: PANTOPRAZOLE 40 MG TABLET PO (08:54)
[2024-11-03] MEDS: ASPIRIN 81 MG ENTERIC TABLET PO (08:54)
[2024-11-03] MEDS: FAMOTIDINE 20 MG TABLET PO (08:55)
[2024-11-03] MEDS: CYANOCOBALAMIN 1,000 MCG TABLET 3000 MCG PO (08:55)
[2024-11-03] MEDS: GABAPENTIN 400 MG CAPSULE 800 MG PO ×2 (08:55→13:27)
[2024-11-03 12:00] VITALS: BP 128/79; PULSE 100; RESP 16; TEMP 35.8; O2SAT 96
--- NOTE | 2024-11-03 13:47 | WPDANESPN ---
Anes - Prog Note Post-Op Date/Time: 11/03/24 13:47 Cardiovascular status: normal Respiratory status: normal Airway patency: baseline Mental status: baseline Post-Op hydration status: normal Vital Signs: Last Vital Signs Temp 35.8 C L 11/03/24 12:00 Pulse 100 11/03/24 12:00 Resp 16 11/03/24 12:00 BP 128/79 11/03/24 12:00 Pulse Ox 96 11/03/24 12:00 O2 Del Method Room Air 11/03/24 08:00 O2 Flow Rate 2 11/02/24 10:35 Pain Score (VAS): 2 I/O: Intake & Output 11/02/24 11/03/24 11/03/24 23:59 07:59 15:59 Intake Total 790 240 Balance 790 240 Laboratory Tests 11/03/24 05:30 11/03/24 05:30 11/03/24 05:30 WBC 8.3 RBC 3.78 L Hgb 10.1 L Hct 34.5 L MCV 91.3 MCH 26.7 MCHC 29.3 L RDW 13.2 Plt Count 185 MPV 10.5 H Immature Gran % (Auto) 0.2 Neut % (Auto) 73.0 Lymph % (Auto) 18.8 [place] % (Auto) 7.6 Eos % (Auto) 0.2 Baso % (Auto) 0.2 Lymph # (Auto) 1.56 [place] # (Auto) 0.6 Eos # (Auto) 0.0 Baso # (Auto) 0.0 Abs Immat Gran (auto) 0.02 Absolute Neuts (auto) 6.0 Absolute Nucleated RBC 0.000 Band Neutrophils % Not Reportable Nucleated RBC % 0.0 Platelet Estimate Adequate Hypochromasia 1+ Anisocytosis 1+ Schistocytes None seen Sodium 137 Potassium 4.2 Chloride 108 H Carbon Dioxide 25 Anion Gap 4 BUN 23 H Creatinine 1.04 H Estim Creat Clear Calc 39 Estimated GFR 52 L Glucose 107 Calcium 8.2 L Patient Feedback: Patient satisfied with anesthetic care.
== END 2024-11-03 13:35 | disposition home or self-care (01) ==
LOC: ANHSURGERY 07:20 → ANH3MEDSUR 10:48
PROVIDERS: Physician Assistant Surgical; PCP Family Medicine; Visit Provider Orthopaedic Surgery
PROC: (CPT 23472; principal; 2024-11-02 07:30)
DX: M12.812 Other specific arthropathies, not elsewhere classified, left shoulder (principal); I12.9 Hypertensive chronic kidney disease with stage 1 through stage 4 chronic kidney disease, or unspecified chronic kidney disease; N18.30 Chronic kidney disease, stage 3 unspecified; M48.062 Spinal stenosis, lumbar region with neurogenic claudication; G89.4 Chronic pain syndrome; Z79.891 Long term (current) use of opiate analgesic; Z98.890 Other specified postprocedural states; Z98.51 Tubal ligation status; Z98.1 Arthrodesis status; Z98.84 Bariatric surgery status
CPT/HCPCS: 23472; 36415; 73030; 80048; 85025; 86850; 86900; 86901; 97110; 97161; 97166; 97530; J0690; A4565; A9270; C1776; J0166; J0330; J1100; J1171; J1741; J2003; J2270; J2405; J2704; J2795; J3010; J3373; J7120

== ENCOUNTER 2024-11-29 13:03 | Outpatient (CLI) | payer MEDICARE, OTHER, SELFPAY ==
--- OUTSIDE RECORDS SUMMARY | 2023-07-10 09:00 | XMS_ITS ---
Author Organization [facility] [employer] [facility] ([address]) Address [address] [place] [phone] Care Team Providers Care Broomcorn Press Feeder Name Role Phone LiamCharles Ifrah [phone] REASON FOR VISIT [facility], [...] 07/10/2023 Encounters Encounter Location Date Provider Diagnosis [facility] [employer] [facility] ([address]) [address] [place] [phone] 07/10/2023 Charles Wheeler Morbid (severe) obesity due [...] Dose Administered: 2.5 mg Route: SQ Location: [facility] Frequency: weekly Medication Source: [facility] Adverse Reaction: None Progress Notes * Taty WEIRDOB:1950 (74 yo F)Acc No.[id number]:07/10/2023 Weight Loss Patient: Taty CLARK Provider: Jessica Wheeler MD :1950 A ge:73 Y S ex:Female Date:07/10/2023 Address:[address] [place], [place] [phone] Subjective: * Chief Complaints: * 1 . [...] requency w eekly M edication Source [facility] A dverse Reaction N one * Follow Up: 1 Week (Reason: GLP-1 Agonist Administration) * Billing Information: * Visit Code: * Procedure Codes: * Electronic signature of Sapna Wheeler MD, FAAAAI on 11/29/2024 at 02:12 PM CDT Sign off status: Pending * Provider: Jessica Wheeler MD Date: 0 07/10/2023 Generated for Romina leblanc/Rafa/Shoshana on: 1 02:12 PM CDT
--- OUTSIDE RECORDS SUMMARY | 2023-07-24 09:00 | XMS_ITS ---
Author Organization [facility] [employer] [facility] ([address]) Address [address] [place] [phone] Care Team Providers Care Medical Accountant Name Role Phone LiamCharles Ifrah [phone] REASON FOR VISIT [facility], interested in peptide therapy, tried Semaglutide in the past; appetite suppression good I feel like I'm on a liquid diet, Desired weight loss: 20 lbs, +1.2 lbs since lastvisit, -7.2 lbs total, No history MTC or MEN2 or pancreatitis, Concerned about future DM and OA, Gastric bypass surgery - 120 lbs lost, now regained 20 lbs, Concerned about hormones Medications Medication SIG (Take, Route, Frequency, Duration) Notes Start Date End Date Status AZELASTINE NASAL 137 mcg/inh 2 spray(s) intranasally 2 times a day Active GABAPENTIN 300 mg 1 cap(s) orally 3 ti mes a day Active LUBIPROSTONE 24 mcg 1 cap(s) orally 2 ti mes a day Active MULTIVITAMIN Multiple Vitamins 1 tab(s) orally once a day A ctive ACETAMINOPHEN-HYDROCODONE 325 mg-5 mg 1 tab(s) orally every 6 hours As needed Active CETIRIZINE 10 mg 1 tab(s) orally once a day Active Vital Signs Height 65.1 in 07/24/2023 Weight 154.2 lbs 07/24/2023 BMI 25.58 kg/m2 07/24/2023 Encounters Encounter Location Date Provider Diagnosis [facility] [employer] [facility] ([address]) [address] [place] [phone] 07/24/2023 Charles Wheeler Morbid (severe) obesity due to excess calories E66.01 ; Chronic fatigue, unspecified R53.82 ; Other fatigue R53.83 and Other malaise R53.81 Assessments Encounter Date Diagnosis (ICD Code) Assessment Notes Treatment Notes Treatment Clinical Notes Section Notes 07/24/2023 Morbid (severe) obesity due to excess calories (ICD-10 - E66.01) 07/24/2023 Chronic fatigue, unspecified (ICD-10 - R53.82) 07/24/2023 Other fatigue (ICD-10 - R53.83) 07/24/2023 Other malaise (ICD-10 - R53.81) Plan Of Treatment Next Appt Details Follow Up: 1 Week, Reason: G LP-1 Agonist Administration Procedure Notes * Category Sub-Category Detail Notes Quell: Weight Management tirzepatide Indication: weig ht loss Concentration: 10 mg/mL Volume Administered: 0.3 mL Dose Administered: 3 mg Increase dosing due to planned titration per protocol and desires more appetite suppression Route: SQ Location: Left abdomen Frequency: weekly Lot Number/Expiration: Medication Source: [employer] Adverse Reaction: None Progress Notes * Sarah WEIRianDOB:1950 (74 yo F)Acc No.[id number]:07/24/2023 Weight Loss Patient: Taty LCARK Provider: Jessica Wheeler MD :1950 A ge:73 Y S ex:Female Date:07/24/2023 Address:[address] [place], [place] [phone] Subjective: * Chief Complaints: * 1 . [facility], interested in peptide therapy, tried Semaglutide in the past; appetite suppression good I feel like I'm on a liquid diet. 2. Desired weight loss: 20 lbs, +1.2 lbs since last visit, -7.2 lbs total. 3. No history MTC or [...] * Vitals: H t: 65.1 in, Wt: 154.2 lbs, BMI:25.58Index. Assessment: * Assessment: 1. M orbid (severe) obesity due to excess calories - E66.01 (Primary) 2 . C hronic fatigue, unspecified - R53.82 3 . O ther fatigue - R53.83 ?4. O ther malaise - R53.81 Plan: * Treatment: * Procedures: Q uell: Weight Management: tirzepatide I ndication w eight loss C oncentration 1 0 mg/mL V olume Administered 0 .3 mL D ose Administered 3 mg Increase dosing due to planned titration per protocol and desires more appetite suppression R oute S Q L ocation L eft abdomen F requency w eekly L ot Number/Expiration 0 -2024 M edication Source [facility] A dverse Reaction N one * Follow Up: 1 Week (Reason: GLP-1 Agonist Administration) * Billing Information: * Visit Code: * Procedure Codes: * Electronic signature of Sapna Wheeler MD, FAAAAI on 11/29/2024 at 02:12 PM CDT Sign off status: Pending * Provider: Jessica Wheeler MD Date: 0 07/24/2023 Generated for Romina leblanc/Rafa/Shoshana on: 1 02:12 PM CDT
--- OUTSIDE RECORDS SUMMARY | 2023-07-31 09:00 | XMS_ITS ---
Author Organization [facility] [place] ([address]) Address [address] [place] [phone] Care Team Providers Care Claims Examiner Name Role Phone LiamCharles Ifrah [phone] REASON FOR VISIT [facility], [...] hormones Encounters Encounter Location Date Provider Diagnosis [facility] [place] ([address]) [address] [place] [phone] 07/31/2023 Charles Wheeler Morbid (severe) obesity due [...] abdomen Frequency: weekly Lot Number/Expiration: Medication Source: [facility] Adverse Reaction: None Progress Notes * Taty WEIRDOB:1950 (74 yo F)Acc No.[id number]:07/31/2023 Weight Loss Patient: Taty CLARK Provider: Jessica Wheeler MD :1950 A ge:73 Y S ex:Female Date:07/31/2023 Address:[address] [place], [place] [phone] Subjective: * Chief Complaints: * 1 . [...] ot Number/Expiration 0 M edication Source [facility] A dverse Reaction N one * Follow Up: 1 Week (Reason: GLP-1 Agonist Administration) * Billing Information: * Visit Code: * Procedure Codes: * Electronic signature of Sapna Wheeler MD, FAAAAI on 11/29/2024 at 02:12 PM CDT Sign off status: Pending * Provider: Jessica Wheeler MD Date: 0 07/31/2023 Generated for Romina leblanc/Rafa/Shoshana on: 1 02:12 PM CDT
--- OUTSIDE RECORDS SUMMARY | 2023-08-02 16:30 | XMS_ITS ---
Author Organization [facility] [place] ([address]) Address [address] [address] Care Team Providers Care Tamale Machine Feeder Name Role Phone [facility], Provider Unavailable Unavailab le REASON FOR VISIT Multum To Medispan Conversion Encounter Medications Medication SIG (Take, Route, Frequency, Duration) Notes Start Date End Date Status Lubiprostone 24 MCG 1 cap(s) orally 2 ti mes a day Active HYDROcodone-Acetaminophen 5-325 MG 1 tab(s) orally every 6 hours Active Gabapentin 300 MG 1 cap(s) orally 3 ti mes a day Active Multivitamin - 1 tab(s) orally once a day Active Cetirizine HCl 10 MG 1 tab(s) orally once a day Active Azelastine HCl 137 MCG/SPRAY 2 spray(s) intranasally 2 times a day Active Encounters Encounter Location Date Provider Diagnosis [address] [address] 08/02/2023 Provider [facility] Plan Of Treatment No Information Progress Notes * Taty WEIRDOB:1950 (74 yo F)Acc No.[id number]:08/02/2023 Patient: Taty CLARK Provider: Jessica Webb :1950 A ge:73 Y S ex:Female Date:08/02/2023 Address:[address] [place], [place] [phone] Subjective: * Chief Complaints: * 1 . Multum To Medispan Conversion Encounter. * Medical History: * Medications: T aking Cetirizine HCl 10 MG Tablet 1 tab(s) orally once a day , Taking Azelastine HCl 137 MCG/SPRAY Solution 2 spray(s) intranasally 2 times a day , Taking Multivitamin - Tablet 1 tab(s) orally once a day , Taking HYDROcodone-Acetaminophen 5-325 MG Tablet 1 tab(s) orally every 6 hours , Taking Gabapentin 300 MG Capsule 1 cap(s) orally 3 times a day , Taking Lubiprostone 24 MCG Capsule 1 cap(s) orally 2 times a day Objective: * Vitals: Assessment: Plan: * Treatment: * Billing Information: * Visit Code: * Procedure Codes: * Electronic signature of Maryann KELLY-Migration on 11/29/2024 at 02:13 PM CDT Sign off status: Pending * Provider: Jessica lundberg Migration Date: 0 08/02/2023 Generated for Romina leblanc/Rafa/Shoshana on: 1 02:13 PM CDT
--- NOTE | ~2024-11-29 | MM_ITS ---
EXAMINATION: MM diagnostic skyler RT w chiara HISTORY: Six-month follow-up right breast TECHNIQUE: Right craniocaudal, right mediolateral oblique and right medial lateral 3-D tomosynthesis images were obtained and synthetic 2-D images were generated. CAD analysis was submitted and interpreted. COMPARISON: Mammogram from 05/18/2024, 05/13/2024 and 02/03/2023 BREAST PARENCHYMAL COMPOSITION: The breasts are heterogeneously dense, which may obscure small masses. FINDINGS: There is no evidence of suspicious mass, calcification, or architectural distortion to suggest malignancy. IMPRESSION: 1. No mammographic evidence of malignancy. Recommend routine screening mammography in one year. BI-RADS Category 2: Benign finding(s) Reviewed, dictated and finalized at location Q. IMPRESSION: 1. No mammographic evidence of malignancy. Recommend routine screening mammogra phy in one year. BI-RADS Category 2: Benign finding(s)
--- OUTSIDE RECORDS SUMMARY | 2024-11-29 14:13 | XMS_ITS | Clinical Summary ---
Author Organization [facility] Address [address] [place] [address] Phone Care Team Providers Care Movement Education Specialist Name Role Phone Parth Castillo MD Primary Care Provider [phone] Allergies Active Allergy Reactions Criticality Noted Date [...] Comments Blood Pressure 103/68 04/04/2018 11:45 PM SANDBLASTER SUPERVISOR Pulse 78 04/04/2018 11:45 PM SANDBLASTER SUPERVISOR Temperature - - Respiratory Rate 13 04/04/2018 11:45 PM SANDBLASTER SUPERVISOR Oxygen Saturation 96% 04/04/2018 11:45 PM SANDBLASTER SUPERVISOR Inhaled Oxygen Concentration - - Weight - [...] CAD W VINCENZO Routine 02/11/2018 11:51 AM SANDBLASTER SUPERVISOR Screening breast examination [facility] BONE DENSITOMETRY AXIAL SKELETON Routine 05/15/2015 3:48 PM CDT Screening for osteoporosis from Last 3 Months or Most Recently Relevant to Health Maintenance Results * [facility] SCREENING BILATERAL DIGITAL W CAD W VINCENZO (02/11/2018 11:51 AM SANDBLASTER SUPERVISOR) Anatomical Region Laterality Modality breast Bilateral Mammography 02/11/2018 11:3 2 AM SANDBLASTER SUPERVISOR Narrative 02/12/2018 6:40 AM SANDBLASTER SUPERVISOR - [facility] SCREENING BILATERAL DIGITAL W CAD W VINCENZO [...] to exams dated: 10/14/2016, 05/15/2015, and 02/23/2014 [facility]. BREAST TISSUE:The tissue of both [...] contacted. Electronically signed by: Marisa ferguson/kota:02/11/2018 15:01:09 Fast Food Delivery Driver: Mary Josue)(Geoff), [facility] letter sent: Additional Imaging Reading location: [facility] BI-RADS: 0 Additional Imaging Evaluation Needed Procedure Note Marisa Lyman MD - 02/12/2018 - [facility] SCREENING BILATERAL DIGITAL W CAD W VINCENZO [...] to exams dated: 10/14/2016, 05/15/2015, and 02/23/2014 [facility]. BREAST TISSUE:The tissue of both [...] contacted. Electronically signed by: Marisa ferguson/kota:02/11/2018 15:01:09 Fast Food Delivery Driver: Mary Josue)(M), [facility] letter sent: Additional Imaging Reading location: [facility] BI-RADS: 0 Additional Imaging Evaluation Needed us Parth Castillo MD IMG MAMMO ORDERABLES Final R esult * [facility] BONE DENSITOMETRY AXIAL SKELETON (05/15/2015 3:48 [...] as an adult, rheumatoid arthritis COMPARISON(S): 08/28/2010 [employer] FINISHER/MODEL: [employer] (S/N [id number]) FINDINGS: AP lumbar spine L1-L4 Total BMD is 1.556 g/me2W-rxbgv is 2.9 Most recent prior BMD was 1.535 g/cm2 There has been a 1.4% increase in BMD which is not statistically significant. Left Hip Current Total BMD is 0.833 g/iv2W-eikuo is -1.4 Most recent prior Total BMD was 0.849 g/cm2 There has been a 1.9% decrease in BMD which is not statistically significant. Current femoral neck BMD is 0.890 g/xj0T-etxit is -1.1 Fracture risk assessment (FRAX): 10 [...] as an adult, rheumatoid arthritis COMPARISON(S): 08/28/2010 [employer] FLOOR FINISHER/MODEL: [employer] (S/N [id number]) FINDINGS: AP lumbar spine L1-L4 Total BMD is 1.556 g/th8D-nokqj is 2.9 Most recent prior BMD was 1.535 g/cm2 There has been a 1.4% increase in BMD which is not statistically significant. Left Hip Current Total BMD is 0.833 g/gg5J-zrkjv is -1.4 Most recent prior Total BMD was 0.849 g/cm2 There has been a 1.9% decrease in BMD which is not statistically significant. Current femoral neck BMD is 0.890 g/oj1N-etjlz is -1.1 Fracture risk assessment (FRAX): 10 [...] and Treatment of Osteoporosis (http://www.nof.org/professionals/clinical-guidelines) Vivienne Richey TAILOR HELPER, DIE ENGRAVING SUPERVISOR IMG DEXA ORDERABLES Fin al Result from Last 3 Months or Most Recently Relevant to Health Maintenance Insurance MEDICARE Care Teams Movement Education Specialist Relationship Specialty Start Date End Date Parth Castillo MD [address] [place] [address] PCP - General Internal Medicine 09/25/16
--- OUTSIDE RECORDS SUMMARY | 2024-11-29 14:13 | XMS_ITS | Patient Health Record ---
Author Organization [facility] ([address]) Address [address] [address] Support Name Relationship Address Phone Taty Heath Guarantor Unknown [phone] Reason For Referral No Information Medications Medication [...] Status Risk Notes Problem Morbid obesity (disorder) (031829794) Morbid (severe) obesity due to excess calories (E66.01) Active confirmed Problem Chronic fatigue syndrome (disorder) (59463730) Chronic fatigue, unspecified (R53.82) Active confirmed Plan Of Treatment No Information Medical (General) History Surgical History Surgery Date(Month/Year) Bernice En Y 1998
--- OUTSIDE RECORDS SUMMARY | 2024-11-29 14:13 | XMS_ITS | Clinical Summary ---
Author Organization [facility] [employer] Address [address] [place] [address] Care Team Providers Care Geopolitics Teacher Name Role Phone Meagan Godoy RN Unavailable [phone] Charles Thornton MD Unavailable [phone] Perfecto Cooper MD Unavailable [phone] Elizabeth Brown MD Unavailable [phone] Elizabeth Brown MD Primary Care Provider U navailable Source Comments [facility],non-owned Affiliates and Associated Physician Practices is amultiple site organization consisting of ambulatory clinics and hospital sitesin [place], [place], [place] and [place]. This disclosure is being madepursuant to the Care Everywhere program and may not contain all information available regarding this patient. Last updated 17.[facility] [employer] Allergies Active Allergy Reactions Criticality Noted Date [...] Operation 30 capsule 5 9 Active Multiple Vitamins-[place] als (HAIR SKIN AND NAILS FORMULA PO) Active Calcium-Phosph orus-Vitamin D (CITRACAL +D3 PO) Take by mouth every 7 days Active azelastine (ASTELIN) 0.1 % nasal spray 1 Active Homeopathic Products (LEG CRAMPS PO) Active diphenhydrAMIN E HCl (BENADRYL PO) Active HYDROcodone-ac etaminophen ([place]) 5-325 MG tablet Take 1 (one) tablet [...] breath. Assessment & Plan (02/04/2019 2:08 PM INTERPRETATIVE DANCER): Lower dose to 25 mg qd Assessment & Plan (04/06/2018 1:44 PM INTERPRETATIVE DANCER): Stay off medication until BP becomes higher [...] med/dose. Assessment & Plan (02/15/2013 10:41 AM INTERPRETATIVE DANCER): Monitor at home. Continue current med, start exercising. Anxiety Overview (02/04/2019): Rare xanax Assessment & Plan (02/04/2019 2:10 PM INTERPRETATIVE DANCER): Continue current medication. Assessment & Plan (12/04/2017 [...] (AF LURIA, FLUZONE TRIVALENT; 6MO+) (IIV3) 12/14/2013 [employer]min[employer] primary monoval ent 12+ yr 0.3mL Purple [...] on file Legal Sex Female 6:00 AM INTERPRETATIVE DANCER Gender Identity Female 01/26/2019 8:32 AM INTERPRETATIVE DANCER Sexual Orientation Not on file Last Filed [...] Comments LIPID PROFILE Routine 02/04/2019 2:32 PM INTERPRETATIVE DANCER Essential hypertension HEPATITIS PANEL Routine 04/06/2018 2:01 PM INTERPRETATIVE DANCER Encounter for screening for other viral diseases Elevated LFTs MAMMOGRAPHY ORDER Routine 02/27/2018 ENDOSCOPY, COLON, SCREENING Routine 02/26/2016 7:25 AM INTERPRETATIVE DANCER DEXA BONE DENSITY 2 SITES Routine 05/15/2015 from Last 3 Months or Most Recently Relevant to Health Maintenance Results * LIPID PROFILE (02/04/2019 2:32 PM INTERPRETATIVE DANCER) Cholesterol 166 <200 mg/dL [facility] INSURANCE BILL Triglycerides 52 <150 mg/dL [facility] INSURANCE BILL HDL Cholesterol 87 >40 mg/dL [facility] INSURANCE BILL VLDL Calculated 10 <=30 mg/dL [facility] INSURANCE BILL LDL Calculated 69 <130 mg/dL [facility] INSURANCE BILL Blood BLOOD SPECIMEN / Unknown 02/04/2019 2:32 PM INTERPRETATIVE DANCER 02/04/2019 Narrative Resulting Agency Comment Lab Testing performed at: [facility] [place] [id number] [place] [id number] Parth Castillo MD LAB - CHEMISTRY ORDERABLES F inal Result [facility] INSURANCE BILL [address] [place] [address] * HEPATITIS PANEL (04/06/2018 2:01 PM INTERPRETATIVE DANCER) Hepatitis A Virus Antibody IgM Negative Negative [...] BLOOD SPECIMEN / Unknown 04/06/2018 2:01 PM INTERPRETATIVE DANCER 04/06/2018 Narrative Resulting Agency Comment [facility] [address] [facility] [phone] us Parth Castillo MD LAB - CHEMISTRY ORDERABLES F inal Result [facility] INSURANCE BILL [address] [place] [address] * MAMMOGRAPHY ORDER (02/27/2018) Anatomical Region Laterality Modality Mammography us Parth Castillo MD MAMMO ORDERABLES Final Resul t * ENDOSCOPY, COLON, SCREENING (02/26/2016 7:25 AM INTERPRETATIVE DANCER) Report Endoscopy POC _ Patient Name: Taty [...] by the physician, the nurse and the welder first class in the procedure room. Mental Status Examination: [...] previously scheduled. Procedure Code(s): --- Professional --- 39042, Colonoscopy, flexible; with biopsy, single or multiple --- Technical --- 35789, Colonoscopy, flexible; with biopsy, single or multiple [...] neoplasm of descending colon CPT copyright 2015 [employer]. All rights reserved. The codes documented in this report are preliminary and upon inpatient coder review may be revised to meet current compliance requirements. Dr. Charles Thornton MD Charles Thornton MD 02/26/2016 8:21:08 AM This report has been signed electronically. Number of Addenda: 0 Note Initiated On: 02/26/2016 7:25 AM [facility] ENDOSCOPY 02/26/2016 7:25 AM INTERPRETATIVE DANCER us Charles Thornton MD GI PROCEDURE ORDERABLES Tien jacob Result - Final [facility] [place] [address] * DEXA BONE DENSITY 2 SITES (05/15/2015) Anatomical Region Laterality Modality Other Vivienne Vanessa Kaiden GENETICS TEACHER DEXA ORDERABLES Final Result from Last 3 Months or Most Recently Relevant to Health Maintenance Insurance MEDICARE MEDICARE SUPPLEMENT PAYOR GENERIC MEDICARE MEDICARE MEDICARE SUPPLEMENT PAYOR GENERIC [facility] Advance Directives * Full Code (Latest Code Status on File) Date Activated Date Inactivated Comments 04/27/2014 6:10 PM 04/28/2014 7:42 PM * Full Code Date Activated Date Inactivated Comments 04/19/2014 2:45 AM 04/21/2014 1:08 PM Care Teams Geopolitics Teacher Relationship Specialty Start Date End Date Elizabeth Brown MD [address] [place] [address] PCP - General Family Medicine 01/12/20 Meagan Godoy, NICKIE Agency Recruiter 04/19/14 Cahrles Thornton MD Echocardiograph Technician Gastroenterology 06/14/14 Perfecto Cooper MD [address] [place] [address] Orthopedic 10/05/18 Elizabeth Brown MD [address] [place] [address] Primary Care Provider Family Medicine 12/07/19
== END 2024-11-29 13:04 | disposition home or self-care (01) ==
LOC: ANHFOHIMG 13:05
PROVIDERS: PCP Family Medicine; Visit Provider Student in an Organized Health Care Education/Training Program
DX: R92.8 Other abnormal and inconclusive findings on diagnostic imaging of breast (principal)
CPT/HCPCS: 77061; 77065; G0279

== ENCOUNTER 2024-12-13 11:59 | Outpatient (CLI) | payer MEDICARE, OTHER, SELFPAY ==
[2024-12-13 12:33] LABS: Hematocrit 34.0 % (37.0-47.0); Hemoglobin 9.8 g/dL (12.0-15.0); Mean Corpuscular HGB Conc 28.8 g/dl (32-36); Mean Corpuscular Hemoglobin 25.8 pg (26-34); Mean Corpuscular Volume 89.5 fl (80-100); Platelet Count Result 289 k/mm3 (150-375); Red Blood Count 3.80 M/mm3 (4.2-5.4); White Blood Count 7.2 K/mm3 (4.5-10.0)
[2024-12-13 12:56] LABS: Albumin Level 3.6 g/dL (3.5-5.1); Anion Gap 5 mmol/L (4-12); Blood Urea Nitrogen 24 mg/dL (7-17); Calcium 8.8 mg/dL (8.4-10.2); Carbon Dioxide 27 mmol/L (22-30); Chloride 107 mmol/L (98-107); Estimated Glomerular Filt Rate 54; Glucose 100 mg/dL (65-110); Potassium 4.2 mmol/L (3.4-5.0); Sodium 139 mmol/L (137-145)
[2024-12-13 13:09] LABS: Parathyroid Intact 62.9 pg/mL (14.5-75.2)
--- OUTSIDE RECORDS SUMMARY | 2024-12-13 13:31 | XMS_ITS | Clinical Summary ---
Author Organization [facility] [employer] Address [address] [place] [address] Care Team Providers Care Mental Health Technician Name Role Phone Meagan Godoy RN Unavailable [phone] Charles Thornton MD Unavailable [phone] Perfecto Cooper MD Unavailable [phone] Elizabeth Brown MD Unavailable [phone] Elizabeth Brown MD Primary Care Provider U navailable Source Comments [facility],non-owned Affiliates and Associated Physician Practices is amultiple site organization consisting of ambulatory clinics and hospital sitesin [place], [place], [place] and [place]. This disclosure is being madepursuant to the Care Everywhere program and may not contain all information available regarding this patient. Last updated 17.[facility] [employer] Allergies Active Allergy Reactions Criticality Noted Date [...] Operation 30 capsule 5 9 Active Multiple Vitamins-[place] als (HAIR SKIN AND NAILS FORMULA PO) Active Calcium-Phosph orus-Vitamin D (CITRACAL +D3 PO) Take by mouth every 7 days Active azelastine (ASTELIN) 0.1 % nasal spray 1 Active Homeopathic Products (LEG CRAMPS PO) Active diphenhydrAMIN E HCl (BENADRYL PO) Active HYDROcodone-ac etaminophen ([place]) 5-325 MG tablet Take 1 (one) tablet [...] breath. Assessment & Plan (02/04/2019 2:08 PM ZIPPER LINING FOLDER): Lower dose to 25 mg qd Assessment & Plan (04/06/2018 1:44 PM ZIPPER LINING FOLDER): Stay off medication until BP becomes higher [...] med/dose. Assessment & Plan (02/15/2013 10:41 AM ZIPPER LINING FOLDER): Monitor at home. Continue current med, start exercising. Anxiety Overview (02/04/2019): Rare xanax Assessment & Plan (02/04/2019 2:10 PM ZIPPER LINING FOLDER): Continue current medication. Assessment & Plan (12/04/2017 [...] (AF LURIA, FLUZONE TRIVALENT; 6MO+) (IIV3) 12/14/2013 CovMonesbat primary monoval ent 12+ yr 0.3mL Purple [...] on file Legal Sex Female 6:00 AM ZIPPER LINING FOLDER Gender Identity Female 01/26/2019 8:32 AM ZIPPER LINING FOLDER Sexual Orientation Not on file Last Filed [...] Comments LIPID PROFILE Routine 02/04/2019 2:32 PM ZIPPER LINING FOLDER Essential hypertension HEPATITIS PANEL Routine 04/06/2018 2:01 PM ZIPPER LINING FOLDER Encounter for screening for other viral diseases Elevated LFTs MAMMOGRAPHY ORDER Routine 02/27/2018 ENDOSCOPY, COLON, SCREENING Routine 02/26/2016 7:25 AM ZIPPER LINING FOLDER DEXA BONE DENSITY 2 SITES Routine 05/15/2015 from Last 3 Months or Most Recently Relevant to Health Maintenance Results * LIPID PROFILE (02/04/2019 2:32 PM ZIPPER LINING FOLDER) Cholesterol 166 <200 mg/dL [facility] INSURANCE BILL Triglycerides 52 <150 mg/dL [facility] INSURANCE BILL HDL Cholesterol 87 >40 mg/dL [facility] INSURANCE BILL VLDL Calculated 10 <=30 mg/dL [facility] INSURANCE BILL LDL Calculated 69 <130 mg/dL [facility] INSURANCE BILL Blood BLOOD SPECIMEN / Unknown 02/04/2019 2:32 PM ZIPPER LINING FOLDER 02/04/2019 Narrative Resulting Agency Comment Lab Testing performed at: [facility] [place] [id number] [place] [id number] Parth Castillo MD LAB - CHEMISTRY ORDERABLES F inal Result [facility] INSURANCE BILL [address] [place] [address] * HEPATITIS PANEL (04/06/2018 2:01 PM ZIPPER LINING FOLDER) Hepatitis A Virus Antibody IgM Negative Negative [...] BLOOD SPECIMEN / Unknown 04/06/2018 2:01 PM ZIPPER LINING FOLDER 04/06/2018 Narrative Resulting Agency Comment [facility] [address] [facility] [phone] us Parth Castillo MD LAB - CHEMISTRY ORDERABLES F inal Result [facility] INSURANCE BILL [address] [place] [address] * MAMMOGRAPHY ORDER (02/27/2018) Anatomical Region Laterality Modality Mammography us Parth Castillo MD MAMMO ORDERABLES Final Resul t * ENDOSCOPY, COLON, SCREENING (02/26/2016 7:25 AM ZIPPER LINING FOLDER) Report Endoscopy POC _ Patient Name: Taty [...] by the physician, the nurse and the lining vamper in the procedure room. Mental Status Examination: [...] previously scheduled. Procedure Code(s): --- Professional --- 36340, Colonoscopy, flexible; with biopsy, single or multiple --- Technical --- 46915, Colonoscopy, flexible; with biopsy, single or multiple [...] neoplasm of descending colon CPT copyright 2015 [employer]. All rights reserved. The codes documented in this report are preliminary and upon heart coordinator review may be revised to meet current compliance requirements. Dr. Charles Thornton MD Charles Thornton MD 02/26/2016 8:21:08 AM This report has been signed electronically. Number of Addenda: 0 Note Initiated On: 02/26/2016 7:25 AM [facility] END[facility]COPY 02/26/2016 7:25 AM ZIPPER LINING FOLDER us Charles Thornton MD GI PROCEDURE ORDERABLES Tien jacob Result - Final [facility] [place] [address] * DEXA BONE DENSITY 2 SITES (05/15/2015) Anatomical Region Laterality Modality Other Vivienne Vanessa Kaiden CUFF MATCHER DEXA ORDERABLES Final Result from Last 3 Months or Most Recently Relevant to Health Maintenance Insurance MEDICARE MEDICARE SUPPLEMENT PAYOR GENERIC MEDICARE MEDICARE MEDICARE SUPPLEMENT PAYOR GENERIC REPLACED BY [facility] Advance Directives * Full Code (Latest Code Status on File) Date Activated Date Inactivated Comments 04/27/2014 6:10 PM 04/28/2014 7:42 PM * Full Code Date Activated Date Inactivated Comments 04/19/2014 2:45 AM 04/21/2014 1:08 PM Care Teams Mental Health Technician Relationship Specialty Start Date End Date Elizabeth Brown MD [address] [place] [address] PCP - General Family Medicine 01/12/20 Meagan Godoy, NICKIE Grinder Operator Tool 04/19/14 Charles Thornton MD Odd Piece Checker Gastroenterology 06/14/14 Perfecto Cooper MD [address] [place] [address] Orthopedic 10/05/18 Elizabeth Brown MD [address] [place] [address] Primary Care Provider Family Medicine 12/07/19
--- OUTSIDE RECORDS SUMMARY | 2024-12-13 13:31 | XMS_ITS | Clinical Summary ---
Author Organization [facility] Address [address] [place] [address] Phone Care Team Providers Care Cook Fruit Name Role Phone Parth Castillo MD Primary [...] Comments Blood Pressure 103/68 04/04/2018 11:45 PM RECREATIONAL ASSISTANT Pulse 78 04/04/2018 11:45 PM RECREATIONAL ASSISTANT Temperature - - Respiratory Rate 13 04/04/2018 11:45 PM RECREATIONAL ASSISTANT Oxygen Saturation 96% 04/04/2018 11:45 PM RECREATIONAL ASSISTANT Inhaled Oxygen Concentration - - Weight - [...] CAD W VINCENZO Routine 02/11/2018 11:51 AM RECREATIONAL ASSISTANT Screening breast examination [facility] BONE DENSITOMETRY AXIAL SKELETON Routine 05/15/2015 3:48 PM CDT Screening for osteoporosis from Last 3 Months or Most Recently Relevant to Health Maintenance Results * [facility] SCREENING BILATERAL DIGITAL W CAD W VINCENZO (02/11/2018 11:51 AM RECREATIONAL ASSISTANT) Anatomical Region Laterality Modality breast Bilateral Mammography 02/11/2018 11:3 2 AM RECREATIONAL ASSISTANT Narrative 02/12/2018 6:40 AM RECREATIONAL ASSISTANT - [facility] SCREENING BILATERAL DIGITAL W CAD W [...] to exams dated: 10/14/2016, 05/15/2015, and 02/23/2014 [facility]. BREAST TISSUE:The tissue of both breasts [...] contacted. Electronically signed by: Marisa ferguson/kota:02/11/2018 15:01:09 Medical Secretary Receptionist: Mary Josue)(Geoff), [facility] letter sent: Additional Imaging Reading location: [facility] BI-RADS: 0 Additional Imaging Evaluation Needed Procedure Note Marisa Lyman MD - 02/12/2018 - [facility] SCREENING BILATERAL DIGITAL W CAD W [...] to exams dated: 10/14/2016, 05/15/2015, and 02/23/2014 [facility]. BREAST TISSUE:The tissue of both breasts [...] contacted. Electronically signed by: Marisa ferguson/kota:02/11/2018 15:01:09 Medical Secretary Receptionist: Mary Josue)(M), [facility] letter sent: Additional Imaging Reading location: [facility] BI-RADS: 0 Additional Imaging Evaluation Needed us Parth Castillo MD IMG MAMMO ORDERABLES Final R esult * [facility] BONE DENSITOMETRY AXIAL SKELETON (05/15/2015 3:48 PM [...] as an adult, rheumatoid arthritis COMPARISON(S): 08/28/2010 HAND DECORATOR/MODEL: [employer] - [employer] (S/N [id number]) FINDINGS: AP lumbar spine L1-L4 Total BMD is 1.556 g/na9K-wmvda is 2.9 Most recent prior BMD was 1.535 g/cm2 There has been a 1.4% increase in BMD which is not statistically significant. Left Hip Current Total BMD is 0.833 g/kg8C-jmezp is -1.4 Most recent prior Total BMD was 0.849 g/cm2 There has been a 1.9% decrease in BMD which is not statistically significant. Current femoral neck BMD is 0.890 g/yo7P-yctwx is -1.1 Fracture risk assessment (FRAX): 10 [...] as an adult, rheumatoid arthritis COMPARISON(S): 08/28/2010 HAND DECORATOR/MODEL: [employer] - [employer] (S/N [id number]) FINDINGS: AP lumbar spine L1-L4 Total BMD is 1.556 g/zy2Q-nmoth is 2.9 Most recent prior BMD was 1.535 g/cm2 There has been a 1.4% increase in BMD which is not statistically significant. Left Hip Current Total BMD is 0.833 g/yd4M-dsxoq is -1.4 Most recent prior Total BMD was 0.849 g/cm2 There has been a 1.9% decrease in BMD which is not statistically significant. Current femoral neck BMD is 0.890 g/wv8A-iemya is -1.1 Fracture risk assessment (FRAX): 10 [...] and Treatment of Osteoporosis (http://www.nof.org/professionals/clinical-guidelines) Vivienne Richey DEALERSHIP GENERAL MANAGER, LOOM FIXER HELPER IMG DEXA ORDERABLES Fin al Result from Last 3 Months or Most Recently Relevant to Health Maintenance Insurance MEDICARE Care Teams Cook Fruit Relationship Specialty Start Date End Date Parth Castillo MD [address] [facility] [address] [place] [address] PCP - General Internal Medicine 09/25/16
[2024-12-13 15:00] LABS: Total Protein Urine Random 13 mg/dL; Ur Ttl Prot Creatinine Ratio 0.09 mg/mg (0-0.20)
== END 2024-12-13 12:00 | disposition home or self-care (01) ==
LOC: ANHLAB 12:03
PROVIDERS: PCP Family Medicine; Visit Provider Internal Medicine Nephrology
DX: N18.31 Chronic kidney disease, stage 3a (principal); R79.89 Other specified abnormal findings of blood chemistry
CPT/HCPCS: 36415; 80069; 82570; 83970; 84156; 85027

== ENCOUNTER 2024-12-16 13:11 | Outpatient (NON) | payer MEDICARE, OTHER, SELFPAY ==
--- OUTSIDE RECORDS SUMMARY | 2023-07-03 09:30 | XMS_ITS ---
Author Organization [facility] [employer] [place] ([address]) Address [address] [place] [phone] Care Team Providers Care Operations Manager Assistant Name Role Phone LiamCharles Ifrah [phone] REASON FOR VISIT [facility], interested in peptide therapy, tried Semaglutide in the past; appetite suppression good I feel like I'm on a liquid diet, Desired weight loss: 20 lbs, -2.2 lbs since lastvisit, -6.8 lbs total, No history MTC or MEN2 or pancreatitis, Concerned about future DM and OA, Gastric bypass surgery - 120 lbs lost, now regained 20 lbs, Concerned about hormones Medications Medication SIG (Take, Route, Frequency, Duration) Notes Start Date End Date Status GABAPENTIN 300 mg 1 cap(s) orally 3 ti mes a day Active ACETAMINOPHEN-HYDROCODONE 325 mg-5 mg 1 tab(s) orally every 6 hours As needed Active MULTIVITAMIN Multiple Vitamins 1 tab(s) orally once a day A ctive AZELASTINE NASAL 137 mcg/inh 2 spray(s) intranasally 2 times a day Active CETIRIZINE 10 mg 1 tab(s) orally once a day Active LUBIPROSTONE 24 mcg 1 cap(s) orally 2 ti mes a day Active Vital Signs Height 65.1 in 07/03/2023 Weight 154.6 lbs 07/03/2023 BMI 25.65 kg/m2 07/03/2023 Encounters Encounter Location Date Provider Diagnosis [facility] [employer] [facility] ([address]) [address] [place] [phone] 07/03/2023 Charles Wheeler Morbid (severe) obesity due to excess calories E66.01 ; Chronic fatigue, unspecified R53.82 ; Other fatigue R53.83 and Other malaise R53.81 Assessments Encounter Date Diagnosis (ICD Code) Assessment Notes Treatment Notes Treatment Clinical Notes Section Notes 07/03/2023 Morbid (severe) obesity due to excess calories (ICD-10 - E66.01) 07/03/2023 Chronic fatigue, unspecified (ICD-10 - R53.82) 07/03/2023 Other fatigue (ICD-10 - R53.83) 07/03/2023 Other malaise (ICD-10 - R53.81) Plan Of Treatment Next Appt Details Follow Up: 1 Week, Reason: G LP-1 Agonist Administration Procedure Notes * Category Sub-Category Detail Notes Quell: Weight Management tirzepatide Indication: weig ht loss Concentration: 10 mg/mL Volume Administered: 0.25 mL Dose Administered: 2.5 mg Route: SQ Location: [facility] Frequency: weekly Medication Source: [employer] Adverse Reaction: None Progress Notes * Taty WEIRDOB:1950 (74 yo F)Acc No.[id number]:07/03/2023 Weight Loss Patient: Taty CLARK Provider: Jessica Wheeler MD :1950 A ge:73 Y S ex:Female Date:07/03/2023 Address:[address] [place], [place] [phone] Subjective: * Chief Complaints: * 1 . [facility], interested in peptide therapy, tried Semaglutide in the past; appetite suppression good I feel like I'm on a liquid diet. 2. Desired weight loss: 20 lbs, -2.2 lbs since last visit, -6.8 lbs total. 3. No history MTC or MEN2 or pancreatitis. 4. Concerned about future DM and OA. 5. Gastric bypass surgery - 120 lbs lost, now regained 20 lbs. 6. Concerned about hormones. * Medical History: * Medications: T aking CETIRIZINE 10 mg tablet 1 tab(s) orally once a day , Taking AZELASTINE NASAL 137 mcg/inh spray 2 spray(s) intranasally 2 times a day , Taking MULTIVITAMIN Multiple Vitamins tablet 1 tab(s) orally once a day , Taking ACETAMINOPHEN-HYDROCODONE 325 mg-5 mg tablet 1 tab(s) orally every 6 hours As needed, Taking GABAPENTIN 300 mg capsule 1 cap(s) orally 3 times a day , Taking LUBIPROSTONE 24 mcg capsule 1 cap(s) orally 2 times a day , Medication List reviewed and reconciled with the patient Objective: * Vitals: H t: 65.1 in, Wt: 154.6 lbs, BMI:25.65Index. Assessment: * Assessment: 1. M orbid (severe) obesity due to excess calories - E66.01 (Primary) 2 . C hronic fatigue, unspecified - R53.82 3 . O ther fatigue - R53.83 ?4. O ther malaise - R53.81 Plan: * Treatment: * Procedures: Q uell: Weight Management: tirzepatide I ndication w eight loss C oncentration 1 0 mg/mL V olume Administered 0 .25 mL D ose Administered 2 .5 mg R oute S Q L ocation L UA F requency w eekly M edication Source H [facility] A dverse Reaction N one * Follow Up: 1 Week (Reason: GLP-1 Agonist Administration) * Billing Information: * Visit Code: * Procedure Codes: * Electronic signature of Sapna Wheeler MD, FAAAAI on 12/16/2024 at 01:57 PM CDT Sign off status: Pending * Provider: Jessica Wheelre MD Date: 0 07/03/2023 Generated for Faviolai benji/Rafa/eTransmitting on: 1 01:57 PM CDT
--- OUTSIDE RECORDS SUMMARY | 2023-07-10 09:00 | XMS_ITS ---
Author Organization [facility] [employer] [facility] ([address]) Address [address] [place] [phone] Care Team Providers Care Order Puller Name Role Phone LiamCharles Ifrah [phone] REASON FOR VISIT [facility], [...] 07/10/2023 Encounters Encounter Location Date Provider Diagnosis [facility] [employer] [facility] ([address]) [address] [place] [phone] 07/10/2023 Charles Wheeler Morbid (severe) obesity due [...] Route: SQ Location: [facility] Frequency: weekly Medication Source: [facility] Adverse Reaction: None Progress Notes * Taty WEIRDOB:1950 (74 yo F)Acc No.[id number]:07/10/2023 Weight Loss Patient: Taty CLARK Provider: Jessica Wheeler MD :1950 A ge:73 Y S ex:Female Date:07/10/2023 Address:[address] [place], [place] [phone] Subjective: * Chief Complaints: * 1 . [...] requency w eekly M edication Source H [facility] A dverse Reaction N one * Follow Up: 1 Week (Reason: GLP-1 Agonist Administration) * Billing Information: * Visit Code: * Procedure Codes: * Electronic signature of Sapna Wheeler MD, FAAAAI on 12/16/2024 at 01:57 PM CDT Sign off status: Pending * Provider: Jessica Wheeler MD Date: 0 07/10/2023 Generated for Romina leblanc/Rafa/Shoshana on: 1 01:57 PM CDT
--- OUTSIDE RECORDS SUMMARY | 2023-07-24 09:00 | XMS_ITS ---
Author Organization [facility] [employer] [facility] ([address]) Address [address] [place] [phone] Care Team Providers Care Agronomist Name Role Phone LiamCharles Ifrah [phone] REASON FOR VISIT [facility], [...] 07/24/2023 Encounters Encounter Location Date Provider Diagnosis [facility] [employer] [facility] ([address]) [address] [place] [phone] 07/24/2023 Charles Wheeler Morbid (severe) obesity due [...] abdomen Frequency: weekly Lot Number/Expiration: Medication Source: [employer] Adverse Reaction: None Progress Notes * Sarah WEIRianDOB:1950 (74 yo F)Acc No.[id number]:07/24/2023 Weight Loss Patient: Taty CLARK Provider: Jessica Wheeler MD :1950 A ge:73 Y S ex:Female Date:07/24/2023 Address:[address] [place], [place] [phone] Subjective: * Chief Complaints: * 1 . [...] Number/Expiration 0 -2024 M edication Source H [facility] A dverse Reaction N one * Follow Up: 1 Week (Reason: GLP-1 Agonist Administration) * Billing Information: * Visit Code: * Procedure Codes: * Electronic signature of Sapna Wheeler MD, FAAAAI on 12/16/2024 at 01:57 PM CDT Sign off status: Pending * Provider: Jessica Wheeler MD Date: 0 07/24/2023 Generated for Romina leblanc/Rafa/Shoshana on: 1 01:57 PM CDT
--- OUTSIDE RECORDS SUMMARY | 2023-07-31 09:00 | XMS_ITS ---
Author Organization [facility] ([address]) Address [address] [place] [phone] Care Team Providers Care Floor Broker Name Role Phone LiamCharles Ifrah [phone] REASON FOR VISIT [facility], [...] now regained 20 lbs, Concerned about hormones Encounters Encounter Location Date Provider Diagnosis [facility] ([address]) [address] [place] [phone] 07/31/2023 Charles Wheeler Morbid (severe) obesity due to excess calories E66.01 ; Chronic fatigue, unspecified R53.82 ; Other fatigue R53.83 and Other malaise R53.81 Assessments Encounter Date Diagnosis (ICD Code) Assessment Notes Treatment Notes Treatment Clinical Notes Section Notes 07/31/2023 Morbid (severe) obesity due to excess calories (ICD-10 - E66.01) 07/31/2023 Chronic fatigue, unspecified (ICD-10 - R53.82) 07/31/2023 Other fatigue (ICD-10 - R53.83) 07/31/2023 Other malaise (ICD-10 - R53.81) Plan Of [...] abdomen Frequency: weekly Lot Number/Expiration: Medication Source: [employer] Adverse Reaction: None Progress Notes * aTty WEIRDOB:1950 (74 yo F)Acc No.[id number]:07/31/2023 Weight Loss Patient: Taty CLARK Provider: Jessica Wheeler MD :1950 A ge:73 Y S ex:Female Date:07/31/2023 Address:[address] [place], [place] [phone] Subjective: * Chief Complaints: * 1 . [...] 6. Concerned about hormones. * Medical History: Objective: * Vitals: Assessment: * Assessment: 1. M orbid (severe) [...] requency w eekly L ot Number/Expiration 0 M edication Source H [facility] A dverse Reaction N one * Follow Up: 1 Week (Reason: GLP-1 Agonist Administration) * Billing Information: * Visit Code: * Procedure Codes: * Electronic signature of Sapna Wheeler MD, FAAAAI on 12/16/2024 at 01:57 PM CDT Sign off status: Pending * Provider: Jessica Wheeler MD Date: 0 07/31/2023 Generated for Romina leblanc/Rafa/Shoshana on: 1 01:57 PM CDT
--- OUTSIDE RECORDS SUMMARY | 2023-08-02 16:30 | XMS_ITS ---
Author Organization [facility] [place] ([address]) Address [address] [address] Care Team Providers Care Manager Data Warehouse Name Role Phone [facility], Provider Unavailable Unavailab [...] Active Encounters Encounter Location Date Provider Diagnosis [address] [address] 08/02/2023 Provider [facility] Plan Of Treatment No Information Progress Notes * Taty WEIRDOB:1950 (74 yo F)Acc No.[id number]:08/02/2023 Patient: Taty CLARK Provider: Jessica Webb :1950 A ge:73 Y S ex:Female Date:08/02/2023 Address:[address] [place], [place] [phone] Subjective: * Chief Complaints: * 1 . [...] * Electronic signature of Maryann KELLY-Migration on 12/16/2024 at 01:58 PM CDT Sign off status: Pending * Provider: Jessica lundberg Migration Date: 0 08/02/2023 Generated for Romina leblanc/Rafa/Shoshana on: 1 01:58 PM CDT
--- OUTSIDE RECORDS SUMMARY | 2024-12-16 13:58 | XMS_ITS | Clinical Summary ---
Author Organization [facility] Address [address] [place] [address] Phone Care Team Providers Care Pipe Cleaning Machine Operator Name Role Phone Parth Castillo MD Primary Care Provider [phone] Allergies Active Allergy Reactions Criticality Noted Date [...] Blood Pressure 103/68 04/04/2018 11:45 PM GENERAL I FARMWORKER Pulse 78 04/04/2018 11:45 PM GENERAL I FARMWORKER Temperature - - Respiratory Rate 13 04/04/2018 11:45 PM GENERAL I FARMWORKER Oxygen Saturation 96% 04/04/2018 11:45 PM GENERAL I FARMWORKER Inhaled Oxygen Concentration - - Weight - [...] W VINCENZO Routine 02/11/2018 11:51 AM GENERAL I FARMWORKER Screening breast examination [facility] BONE DENSITOMETRY AXIAL SKELETON Routine 05/15/2015 3:48 PM CDT Screening for osteoporosis from Last 3 Months or Most Recently Relevant to Health Maintenance Results * [facility] SCREENING BILATERAL DIGITAL W CAD W VINCENZO (02/11/2018 11:51 AM GENERAL I FARMWORKER) Anatomical Region Laterality Modality breast Bilateral Mammography 02/11/2018 11:3 2 AM GENERAL I FARMWORKER Narrative 02/12/2018 6:40 AM GENERAL I FARMWORKER - [facility] SCREENING BILATERAL DIGITAL W CAD W [...] to exams dated: 10/14/2016, 05/15/2015, and 02/23/2014 [facility]. BREAST TISSUE:The tissue of both breasts [...] contacted. Electronically signed by: Marisa ferguson/kota:02/11/2018 15:01:09 Disc Sander: Mary Josue)(Geoff), [facility] letter sent: Additional Imaging Reading location: [facility] BI-RADS: 0 Additional Imaging Evaluation Needed Procedure Note Marisa Lyman MD - 02/12/2018 - [facility] SCREENING BILATERAL DIGITAL W CAD W [...] to exams dated: 10/14/2016, 05/15/2015, and 02/23/2014 [facility]. BREAST TISSUE:The tissue of both breasts [...] contacted. 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 Left Hip Current Total BMD is 0.833 g/is1R-fcqvg is -1.4 Most recent prior Total BMD was 0.849 g/cm2 There has been a 1.9% decrease in BMD which is not statistically significant. 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 Left Hip Current Total BMD is 0.833 g/yx9B-mzgbq is -1.4 Most recent prior Total BMD was 0.849 g/cm2 There has been a 1.9% decrease in BMD which is not statistically significant. 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
--- OUTSIDE RECORDS SUMMARY | 2024-12-16 13:58 | XMS_ITS | Patient Health Record ---
Author Organization [facility] [employer] [place] ([address]) Address [address] [address] Support Name Relationship Address Phone Taty Heath Guarantor Unknown [phone] Reason For Referral No Information Medications Medication [...] Status Risk Notes Problem Morbid obesity (disorder) (472152475) Morbid (severe) obesity due to excess calories (E66.01) Active confirmed Problem Chronic fatigue syndrome (disorder) (74057934) Chronic fatigue, unspecified (R53.82) Active confirmed Plan Of Treatment No Information Medical (General) History Surgical History Surgery Date(Month/Year) Bernice En Y 1998
--- OUTSIDE RECORDS SUMMARY | 2024-12-16 13:58 | XMS_ITS | Clinical Summary ---
Author Organization [facility] Address [address] [place] [address] Care Team Providers Care Safe Deposit Box Rental Clerk Name Role Phone Meagan Godoy RN Unavailable [phone] Charles Thornton MD Unavailable [phone] Perfecto Cooper MD Unavailable [phone] Elizabeth Brown MD Unavailable [phone] Elizabeth Brown MD Primary Care Provider U navailable Source Comments [facility],non-owned Affiliates and Associated Physician Practices is amultiple site organization consisting of ambulatory clinics and hospital sitesin [place], [place], [place] and [place]. This disclosure is being madepursuant to the Care Everywhere program and may not contain all information available regarding this patient. Last updated 17.[facility] Allergies Active Allergy Reactions Criticality Noted Date [...] Operation 30 capsule 5 9 Active Multiple Vitamins-Crook als (HAIR SKIN AND NAILS FORMULA PO) Active Calcium-Phosph orus-Vitamin D (CITRACAL +D3 PO) Take by mouth every 7 days Active azelastine (ASTELIN) 0.1 % nasal spray 1 Active Homeopathic Products (LEG CRAMPS PO) Active diphenhydrAMIN E HCl (BENADRYL PO) Active HYDROcodone-ac etaminophen (Cameron) 5-325 MG tablet Take 1 (one) tablet [...] breath. Assessment & Plan (02/04/2019 2:08 PM FUR PLUCKER): Lower dose to 25 mg qd Assessment & Plan (04/06/2018 1:44 PM FUR PLUCKER): Stay off medication until BP becomes higher [...] med/dose. Assessment & Plan (02/15/2013 10:41 AM FUR PLUCKER): Monitor at home. Continue current med, start exercising. Anxiety Overview (02/04/2019): Rare xanax Assessment & Plan (02/04/2019 2:10 PM FUR PLUCKER): Continue current medication. Assessment & Plan (12/04/2017 [...] (AF LURIA, FLUZONE TRIVALENT; 6MO+) (IIV3) 12/14/2013 CovUsers[employer] primary monoval ent 12+ yr 0.3mL Purple [...] on file Legal Sex Female 6:00 AM FUR PLUCKER Gender Identity Female 01/26/2019 8:32 AM FUR PLUCKER Sexual Orientation Not on file Last Filed [...] Comments LIPID PROFILE Routine 02/04/2019 2:32 PM FUR PLUCKER Essential hypertension HEPATITIS PANEL Routine 04/06/2018 2:01 PM FUR PLUCKER Encounter for screening for other viral diseases Elevated LFTs MAMMOGRAPHY ORDER Routine 02/27/2018 ENDOSCOPY, COLON, SCREENING Routine 02/26/2016 7:25 AM FUR PLUCKER DEXA BONE DENSITY 2 SITES Routine 05/15/2015 from Last 3 Months or Most Recently Relevant to Health Maintenance Results * LIPID PROFILE (02/04/2019 2:32 PM FUR PLUCKER) Cholesterol 166 <200 mg/dL [facility] INSURANCE BILL Triglycerides 52 <150 mg/dL [facility] INSURANCE BILL HDL Cholesterol 87 >40 mg/dL [facility] INSURANCE BILL VLDL Calculated 10 <=30 mg/dL [facility] INSURANCE BILL LDL Calculated 69 <130 mg/dL [facility] INSURANCE BILL Blood BLOOD SPECIMEN / Unknown 02/04/2019 2:32 PM FUR PLUCKER 02/04/2019 Narrative Resulting Agency Comment Lab Testing performed at: [facility] [place] [id number] [place] [phone] Parth Castillo MD LAB - CHEMISTRY ORDERABLES F inal Result [facility] INSURANCE BILL [address] [place] [address] * HEPATITIS PANEL (04/06/2018 2:01 PM FUR PLUCKER) Hepatitis A Virus Antibody IgM Negative Negative [...] BLOOD SPECIMEN / Unknown 04/06/2018 2:01 PM FUR PLUCKER 04/06/2018 Narrative Resulting Agency Comment [facility] [address] [facility] [phone] [place] Parth Castillo MD LAB - CHEMISTRY ORDERABLES F inal Result [facility] INSURANCE BILL [address] [place] [address] * MAMMOGRAPHY ORDER (02/27/2018) Anatomical Region Laterality Modality Mammography us Parth Castillo MD MAMMO ORDERABLES Final Resul t * ENDOSCOPY, COLON, SCREENING (02/26/2016 7:25 AM FUR PLUCKER) Report Endoscopy POC _ Patient Name: Taty [...] by the physician, the nurse and the insurance application investigator in the procedure room. Mental Status Examination: [...] previously scheduled. Procedure Code(s): --- Professional --- 24590, Colonoscopy, flexible; with biopsy, single or multiple --- Technical --- 62540, Colonoscopy, flexible; with biopsy, single or multiple [...] neoplasm of descending colon CPT copyright 2015 [employer]. All rights reserved. The codes documented in this report are preliminary and upon circulator review may be revised to meet current compliance requirements. Dr. Charles Thornton MD Charles Thornton MD 02/26/2016 8:21:08 AM This report has been signed electronically. Number of Addenda: 0 Note Initiated On: 02/26/2016 7:25 AM [facility] ENDOSCOPY 02/26/2016 7:25 AM FUR PLUCKER us Charles Thornton MD GI PROCEDURE ORDERABLES Tien jacob Result - Final [facility] [place] [address] * DEXA BONE DENSITY 2 SITES (05/15/2015) Anatomical Region Laterality Modality Other Vivienne Vanessa Kaiden SYRUP MIXER DEXA ORDERABLES Final Result from Last 3 Months or Most Recently Relevant to Health Maintenance Insurance MEDICARE MEDICARE SUPPLEMENT PAYOR GENERIC MEDICARE MEDICARE MEDICARE SUPPLEMENT PAYOR GENERIC [facility] Advance Directives * Full Code (Latest Code Status on File) Date Activated Date Inactivated Comments 04/27/2014 6:10 PM 04/28/2014 7:42 PM * Full Code Date Activated Date Inactivated Comments 04/19/2014 2:45 AM 04/21/2014 1:08 PM Care Teams Safe Deposit Box Rental Clerk Relationship Specialty Start Date End Date Elizabeth Brown MD [address] [place] [address] PCP - General Family Medicine 01/12/20 Meagan Godoy, NICKIE Print Controller 04/19/14 Charles Thornton MD [employer] Gastroenterology 06/14/14 Perfecto Cooper MD [address] [place] [address] Orthopedic 10/05/18 Elizabeth Brown MD [address] [place] [address] Primary Care Provider Family Medicine 12/07/19
== END 2024-12-16 13:12 | disposition home or self-care (01) ==
PROVIDERS: PCP Family Medicine; Visit Provider Internal Medicine Nephrology
DX: N18.31 Chronic kidney disease, stage 3a (principal)
CPT/HCPCS: 86335